=== PATIENT | female | born 1950 | race Caucasian/White ===

== ENCOUNTER 2016-09-12 13:44 | Inpatient (IN) ==
[2016-09-12 13:54] VITALS: BMI 43.6
[2016-09-12 14:23] LABS: ABG PH 7.428 (7.35-7.45)
[2016-09-12 14:24] LABS: ABG PCO2 50.3 mmHg (35-45)
[2016-09-12 14:25] LABS: ABG BASE EXCESS 9 (-2.0-2.0); ABG HCO3 33.3 (22.0-26.0); ABG TCO2 35 (22.0-28.0)
[2016-09-12 15:03] LABS: BASOPHILS % (AUTO) 0.4 % (0.0-3.0); EOSINOPHILS # (AUTO) 0.3 K/ul (0.0-0.7); EOSINOPHILS % (AUTO) 2.2 % (0.0-7.0); HEMATOCRIT 35.2 % (37.0-47.0); HEMOGLOBIN 10.3 g/dl (12.0-16.0); IMMATURE GRANULOCYTE % (AUTO) 0.4 % (0.0-5.0); LYMPHOCYTES # (AUTO) 1.4 K/uL (0.60-3.4); LYMPHOCYTES % (AUTO) 12.2 (10.0-50.0); MEAN CORPUSCULAR HEMOGLOBIN 23.4 pg (27.0-31.0); MEAN CORPUSCULAR HGB CONC 29.3 (31.8-35.4); MONOCYTES # (AUTO) 0.7 K/uL (0.4-2.0); NEUTROPHILS # (AUTO) 8.9 K/ul (2.0-6.9); NEUTROPHILS % (AUTO) 78.8; PLATELET COUNT 456 10^3/uL (140-440); WHITE BLOOD COUNT 11.24 K/ul (4.6-10.2)
[2016-09-12 15:28] LABS: ALBUMIN 3.3 g/dL (3.4-5.0); ALBUMIN/GLOBULIN RATIO 0.85; ANION GAP 14.3; BILIRUBIN,TOTAL 0.46 mg/dL (0.00-1.20); BUN/CREATININE RATIO 11.25; CALCIUM 9.7 mg/dL (8.2-10.2); CREATININE 0.8 mg/dL (0.60-1.30); POTASSIUM 3.3 mmol/L (3.5-5.10); TOTAL PROTEIN 7.2 g/dL (5.8-8.1); TROPONIN I 0.015 ng/ml (0.0000-0.4000)
[2016-09-12] MEDS ORDERED: SOLU-MEDROL 125 MG IVP STA (15:29)
[2016-09-12] MEDS ORDERED: DUONEB NEB STA (15:30)
--- NOTE | 2016-09-12 15:34 | ED.PDOC ---
General ED Provider: Dr. BOLIVAR FAIRCHILD Chief Complaint: Shortness of Air Stated Complaint: SHORTNESS OF BREATH Time Seen by Physician: 14:00 Mode of Arrival: Ambulance Information Source: Patient Exam Limitations: No limitations Primary [facility] and Triage Documentation Reviewed and Agree: Yes Respiratory Complaint Exam - Shortness of Air Complaint/Exam Symptoms Are: Resolved Timing: Intermittent Initial Severity: Moderate Current Severity: None Alleviating: Reports: Spontaneous resolution Associated Signs and Symptoms: Reports: Cough Related History: Reports: Similar episode History of Healthcare-Acquired Pneumonia: No Pulmonary Embolism Risk Factors: Reports: None Cardiac Risk Factors: Reports: None Pseudomonas Risk Factors: Reports: None Tuberculosis Risk Factors: Reports: None Home Oxygen Use: No Recent Stress Test: No Recent Echo/LV Function: No Respiratory Distress: None Stridor Present: No Tracheal Deviation: No Subcutaneous Emphysema: No Accessory Muscle Use: No Retractions: Not Present Diminished Breath Sounds: No Prolonged Expiratory Phase: No Unable to Speak Full Sentences: No Fatigue: No Leg Swelling: No Román's Sign Present: No Grunting Respirations: No Kussmaul Respirations: No Differential Diagnoses: Pneumonia, Bronchitis Review of Systems - Review Of Systems Constitutional: Reports: Malaise, Weakness Eyes: Reports: No symptoms Ears, Nose, Mouth, Throat: Reports: No symptoms Respiratory: Reports: Cough, Short of air Cardiac: Reports: No symptoms GI: Reports: No symptoms : Reports: No symptoms Musculoskeletal: Reports: No symptoms Skin: Reports: No symptoms Neurological: Reports: No symptoms Endocrine: Reports: No symptoms Hematologic/Lymphatic: Reports: No symptoms All Other Systems: Reviewed and Negative Past Medical History - Past Medical History Previously Healthy: Yes Endocrine: Reports: None Cardiovascular: Reports: None Respiratory: Reports: COPD Hematological: Reports: None Gastrointestinal: Reports: None Genitourinary: Reports: None Neuro/Psych: Reports: None Musculoskeletal: Reports: None Cancer: Reports: None Last Menstrual Period: n/a - Surgical History General Surgical History: Reports: None - Family History Family History: Reports: None - Social History Smoking Status: Former smoker Hx Substance Use: No Physical Exam - Physical Exam Appearance: Well-appearing, No pain distress, Well-nourished Eyes: SVETA, EOMI, Conjunctiva clear ENT: Ears normal, Nose normal, Oropharynx normal Respiratory: Airway patent, Breath sounds clear, Breath sounds equal, Respirations nonlabored Cardiovascular: RRR, Pulses normal, No rub, No murmur GI/: Soft, Nontender, No masses, Bowel sounds normal, No Organomegaly Musculoskeletal: Normal strength, ROM intact, No edema, No calf tenderness Skin: Warm, Dry, Normal color Neurological: Sensation intact, Motor intact, Reflexes intact, Cranial nerves intact, Alert, Oriented Psychiatric: Affect appropriate, Mood appropriate Critical Care Note - Critical Care Note Total Time (mins): 0 Course - Course Hematology/Chemistry: 09/12/16 14:47 09/12/16 14:47 Orders, Labs, Meds: Lab Review 09/12/16 09/12/16 14:05 14:47 WBC 11.24 H RBC 4.40 Hgb 10.3 L Hct 35.2 L MCV 80.0 L MCH 23.4 L MCHC 29.3 L RDW Coeff of Sia 15.0 H Plt Count 456 H Immature Gran % (Auto) 0.4 Neut % (Auto) 78.8 Lymph % (Auto) 12.2 Bonner % (Auto) 6.0 Eos % (Auto) 2.2 Baso % (Auto) 0.4 Immature Gran # (Auto) 0.1 Neut # 8.9 H Lymph # 1.4 Bonner # 0.7 Eos # 0.3 Baso # 0.0 D-Dimer (Manual) 1224.28 Puncture Site Lr O2 Saturation 86.0 L ABG pH 7.428 ABG pCO2 50.3 H ABG pO2 52.0 L* ABG HCO3 33.3 H ABG Total CO2 35 H ABG Base Excess 9 H Lion Test + O2 Delivery Device Nc Oxygen Liter Flow 3.00 FiO2 % 32.0 Sodium 143 Potassium 3.3 L Chloride 100 Carbon Dioxide 32 H Anion Gap 14.3 BUN 9 Creatinine 0.80 Estimated GFR (MDRD) 72.00 BUN/Creatinine Ratio 11.25 Glucose 92 Lactic Acid 12.2 Calcium 9.7 Total Bilirubin 0.46 AST 25 ALT 27 Alkaline Phosphatase 80 Total Creatine Kinase 94 Troponin I 0.0150 Total Protein 7.2 Albumin 3.3 L Globulin 3.9 Albumin/Globulin Ratio 0.85 Procalcitonin < 0.05 Orders Category Date Time Status ADMIT PATIENT INPATIENT .TO [facility] (MONITORED BED) ADMISSION 09/12/16 15: 23 Active ABG DRAW REQUEST Stat CARDIO 09/12/16 14:05 Completed EKG-(ED ONLY) Stat CARDIO 09/12/16 14:06 Completed EKG-(IP & OP ONLY) DAILY CARDIO 09/13/16 06:00 Ordered EKG-(IP & OP ONLY) DAILY CARDIO 09/14/16 06:00 Ordered EKG-(IP & OP ONLY) DAILY CARDIO 09/15/16 06:00 Ordered NEBULIZER TREATMENT Routine CARDIO 09/12/16 15:30 Active NEBULIZER TREATMENT Stat CARDIO 09/12/16 15:30 Completed OXYGEN Routine CARDIO 09/12/16 15:27 Active ACTIVITY .Complete BR CARE 09/12/16 15:23 Active TELEMETRY MONITORING TELE CARE 09/12/16 15:27 Active VITAL SIGNS Q8HR CARE 09/12/16 15:23 Active REGULAR DIET DIETARY 09/12/16 Dinner Ordered ABG Stat LAB 09/12/16 14:05 Completed BLOOD CULTURE Stat LAB 09/12/16 14:47 Received CBC W/ AUTO DIFF DAILY@0600 LAB 09/13/16 06:00 Ordered CBC W/ AUTO DIFF DAILY@0600 LAB 09/14/16 06:00 Ordered CBC W/ AUTO DIFF DAILY@0600 LAB 09/15/16 06:00 Ordered CBC W/ AUTO DIFF DAILY@0600 LAB 09/16/16 06:00 Ordered CBC W/ AUTO DIFF DAILY@0600 LAB 09/17/16 06:00 Ordered CBC W/ AUTO DIFF DAILY@0600 LAB 09/18/16 06:00 Ordered CBC W/ AUTO DIFF DAILY@0600 LAB 09/19/16 06:00 Ordered CBC W/ AUTO DIFF DAILY@0600 LAB 09/20/16 06:00 Ordered CBC W/ AUTO DIFF DAILY@0600 LAB 09/21/16 06:00 Ordered CBC W/ AUTO DIFF DAILY@0600 LAB 09/22/16 06:00 Ordered CBC W/ AUTO DIFF DAILY@0600 LAB 09/23/16 06:00 Ordered CBC W/ AUTO DIFF DAILY@0600 LAB 09/24/16 06:00 Ordered CBC W/ AUTO DIFF DAILY@0600 LAB 09/25/16 06:00 Ordered CBC W/ AUTO DIFF DAILY@0600 LAB 09/26/16 06:00 Ordered CBC W/ AUTO DIFF DAILY@0600 LAB 09/27/16 06:00 Ordered CBC W/ AUTO DIFF DAILY@0600 LAB 09/28/16 06:00 Ordered CBC W/ AUTO DIFF DAILY@0600 LAB 09/29/16 06:00 Ordered CBC W/ AUTO DIFF DAILY@0600 LAB 09/30/16 06:00 Ordered CBC W/ AUTO DIFF DAILY@0600 LAB 10/01/16 06:00 Ordered CBC W/ AUTO DIFF DAILY@0600 LAB 10/02/16 06:00 Ordered CBC W/ AUTO DIFF Stat LAB 09/12/16 14:47 Completed COMPREHENSIVE METABOLIC PANEL DAILY@0600 LAB 09/13/16 06:00 Ordered COMPREHENSIVE METABOLIC PANEL DAILY@0600 LAB 09/14/16 06:00 Ordered COMPREHENSIVE METABOLIC PANEL DAILY@0600 LAB 09/15/16 06:00 Ordered COMPREHENSIVE METABOLIC PANEL DAILY@0600 LAB 09/16/16 06:00 Ordered COMPREHENSIVE METABOLIC PANEL DAILY@0600 LAB 09/17/16 06:00 Ordered COMPREHENSIVE METABOLIC PANEL DAILY@0600 LAB 09/18/16 06:00 Ordered COMPREHENSIVE METABOLIC PANEL DAILY@0600 LAB 09/19/16 06:00 Ordered COMPREHENSIVE METABOLIC PANEL DAILY@0600 LAB 09/20/16 06:00 Ordered COMPREHENSIVE METABOLIC PANEL DAILY@0600 LAB 09/21/16 06:00 Ordered COMPREHENSIVE METABOLIC PANEL DAILY@0600 LAB 09/22/16 06:00 Ordered COMPREHENSIVE METABOLIC PANEL DAILY@0600 LAB 09/23/16 06:00 Ordered COMPREHENSIVE METABOLIC PANEL DAILY@0600 LAB 09/24/16 06:00 Ordered COMPREHENSIVE METABOLIC PANEL DAILY@0600 LAB 09/25/16 06:00 Ordered COMPREHENSIVE METABOLIC PANEL DAILY@0600 LAB 09/26/16 06:00 Ordered COMPREHENSIVE METABOLIC PANEL DAILY@0600 LAB 09/27/16 06:00 Ordered COMPREHENSIVE METABOLIC PANEL DAILY@0600 LAB 09/28/16 06:00 Ordered COMPREHENSIVE METABOLIC PANEL DAILY@0600 LAB 09/29/16 06:00 Ordered COMPREHENSIVE METABOLIC PANEL DAILY@0600 LAB 09/30/16 06:00 Ordered COMPREHENSIVE METABOLIC PANEL DAILY@0600 LAB 10/01/16 06:00 Ordered COMPREHENSIVE METABOLIC PANEL DAILY@0600 LAB 10/02/16 06:00 Ordered COMPREHENSIVE METABOLIC PANEL Stat LAB 09/12/16 14:47 Completed CREATINE KINASE Q8H LAB 09/12/16 21:30 Ordered CREATINE KINASE Q8H LAB 09/13/16 05:30 Ordered CREATINE KINASE Stat LAB 09/12/16 14:47 Completed D-DIMER Stat LAB 09/12/16 14:47 Completed LACTIC ACID Stat LAB 09/12/16 14:47 Completed PROCALCITONIN Stat LAB 09/12/16 14:47 Completed TROPONIN I Q8H LAB 09/12/16 21:30 Ordered TROPONIN I Q8H LAB 09/13/16 05:30 Ordered TROPONIN I Stat LAB 09/12/16 14:47 Completed Aspirin [Aspirin Chewable] MEDS 09/13/16 08:00 Active 81 mg PO DAILYWM Ceftriaxone Sodium [Rocephin] 1 gm MEDS 09/12/16 15:30 Active 0.9 % Sodium Chloride [Sodium Chloride] 50 ml IV DAILY Ipratropium/Albuterol Neb [Duoneb] MEDS 09/12/16 15:30 Discontinued 1 vial NEB ONCE STA Ipratropium/Albuterol Neb [Duoneb] MEDS 09/12/16 18:00 Active 1 vial NEB RTQ6H Methylprednisolone Sod Succ/Pf [Solu-Medrol 125 mg] MEDS 09/12/16 15:29 Discontinued 125 mg IVP ONCE STA Methylprednisolone Sod Succ/Pf [Solu-Medrol 40 mg] MEDS 09/12/16 21:00 Active 40 mg IVP Q12HR Potassium Chloride [Micro-K Cap] MEDS 09/12/16 21:00 Active 10 meq PO BID Sodium Chloride 0.9% [Sodium Chloride] 1,000 ml MEDS 09/12/16 15:30 Active IV 75 mls/hr CHEST, 2 VIEWS PA & LAT Stat RADS 09/12/16 14:05 Completed Medications Generic Name Dose Route Start Last Admin Trade Name Freq PRN Reason Stop Dose Admin Albuterol/Ipratropium 1 vial 09/12/16 18:00 Duoneb NEB RTQ6H BECKY Aspirin 81 mg 09/13/16 08:00 Aspirin Chewable PO DAILYWM BECKY Sodium Chloride 1,000 mls @ 75 mls/hr 09/12/16 15:30 Sodium Chloride IV .[id number] BECKY Ceftriaxone Sodium 1 gm/ 50 mls @ 75 mls/hr 09/12/16 15:30 Sodium Chloride IV DAILY BECKY Methylprednisolone Sodium Succinate 40 mg 09/12/16 21:00 Solu-Medrol 40 Mg IVP Q12HR BECKY Potassium Chloride 10 meq 09/12/16 21:00 Micro-K Cap PO BID BECKY Torsemide 20 mg 09/12/16 17:00 Demadex PO BIDAC BECKY Discontinued Medications Generic Name Dose Route Start Last Admin Trade Name Veronica PRN Reason Stop Dose Admin Albuterol/Ipratropium 1 vial 09/12/16 15:30 09/12/16 15:44 Duoneb NEB 09/12/16 15:31 1 vial ONCE STA Administration Methylprednisolone Sodium Succinate 125 mg 09/12/16 15:29 09/12/16 16:08 Solu-Medrol 125 Mg IVP 09/12/16 15:30 125 mg ONCE STA Administration Vital Signs: Temp Pulse Resp BP Pulse Ox 09/12/16 13:46 102 F H 113 H 24 147/75 H 90 L Departure - Departure Time of Disposition: 17:24 Disposition: ADMITTED INPATIENT Discharge Problem: COPD exacerbation Condition: Good Pt referred to PMD for follow-up: No Allergies/Adverse Reactions: Allergies Penicillins Adverse Reaction (Verified 09/12/16 13:57) Home Medications: Ambulatory Orders Albuterol Sulfate [Proair Hfa] 2 puff IH BID 09/12/16 Aspirin 81 mg PO DAILY 09/12/16 Budesonide/Formoterol Fumarate [Symbicort 160-4.5 Mcg Inhaler] 2 puff IH BID Potassium Chloride [Micro-K Cap] 10 meq PO BID 09/12/16 Tiotropium [place] [Spiriva] 1 cap IH DAILY 09/12/16 Torsemide [Demadex] 20 mg PO BID 09/12/16 Disposition Discussed With: Patient
--- NOTE | 2016-09-12 15:56 | DI ---
EXAM: Chest two views CLINICAL INDICATION: Shortness of breath. COMPARISON: None available. FINDINGS: PA and lateral views of the thorax are provided. The pulmonary parenchyma is clear and there is no pleural abnormality. The cardiomediastinal silhou ette and visualized bony structures are unremarkable. IMPRESSION: Negative chest x-ray.
--- NOTE | 2016-09-12 16:54 | US ---
EXAM: Bilateral lower extremity venous Doppler sonogram. CLINICAL INDICATION: Chronic bilateral lower extremity pain, tenderness and swelling. Rule out DV T. FINDINGS: There is normal compression, spontaneous color Doppler flow and augmentation demonstrated between th e region of the bilateral trifurcations through to the bilateral common femoral veins. IMPRESSION: No bilateral lower extremity DVT.
--- NOTE | 2016-09-12 17:21 | CT ---
EXAM: CTA of the chest. History: Elevated D-dimer, chest pain. Comparison: Chest radiograph 09/12/2016 Technique: Multiplanar CT images through the thorax were obtained following administration of IV co ntrast. MIP images and 3-D reconstructions were also acquired. Findings: Heart is borderline enlarged. No pericardial effusion. Great vessels are unremarkable. The pulmonary arteries are not well opacified with contrast material. No large central pulmonary e mbolism is identified. No pathologically enlarged axillary lymph nodes. Small scattered mediastinal lymph nodes. No hilar adenopathy. Emphysema. No pneumothorax. Scattered areas of subsegmental atelectasis. No pleural fluid. No dens bri consolidated pneumonia. Peripheral reticular opacities. No suspicious lung masses or lung nodul es. Interlobular septal thickening. Subtle bilateral ground-glass changes. Within the visualized upper abdomen, no acute findings. No acute osseous abnormalities. Impression: 1. The pulmonary arteries are not well opacified but no large central pulmonary embolism is identif ied. 2. Interlobular septal thickening with bilateral ground-glass changes could be due to edema or nons pecific interstitial pneumonitis. 3. Scattered areas of subsegmental atelectasis. 4. Mild emphysema
[2016-09-12] MEDS ORDERED: ROCEPHIN ONE (17:26)
[2016-09-12] MEDS: ROCEPHIN 1 GM in SODIUM CHLORIDE 50 ML IV SCH (17:33)
[2016-09-12] MEDS: DUONEB NEB SCH ×2 (17:55→22:52)
[2016-09-12] MEDS: SODIUM CHLORIDE 1,000 ML IV SCH (19:16)
[2016-09-12] MEDS: DEMADEX PO SCH (19:43)
[2016-09-12] MEDS: MICRO-K CAP PO SCH (20:03)
[2016-09-12] MEDS: SOLU-MEDROL 40 MG IVP SCH (20:03)
[2016-09-12] MEDS ORDERED: TORSEMIDE 20 MG PO SCH (21:00)
[2016-09-12 21:53] LABS: CREATINE KINASE 81 U/L
[2016-09-13] MEDS ORDERED: DUONEB NEB PRN (01:37)
[2016-09-13] MEDS ORDERED: SOLU-MEDROL 40 MG IVP STA (02:04)
[2016-09-13 02:23] LABS: ABG PH 7.349 (7.35-7.45)
[2016-09-13 02:24] LABS: ABG BASE EXCESS 7 (-2.0-2.0); ABG HCO3 32.3 (22.0-26.0); ABG PCO2 58.7 mmHg (35-45)
[2016-09-13 02:25] LABS: ABG TCO2 34 (22.0-28.0)
[2016-09-13 03:54] LABS: ABG BASE EXCESS 9 (-2.0-2.0); ABG HCO3 33 (22.0-26.0); ABG PCO2 46.6 mmHg (35-45); ABG PH 7.458 (7.35-7.45); ABG TCO2 34 (22.0-28.0)
[2016-09-13 05:19] LABS: BASOPHILS % (AUTO) 0.3 % (0.0-3.0); HEMATOCRIT 35.4 % (37.0-47.0); HEMOGLOBIN 10.4 g/dl (12.0-16.0); IMMATURE GRANULOCYTE % (AUTO) 0.4 % (0.0-5.0); LYMPHOCYTES # (AUTO) 0.7 K/uL (0.60-3.4); LYMPHOCYTES % (AUTO) 6.4 (10.0-50.0); MEAN CORPUSCULAR HEMOGLOBIN 23.1 pg (27.0-31.0); MEAN CORPUSCULAR HGB CONC 29.4 (31.8-35.4); MEAN CORPUSCULAR VOLUME 78.7 fl (81.0-99.0); MONOCYTES # (AUTO) 0.1 K/uL (0.4-2.0); MONOCYTES % (AUTO) 0.6 (0-10); NEUTROPHILS # (AUTO) 10.3 K/ul (2.0-6.9); NEUTROPHILS % (AUTO) 92.3; PLATELET COUNT 459 10^3/uL (140-440); WHITE BLOOD COUNT 11.14 K/ul (4.6-10.2)
[2016-09-13] MEDS: DUONEB NEB SCH ×4 (05:19→23:29)
[2016-09-13 05:38] LABS: ALBUMIN 3.2 g/dL (3.4-5.0); ALBUMIN/GLOBULIN RATIO 0.78; ANION GAP 11.7; BILIRUBIN,TOTAL 0.29 mg/dL (0.00-1.20); BUN/CREATININE RATIO 15.47; CALCIUM 9.2 mg/dL (8.2-10.2); CREATININE 0.84 mg/dL (0.60-1.30); POTASSIUM 3.7 mmol/L (3.5-5.10); TOTAL PROTEIN 7.3 g/dL (5.8-8.1)
[2016-09-13 05:46] LABS: TROPONIN I 0.01 ng/ml (0.0000-0.4000)
[2016-09-13] MEDS: DEMADEX PO SCH ×2 (06:10→16:27)
[2016-09-13] MEDS: ASPIRIN CHEWABLE PO SCH (08:12)
[2016-09-13] MEDS: ROCEPHIN 1 GM in SODIUM CHLORIDE 50 ML IV SCH (08:12)
[2016-09-13] MEDS: MICRO-K CAP PO SCH ×2 (08:12→20:20)
[2016-09-13] MEDS: SODIUM CHLORIDE 1,000 ML IV SCH (08:13)
[2016-09-13] MEDS: SOLU-MEDROL 40 MG IVP SCH ×2 (08:51→20:19)
[2016-09-13] MEDS ORDERED: K-DUR PO STA (14:39)
[2016-09-13] MEDS ORDERED: LASIX IVP STA (14:40)
[2016-09-14 04:58] LABS: BASOPHILS % (AUTO) 0.2 % (0.0-3.0); HEMATOCRIT 36.7 % (37.0-47.0); HEMOGLOBIN 10.7 g/dl (12.0-16.0); IMMATURE GRANULOCYTE % (AUTO) 1.9 % (0.0-5.0); LYMPHOCYTES # (AUTO) 1.3 K/uL (0.60-3.4); LYMPHOCYTES % (AUTO) 4.8 (10.0-50.0); MEAN CORPUSCULAR HEMOGLOBIN 23.1 pg (27.0-31.0); MEAN CORPUSCULAR HGB CONC 29.2 (31.8-35.4); MEAN CORPUSCULAR VOLUME 79.3 fl (81.0-99.0); MONOCYTES # (AUTO) 0.6 K/uL (0.4-2.0); MONOCYTES % (AUTO) 2.3 (0-10); NEUTROPHILS # (AUTO) 23.5 K/ul (2.0-6.9); NEUTROPHILS % (AUTO) 90.8; PLATELET COUNT 547 10^3/uL (140-440); RED BLOOD COUNT 4.63 10^6/ul (4.20-5.40); WHITE BLOOD COUNT 25.89 K/ul (4.6-10.2)
[2016-09-14 05:23] LABS: ALBUMIN 3.3 g/dL (3.4-5.0); ALBUMIN/GLOBULIN RATIO 0.83; ANION GAP 14.3; BILIRUBIN,TOTAL 0.24 mg/dL (0.00-1.20); BUN/CREATININE RATIO 25.26; CALCIUM 9.2 mg/dL (8.2-10.2); CREATININE 0.95 mg/dL (0.60-1.30); POTASSIUM 4.3 mmol/L (3.5-5.10); TOTAL PROTEIN 7.3 g/dL (5.8-8.1)
[2016-09-14 05:23] LABS: ABG PH 7.374 (7.35-7.45)
[2016-09-14 05:29] LABS: ABG BASE EXCESS 13 (-2.0-2.0); ABG HCO3 37.8 (22.0-26.0); ABG PCO2 64.8 mmHg (35-45); ABG TCO2 40 (22.0-28.0)
[2016-09-14] MEDS: DEMADEX PO SCH ×2 (05:38→17:15)
[2016-09-14] MEDS: DUONEB NEB SCH ×4 (05:42→23:11)
[2016-09-14] MEDS: SODIUM CHLORIDE 1,000 ML IV SCH ×2 (05:43→09:55)
[2016-09-14] MEDS ORDERED: SODIUM CHLORIDE 1,000 ML IV SCH (07:33)
[2016-09-14] MEDS: SODIUM CHLORIDE 500 ML IV SCH ×2 (07:52→07:54)
[2016-09-14] MEDS: MICRO-K CAP PO SCH ×2 (08:53→20:15)
[2016-09-14] MEDS: ROCEPHIN 1 GM in SODIUM CHLORIDE 50 ML IV SCH (08:53)
[2016-09-14] MEDS: ASPIRIN CHEWABLE PO SCH (08:53)
[2016-09-14] MEDS: SOLU-MEDROL 40 MG IVP SCH ×2 (09:27→20:16)
[2016-09-15 05:01] LABS: BASOPHILS % (AUTO) 0.2 % (0.0-3.0); HEMATOCRIT 36.6 % (37.0-47.0); HEMOGLOBIN 10.9 g/dl (12.0-16.0); IMMATURE GRANULOCYTE % (AUTO) 2.5 % (0.0-5.0); LYMPHOCYTES # (AUTO) 1.5 K/uL (0.60-3.4); LYMPHOCYTES % (AUTO) 7.3 (10.0-50.0); MEAN CORPUSCULAR HEMOGLOBIN 23.3 pg (27.0-31.0); MEAN CORPUSCULAR HGB CONC 29.8 (31.8-35.4); MEAN CORPUSCULAR VOLUME 78.2 fl (81.0-99.0); MONOCYTES # (AUTO) 0.4 K/uL (0.4-2.0); MONOCYTES % (AUTO) 1.7 (0-10); NEUTROPHILS # (AUTO) 18.2 K/ul (2.0-6.9); NEUTROPHILS % (AUTO) 88.3; PLATELET COUNT 565 10^3/uL (140-440); RED BLOOD COUNT 4.68 10^6/ul (4.20-5.40); WHITE BLOOD COUNT 20.58 K/ul (4.6-10.2)
[2016-09-15 05:03] LABS: ABG BASE EXCESS 14 (-2.0-2.0); ABG HCO3 38.5 (22.0-26.0); ABG PCO2 57.6 mmHg (35-45); ABG PH 7.433 (7.35-7.45); ABG TCO2 40 (22.0-28.0)
[2016-09-15 05:19] LABS: ALBUMIN 3.5 g/dL (3.4-5.0); ALBUMIN/GLOBULIN RATIO 0.9; ANION GAP 15.9; BILIRUBIN,TOTAL 0.26 mg/dL (0.00-1.20); BUN/CREATININE RATIO 36.36; CALCIUM 9.4 mg/dL (8.2-10.2); CREATININE 0.88 mg/dL (0.60-1.30); POTASSIUM 3.9 mmol/L (3.5-5.10); TOTAL PROTEIN 7.4 g/dL (5.8-8.1)
[2016-09-15] MEDS: DEMADEX PO SCH ×2 (05:30→16:03)
[2016-09-15] MEDS: DUONEB NEB SCH ×4 (05:39→23:12)
[2016-09-15] MEDS: ASPIRIN CHEWABLE PO SCH (07:31)
[2016-09-15] MEDS: ROCEPHIN 1 GM in SODIUM CHLORIDE 50 ML IV SCH (08:20)
[2016-09-15] MEDS: MICRO-K CAP PO SCH ×2 (08:20→20:07)
[2016-09-15] MEDS: SOLU-MEDROL 40 MG IVP SCH ×2 (08:47→20:25)
[2016-09-15] MEDS: CELEXA PO SCH (08:47)
[2016-09-15] MEDS: LOVENOX SUBCUT SCH (09:23)
[2016-09-15] MEDS: SODIUM CHLORIDE 1,000 ML IV SCH ×2 (13:00→13:01)
[2016-09-15] MEDS ORDERED: SODIUM CHLORIDE 1,000 ML IV ONE (13:01)
--- NOTE | 2016-09-15 13:22 | PN ---
DATE OF SERVICE: 09/13/16 SUBJECTIVE: The patient was admitted with the COPD exacerbation and bronchitis. Over the night the respiratory has to call me, Mr. Aguilera as patient was sleepy, no lethargic. ABG's were done pCO2 was 58. The patient was started on the BIPAP by morning her pCO2 46. Right now the patient is awake and alert having her breakfast. She says that it does happen whenever she goes to the hospital and never has to be intubated. She sees the technical spec Dr. [place]. Shortness of breath is some better but still having some cough. She is sad being by herself here in [place] where she has no one. REVIEW OF SYSTEMS: CONSTITUTIONAL: No fever, no chills. HEENT: Normal. ENDOCRINE: No weight gain, no weight loss. CVS: No angina symptoms. No CHF symptoms. No palpitations. No atypical chest pain for CAD. No shortness of breath. No PND, no orthopnea. RESPIRATORY: No cough, no hemoptysis. GI: No nausea, no vomiting. No abdominal pain. : No hematuria. No polyuria. MUSCULOSKELETAL:. No joint swelling. PSYCHIATRIC: Not anxious. No depression. No suicidal thoughts. No homicidal thoughts. SKIN: Intact. No rash. PHYSICAL EXAMINATION: V/S: Blood pressure 111/76, respiratory rate 20, heart rate 94, temperature 97.4 and saturation 90% on BIPAP on 2 liters. HEENT: Normocephalic, atraumatic. Mucosa dry. Pallor positive. No icterus. NECK: Supple. No JVD, no carotid bruit. No lymphadenopathy. LUNGS: Basilar crackles and decreased entry. No rales or rhonchi. HEART: S1, S2 normal. No S3. No murmur, gallop or regurgitation. ABDOMEN: Soft, nontender. Bowel sounds active. No rigidity. No rebound or guarding. No CVA tenderness. EXTREMITIES: No clubbing, cyanosis. 1+ edema. MUSCULOSKELETAL: No joint swelling. NEUROLOGIC: Awake, alert, oriented times three. No focal deficit. LYMPHATIC: No lymph nodes palpable. SKIN: Intact. Dry. LABS: WBC 11.14, hgb 10.4, hct 35.4, plt count 459, sodium 142, potassium 3.7, chloride 103, bibcarb 31, BUN 13, creatinine 0.84. ASSESSMENT: 1. COPD EXACERBATION SECONDARY TO BRONCHITIS 2. RESPIRATORY FAILURE, ACUTE ON CHRONIC 3. ANEMIA, RULE OUT GI BLEED 4. HYPERTENSION 5. DYSLIPIDEMIA 6. DEPENDENT EDEMA 7. OSTEOARTHRITIS 8. RHEUMATOID ARTHRITIS PLAN: 1. Continue the Rocephin 2. DUO NEBS Q 6 hours 3. Solu-Medrol 40mg Q 8 hours 4. IV fluids at 30ml per hour 5. Daily I&O's 6. Will follow the patient in daily rounds. TIME SPENT: More than 30 minutes DONNA
--- NOTE | 2016-09-15 13:32 | PN ---
DATE OF SERVICE: 09/14/16 SUBJECTIVE: The patient was admitted with the COPD exacerbation and hypoxemia. The patient is desaturating during the nighttime and getting the CO2 Narcosis and BIPAP is helping her a lot. She is more awake and alert. REVIEW OF SYSTEMS: CONSTITUTIONAL: No fever, no chills. HEENT: Normal. ENDOCRINE: No weight gain, no weight loss. CVS: No angina symptoms. No CHF symptoms. No palpitations. No atypical chest pain for CAD. No shortness of breath. No PND, no orthopnea. RESPIRATORY: Some coughing, no hemoptysis. GI: No nausea, no vomiting. No abdominal pain. : No hematuria. No polyuria. MUSCULOSKELETAL:. No joint swelling. Minimal ambulatory with secondary to the shortness of breath. PSYCHIATRIC: Not anxious. No depression. No suicidal thoughts. No homicidal thoughts. SKIN: Intact. No rash. PHYSICAL EXAMINATION: V/S: blood pressure 131/73, respiratory rate 24, heart rate 105, temperature 98. HEENT: Normocephalic, atraumatic. Mucosa dry. Pallor positive. No icterus. NECK: Supple. No JVD, no carotid bruit. No lymphadenopathy. LUNGS: Decreased and basilar crackles. No rales or rhonchi. HEART: S1, S2 normal. No S3. No murmur, gallop or regurgitation. ABDOMEN: Soft, nontender. Bowel sounds active. No rigidity. No rebound or guarding. No CVA tenderness. EXTREMITIES: No clubbing, cyanosis or pedal edema. MUSCULOSKELETAL: No joint swelling. NEUROLOGIC: Awake, alert, oriented times three. No focal deficit. LYMPHATIC: No lymph nodes palpable. SKIN: Intact. LABS: WBC 25.89, hg b10.7, hct 36.7, lipid is 547, sodium 145, potassium 4.3, chloride 101, bibcarb 34, BUN 24, creatinine 0.95. ASSESSMENT: 1. COPD exacerbation secondary to the bronchitis and pneumonitis 2. Respiratory failure 3. Anemia, rule out GI bleed 4. Hypertension 5. Dyslipidemia 6. Obesity 7. Dependant edema 8. Coronary artery disease PLAN: 1. Continue the Rocephin 1 gram daily 2. Solu-Medrol 40mg Q 8 hours 3. Daily I&O's 4. Out of bed to chair activity as tolerated 5. Lovenox for the DVT prophylaxis Will follow the patient in daily rounds. TIME SPENT: More than 30 minutes MTDD
--- NOTE | 2016-09-15 13:33 | HP ---
DATE OF SERVICE: 09/12/16 CHIEF COMPLAINT: Shortness of breath. HISTORY OF PRESENT ILLNESS: This is a 66-year-old female with COPD, dependent on oxygen, moved recently from [place], [place] to settle down and establish care at the [facility]. She was seen by Radha Ceja at [facility]. The patient was hypoxic with saturation of 75 to 80%. EMT was called and transferred the patient to the emergency room. Vitals in the emergency room showed saturation 90% on 3L, temperature 102. ABGs were done. Dr. Ascencio saw the patient ABG showed pH of 7.428, pc02 28, p02 52. D. dimer was elevated 1224. At that time, Venous Doppler was done which was negative. CT chest with contrast was done which was negative for pneumonia but did show some pneumonitis. At that time, the patient is admitted to the hospital for COPD exacerbation with acute on chronic respiratory failure, COPD exacerbation, pneumonitis and hypoxemia. REVIEW OF SYSTEMS: CONSTITUTIONAL: Weakness, tiredness. No fever, no chills. HEENT: Normal. ENDOCRINE: No weight gain; no weight loss. CVS: No chest pain. No PND, no orthopnea. No shortness of breath. No PND, no orthopnea. RESPIRATORY: Cough and congestion. No hemoptysis. GI: No nausea, no vomiting. No abdominal pain. No melena. : No hematuria. No polyuria. MUSCULOSKELETAL: No joint swelling. PSYCHIATRIC: The patient has been sad moving from a different place to here. Not anxious. No depression. No suicidal thoughts. No homicidal thoughts. SKIN: Intact, no open lesions. PAST MEDICAL HISTORY: 1. COPD on oxygen 2. Hypertension 3. Dyslipidemia 4. Rheumatoid arthritis 5. Osteoarthritis 6. Coronary artery disease - she sees a financial center manager in [place], does not specific what type of heart problem it is. PAST SURGICAL HISTORY: None PERSONAL HISTORY: Does not smoke or drink. Single. Lives by herself. The son is there and helps her sometime but not all the time. FAMILY HISTORY: Significant for rheumatic fever and diabetes. MEDICATIONS: (HOME) 1. Potassium 2. ProAir 3. Symbicort 4. Demodex 5. Spiriva 6. Aspirin ALLERGIES: PENICILLIN PHYSICAL EXAMINATION: V/S: BP 136/86, respiratory rate 20, heart rate 102, temperature 97.3 now. Saturation 91% on 3L HEENT: Atraumatic, normocephalic. No scleral icterus. Pallor positive. Mucosa dry. NECK: Supple. No JVD, no bruit. No lymphadenopathy. No thyromegaly. HEART: S1, S2 normal. No murmur. No cyanosis or clubbing. No ascites. LUNGS: Decreased with basilar crackles. No rales or rhonchi. ABDOMEN: Soft, nontender. Bowel sounds are active. No CVA tenderness. No rigidity or guarding. EXTREMITIES: No cyanosis, clubbing. 1+ edema in both lower extremities. MUSCULOSKELETAL: Normal joints, no swelling. NEUROLOGIC: The patient is awake, alert, oriented times three. SKIN: Intact; no open lesions. LYMPHATIC: No lymph nodes palpable. LABS: White count 11.24, hemoglobin 10.3, hematocrit 35.2, platelet count 456. D. dimer 1224. ABG showed pH 7.428, pc02 50.3, p02 52.0. Sodium 143, potassium 4.3, chloride 100, bicarb 32, BUN 9, creatinine 0.80. First set of cardiac enzymes are negative. Procalcitonin is negative. ASSESSMENT: 1. COPD EXACERBATION SECONDARY TO BRONCHITIS 2. RESPIRATORY FAILURE, ACUTE ON CHRONIC 3. ANEMIA, RULE OUT GI BLEED 4. HYPERTENSION 5. DYSLIPIDEMIA 6. DEPENDENT EDEMA 7. OSTEOARTHRITIS 8. RHEUMATOID ARTHRITIS PLAN: 1. Admit the patient to the regular floor. 2. CBC/CMP today and daily. 3. Cardiac enzymes and troponin. 4. Rocephin 1 gm daily. 5. Solu-Medrol 40 mg q.12hr. 6. Duonebs. 7. IV fluids at 30 mL/hr. 8. Daily I & O's. 9. Will follow the patient in daily rounds. TIME SPENT: More than 70 minutes today. DONNA
--- NOTE | 2016-09-15 14:27 | PN ---
DATE OF SERVICE: 09/15/16 SUBJECTIVE: The patient is laying in the bed and not in any distress. The patient expressed that she is sad and has been crying and wants to talk to mental health with the nurses but no suicidal thoughts or ideation. The patient's latest information that the patient can not go back home where she was partially living. The place that she can not return to there was some problem with the place so she needs to be place somewhere now. REVIEW OF SYSTEMS: CONSTITUTIONAL: No fever, no chills. HEENT: Normal. ENDOCRINE: No weight gain, no weight loss. CVS: No angina symptoms. No CHF symptoms. No palpitations. No atypical chest pain for CAD. Shortness of breath with minimal exertion. No PND, no orthopnea. RESPIRATORY: No cough, no hemoptysis. GI: No nausea, no vomiting. No abdominal pain. : No hematuria. No polyuria. MUSCULOSKELETAL:. No joint swelling. PSYCHIATRIC: Tearful. Not anxious. No depression. No suicidal thoughts. No homicidal thoughts. SKIN: Intact. No rash. PHYSICAL EXAMINATION: V/S: Blood pressure 117/75, respiratory rate 19, heart rate 93, temperature 98.2 and saturation 91 on 3 liters. HEENT: Normocephalic, atraumatic. Mucosa dry. NECK: Supple. No JVD, no carotid bruit. No lymphadenopathy. LUNGS: Bilateral entry is decreased and clear to auscultation. No rales or rhonchi. HEART: S1, S2 normal. No S3. No murmur, gallop or regurgitation. ABDOMEN: Soft, nontender. Bowel sounds active. No rigidity. No rebound or guarding. No CVA tenderness. EXTREMITIES: No clubbing, cyanosis. 1+ edema. MUSCULOSKELETAL: No joint swelling. NEUROLOGIC: Awake, alert, oriented times three. No focal deficit. LYMPHATIC: No lymph nodes palpable. SKIN: Intact. LABS: WBC 20.58, hgb 10.9, hct 36.6, plt count 565, sodium 144, potassium 3.9, chloride 98, bicarb 34, BUN 32, creatine 0.88. Glucose 133 ASSESSMENT: 1. COPD exacerbation secondary to the pneumonitis 2. Respiratory failure, chronic 3. Hypertension 4. Anemia, rule out GI bleed 5. Dyslipidemia 6. Dependent edema 7. Depression PLAN: 1. Return the patient on Celexa 20mg 2. Anemia Profile 3. Stool for Occult blood 4. CT of abdomen and pelvis 5. Lovenox for the DVT prophylaxis 6. Daily I&O's Will follow the patient in daily rounds. TIME SPENT: More than 30 minutes MTDD
[2016-09-16 04:46] LABS: BASOPHILS % (AUTO) 0.2 % (0.0-3.0); HEMATOCRIT 37.9 % (37.0-47.0); HEMOGLOBIN 11.2 g/dl (12.0-16.0); IMMATURE GRANULOCYTE % (AUTO) 1.3 % (0.0-5.0); LYMPHOCYTES # (AUTO) 1.5 K/uL (0.60-3.4); LYMPHOCYTES % (AUTO) 8.3 (10.0-50.0); MEAN CORPUSCULAR HEMOGLOBIN 23.1 pg (27.0-31.0); MEAN CORPUSCULAR HGB CONC 29.6 (31.8-35.4); MEAN CORPUSCULAR VOLUME 78.3 fl (81.0-99.0); MONOCYTES # (AUTO) 0.4 K/uL (0.4-2.0); MONOCYTES % (AUTO) 2.3 (0-10); NEUTROPHILS # (AUTO) 15.4 K/ul (2.0-6.9); NEUTROPHILS % (AUTO) 87.9; PLATELET COUNT 573 10^3/uL (140-440); RED BLOOD COUNT 4.84 10^6/ul (4.20-5.40); WHITE BLOOD COUNT 17.53 K/ul (4.6-10.2)
[2016-09-16] MEDS: DUONEB NEB SCH ×4 (05:09→23:14)
[2016-09-16 05:10] LABS: ALBUMIN 3.5 g/dL (3.4-5.0); ALBUMIN/GLOBULIN RATIO 0.95; ANION GAP 16.1; BILIRUBIN,TOTAL 0.29 mg/dL (0.00-1.20); BUN/CREATININE RATIO 38.37; CALCIUM 9.7 mg/dL (8.2-10.2); CREATININE 0.86 mg/dL (0.60-1.30); POTASSIUM 4.1 mmol/L (3.5-5.10); TOTAL PROTEIN 7.2 g/dL (5.8-8.1)
[2016-09-16 05:13] LABS: ABG PH 7.377 (7.35-7.45)
[2016-09-16 05:14] LABS: ABG BASE EXCESS 13 (-2.0-2.0); ABG HCO3 38.4 (22.0-26.0); ABG PCO2 65.4 mmHg (35-45); ABG TCO2 40 (22.0-28.0)
[2016-09-16] MEDS: DEMADEX PO SCH ×2 (05:41→17:07)
[2016-09-16] MEDS: ROCEPHIN 1 GM in SODIUM CHLORIDE 50 ML IV SCH (08:43)
[2016-09-16] MEDS: CELEXA PO SCH (08:44)
[2016-09-16] MEDS: ASPIRIN CHEWABLE PO SCH (08:44)
[2016-09-16] MEDS: MICRO-K CAP PO SCH ×2 (08:45→20:12)
[2016-09-16] MEDS: LOVENOX SUBCUT SCH (08:45)
[2016-09-16] MEDS: SOLU-MEDROL 40 MG IVP SCH ×2 (08:46→20:24)
--- NOTE | 2016-09-16 12:47 | PCM.PROG ---
Attending Provider: ATTENDING PROVIDER: Dr. SANCHO EUCEDA-[facility] DATE OF SERVICE: 09/16/16 SUBJECTIVE: This 66 year old WHITE/ F was hospitalized 09/12/16. The patient is admitted with COPD exacerbation, bronchitis, hypoxemic, and respiratory failure. The patient is getting better now. The patient gets short of breath with minimal exertion. She has no place to go so the patient is being evaluated for intermediate placement which she is willing to go. REVIEW OF SYSTEMS: CONSTITUTIONAL: No fever, no chills. ENDOCRINE: No weight loss or weight gain. HEENT: No sinus drainage, no sore throat. CVS: No angina symptoms. No CHF symptoms. No palpitations. No atypical chest pain for CAD. Shortness of breath on minimal exertion. No PND, no orthopnea. RESPIRATORY: No cough, no hemoptysis. GI: No melena. No abdominal pain. No nausea, no vomiting. : No hematuria. No polyuria. SKIN: No rash. No wounds. MUSCULOSKELETAL: No pain. MEMS PROCESS ENGINEER: No blackout, no dizziness. No headache. No double vision. PSYCHIATRIC: Not anxious; no depression. No suicidal thoughts. No homicidal thoughts. PHYSICAL EXAMINATION: GENERAL: Heavyset lady sitting in bed in no distress on 3L nasal cannula, satting 91 to 92%. VITAL SIGNS: Temperature 97.5 F, Pulse 94, Respiratory Rate 20, BP 132/76, Pulse Ox 93% HEENT: Normocephalic, atraumatic. Mucosa is dry, pallor positive. NECK: No JVP, no carotid bruit. No lymphadenopathy. CARDIAC: S1, S2, no S3. No murmur, gallop or regurgitation. LUNGS: Decreased breath sounds with basilar crackles. ABDOMEN: Soft, non-tender. Bowel sounds active. No rigidity, guarding or CVA tenderness. EXTREMITIES: 1+ edema. No clubbing, no cyanosis. NEUROLOGIC: Awake, alert and oriented x3. LYMPHATIC: No palpable lymph nodes SKIN: Not dry. Intact. MUSCULOSKELETAL: No joint swelling. LAB REVIEW: 09/16/16 04:30 09/16/16 04:30 09/16/16 05:00: Puncture Site Rrad, O2 Saturation 93.0 L, ABG pH 7.377, ABG pCO2 65.4 H, ABG pO2 73.0 L, ABG HCO3 38.4 H, ABG Total CO2 40 H, ABG Base Excess 13 H, Lion Test +, O2 Delivery Device Bnc, Oxygen Liter Flow 3.00, FiO2 % 32.0 09/16/16 04:30: WBC 17.53 H, RBC 4.84, Hgb 11.2 L, Hct 37.9, MCV 78.3 L, MCH 23.1 L, MCHC 29.6 L, RDW Coeff of Sia 15.2 H, Plt Count 573 H, Immature Gran % ( Auto) 1.3, Neut % (Auto) 87.9, Lymph % (Auto) 8.3 L, Kimball % (Auto) 2.3, Eos % ( Auto) 0.0, Baso % (Auto) 0.2, Immature Gran # (Auto) 0.2, Neut # 15.4 H, Lymph # 1.5, Kimball # 0.4, Eos # 0.0, Baso # 0.0, Sodium 144, Potassium 4.1, Chloride 98 , Carbon Dioxide 34 H, Anion Gap 16.1, BUN 33 H, Creatinine 0.86, Estimated GFR (MDRD) 66.00, BUN/Creatinine Ratio 38.37, Glucose 133 H, Calcium 9.7, Total Bilirubin 0.29, AST 16, ALT 26, Alkaline Phosphatase 73, Total Protein 7.2, Albumin 3.5, Globulin 3.7, Albumin/Globulin Ratio 0.95 ASSESSMENT: 1. COPD exacerbation secondary to bronchitis. 2. Hypoxic respiratory failure, chronic. 3. c02 narcosis, better. 4. Hypertension. 5. Dyslipidemia. 6. Depression. 7. CAD. 8. Dependent edema. PLAN: 1. Evaluate the patient for NH placement. 2. Activity as tolerated. 3. Lovenox for DVT prophylaxis which the patient is on. OF NOTE: CPAP trial failed. Overnight pulse oximetry on 3L cannula 09/15 through 09/16, needs BIPAP. With the use of BIPAP the patient's saturations were improved and c02 levels did not go up (she was not lethargic). The patient is willing to use it. Plan and coordination of the patient's care discussed in the presence of Traffic Control Supervisor and nurse. CONDITION: Stable SCRIBED BY: LALITA HOLLEY, Bleach Packer scribed while in presence of service performed by [facility] on 09/16/16 ([id number])
[2016-09-16] MEDS ORDERED: SODIUM CHLORIDE 1,000 ML IV ONE (21:21)
[2016-09-16] MEDS: SODIUM CHLORIDE 1,000 ML IV SCH (21:21)
[2016-09-17 04:33] LABS: BASOPHILS % (AUTO) 0.1 % (0.0-3.0); HEMATOCRIT 39.2 % (37.0-47.0); HEMOGLOBIN 11.6 g/dl (12.0-16.0); IMMATURE GRANULOCYTE % (AUTO) 1.3 % (0.0-5.0); LYMPHOCYTES # (AUTO) 1.6 K/uL (0.60-3.4); LYMPHOCYTES % (AUTO) 10.8 (10.0-50.0); MEAN CORPUSCULAR HEMOGLOBIN 23.1 pg (27.0-31.0); MEAN CORPUSCULAR HGB CONC 29.6 (31.8-35.4); MEAN CORPUSCULAR VOLUME 78.1 fl (81.0-99.0); MONOCYTES # (AUTO) 0.4 K/uL (0.4-2.0); MONOCYTES % (AUTO) 2.7 (0-10); NEUTROPHILS # (AUTO) 12.8 K/ul (2.0-6.9); NEUTROPHILS % (AUTO) 85.1; PLATELET COUNT 527 10^3/uL (140-440); RED BLOOD COUNT 5.02 10^6/ul (4.20-5.40); WHITE BLOOD COUNT 15.05 K/ul (4.6-10.2)
[2016-09-17 04:55] LABS: ALBUMIN 3.4 g/dL (3.4-5.0); ALBUMIN/GLOBULIN RATIO 0.92; ANION GAP 13.5; BILIRUBIN,TOTAL 0.28 mg/dL (0.00-1.20); BUN/CREATININE RATIO 37.07; CALCIUM 9.7 mg/dL (8.2-10.2); CREATININE 0.89 mg/dL (0.60-1.30); POTASSIUM 4.5 mmol/L (3.5-5.10); TOTAL PROTEIN 7.1 g/dL (5.8-8.1)
[2016-09-17] MEDS: DUONEB NEB SCH ×2 (05:04→11:01)
[2016-09-17] MEDS: DEMADEX PO SCH (05:40)
[2016-09-17] MEDS: LOVENOX SUBCUT SCH (08:36)
[2016-09-17] MEDS: ROCEPHIN 1 GM in SODIUM CHLORIDE 50 ML IV SCH (08:36)
[2016-09-17] MEDS: CELEXA PO SCH (08:37)
[2016-09-17] MEDS: ASPIRIN CHEWABLE PO SCH (08:37)
[2016-09-17] MEDS: MICRO-K CAP PO SCH (08:37)
[2016-09-17] MEDS: SOLU-MEDROL 40 MG IVP SCH (08:39)
--- NOTE | 2016-09-17 13:46 | DS ---
DATE OF SERVICE: 09/17/16 FINAL DIAGNOSIS: 1. COPD exacerbation secondary to the acute bronchitis and pneumonitis per CAT scan 2. Respiratory failure, acute on chronic 3. CO2 retention 4. Hypertension 5. Anemia 6. Dyslipidemia 7. Dependant edema 8. Depression DISCHARGE INSTRUCTIONS: Discharge the patient to the correction([facility]). CBC and CMP within one week. Please use the BI-PAP when the patient is sleeping or at night. Follow up in the correction round by me within one week. MEDICATIONS AT DISCHARGE: ProAir two puffs twice a day PRN Aspirin 81mg PO daily Symbicort two puff twice a day Potassium 10meq PO twice a day Spiriva one capsule daily Demadex 20mg PO twice a day NEW PRESCRIPTIONS: Keflex 500mg twice a day for 7 days Prednisone 10mg twice a day for 7 days DUO NEBS twice a day DIET INSTRUCTIONS: Cardiac and healthy ACTIVITY: As much as tolerated. Can participate in the correction activities. SMOKING: Former Smoker DISEASE SPECIFIC EDUCATION: Pneumonia Hypoxemia Respiratory failure been discussed with the patient and verbalized understanding Need for the pneumonia vaccination been discussed. HOSPITAL COURSE: DutchessAna Paula romo who is a 66 year old female who recently moved to the area from the [facility]. The patient came and see Radha Barboza in the [facility]. When Radha was seeing the patient her saturation was 80% on the 2 liters and some shortness of breath. At that time the patient was sent to the emergency room for the evaluation. Dr. Ascencio saw the patient. ABG showed the pH 7.428, pCO2 50.3, pO2 52. CT of the chest with contrast was done secondary to the elevated D-dimer which was negative for the clot but showed the pneumonitis process. At that time the patient was admitted to the hospital and started on the Rocephin, DUONEB Q 8 hours, Solu-Medrol 40mg Q 12 hours. By next day the patient got distressed and the patient was more lethargic. Pulmonary food safety technician, Willy did the ABG's which showed the pH 7.349, pCO2 58 and at the time they put the Bi-Pap on her. The patient was more awake and alert. Every since that the patient was started on the Bi-pap on the night time so that she was more awake alert during the day time. The patient desaturates even with the three liters of oxygen; to 88 to 90. The patient was automatically qualified for the oxygen and bi-pap was helping the patient which was helping to keep the patient more awake secondary to the CO2 Narcosis. The patient's Bi-pap machine was ordered. Meanwhile the patient did not have any place to go so the patient is going to be transferred to the [facility]. TIME SPENT: More than 55 minutes. DONNA
[2016-09-17 14:43] VITALS: BP 135/79; TEMP 97.1
== END 2016-09-17 15:13 | disposition home or self-care (01) | DRG 190 ==
LOC: ED 13:44 → MEDSURG B 15:34
PROVIDERS: ADMIT Emergency Medicine; ATTEND Emergency Medicine
DX: J44.0 Chronic obstructive pulmonary disease with (acute) lower respiratory infection (principal); J18.9 Pneumonia, unspecified organism; J96.20 Acute and chronic respiratory failure, unspecified whether with hypoxia or hypercapnia; E87.2 Acidosis; J20.9 Acute bronchitis, unspecified; J44.1 Chronic obstructive pulmonary disease with (acute) exacerbation; R60.0 Localized edema; R79.1 Abnormal coagulation profile; I10 Essential (primary) hypertension; D64.9 Anemia, unspecified; E78.5 Hyperlipidemia, unspecified; F32.9 Major depressive disorder, single episode, unspecified; M19.90 Unspecified osteoarthritis, unspecified site; M06.9 Rheumatoid arthritis, unspecified; E66.9 Obesity, unspecified; I25.10 Atherosclerotic heart disease of native coronary artery without angina pectoris; Z79.899 Other long term (current) drug therapy
CPT/HCPCS: 36415; 80053; 82550; 82803; 83605; 84145; 84484; 85025; 85379; 87040; 93005; 93010; 94640; 94660; 96365; 96375; 99284

== ENCOUNTER 2017-05-07 05:41 | Outpatient (CLI) | END 2017-05-07 05:42 | disposition short-term general hospital (02) | LOC: AMBL 05:41 | PROVIDERS: ATTEND Internal Medicine Geriatric Medicine | DX: R06.02 Shortness of breath (principal); Z99.81 Dependence on supplemental oxygen ==

== ENCOUNTER 2017-06-05 11:48 | Inpatient (IN) | payer OTHER ==
[2017-06-05] MEDS ORDERED: SOLU-MEDROL 125 MG IVP STA (12:09)
[2017-06-05] MEDS ORDERED: DUONEB NEB STA (12:09)
--- NOTE | 2017-06-05 16:12 | US ---
EXAM: Bilateral lower extremity venous Doppler History: Bilateral lower extremity pain. Technique: Multiple sonographic images through the bilateral lower extremities were obtained. Color duplex Doppler was used to interrogate vascular flow. Findings: The bilateral common femoral, greater saphenous, profunda, superficial femoral, popliteal, peroneal, posterior tibial and anterior tibial veins demonstrate spontaneous flow with normal compre ssion and normal augmentation. Impression: No sonographic evidence for deep venous thrombosis.
--- NOTE | 2017-06-05 16:55 | ED.PDOC ---
General ED Provider: Dr. BOLIVAR FAIRCHILD Chief Complaint: Shortness of Air Stated Complaint: shortness of breath Time Seen by Physician: 12:00 Mode of Arrival: Stretcher Information Source: Patient, Usp, EMT Exam Limitations: No limitations [facility] Nursing and Triage Documentation Reviewed and Agree: Yes Reviewed sepsis parameters & appropriate labs ordered?: Yes (shortness of breath ) System Inflammatory Response Syndrome: Not Applicable Sepsis Protocol: For patient's 13 years and over: Temp is 96.8 and below OR 101 and greater Pulse >90 BPM Resp >20/minute Acutely Altered Mental Status Are patient's symptoms suggestive of a new infection, such as: -Pneumonia -Skin, Soft Tissue -Endocarditis -UTI -Bone, Joint Infection -Implantable Device -Acute Abdominal Infection -Wound Infection -Meningitis -Blood Stream Catheter Infection -Unknown System Inflammatory Response Syndrome: Not Applicable Respiratory Complaint Exam - Respiratory Complaint/Exam Onset/Duration: today Symptoms Are: Still present Timing: Constant Initial Severity: Severe Current Severity: Severe Location: Chest Character: Reports: Non-productive cough Aggravating: Reports: Weather, Deep breaths, Recumbent position Alleviating: Reports: None Associated Signs and Symptoms: Reports: Nasal congestion. Denies: Rapid breathing, Dyspnea, Fever, Chills, Chest pain, Pleuritic chest pain, Wheezing, Hemoptysis, Dizziness, Calf pain, Calf swelling, Edema, URI, Hoarseness, Sinus discomfort, Vomiting, Sore throat, Weight loss, Decreased oral intake, Increased thirst, Increased appetite, Increased urination Related History: Reports: Similar episode History of Healthcare-Acquired Pneumonia: No Related Surgical History: Reports: None Pulmonary Embolism Risk Factors: None Cardiac Risk Factors: Reports: None Pseudomonas Risk Factors: Reports: Chronic Lung Disease Tuberculosis Risk Factors: Reports: None Status Asthmaticus Risk Factors: Reports: None Home Oxygen Use: Yes Recent Stress Test: No Recent Echo/LV Function: No Current Antibiotic Use: No Current Asthma Medication Use: No Respiratory Distress: None Inadequate Respiratory Effort: No Dysphagia Present: No Stridor Present: No JVD Present: No Accessory Muscle Use: No Retractions: Not Present Differential Diagnoses: Pneumonia, Pulmonary Embolism, Bronchitis Non-Traumatic Chest Pain Syncope: EKG Performed Review of Systems - Review Of Systems Constitutional: Reports: Malaise Eyes: Reports: No symptoms Ears, Nose, Mouth, Throat: Reports: No symptoms Respiratory: Reports: Cough, Short of air, Wheezing Cardiac: Reports: No symptoms GI: Reports: No symptoms : Reports: No symptoms Musculoskeletal: Reports: No symptoms Skin: Reports: No symptoms Neurological: Reports: No symptoms Endocrine: Reports: No symptoms Hematologic/Lymphatic: Reports: No symptoms All Other Systems: Reviewed and Negative Past Medical History - Past Medical History Previously Healthy: Yes Endocrine: Reports: None Cardiovascular: Reports: None Respiratory: Reports: COPD Hematological: Reports: None Gastrointestinal: Reports: None Genitourinary: Reports: None Neuro/Psych: Reports: None Musculoskeletal: Reports: None Cancer: Reports: None Last Menstrual Period: menopause - Surgical History General Surgical History: Reports: None - Family History Family History: Reports: None - Social History Smoking Status: Former smoker Hx Substance Use: No Alcohol Screening: None Physical Exam - Physical Exam Appearance: Ill-appearing Ill-appearing: Mild Pain Distress: Mild Eyes: SVETA, EOMI, Conjunctiva clear ENT: Ears normal, Nose normal, Oropharynx normal Respiratory: Rhonchi, Wheezes Cardiovascular: RRR, Pulses normal, No rub, No murmur GI/: Soft, Nontender, No masses, Bowel sounds normal, No Organomegaly Musculoskeletal: Normal strength, ROM intact, No edema, No calf tenderness Skin: Warm, Dry, Normal color Neurological: Sensation intact, Motor intact, Reflexes intact, Cranial nerves intact, Alert, Oriented Psychiatric: Affect appropriate, Mood appropriate Interpretation - Radiology Interpretation Radiology Results: Negative (dvt) Physician Notification - Case Discussed Physician Notified: PMD Time of Notification: 17:25 (WILL SEE PT IN ED ) Critical Care Note - Critical Care Note Total Time (mins): 0 Course - Course Hematology/Chemistry: 06/10/17 13:55 06/10/17 13:55 Orders, Labs, Meds: Lab Review 06/05/17 06/05/17 06/05/17 12:00 12:35 12:35 WBC 12.22 H RBC 4.75 Hgb 11.6 L Hct 40.1 MCV 84.4 MCH 24.4 L MCHC 28.9 L RDW Coeff of Sia 18.7 H Plt Count 324 Immature Gran % (Auto) 0.4 Neut % (Auto) 79.8 Lymph % (Auto) 10.9 Lumpkin % (Auto) 7.3 Eos % (Auto) 1.4 Baso % (Auto) 0.2 Immature Gran # (Auto) 0.1 Neut # (Auto) 9.8 H Lymph # (Auto) 1.3 Lumpkin # (Auto) 0.9 Eos # (Auto) 0.2 Baso # (Auto) 0.0 D-Dimer (Manual) Puncture Site Rr O2 Saturation 75.0 L ABG pH 7.529 H* ABG pCO2 56.0 H ABG pO2 37.0 L* ABG HCO3 46.7 H ABG Total CO2 48 H ABG Base Excess 24 H Lion Test + O2 Delivery Device Nc Oxygen Liter Flow 3.00 FiO2 % Sodium 144 Potassium 3.7 Chloride 94 L Carbon Dioxide 42 H* Anion Gap 11.7 BUN 9 Creatinine 0.63 Estimated GFR (MDRD) 95.00 BUN/Creatinine Ratio 14.28 Glucose 90 Calcium 9.8 Total Bilirubin 0.8 AST 20 ALT 19 Alkaline Phosphatase 77 Total Creatine Kinase 81 Troponin I 0.0160 Total Protein 6.7 Albumin 3.2 L Globulin 3.5 Albumin/Globulin Ratio 0.91 Procalcitonin Influ A Molecular Assay Influ B Molecular Assay 06/05/17 06/05/17 06/05/17 12:35 12:35 12:55 WBC RBC Hgb Hct MCV MCH MCHC RDW Coeff of Sia Plt Count Immature Gran % (Auto) Neut % (Auto) Lymph % (Auto) [place]kin % (Auto) Eos % (Auto) Baso % (Auto) Immature Gran # (Auto) Neut # (Auto) Lymph # (Auto) [place]kin # (Auto) Eos # (Auto) Baso # (Auto) D-Dimer (Manual) 1014.19 Puncture Site O2 Saturation ABG pH ABG pCO2 ABG pO2 ABG HCO3 ABG Total CO2 ABG Base Excess Lion Test O2 Delivery Device Oxygen Liter Flow FiO2 % Sodium Potassium Chloride Carbon Dioxide Anion Gap BUN Creatinine Estimated GFR (MDRD) BUN/Creatinine Ratio Glucose Calcium Total Bilirubin AST ALT Alkaline Phosphatase Total Creatine Kinase Troponin I Total Protein Albumin Globulin Albumin/Globulin Ratio Procalcitonin 0.08 Influ A Molecular Assay Negative by naat Influ B Molecular Assay Negative by naat 06/05/17 06/05/17 13:50 14:37 WBC RBC Hgb Hct MCV MCH MCHC RDW Coeff of Sia Plt Count Immature Gran % (Auto) Neut % (Auto) Lymph % (Auto) [place]kin % (Auto) Eos % (Auto) Baso % (Auto) Immature Gran # (Auto) Neut # (Auto) Lymph # (Auto) [place]kin # (Auto) Eos # (Auto) Baso # (Auto) D-Dimer (Manual) Puncture Site R rad L brach O2 Saturation 83.0 L 95.0 ABG pH 7.480 H 7.49 H ABG pCO2 60.3 H 57.0 H ABG pO2 46.0 L* 72.0 L ABG HCO3 44.9 H 43 H ABG Total CO2 47 H 45 H ABG Base Excess 21 H 20 H Lion Test + + O2 Delivery Device Bipap bipap Oxygen Liter Flow FiO2 % 32.0 40.0 Sodium Potassium Chloride Carbon Dioxide Anion Gap BUN Creatinine Estimated GFR (MDRD) BUN/Creatinine Ratio Glucose Calcium Total Bilirubin AST ALT Alkaline Phosphatase Total Creatine Kinase Troponin I Total Protein Albumin Globulin Albumin/Globulin Ratio Procalcitonin Influ A Molecular Assay Influ B Molecular Assay Orders Category Date Time Status ADMIT PATIENT INPATIENT .TO SCU (MONITORED BED) ADMISSION 06/05/17 17:37 Active ABG DRAW REQUEST DAILY@0600 CARDIO 06/06/17 06:00 Completed ABG DRAW REQUEST DAILY@0600 CARDIO 06/07/17 06:00 Completed ABG DRAW REQUEST DAILY@0600 CARDIO 06/08/17 06:00 Completed ABG DRAW REQUEST Routine CARDIO 06/05/17 14:00 Completed ABG DRAW REQUEST Stat CARDIO 06/05/17 12:08 Completed ABG DRAW REQUEST Stat CARDIO 06/05/17 15:30 Completed BIPAP Routine CARDIO 06/05/17 12:42 Completed EKG-(ED ONLY) Stat CARDIO 06/05/17 12:07 Completed NEBULIZER TREATMENT Routine CARDIO 06/05/17 17:33 Completed NEBULIZER TREATMENT Stat CARDIO 06/05/17 12:09 Completed NPO REMINDER: IMAGING ONCE CARE 06/05/17 14:00 Completed TELEMETRY MONITORING TELE CARE 06/05/17 17:38 Completed ABG DAILY@0600 LAB 06/06/17 05:00 Completed ABG DAILY@0600 LAB 06/07/17 05:00 Completed ABG DAILY@0600 LAB 06/08/17 04:00 Completed ABG DAILY@0600 LAB 06/09/17 03:30 Completed ABG Stat LAB 06/05/17 12:00 Completed ARTERIAL BLOOD GAS [ABG] Stat LAB 06/05/17 13:50 Completed ARTERIAL BLOOD GAS [ABG] Stat LAB 06/05/17 14:37 Completed B-TYPE NATRIURETIC PEPTIDE Stat LAB 06/05/17 17:50 Completed BLOOD CULTURE (ED ONLY) Stat LAB 06/05/17 12:35 Completed CBC W/ AUTO DIFF Stat LAB 06/05/17 12:35 Completed COMPREHENSIVE METABOLIC PANEL Stat LAB 06/05/17 12:35 Completed CREATINE KINASE Stat LAB 06/05/17 12:35 Completed D-DIMER Stat LAB 06/05/17 12:35 Completed FLU A/B MOLECULAR Stat LAB 06/05/17 12:55 Completed PROCALCITONIN Stat LAB 06/05/17 12:35 Completed TROPONIN I Stat LAB 06/05/17 12:35 Completed Alprazolam [Xanax] MEDS 06/05/17 21:00 Discontinued 0.5 mg PO TID Aspirin [Aspirin Chewable] MEDS 06/06/17 09:00 Discontinued 81 mg PO DAILYWM Budesonide/Formoterol Fumarate [Symbicort 160-4.5 Mcg MEDS 06/05/17 21:00 Discontinued Inhaler] 2 puff IH BID Ceftriaxone Sodium [Rocephin] 1 gm MEDS 06/05/17 17:38 Discontinued 0.9 % Sodium Chloride [Sodium Chloride] 50 ml IV ONCE Citalopram Hydrobromide [Celexa] MEDS 06/06/17 09:00 Discontinued 10 mg PO DAILY Furosemide [Lasix] MEDS 06/05/17 17:38 Discontinued 40 mg IVP ONCE STA Ipratropium/Albuterol Neb [Duoneb] MEDS 06/05/17 12:09 Discontinued 1 vial NEB ONCE STA Ipratropium/Albuterol Neb [Duoneb] MEDS 06/05/17 18:00 Discontinued 1 vial NEB RTQ6H Methylprednisolone Sod Succ/Pf [Solu-Medrol 125 mg] MEDS 06/05/17 12:09 Discontinued 125 mg IVP ONCE STA Methylprednisolone Sod Succ/Pf [Solu-Medrol 40 mg] MEDS 06/05/17 21:00 Discontinued 125 mg IVP Q8HR Nystatin [Nystop Powder] MEDS 06/05/17 21:00 Discontinued 1 applic TP BID Potassium Chloride [Micro-K Cap] MEDS 06/05/17 21:00 Discontinued 10 meq PO BID Sodium Chloride 0.9% [Sodium Chloride] 1,000 ml MEDS 06/05/17 17:32 Discontinued IV 40 mls/hr Torsemide [Demadex] MEDS 06/05/17 21:00 Discontinued [address] CHEST PE PROTOCOL Stat RADS 06/05/17 13:59 Completed U/S VENOUS SCAN KEEGAN LEGS Stat RADS 06/05/17 14:40 Completed Medications Discontinued Medications Generic Name Dose Route Start Last Admin Trade Name Freq PRN Reason Stop Dose Admin Acetaminophen 650 mg 06/06/17 08:36 Tylenol PO Q4HR PRN MILD PAIN Albuterol Sulfate 2 puff 06/06/17 09:00 06/12/17 09:56 Proair Hfa IH 2 puff BID BECKY Administration Albuterol/Ipratropium 1 vial 06/05/17 12:09 06/05/17 12:21 Duoneb NEB 06/05/17 12:10 1 vial ONCE STA Administration Albuterol/Ipratropium 1 vial 06/05/17 18:00 06/12/17 11:15 Duoneb NEB Not Given RTQ6H BECKY Alprazolam 0.5 mg 06/05/17 21:00 06/12/17 10:01 Xanax PO 0.5 mg TID BECKY Administration Aspirin 81 mg 06/06/17 09:00 06/12/17 09:56 Aspirin Chewable PO 81 mg DAILYWM BECKY Administration Azithromycin 500 mg 06/08/17 09:00 06/09/17 09:50 Zithromax PO 06/09/17 09:59 500 mg DAILY BECKY Administration Bisacodyl 10 mg 06/06/17 04:06 Dulcolax RC DAILY PRN Constipation Budesonide/Formoterol Fumarate 2 puff 06/05/17 21:00 06/12/17 09:56 Symbicort 160-4.5 Mcg Inhaler IH 2 puff BID BECKY Administration Citalopram Hydrobromide 10 mg 06/06/17 09:00 06/12/17 09:57 Celexa PO 10 mg DAILY BECKY Administration Enoxaparin Sodium 40 mg 06/07/17 09:00 06/12/17 10:01 Lovenox SUBCUT 40 mg DAILY BECKY Administration Furosemide 40 mg 06/05/17 17:38 06/05/17 18:19 Lasix IVP 06/05/17 17:39 40 mg ONCE STA Administration Sodium Chloride 1,000 mls @ 40 mls/hr 06/05/17 17:32 06/06/17 04:43 Sodium Chloride IV 06/06/17 18:31 40 mls/hr .Q25H STA Administration Ceftriaxone Sodium 1 gm/ 50 mls @ 75 mls/hr 06/05/17 17:38 06/06/17 04:37 Sodium Chloride IV 06/05/17 18:17 Not Given ONCE STA Sodium Chloride 1,000 mls @ 40 mls/hr 06/06/17 11:00 06/11/17 13:26 Sodium Chloride IV 40 mls/hr .Q25H BECKY Administration Azithromycin 500 mg/ Sodium 250 mls @ 125 mls/hr 06/07/17 15:00 06/07/17 16: 53 Chloride IV 125 mls/hr DAILY BECKY Administration Aztreonam 1 gm/ Sodium 50 mls @ 75 mls/hr 06/07/17 15:00 06/10/17 14:34 Chloride IV 75 mls/hr Q8HR BECKY Administration Ceftriaxone Sodium 1 gm/ 50 mls @ 75 mls/hr 06/08/17 09:00 06/12/17 09:56 Sodium Chloride IV 75 mls/hr DAILY BECKY Administration Magnesium Hydroxide 30 ml 06/06/17 04:06 Milk Of Magnesia PO DAILY PRN Heartburn Methylprednisolone 4 mg 06/12/17 06:30 06/12/17 06:05 Medrol Dosepak PO 06/17/17 09:29 8 mg 1300 BECKY Administration Taper Methylprednisolone Sodium Succinate 125 mg 06/05/17 12:09 06/05/17 12:59 Solu-Medrol 125 Mg IVP 06/05/17 12:10 125 mg ONCE STA Administration Methylprednisolone Sodium Succinate 125 mg 06/05/17 21:00 06/06/17 04:42 Solu-Medrol 40 Mg IVP 125 mg Q8HR BECKY Administration Methylprednisolone Sodium Succinate 125 mg 06/06/17 13:00 06/12/17 06:05 Solu-Medrol 125 Mg IVP 125 mg Q8HR BECKY Administration Non-Formulary Medication 20 mg 06/05/17 21:00 06/06/17 04:04 Torsemide [Demadex] PO Not Given BID BECKY Nystatin 1 applic 06/05/17 21:00 06/12/17 09:57 Nystop Powder TP 1 applic BID BECKY Administration Ondansetron HCl 4 mg 06/06/17 04:08 Zofran Tab PO Q6HR PRN Nausea / Vomiting Potassium Chloride 10 meq 06/05/17 21:00 06/06/17 11:08 Micro-K Cap PO 10 meq BID BECKY Administration Potassium Chloride 10 meq 06/06/17 17:30 06/12/17 09:56 Micro-K Cap PO 10 meq BIDWM BECKY Administration Torsemide 20 mg 06/06/17 09:00 06/12/17 09:57 Demadex PO 20 mg BID BECKY Administration Vital Signs: Temp Pulse Resp BP Pulse Ox 06/05/17 14:24 91 L 06/05/17 13:09 90 L 06/05/17 11:56 98.7 F 119 H 24 113/71 83 L Departure - Departure Time of Disposition: 17:25 Disposition: ADMITTED INPATIENT Discharge Problem: Shortness of breath Condition: Good Pt referred to PMD for follow-up: Yes IPMP verified?: No Allergies/Adverse Reactions: Allergies Penicillins Adverse Reaction (Verified 06/05/17 12:04) Home Medications: Ambulatory Orders Albuterol Sulfate [Proair Hfa] 2 puff IH RTQ6H PRN 09/12/16 Aspirin 81 mg PO DAILY 09/12/16 Budesonide/Formoterol Fumarate [Symbicort 160-4.5 Mcg Inhaler] 2 puff IH BID Potassium Chloride [Micro-K Cap] 10 meq PO DAILY 09/12/16 Torsemide [Demadex] 20 mg PO DAILY 09/12/16 Ipratropium/Albuterol Neb [Duoneb] 1 vial NEB TID #1 vial.neb 09/17/16 Acetaminophen [Acetaminophen ER] 650 mg PO Q4HR PRN 06/05/17 Alprazolam [Xanax] 0.5 mg PO TID 06/05/17 Bisacodyl 10 mg RC DAILY PRN 06/05/17 Citalopram Hydrobromide [Celexa] 10 mg PO DAILY 06/05/17 Magnesium Hydroxide [Milk of Magnesia] 30 ml PO DAILY PRN 06/05/17 Nystatin [Nystop Powder] 1 applic TP BID 06/05/17 Ondansetron HCl [Zofran Tab] 4 mg PO Q6HR PRN 06/05/17 Cephalexin [Keflex] 500 mg PO Q12HR 5 Days #10 capsule 06/12/17 Hydrocodone/Acetaminophen [Hydrocodon-Acetaminophen 5-325] 1 each PO BID PRN Prednisone 10 mg PO BIDWM 5 Days #10 tablet 06/12/17 Umeclidinium Jasper [Incruse Ellipta] 62.5 mcg IH DAILY #1 blst.w.dev 06/12/17 Disposition Discussed With: Patient
--- NOTE | 2017-06-05 17:13 | CT ---
EXAM: CT angiogram of the chest with contrast HISTORY: Poor arterial blood gas TECHNIQUE: Imaging of the chest was performed following the intravenous administration of contrast. 3 mm thin axial images and coronal and sagittal reconstructions and rotated 3-D reconstructions were provided for interpretation. Comparison 09/12/2016 CT angiogram of the chest. FINDINGS: No definite filling defects are identified within the branches of the pulmonary arteries. The central pulmonary arteries are normal. The heart is normal size. No mediastinal abnormalities are seen. There is mild probable atelectasis seen in the lung bases. There is no consolidation. Em physematous changes are seen within the lungs. No lytic or blastic lesions are seen within the osseou s structures. IMPRESSION: There is no acute pulmonary embolism. Pulmonary emphysema.
[2017-06-05] MEDS ORDERED: SODIUM CHLORIDE 1,000 ML IV STA (17:32)
[2017-06-05] MEDS ORDERED: ROCEPHIN 1 GM in SODIUM CHLORIDE 50 ML IV STA (17:38)
[2017-06-05] MEDS ORDERED: LASIX IVP STA (17:38)
[2017-06-05] MEDS: DUONEB NEB SCH (19:50)
[2017-06-05] MEDS ORDERED: TORSEMIDE 20 MG PO SCH (21:00)
[2017-06-06] MEDS: DUONEB NEB SCH ×5 (00:45→23:32)
[2017-06-06 03:02] VITALS: BMI 44.9
[2017-06-06] MEDS: MICRO-K CAP PO SCH ×3 (04:03→18:19)
[2017-06-06] MEDS: NYSTOP POWDER TP SCH ×3 (04:03→20:20)
[2017-06-06] MEDS: SYMBICORT 160-4.5 MCG INHALER IH SCH ×3 (04:04→20:20)
[2017-06-06] MEDS: XANAX PO SCH ×4 (04:04→20:20)
[2017-06-06] MEDS ORDERED: ACETAMINOPHEN 650 MG PO PRN (04:05)
[2017-06-06] MEDS ORDERED: DULCOLAX RC PRN (04:06)
[2017-06-06] MEDS ORDERED: MILK OF MAGNESIA PO PRN (04:06)
[2017-06-06] MEDS ORDERED: ZOFRAN TAB PO PRN (04:08)
[2017-06-06] MEDS ORDERED: ROCEPHIN ONE (04:28)
[2017-06-06] MEDS ORDERED: SOLU-MEDROL 125 MG ONE (04:28)
[2017-06-06] MEDS: SOLU-MEDROL 40 MG IVP SCH ×2 (04:42)
[2017-06-06] MEDS ORDERED: TYLENOL PO PRN (08:36)
[2017-06-06] MEDS: ASPIRIN CHEWABLE PO SCH (11:05)
[2017-06-06] MEDS: CELEXA PO SCH (11:06)
[2017-06-06] MEDS: DEMADEX PO SCH ×2 (11:07→20:21)
[2017-06-06] MEDS: PROAIR HFA IH SCH ×2 (11:10→20:19)
[2017-06-06] MEDS: SOLU-MEDROL 125 MG IVP SCH ×2 (15:39→20:20)
[2017-06-07] MEDS: SOLU-MEDROL 125 MG IVP SCH ×3 (04:05→21:19)
[2017-06-07] MEDS: DUONEB NEB SCH ×4 (05:15→23:50)
[2017-06-07] MEDS: ASPIRIN CHEWABLE PO SCH (08:14)
[2017-06-07] MEDS: SODIUM CHLORIDE 1,000 ML IV SCH (08:14)
[2017-06-07] MEDS: CELEXA PO SCH (08:15)
[2017-06-07] MEDS: MICRO-K CAP PO SCH ×2 (08:15→16:50)
[2017-06-07] MEDS: DEMADEX PO SCH ×2 (08:16→21:45)
[2017-06-07] MEDS: LOVENOX SUBCUT SCH (08:16)
[2017-06-07] MEDS: PROAIR HFA IH SCH ×2 (08:19→21:44)
[2017-06-07] MEDS: SYMBICORT 160-4.5 MCG INHALER IH SCH ×2 (08:19→21:44)
[2017-06-07] MEDS: NYSTOP POWDER TP SCH ×2 (08:24→21:45)
[2017-06-07] MEDS: XANAX PO SCH ×3 (08:26→21:44)
[2017-06-07] MEDS ORDERED: ZITHROMAX 500 MG in SODIUM CHLORIDE 250 ML IV SCH (15:00)
[2017-06-07] MEDS ORDERED: AZACTAM ONE ×2 (15:55→21:40)
[2017-06-07] MEDS: AZACTAM 1 GM in SODIUM CHLORIDE 50 ML IV SCH ×2 (16:08→21:45)
[2017-06-08] MEDS ORDERED: AZACTAM ONE (03:36)
[2017-06-08] MEDS: AZACTAM 1 GM in SODIUM CHLORIDE 50 ML IV SCH ×3 (04:08→22:13)
[2017-06-08] MEDS: SOLU-MEDROL 125 MG IVP SCH ×3 (04:49→22:35)
[2017-06-08] MEDS: DUONEB NEB SCH ×4 (05:22→23:02)
[2017-06-08] MEDS: ASPIRIN CHEWABLE PO SCH (07:59)
[2017-06-08] MEDS: DEMADEX PO SCH ×2 (08:03→22:14)
[2017-06-08] MEDS: CELEXA PO SCH (08:04)
[2017-06-08] MEDS: MICRO-K CAP PO SCH ×2 (08:05→22:26)
[2017-06-08] MEDS: LOVENOX SUBCUT SCH (08:05)
[2017-06-08] MEDS: XANAX PO SCH ×3 (08:05→22:14)
[2017-06-08] MEDS: NYSTOP POWDER TP SCH ×2 (08:18→22:13)
[2017-06-08] MEDS: ZITHROMAX PO SCH (11:15)
[2017-06-08] MEDS: PROAIR HFA IH SCH ×2 (11:16→22:13)
[2017-06-08] MEDS: SYMBICORT 160-4.5 MCG INHALER IH SCH ×2 (11:16→22:13)
[2017-06-08] MEDS: ROCEPHIN 1 GM in SODIUM CHLORIDE 50 ML IV SCH (11:17)
[2017-06-08] MEDS: SODIUM CHLORIDE 1,000 ML IV SCH (17:18)
[2017-06-09] MEDS: DUONEB NEB SCH ×4 (04:27→23:08)
[2017-06-09] MEDS: SOLU-MEDROL 125 MG IVP SCH ×3 (05:41→21:07)
[2017-06-09] MEDS: AZACTAM 1 GM in SODIUM CHLORIDE 50 ML IV SCH ×3 (06:28→21:05)
--- NOTE | 2017-06-09 08:19 | PN ---
DATE OF SERVICE: 06/07/17 SUBJECTIVE: The patient is off of the BIPAP. The most latest ABG showed the pH 7.89, pO2 68.2, pO2 70% nasal cannula on 3 liters. REVIEW OF SYSTEMS: CONSTITUTIONAL: No fever, no chills. HEENT: Normal. ENDOCRINE: No weight gain, no weight loss. CVS: No angina symptoms. No CHF symptoms. No palpitations. No atypical chest pain for CAD. Shortness of breath. No PND, no orthopnea. RESPIRATORY: Cough and congestion, not able to bring any phlegm, no hemoptysis. GI: No nausea, no vomiting. No abdominal pain. : No hematuria. No polyuria. MUSCULOSKELETAL: No joint swelling. Lower back pain. PSYCHIATRIC: Not anxious. No depression. No suicidal thoughts. No homicidal thoughts. SKIN: Intact. No rash. PHYSICAL EXAMINATION: GENERAL: Sick looking lady laying in a bed. V/S: Blood pressure 132/76, respiratory rate 19, heart rate 86, temperature 98.6 , saturation 98 on BIPAP. HEENT: Normocephalic, atraumatic. Mucosa dry. Pallor positive. No icterus. NECK: Supple. No JVD, no carotid bruit. No lymphadenopathy LUNGS:Defused expiratory wheezing. No rales or rhonchi. HEART: S1, S2 normal. No S3. No murmur, gallop or regurgitation. ABDOMEN: Soft, nontender. Bowel sounds active. No rigidity. No rebound or guarding. No CVA tenderness. EXTREMITIES: 1+ edema. No clubbing or cyanosis MUSCULOSKELETAL: No joint swelling. NEUROLOGIC: Awake, alert, oriented times three. No focal deficit. LYMPHATIC: No lymph nodes palpable. SKIN: Intact. LABS: Sodium 145, potassium 3.6, chloride 38, BUN 98, bicarb 37, BUN 26, creatinine 0.82. WBC 22.13, hgb 12.4, hct 41.2, plt count 438. ASSESSMENT: 1. Hypoxemic respiratory failure 2. COPD exacerbation secondary to the bronchitis 3. Co2 narcosis 4. Depression 5. Anxiety PLAN: 1. Will start the patient on the Azactam and Azithromycin 2. Continue the DUO NEBS 3. Solu-Medrol 125 Q 8 hours 4. Daily I&O's 5. Keep the legs elevated TIME SPENT: More than 35 minutes MTDD
--- NOTE | 2017-06-09 08:29 | PN ---
DATE OF SERVICE: 06/06/17 SUBJECTIVE: The patient is on the BIPAP still short of breath. No cough and congestion, not able to get any phlegm. REVIEW OF SYSTEMS: CONSTITUTIONAL: No fever, no chills. HEENT: Normal. ENDOCRINE: No weight gain, no weight loss. CVS: No angina symptoms. No CHF symptoms. No palpitations. No atypical chest pain for CAD. Shortness of breath on minimal movements. No PND, no orthopnea. RESPIRATORY: No cough, no hemoptysis. GI: No nausea, no vomiting. No abdominal pain. : No hematuria. No polyuria. MUSCULOSKELETAL: No joint swelling. PSYCHIATRIC: Not anxious. No depression. No suicidal thoughts. No homicidal thoughts. SKIN: Intact. No rash. PHYSICAL EXAMINATION: GENERAL: Sick looking lady laying in the bed. V/S: Blood pressure 178/74, respiratory rate 18, heart rate 80, temperature 98.0 , saturation 96% on the BIPAP 40%. HEENT: Normocephalic, atraumatic. Mucosa dry. Pallor positive. No icterus. NECK: Supple. No JVD, no carotid bruit. No lymphadenopathy. LUNGS: Decreased and expiratory wheezing all over. Clear to auscultation. No rales or rhonchi. HEART: S1, S2 normal. No S3. No murmur, gallop or regurgitation. ABDOMEN: Soft, nontender. Bowel sounds active. No rigidity. No rebound or guarding. No CVA tenderness. EXTREMITIES: 1+ edema. No clubbing or cyanosis MUSCULOSKELETAL: No joint swelling. NEUROLOGIC: Awake, alert, oriented times three. No focal deficit. LYMPHATIC: No lymph nodes palpable. SKIN: Intact. Dry LABS: Sodium 144, potassium 3.7, chloride 94, bicarb 42, BUN 9, creatinine 0.63, WBC 12.12, hgb 11.6, hct 40.1, plt count 324. ASSESSMENT: 1. Hypoxemic respiratory failure 2. COPD exacerbation secondary to the bronchitis 3. Depression 4. Osteoarthritis 5. DJD spine PLAN: 1. Continue the Rocephin 2. IV fluids 3. Solu-Medrol 4. Lovenox for the DVT Prophylaxis 5. Daily I&O's TIME SPENT: More than 35 minutes MTDD
--- NOTE | 2017-06-09 09:00 | HP ---
DATE OF SERVICE: 06/05/17 CHIEF COMPLAINT: Shortness of breath HISTORY OF PRESENT ILLNESS: This is a 66 year old female oxygen dependent, COPD and CO2 retainer who resides at the long term. The patient was sent from the long term as the patient was having the cough, congestion, shortness of breath and not by herself and lethargic. She was sent to the emergency room and was seen by Dr. Ascencio in the emergency room. Initial ABG was pH 7.529, pCo2 56, pO2 37. The patient was lethargic. The patient was started on the BIPAP, pO2 went up to 46 then to 72. Meanwhile WBC was 12,000 with left shift. D-Dimer was elevated 10.14 , BUN normal, Carbon Dioxide was 42. First set of cardiac enzymes are negative. CT chest with PE protocol was negative for PE. At that time the patient was admitted to the hospital with acute hypoxemic respiratory failure with the hypercapnia secondary to the COPD exacerbation and bronchitis. REVIEW OF SYSTEMS: CONSTITUTIONAL: No fever, no chills. Weakness and tiredness. HEENT: Normal. ENDOCRINE: No weight gain; no weight loss. CVS: No chest pain. No PND, no orthopnea. Shortness of breath. No PND, no orthopnea. RESPIRATORY: Cough, Congestion. No hemoptysis. GI: No nausea, no vomiting. No abdominal pain. No melena. : No hematuria. No polyuria. MUSCULOSKELETAL: No joint swelling. PSYCHIATRIC: Not anxious. No depression. No suicidal thoughts. No homicidal thoughts. SKIN: Intact, no open lesions. PAST MEDICAL HISTORY: COPD Oxygen dependant Orthopnea Osteoarthritis Rheumatoid arthritis Anxiety disorder Chronic constipation Depression PAST SURGICAL HISTORY: Oral surgery PERSONAL HISTORY: The patient used to smoke but quit for almost 1-2 years. Resides at the long term. Partial dependant upon the ADL's. Family history is not significant, has high blood pressure and diabetes and rheumatoid arthritis. MEDICATIONS: Potassium Proair Symbicort Demadex DUO NEBS Aspirin Zofran Nystatin Xanax Milk of magnesia Bisacodyl Tylenol Celexa ALLERGIES: Penicillin PHYSICAL EXAMINATION: V/S: Blood pressure 113/71, respiratory rate 24, heart rate 119, temperature 98.1 and saturation 83 on 3 liters and patient will be put on BIPAP now. HEENT: Atraumatic, normocephalic. No scleral icterus. NECK: Supple. No JVD, no bruit. No lymphadenopathy. No thyromegaly. HEART: S1, S2 normal. Sinus tachy. No murmur. No cyanosis or clubbing. No ascites. LUNGS: Decreased and expiratory wheezing defused. Clear to auscultation. No rales or rhonchi. ABDOMEN: Soft, nontender. Bowel sounds are active. No CVA tenderness. No rigidity or guarding. EXTREMITIES: No pedal edema. No cyanosis or clubbing MUSCULOSKELETAL: Normal joints, no swelling. NEUROLOGIC: The patient is awake and alert and oriented. SKIN: Intact; no open lesions. LYMPHATIC: No lymph nodes palpable. LABS: WBC 12.22, hgb 11.6, hct 40.1, plt count 324, D-dimer 1014, ABG pH 7.529, pCO2 56, pO2 37. Sodium 144, potassium 3.7, chloride 94, bicarb 42, BUN 9 and creatinine 0.63. ASSESSMENT: 1. Acute hypoxemic respiratory failure 2. COPD exacerbation secondary to bronchitis 3. CO2 Narcosis that gave patient Lethargy 4. Hypertension 5. Obesity 6. GERD 7. Osteoarthritis 8. DJD spine 9. Depression PLAN: 1. Admit the patient to SCU 2. CBC and CMP today and daily 3. Cardiac and enzymes and Troponin 4. Continue the BIPAP 5. Continue the ABG's 6. Xanax 7. Lovenox for the DVT prophylaxis 8. Solu-Medrol 9. Advised the ER physician to start the antibiotic Rocephin but the patient is allergic so he didn't start the medication yet. 10.Continue IV fluids TIME SPENT: CRITICAL CARE TIME MORE THAN 65 minutes MTDD
[2017-06-09] MEDS: ROCEPHIN 1 GM in SODIUM CHLORIDE 50 ML IV SCH (09:49)
[2017-06-09] MEDS: CELEXA PO SCH (09:50)
[2017-06-09] MEDS: MICRO-K CAP PO SCH ×2 (09:50→18:50)
[2017-06-09] MEDS: PROAIR HFA IH SCH ×2 (09:50→21:05)
[2017-06-09] MEDS: DEMADEX PO SCH ×2 (09:50→21:05)
[2017-06-09] MEDS: XANAX PO SCH ×3 (09:50→21:05)
[2017-06-09] MEDS: ZITHROMAX PO SCH (09:50)
[2017-06-09] MEDS: ASPIRIN CHEWABLE PO SCH (09:51)
[2017-06-09] MEDS: LOVENOX SUBCUT SCH (09:51)
[2017-06-09] MEDS: SYMBICORT 160-4.5 MCG INHALER IH SCH ×2 (10:01→21:05)
[2017-06-09] MEDS: NYSTOP POWDER TP SCH ×2 (10:01→21:05)
[2017-06-09] MEDS: SODIUM CHLORIDE 1,000 ML IV SCH ×2 (22:07→22:08)
[2017-06-10] MEDS: DUONEB NEB SCH ×4 (04:22→23:05)
[2017-06-10] MEDS: SOLU-MEDROL 125 MG IVP SCH ×3 (05:50→20:50)
[2017-06-10] MEDS: AZACTAM 1 GM in SODIUM CHLORIDE 50 ML IV SCH ×2 (05:52→14:34)
[2017-06-10] MEDS: NYSTOP POWDER TP SCH ×2 (09:06→20:34)
[2017-06-10] MEDS: SYMBICORT 160-4.5 MCG INHALER IH SCH ×2 (09:06→20:35)
[2017-06-10] MEDS: LOVENOX SUBCUT SCH (09:06)
[2017-06-10] MEDS: ROCEPHIN 1 GM in SODIUM CHLORIDE 50 ML IV SCH (09:06)
[2017-06-10] MEDS: DEMADEX PO SCH ×2 (09:06→20:34)
[2017-06-10] MEDS: PROAIR HFA IH SCH ×2 (09:06→20:35)
[2017-06-10] MEDS: CELEXA PO SCH (09:07)
[2017-06-10] MEDS: XANAX PO SCH ×3 (09:07→20:34)
[2017-06-10] MEDS: MICRO-K CAP PO SCH ×2 (09:07→17:19)
[2017-06-10] MEDS: ASPIRIN CHEWABLE PO SCH (09:07)
--- NOTE | 2017-06-10 11:12 | PN ---
DATE OF SERVICE: 06/08/17 SUBJECTIVE: The patient was admitted with the severe hypoxemic respiratory failure. The patient been on the BIPAP. Feeing better but still cough, congestion and short of breath. ABG on the today morning are pH 7.37, pCO2 66, pO2 53 on 2 liters nasal canula. REVIEW OF SYSTEMS: CONSTITUTIONAL: No fever, no chills. HEENT: Normal. ENDOCRINE: No weight gain, no weight loss. CVS: No angina symptoms. No CHF symptoms. No palpitations. No atypical chest pain for CAD. No shortness of breath. No PND, no orthopnea. RESPIRATORY: Cough, no hemoptysis. GI: No nausea, no vomiting. No abdominal pain. : No hematuria. No polyuria. MUSCULOSKELETAL: No joint swelling. PSYCHIATRIC: Not anxious. No depression. No suicidal thoughts. No homicidal thoughts. SKIN: Intact. No rash. PHYSICAL EXAMINATION: V/S: Blood pressure 124/56, respiratory rate 20, heart rate 89, temperature 97.9 and saturation 96 on 3 liters. HEENT: Normocephalic, atraumatic. Mucosa dry. NECK: Supple. No JVD, no carotid bruit. No lymphadenopathy. LUNGS: Decreased and defused bilateral wheezing. No rales or rhonchi. HEART: S1, S2 normal. No S3. No murmur, gallop or regurgitation. ABDOMEN: Soft, nontender. Bowel sounds active. No rigidity. No rebound or guarding. No CVA tenderness. EXTREMITIES:1+ edema. No clubbing or cyanosis MUSCULOSKELETAL: No joint swelling. NEUROLOGIC: Awake, alert, oriented times three. No focal deficit. LYMPHATIC: No lymph nodes palpable. SKIN: Intact. Dry LABS: WBC 26.70, hgb 11.4, hct 39.1, plt count 281, sodium 142, potassium 3.9, chloride 100, bicarb 34, BUN 29, creatinine 0.77 and glucose 139. ASSESSMENT: 1. Acute hypoxemic respiratory failure 2. Persistent hypoxemia with ABG's 3. Elevated CO2 4. Hypercapnia 5. Leg edema 6. Rheumatoid arthritis PLAN: 1. Continue the Rocephin, Solu-Medrol 2. Use BIPAP at night in case needed 3. DUO NEBS 4. Lovenox for the DVT prophylaxis 5. Azactam and Azithromycin TIME SPENT: More than 35 minutes MTDD
--- NOTE | 2017-06-10 14:07 | DI ---
EXAM: Two-view chest. HISTORY: Shortness of breath COMPARISON: 09/12/1969 FINDINGS: PA and lateral views of the chest. LUNGS: The lungs are hyperexpanded. There is no lobar consolidation or effusion. The pulmonary inte rstitium is normal. There are no suspicious nodules. MEDIASTINUM: The heart size and pulmonary vasculature are within normal limits. The aorta is tortu ous and calcified. OSSEOUS STRUCTURES: The osseous structures show mild degenerative changes consistent with age. The so ft tissues are unremarkable. IMPRESSION: 1. No acute pulmonary disease. 2. Hyperexpansion of the chest consistent with chronic obstructive pulmonary disease.
[2017-06-10] MEDS: SODIUM CHLORIDE 1,000 ML IV SCH (15:32)
[2017-06-11] MEDS: DUONEB NEB SCH ×4 (05:37→22:32)
[2017-06-11] MEDS: SOLU-MEDROL 125 MG IVP SCH ×3 (05:42→20:23)
[2017-06-11] MEDS: NYSTOP POWDER TP SCH ×2 (08:59→20:24)
[2017-06-11] MEDS: ROCEPHIN 1 GM in SODIUM CHLORIDE 50 ML IV SCH (08:59)
[2017-06-11] MEDS: PROAIR HFA IH SCH ×2 (08:59→20:23)
[2017-06-11] MEDS: SYMBICORT 160-4.5 MCG INHALER IH SCH ×2 (08:59→20:24)
[2017-06-11] MEDS: LOVENOX SUBCUT SCH (09:00)
[2017-06-11] MEDS: DEMADEX PO SCH ×2 (09:00→20:23)
[2017-06-11] MEDS: CELEXA PO SCH (09:00)
[2017-06-11] MEDS: ASPIRIN CHEWABLE PO SCH (09:00)
[2017-06-11] MEDS: MICRO-K CAP PO SCH ×2 (09:00→17:26)
[2017-06-11] MEDS: XANAX PO SCH ×3 (09:17→20:22)
[2017-06-11] MEDS: SODIUM CHLORIDE 1,000 ML IV SCH (13:26)
[2017-06-12] MEDS: DUONEB NEB SCH ×2 (04:38→11:15)
[2017-06-12] MEDS: SOLU-MEDROL 125 MG IVP SCH (06:05)
[2017-06-12] MEDS ORDERED: MEDROL DOSEPAK PO SCH (06:30)
[2017-06-12 09:27] VITALS: BP 129/77; TEMP 97.9
[2017-06-12] MEDS: PROAIR HFA IH SCH (09:56)
[2017-06-12] MEDS: SYMBICORT 160-4.5 MCG INHALER IH SCH (09:56)
[2017-06-12] MEDS: MICRO-K CAP PO SCH (09:56)
[2017-06-12] MEDS: ROCEPHIN 1 GM in SODIUM CHLORIDE 50 ML IV SCH (09:56)
[2017-06-12] MEDS: ASPIRIN CHEWABLE PO SCH (09:56)
[2017-06-12] MEDS: CELEXA PO SCH (09:57)
[2017-06-12] MEDS: DEMADEX PO SCH (09:57)
[2017-06-12] MEDS: NYSTOP POWDER TP SCH (09:57)
[2017-06-12] MEDS: LOVENOX SUBCUT SCH (10:01)
[2017-06-12] MEDS: XANAX PO SCH (10:01)
--- NOTE | 2017-06-26 14:37 | DS ---
DATE OF SERVICE: 06/12/17 FINAL DIAGNOSIS: 1. Hypoxemic respiratory failure 2. COPD exacerbation secondary to the bronchitis 3. COPD oxygen dependant 4. Hyperglycemia most like from the steroids 5. Obesity 6. Dependant leg edema 7. Elevate D-dimer, negative for PE with CT chest 8. Rheumatoid arthritis DISCHARGE INSTRUCTIONS: Discharge the patient home to the half-way. Continue the rest of the home medication. MEDICATIONS AT DISCHARGE: Tylenol Zofran Albuterol Xanax Aspirin Bisacodyl Symbicort Celexa Hydrocodone Prednisone Demadex Potassium NEW PRESCRIPTIONS: Keflex 500mg twice a day Incruse Ellipta one puff daily Prednisone 10mg PO daily DIET INSTRUCTIONS: Cardiac and Healthy diet ACTIVITY: As much as tolerated Can participate in the half-way activities DISEASE SPECIFIC EDUCATION: COPD Needing for the pneumonia vaccination Chronic hypoxemic respiratory failure been discussed Antibiotic and diarrhea been discussed. HOSPITAL COURSE: Ana Paula Byrd was brought to the emergency room from the half-way with change in mental status, cough, congestion and shortness of breath. In the emergency room pH 7.529, pCo2 56, pO2 37. The patient was put on the BIPAP so pO2 went up to 46. The patient's D-Dimer was 1014. CT with PE protocol was done which was negative. At that time the patient was admitted to the hospital and started on the IV antibiotic Rocephin, Solu-Medrol 125mg Q 8 hours, daily I&O's and IV fluids. Gradually and slowly the patient started reacting. Defused wheezing were present which were difficult to response for the steroids and the breathing treatments. Recovery during the stay in the hospital was very slow. Kept doing the ABG's the patient was a CO2 retainer. No infiltrates were seen. Repeat chest x-ray was done and did not have any fever or chills. Leg edema was present. Gradually the patient started feeling better up and about slowly was able to walk inside the room with less short of breath. At that time the patient being discharged back to half-way. She will be followed in the half-way rounds within one week. TIME SPENT: MORE THAN 65 MINUTES MTDD
== END 2017-06-12 15:42 | DRG 189 ==
LOC: ED 11:48 → SCU 17:43
PROVIDERS: ADMIT Emergency Medicine; ATTEND Emergency Medicine
DX: J96.01 Acute respiratory failure with hypoxia (principal); J44.1 Chronic obstructive pulmonary disease with (acute) exacerbation; J44.0 Chronic obstructive pulmonary disease with (acute) lower respiratory infection; J20.9 Acute bronchitis, unspecified; R79.1 Abnormal coagulation profile; R06.02 Shortness of breath; R60.0 Localized edema; R53.83 Other fatigue; E66.9 Obesity, unspecified; F41.8 Other specified anxiety disorders; M06.9 Rheumatoid arthritis, unspecified; Z79.899 Other long term (current) drug therapy; Z99.81 Dependence on supplemental oxygen
CPT/HCPCS: 36415; 80053; 82550; 82803; 83880; 84145; 84484; 85025; 85379; 87040; 87081; 87502; 93005; 93010; 94640; 94660; 96374; 96375; 99284

== ENCOUNTER 2017-07-11 05:54 | Inpatient (IN) | payer OTHER ==
[2017-07-11] MEDS ORDERED: SOLU-MEDROL 125 MG IVP STA (06:13)
[2017-07-11] MEDS ORDERED: XOPENEX 1.25 MG NEB STA (06:13)
--- NOTE | 2017-07-11 06:16 | ED.PDOC ---
General Stated Complaint: Sent from the [place] for the shortness of breath, coughing, congestion. Time Seen by Physician: 06:14 Mode of Arrival: Stretcher Information Source: Patient, [facility], EMT Nursing and Triage Documentation Reviewed and Agree: Yes Reviewed sepsis parameters & appropriate labs ordered?: No <SANCHO EUCEDA - Last Filed: 07/11/17 06:14> System Inflammatory Response Syndrome: Not Applicable System Inflammatory Response Syndrome: Not Applicable <NING SEAY - Last Filed: 07/11/17 09:56> ED Provider: Dr. NING SEAY Chief Complaint: Shortness of Air Primary Care Provider: SANCHO EUCEDA-[facility] Sepsis Protocol: For patient's 13 years and over: Temp is 96.8 and below OR 101 and greater Pulse >90 BPM Resp >20/minute Acutely Altered Mental Status Are patient's symptoms suggestive of a new infection, such as: -Pneumonia -Skin, Soft Tissue -Endocarditis -UTI -Bone, Joint Infection -Implantable Device -Acute Abdominal Infection -Wound Infection -Meningitis -Blood Stream Catheter Infection -Unknown Respiratory Complaint Exam - Shortness of Air Complaint/Exam Symptoms Are: Still present Timing: Constant Initial Severity: Severe Current Severity: Severe Character: Reports: Dyspnea at rest Aggravating: Reports: Allergens Alleviating: Reports: None Associated Signs and Symptoms: Reports: Cough, Wheezing. Denies: Chest pain with cough, Chest pain, Fever, Chills, Diaphoresis, Nasal congestion, Dizziness , Calf pain, Calf swelling, Edema, Rapid breathing, Labored breathing, Decreased intake Related History: Reports: Similar episode History of Healthcare-Acquired Pneumonia: Lives at shelter, Admit w/in last 30 days Pulmonary Embolism Risk Factors: Reports: None Cardiac Risk Factors: Reports: CAD, Hypertension, CHF Pseudomonas Risk Factors: Reports: None Tuberculosis Risk Factors: Reports: None Home Oxygen Use: Yes Recent Stress Test: No Recent Echo/LV Function: No Respiratory Distress: Moderate Stridor Present: No Tracheal Deviation: No Subcutaneous Emphysema: No Accessory Muscle Use: No Retractions: Nasal Flaring, Supraclavicular Diminished Breath Sounds: Yes Prolonged Expiratory Phase: Yes Unable to Speak Full Sentences: Yes Fatigue: No Leg Swelling: No Román's Sign Present: No Grunting Respirations: No Kussmaul Respirations: No Differential Diagnoses: CHF, Pulmonary Edema, COPD Exacerbation, Pneumonia <SERINA EUCEDAAN Last Filed: 07/11/17 06:14> Review of Systems - Review Of Systems Constitutional: Reports: Malaise, Weakness Eyes: Reports: No symptoms Ears, Nose, Mouth, Throat: Reports: No symptoms Respiratory: Reports: Cough, Short of air Cardiac: Reports: No symptoms GI: Reports: No symptoms : Reports: No symptoms Musculoskeletal: Reports: No symptoms Skin: Reports: No symptoms Neurological: Reports: No symptoms Endocrine: Reports: No symptoms Hematologic/Lymphatic: Reports: No symptoms All Other Systems: Reviewed and Negative <SANCHO EUCEDA Filed: 07/11/17 06:14> Past Medical History - Past Medical History Previously Healthy: Yes Endocrine: Reports: None Cardiovascular: Reports: Hypertension, CHF Respiratory: Reports: COPD Hematological: Reports: None Gastrointestinal: Reports: None Genitourinary: Reports: None Neuro/Psych: Reports: Anxiety, Depression Musculoskeletal: Reports: None Cancer: Reports: None Last Menstrual Period: 17 yrs ago - Surgical History General Surgical History: Reports: None - Family History Family History: Reports: None - Social History Smoking Status: Former smoker Hx Substance Use: No Alcohol Screening: None - Immunizations Tetanus Shot up to Date: Yes (2017) <SANCHO EUCEDA Filed: 07/11/17 06:14> Physical Exam - Physical Exam Appearance: Ill-appearing, Obese Ill-appearing: Severe Eyes: SVETA, EOMI, Conjunctiva clear ENT: Ears normal, Nose normal, Oropharynx normal Respiratory: Crackles, Wheezes Cardiovascular: RRR, Pulses normal, No rub, No murmur GI/: Soft, Nontender, No masses, Bowel sounds normal, No Organomegaly Musculoskeletal: Normal strength, ROM intact, No edema, No calf tenderness Skin: Warm, Dry, Normal color Neurological: Sensation intact, Motor intact, Reflexes intact, Cranial nerves intact, Alert, Oriented Psychiatric: Affect appropriate, Mood appropriate <SANCHO EUCEDA Filed: 07/11/17 06:14> Physician Notification - Case Discussed Time of Notification: 07:00 (DR Sanchez.) <SANCHO EUCEDA Filed: 07/11/17 06:14> Critical Care Note - Critical Care Note Total Time (mins): 30 <SANCHO EUCEDA - Last Filed: 07/11/17 06:14> Course - Course Hematology/Chemistry: 07/11/17 06:27 07/11/17 06:27 <NING SEAY - Last Filed: 07/11/17 09:56> - Course Orders, Labs, Meds: Lab Review 07/11/17 07/11/17 07/11/17 06:13 06:27 06:27 WBC 11.72 H RBC 4.58 Hgb 11.3 L Hct 39.5 MCV 86.2 MCH 24.7 L MCHC 28.6 L RDW Coeff of Sia 19.3 H Plt Count 438 Immature Gran % (Auto) 2.2 Neut % (Auto) 72.9 Lymph % (Auto) 14.3 [place] % (Auto) 8.6 Eos % (Auto) 1.7 Baso % (Auto) 0.3 Immature Gran # (Auto) 0.3 Neut # (Auto) 8.5 H Lymph # (Auto) 1.7 [place] # (Auto) 1.0 Eos # (Auto) 0.2 Baso # (Auto) 0.0 D-Dimer (Manual) Puncture Site Lb O2 Saturation 74.0 L ABG pH 7.419 ABG pCO2 65.8 H ABG pO2 40.0 L* ABG HCO3 42.6 H ABG Total CO2 45 H ABG Base Excess 18 H Lion Test + O2 Delivery Device Bnc Oxygen Liter Flow 2.00 FiO2 % 28.0 Sodium 144 Potassium 4.1 Chloride 93 L Carbon Dioxide 43 H* Anion Gap 12.1 BUN 10 Creatinine 0.73 Estimated GFR (MDRD) 80.00 BUN/Creatinine Ratio 13.69 Glucose 127 H Calcium 9.4 Total Bilirubin 0.5 AST 18 ALT 17 Alkaline Phosphatase 83 Total Creatine Kinase 17 Troponin I 0.0260 B-Natriuretic Peptide Total Protein 6.4 Albumin 2.9 L Globulin 3.5 Albumin/Globulin Ratio 0.83 07/11/17 07/11/17 07/11/17 06:27 06:27 07:39 WBC RBC Hgb Hct MCV MCH MCHC RDW Coeff of Sia Plt Count Immature Gran % (Auto) Neut % (Auto) Lymph % (Auto) [place] % (Auto) Eos % (Auto) Baso % (Auto) Immature Gran # (Auto) Neut # (Auto) Lymph # (Auto) [place] # (Auto) Eos # (Auto) Baso # (Auto) D-Dimer (Manual) 1403.71 Puncture Site Lb O2 Saturation 92.0 L ABG pH 7.472 H ABG pCO2 61.2 H ABG pO2 62.0 L ABG HCO3 44.8 H ABG Total CO2 47 H ABG Base Excess 21 H Lion Test O2 Delivery Device Bipap Oxygen Liter Flow FiO2 % 50.0 Sodium Potassium Chloride Carbon Dioxide Anion Gap BUN Creatinine Estimated GFR (MDRD) BUN/Creatinine Ratio Glucose Calcium Total Bilirubin AST ALT Alkaline Phosphatase Total Creatine Kinase Troponin I B-Natriuretic Peptide 191 H Total Protein Albumin Globulin Albumin/Globulin Ratio Orders Category Date Time Status ABG DRAW REQUEST Stat CARDIO 07/11/17 06:13 Completed ABG DRAW REQUEST Stat CARDIO 07/11/17 07:40 Completed EKG-(ED ONLY) Stat CARDIO 07/11/17 06:47 Completed NEBULIZER TREATMENT Stat CARDIO 07/11/17 06:13 Completed NPO REMINDER: IMAGING ONCE CARE 07/11/17 07:29 Completed ED IV/MEDIPORT/POWERPORT .ONCE EMERGENCY 07/11/17 06:13 Active ABG Stat LAB 07/11/17 06:13 Completed ABG Stat LAB 07/11/17 07:39 Completed B-TYPE NATRIURETIC PEPTIDE Stat LAB 07/11/17 06:27 Completed CBC W/ AUTO DIFF Stat LAB 07/11/17 06:27 Completed COMPREHENSIVE METABOLIC PANEL Stat LAB 07/11/17 06:27 Completed CREATINE KINASE Stat LAB 07/11/17 06:27 Completed D-DIMER Stat LAB 07/11/17 06:27 Completed TROPONIN I Stat LAB 07/11/17 06:27 Completed 0.9 % Sodium Chloride [Saline Flush] MEDS 07/11/17 06:13 Active 1 syr IVF PRN PRN Enoxaparin Sodium [Lovenox] MEDS 07/11/17 07:31 Discontinued 100 mg SUBCUT ONCE STA Levalbuterol HCl [Xopenex 1.25 mg] MEDS 07/11/17 06:13 Discontinued 1 vial NEB ONCE STA Methylprednisolone Sod Succ/Pf [Solu-Medrol 125 mg] MEDS 07/11/17 06:13 Discontinued [address] CHEST W/O CONTRAST Stat RADS 07/11/17 06:13 Completed CTA ANGIO CHEST Stat RADS 07/11/17 07:29 Taken Medications Generic Name Dose Route Start Last Admin Trade Name Constantinq PRN Reason Stop Dose Admin Sodium Chloride 1 syr 07/11/17 06:13 07/11/17 07:06 Saline Flush IVF 1 syr PRN PRN Administration To flush IV Discontinued Medications Generic Name Dose Route Start Last Admin Trade Name Fresury PRN Reason Stop Dose Admin Enoxaparin Sodium 100 mg 07/11/17 07:31 07/11/17 08:43 Lovenox SUBCUT 07/11/17 07:32 100 mg ONCE STA Administration Levalbuterol HCl 1 vial 07/11/17 06:13 07/11/17 06:20 Xopenex 1.25 Mg NEB 07/11/17 06:14 1 vial ONCE STA Administration Methylprednisolone Sodium Succinate 125 mg 07/11/17 06:13 07/11/17 07:04 Solu-Medrol 125 Mg IVP 07/11/17 06:14 125 mg ONCE STA Administration Vital Signs: Temp Pulse Resp BP Pulse Ox 07/11/17 07:04 92 L 07/11/17 05:56 97.4 F L 113 H 20 105/80 88 L Departure - Departure Pt referred to PMD for follow-up: Yes IPMP verified?: No Disposition Discussed With: Patient <SANCHO EUCEDA - Last Filed: 07/11/17 06:14> - Departure Time of Disposition: 09:30 Disposition Discussed With: Patient <NING SEAY - Last Filed: 07/11/17 09:56> - Departure Disposition: ADMITTED INPATIENT Discharge Problem: COPD exacerbation, COPD with acute exacerbation, Pneumonia Instructions: COPD (Chronic Obstructive Pulmonary Disease) (ED) Condition: Fair Allergies/Adverse Reactions: Allergies Penicillins Adverse Reaction (Verified 07/11/17 06:10) Home Medications: Ambulatory Orders Albuterol Sulfate [Proair Hfa] 2 puff IH RTQ6H PRN 09/12/16 Aspirin 81 mg PO DAILY 09/12/16 Budesonide/Formoterol Fumarate [Symbicort 160-4.5 Mcg Inhaler] 2 puff IH BID Potassium Chloride [Micro-K Cap] 10 meq PO DAILY 09/12/16 Torsemide [Demadex] 20 mg PO DAILY 09/12/16 Ipratropium/Albuterol Neb [Duoneb] 1 vial NEB TID #1 vial.neb 09/17/16 Acetaminophen [Acetaminophen ER] 650 mg PO Q4HR PRN 06/05/17 Alprazolam [Xanax] 0.5 mg PO TID 06/05/17 Bisacodyl 10 mg RC DAILY PRN 06/05/17 Citalopram Hydrobromide [Celexa] 10 mg PO DAILY 06/05/17 Magnesium Hydroxide [Milk of Magnesia] 30 ml PO DAILY PRN 06/05/17 Ondansetron HCl [Zofran Tab] 4 mg PO Q6HR PRN 06/05/17 Hydrocodone/Acetaminophen [Hydrocodon-Acetaminophen 5-325] 1 each PO BID PRN Umeclidinium Moodus [Incruse Ellipta] 62.5 mcg IH DAILY #1 blst.w.dev 06/12/17 <SANCHO EUCEDA - Last Filed: 07/11/17 06:14> <NING SEAY - Last Filed: 07/11/17 09:56> Additional Information: 0730 hrs. Assumed mgt from DR KIM; Review of lab reveals ELEVATED D-Dimer; Discussed with attending; Agrees CTA chest should be obtained and initiate Lovenox. US not available./Orders initiated. Patient re examined and states has experienced increasing dyspnea for 2 day with lt sided chest tightness. Denies pain. Currently has easier non labored breathing. RT obtaining repeat ABG. (NING SEAY)
[2017-07-11] MEDS ORDERED: LOVENOX SUBCUT STA (07:31)
--- NOTE | 2017-07-11 07:43 | CT ---
EXAM: CT chest without contrast. HISTORY: Shortness of breath. DATE: 07/11/2017. COMPARISON: CT of the chest obtained on 06/05/2017. TECHNIQUE: [address] images of the chest were obtained without contrast. Sagittal and coronal r econstructions were created. RADIATION: kVp: 120. Total DLP = 728.8 mGy-cm. FINDINGS: Moderate emphysematous changes of the lungs are present. Patchy airspace opacities are se en within the periphery of the right upper lobe, right middle lobe, and right lower lobe. Small area s of atelectasis or consolidation are located in the inferior right lower lobe. A small amount of li near atelectasis is located within the periphery of the left lower lobe and in the inferior left uppe r lobe. There is no pneumothorax or pleural effusion. A precarinal lymph node measures 1.5 cm (axia l image #27). Multiple subcentimeter mediastinal lymph nodes are present. The heart size is normal. The thoracic aorta contains a small amount of calcified plaque. The partially imaged upper abdomen is unremarkable. There are moderate degenerative changes of the lower cervical spine. Mild degenerat donna changes of the thoracic spine are present. across its short axis. IMPRESSION:. 1. Scattered air space opacities and possible small consolidations in the right lung could represent a pneumonic process. Clinical correlation is recommended. Some of these lesions are somewhat nodul ar in morphology. A follow-up CT to document resolution is recommended. 2. Moderate emphysematous changes of the lungs. 3. Mediastinal adenopathy. 4. Atherosclerosis.
[2017-07-11] MEDS ORDERED: LEVAQUIN 750 MG in PREMIX 150 ML D5W 1 BAG IV STA (09:18)
--- NOTE | 2017-07-11 09:23 | CT ---
EXAM: CTA chest with contrast. HISTORY: Shortness of breath, elevated D-dimer. DATE: 07/11/2017. COMPARISON: CT of the chest obtained on 07/11/2017. TECHNIQUE: 5 mm and [address] images of the chest were obtained with IV contrast. Sagittal and coronal reconstructions were created. 3-D volume rendering and maximum intensity projections were al so created. RADIATION: kVp: 120. Total DLP = 863.40 mGy-cm. FINDINGS: No main, lobar, or segmental pulmonary artery filling defects are identified. Moderate em physematous changes of the lungs are present. Patchy airspace opacities are seen within the peripher y of the right upper lobe, right middle lobe, and right lower lobe. Small areas of atelectasis or co nsolidation are located in the inferior right lower lobe. A small amount of linear atelectasis is lo cated within the periphery of the left lower lobe and in the inferior left upper lobe. A small amoun t of dependent atelectasis is located within the left upper lobe and bilateral lower lobes. There is no pneumothorax or pleural effusion. A precarinal lymph node measures 1.5 cm (axial image #27). Mul tiple subcentimeter mediastinal lymph nodes are present. The heart size is normal. The thoracic aor ta contains a small amount of calcified plaque. Within the partially imaged left kidney, there is a round hypodense (8 HU) lesion that measures approximately 2.2 cm in diameter. The partially imaged ri ght kidney is lobular in contour. The spleen is borderline enlarged. There are moderate degenerativ e changes of the lower cervical spine. Mild degenerative changes of the thoracic spine are present. across its short axis. IMPRESSION: 1. No main, lobar, or segmental pulmonary emboli. 2. Scattered air space opacities and possible small consolidations in the right lung could represent a pneumonic process. Clinical correlation is recommended. Some of these lesions are somewhat nodul ar in morphology. A follow-up CT to document resolution is recommended. 3. Moderate emphysematous changes of the lungs. 4. Mediastinal adenopathy. 5. Atherosclerosis. 6. Probable left renal cyst.
[2017-07-11] MEDS ORDERED: DUONEB NEB PRN (09:44)
[2017-07-11] MEDS ORDERED: LEVAQUIN 150 ML IV ONE (09:44)
[2017-07-11 11:43] VITALS: BMI 44.7
[2017-07-11] MEDS ORDERED: MILK OF MAGNESIA PO PRN (14:00)
[2017-07-11] MEDS ORDERED: NORCO 5-325 PO PRN (14:00)
[2017-07-11] MEDS ORDERED: ZOFRAN TAB PO PRN (14:00)
[2017-07-11] MEDS ORDERED: VANCOMYCIN 1 GM in SODIUM CHLORIDE 250 ML IV SCH (14:00)
[2017-07-11] MEDS ORDERED: DULCOLAX RC PRN (14:00)
[2017-07-11] MEDS ORDERED: ROCEPHIN ONE (14:12)
[2017-07-11] MEDS: ROCEPHIN 1 GM in SODIUM CHLORIDE 50 ML IV SCH (14:21)
[2017-07-11] MEDS: NYSTOP POWDER TP SCH ×2 (14:22→21:28)
[2017-07-11] MEDS: SOLU-MEDROL 125 MG IVP SCH ×2 (14:22→21:57)
[2017-07-11] MEDS: XANAX PO SCH ×2 (14:29→21:29)
[2017-07-11] MEDS: DUONEB NEB SCH ×2 (18:14→23:12)
[2017-07-11] MEDS ORDERED: DEMADEX ONE (20:43)
[2017-07-11] MEDS ORDERED: TORSEMIDE 20 MG PO SCH (21:00)
[2017-07-11] MEDS: SYMBICORT 160-4.5 MCG INHALER IH SCH (21:28)
[2017-07-11] MEDS: MICRO-K CAP PO SCH (21:29)
[2017-07-11] MEDS: NYSTATIN ORAL SUSP PO SCH (21:29)
[2017-07-12] MEDS: DUONEB NEB SCH ×4 (05:00→23:25)
[2017-07-12] MEDS: NYSTATIN ORAL SUSP PO SCH ×4 (05:51→21:13)
[2017-07-12] MEDS: SOLU-MEDROL 125 MG IVP SCH ×3 (06:00→21:25)
[2017-07-12] MEDS ORDERED: K-DUR PO STA (07:38)
[2017-07-12] MEDS: ROCEPHIN 1 GM in SODIUM CHLORIDE 50 ML IV SCH (08:26)
[2017-07-12] MEDS: MICRO-K CAP PO SCH ×2 (08:26→21:13)
[2017-07-12] MEDS: NYSTOP POWDER TP SCH ×2 (08:27→21:13)
[2017-07-12] MEDS: XANAX PO SCH ×3 (08:27→21:13)
[2017-07-12] MEDS: SYMBICORT 160-4.5 MCG INHALER IH SCH ×2 (08:27→21:13)
[2017-07-12] MEDS: DEMADEX PO SCH ×2 (08:27→21:13)
[2017-07-12] MEDS: NON-FORMULARY MEDICATION (Umeclidinium Bromide [Incruse Ellipta] 62.5 MCG) IH SCH (08:27)
[2017-07-12] MEDS: CELEXA PO SCH (08:27)
[2017-07-12] MEDS: ASPIRIN CHEWABLE PO SCH (08:27)
[2017-07-12] MEDS: VANCOMYCIN 750 MG in SODIUM CHLORIDE 250 ML IV SCH ×2 (09:56→21:13)
[2017-07-13] MEDS: DUONEB NEB SCH ×4 (04:52→20:30)
[2017-07-13] MEDS: NYSTATIN ORAL SUSP PO SCH ×4 (05:41→20:53)
[2017-07-13] MEDS: SOLU-MEDROL 125 MG IVP SCH ×3 (05:44→20:53)
[2017-07-13] MEDS: CELEXA PO SCH (09:00)
[2017-07-13] MEDS: SYMBICORT 160-4.5 MCG INHALER IH SCH ×2 (09:00→20:54)
[2017-07-13] MEDS: ROCEPHIN 1 GM in SODIUM CHLORIDE 50 ML IV SCH (09:00)
[2017-07-13] MEDS: MICRO-K CAP PO SCH ×2 (09:00→20:55)
[2017-07-13] MEDS: XANAX PO SCH ×3 (09:00→20:55)
[2017-07-13] MEDS: ASPIRIN CHEWABLE PO SCH (09:00)
[2017-07-13] MEDS: NON-FORMULARY MEDICATION (Umeclidinium Bromide [Incruse Ellipta] 62.5 MCG) IH SCH (09:00)
[2017-07-13] MEDS: DEMADEX PO SCH ×2 (09:01→20:55)
[2017-07-13] MEDS: NYSTOP POWDER TP SCH ×2 (09:01→20:54)
[2017-07-13] MEDS: VANCOMYCIN 750 MG in SODIUM CHLORIDE 250 ML IV SCH ×2 (10:40→20:57)
[2017-07-14] MEDS: DUONEB NEB SCH ×4 (05:48→20:18)
[2017-07-14] MEDS: NYSTATIN ORAL SUSP PO SCH ×4 (05:51→20:43)
[2017-07-14] MEDS: SOLU-MEDROL 125 MG IVP SCH ×3 (05:51→20:43)
--- NOTE | 2017-07-14 08:44 | HP ---
DATE OF SERVICE: 07/11/17 CHIEF COMPLAINT: Shortness of breath HISTORY OF PRESENT ILLNESS: This is a 66 year old female who [facility] for the shortness of breath and hypoxemia. The patient has a history of COPD oxygen dependant. She has been coughing and congested for 2-3 days, getting yellow/ green phlegm getting the breathing treatments. Today early in the morning the patient was really short of breath, fever and saturation down to the 80% on the 2 liters so the patient was brought to the emergency room and was seen by Dr. Correa. ABG's showed the pH7.419,pCo2 65.8,pO2 40, d-dimer [address] chest with PE protocol, negative for the PE. Some pneumonia seen right lower lobe. At that time the patient was admitted to the hospital with acute hypoxemic respiratory failure with right lower lobe pneumonia. REVIEW OF SYSTEMS: CONSTITUTIONAL: No fever, no chills.Weakness and tiredness. HEENT: Normal. ENDOCRINE: No weight gain; no weight loss. CVS: No chest pain. No PND, no orthopnea. Shortness of breath. No PND, no orthopnea. RESPIRATORY: Cough, Congestion. No hemoptysis. GI: No nausea, no vomiting. No abdominal pain. No melena. : No hematuria. No polyuria. MUSCULOSKELETAL: No joint swelling. PSYCHIATRIC: Not anxious. No depression. No suicidal thoughts. No homicidal thoughts. SKIN: Intact, no open lesions. PAST MEDICAL HISTORY: COPD oxygen dependant Pneumonia Osteoarthritis Rheumatoid arthritis Anxiety disorder Depression Dependant leg edema PAST SURGICAL HISTORY: None PERSONAL HISTORY: The does smoke. No alcohol and no drugs. Partially dependant upon the ADL's. [facility]. Family history is significant for the rheumatic fever and diabetes. MEDICATIONS: Potassium Albuterol Symbicort Demadex DUO NEBS Zofran Xanax Milk of Magnesia Bisacodyl Tylenol Citalopram Hydrocodone Incruse Albuterol ALLERGIES: Penicillin does not know exactly what type of allergy PHYSICAL EXAMINATION: V/S: Blood pressure 105/80, respiratory rate 20, hear rate 113, temperature 97.4 , saturation 88 on 2 liters. GENERAL: Sick looking lady laying in a bed. HEENT: Atraumatic, normocephalic. No scleral icterus. NECK: Supple. No JVD, no bruit. No lymphadenopathy. No thyromegaly. HEART: S1, S2 normal. No murmur. No cyanosis or clubbing. No ascites. LUNGS: Decreased and basilar crackles, defused wheezing. No rales or rhonchi. ABDOMEN: Soft, nontender. Bowel sounds are active. No CVA tenderness. No rigidity or guarding. EXTREMITIES: 1+ edema. No cyanosis or clubbing MUSCULOSKELETAL: Normal joints, no swelling. NEUROLOGIC: The patient is awake and alert. SKIN: Intact; no open lesions. LYMPHATIC: No lymph nodes palpable. LABS: WBC 11.72, hgb 11.3, hct 39.5, plt count 438, D-dimer 1403, ABG pH 7.419, pCo2 65.8, pO2 40, sodium 144, potassium 4.1, chloride 93, bicarb 43, BUN 10, creatinine 0.76, glucose 127. BNP 191. ASSESSMENT: 1. Acute hypoxemic respiratory failure 2. COPD exacerbation secondary to the right lower lobe pneumonia, facility acquired 3. Dependant leg edema 4. Hypertension 5. Dyslipidemia 6. Osteoarthritis 7. Rheumatoid arthritis PLAN: 1. Admit the patient to the regular floor 2. CBC and CMP today and daily 3. Cardiac enzymes and Troponin 4. IV fluids 5. Rocephin 1 gram daily 6. DUO NEBS 7. Vancomycin 8. Solu-Medrol 9. Daily I&O's TIME SPENT: Critical care time because of the Hypoxemic respiratory failure and pneumonia, more than 70 minutes today. MTDD
[2017-07-14] MEDS: ASPIRIN CHEWABLE PO SCH (09:11)
[2017-07-14] MEDS: CELEXA PO SCH (09:12)
--- NOTE | 2017-07-14 09:13 | PN ---
DATE OF SERVICE: 07/12/17 SUBJECTIVE: The patient was admitted with hypoxemic respiratory failure and COPD exacerbation. The patient is using the BIPAP with the ABG's in the morning; pH 7.472,pCo2 came down to 56.4 from 65.8 yesterday. REVIEW OF SYSTEMS: CONSTITUTIONAL: No fever, no chills. HEENT: Normal. ENDOCRINE: No weight gain, no weight loss. CVS: No angina symptoms. No CHF symptoms. No palpitations. No atypical chest pain for CAD. Shortness of breath with minimal exertion. No PND, no orthopnea. RESPIRATORY: Cough and congestion, no hemoptysis. GI: No nausea, no vomiting. No abdominal pain. : No hematuria. No polyuria. MUSCULOSKELETAL: No joint swelling. PSYCHIATRIC: Not anxious. No depression. No suicidal thoughts. No homicidal thoughts. SKIN: Intact. No rash. PHYSICAL EXAMINATION: V/S: Blood pressure 125/79, respiratory rate is 24, heart rate 78, temperature 95.9 with saturation 93% on the BIPAP HEENT: Normocephalic, atraumatic. Mucosa dry. Pallor positive. No icterus. NECK: Supple. No JVD, no carotid bruit. No lymphadenopathy. LUNGS: Decreased and basilar crackles. Mild expiratory wheeze present. Clear to auscultation. No rales or rhonchi. HEART: S1, S2 normal. No S3. No murmur, gallop or regurgitation. ABDOMEN: Soft, nontender. Bowel sounds active. No rigidity. No rebound or guarding. No CVA tenderness. EXTREMITIES: 1+ edema. No clubbing or cyanosis MUSCULOSKELETAL: No joint swelling. NEUROLOGIC: Awake, alert, oriented times three. No focal deficit. LYMPHATIC: No lymph nodes palpable. SKIN: Intact. LABS: WBC 19.07, hgb 11.3, hct 38.4, plt count 499, sodium 144, potassium 3.4, chloride 94, bicarb 37, BUN 19, creatinine 0.88. ASSESSMENT: 1. Acute hypoxemic respiratory failure 2. COPD exacerbation secondary to the bronchitis 3. Leukocytosis from steroids 4. CO2 Narcosis 5. Coronary artery disease 6. Osteoarthritis 7. Rheumatoid arthritis PLAN: 1. Continue the Levofloxacin 1 gram daily 2. Lovenox for the DVT prophylaxis 3. DUO NEBS 4. Vancomycin Q 12 5. Solu-Medrol 125 Q 8 hours 6. Daily I&O's TIME SPENT: More than 35 minutes MTDD
[2017-07-14] MEDS: MICRO-K CAP PO SCH ×2 (09:14→20:43)
[2017-07-14] MEDS: DEMADEX PO SCH ×2 (09:14→20:42)
[2017-07-14] MEDS: NYSTOP POWDER TP SCH ×2 (09:15→20:43)
[2017-07-14] MEDS: ROCEPHIN 1 GM in SODIUM CHLORIDE 50 ML IV SCH (09:16)
[2017-07-14] MEDS: SYMBICORT 160-4.5 MCG INHALER IH SCH ×2 (09:17→20:43)
[2017-07-14] MEDS: NON-FORMULARY MEDICATION (Umeclidinium Bromide [Incruse Ellipta] 62.5 MCG) IH SCH (09:18)
[2017-07-14] MEDS: XANAX PO SCH ×3 (09:18→20:42)
[2017-07-14] MEDS: VANCOMYCIN 750 MG in SODIUM CHLORIDE 250 ML IV SCH ×2 (10:10→20:43)
--- NOTE | 2017-07-14 13:25 | PN ---
DATE OF SERVICE: 07/13/17 SUBJECTIVE: The patient was admitted with the hypoxemic respiratory failure. Slept good, not using the CPAP. REVIEW OF SYSTEMS: CONSTITUTIONAL: No fever, no chills. HEENT: Normal. ENDOCRINE: No weight gain, no weight loss. CVS: No angina symptoms. No CHF symptoms. No palpitations. No atypical chest pain for CAD. Shortness of breath with minimal exertion. No PND, no orthopnea. RESPIRATORY: Cough and congestion, no hemoptysis. GI: No nausea, no vomiting. No abdominal pain. : No hematuria. No polyuria. MUSCULOSKELETAL: No joint swelling. PSYCHIATRIC: Not anxious. No depression. No suicidal thoughts. No homicidal thoughts. SKIN: Intact. No rash. PHYSICAL EXAMINATION: V/S: Blood pressure 109/65, respiratory rate 14, heart rate 94, temperature 97.4 with saturation 89 on 3 liters. HEENT: Normocephalic, atraumatic. Mucosa dry. Pallor positive. No icterus. NECK: Supple. No JVD, no carotid bruit. No lymphadenopathy. LUNGS: Decreased and basilar crackles. Mild expiratory wheezing. Clear to auscultation. No rales or rhonchi. HEART: S1, S2 normal. No S3. No murmur, gallop or regurgitation. ABDOMEN: Soft, nontender. Bowel sounds active. No rigidity. No rebound or guarding. No CVA tenderness. EXTREMITIES: No pedal edema. No clubbing or cyanosis MUSCULOSKELETAL: No joint swelling. NEUROLOGIC: Awake, alert, oriented times three. No focal deficit. LYMPHATIC: No lymph nodes palpable. SKIN: Intact. LABS: Sodium 144, potassium 3.6, chloride 99, bicarb 33, BUN 30, creatine 0.79, WBC 30.95, hgb11.2, hct 37.4, plt count 500 ASSESSMENT: 1. Hypoxemic respiratory failure 2. COPD exacerbation secondary to the bronchitis 3. Co2 Narcosis 4. History of CHF 5. Hypertension 6. Dyslipidemia 7. Rheumatoid arthritis PLAN: 1. Continue the Levaquin 2. Solu-Medrol 3. DUO NEBS 4. Daily I&O's TIME SPENT: More than 35 minutes MTDD
[2017-07-15] MEDS: SOLU-MEDROL 125 MG IVP SCH (04:34)
[2017-07-15] MEDS: DUONEB NEB SCH ×4 (05:10→21:45)
[2017-07-15] MEDS: NYSTATIN ORAL SUSP PO SCH ×4 (05:53→20:37)
[2017-07-15] MEDS: CELEXA PO SCH (09:42)
[2017-07-15] MEDS: ASPIRIN CHEWABLE PO SCH (09:42)
[2017-07-15] MEDS: NYSTOP POWDER TP SCH ×2 (09:42→20:42)
[2017-07-15] MEDS: DEMADEX PO SCH ×2 (09:42→20:38)
[2017-07-15] MEDS: MICRO-K CAP PO SCH ×2 (09:42→20:38)
[2017-07-15] MEDS: SYMBICORT 160-4.5 MCG INHALER IH SCH ×2 (09:46→20:37)
[2017-07-15] MEDS: NON-FORMULARY MEDICATION (Umeclidinium Bromide [Incruse Ellipta] 62.5 MCG) IH SCH (09:46)
[2017-07-15] MEDS: ROCEPHIN 1 GM in SODIUM CHLORIDE 50 ML IV SCH ×2 (09:46→10:39)
[2017-07-15] MEDS ORDERED: MEDROL DOSEPAK PO SCH (10:30)
--- NOTE | 2017-07-15 10:34 | PN ---
DATE OF SERVICE: 07/14/17 SUBJECTIVE: The patient was admitted with COPD exacerbation and hypoxemic respiratory failure. The patient is up in the bed eating the lunch. Still coughing and congestion with some wheezing. REVIEW OF SYSTEMS: CONSTITUTIONAL: No fever, no chills. HEENT: Normal. ENDOCRINE: No weight gain, no weight loss. CVS: No angina symptoms. No CHF symptoms. No palpitations. No atypical chest pain for CAD. No shortness of breath. No PND, no orthopnea. RESPIRATORY: Cough, no hemoptysis. GI: No nausea, no vomiting. No abdominal pain. : No hematuria. No polyuria. MUSCULOSKELETAL: No joint swelling. PSYCHIATRIC: Not anxious. No depression. No suicidal thoughts. No homicidal thoughts. SKIN: Intact. No rash. PHYSICAL EXAMINATION: V/S: Blood pressure 113/65, respiratory rate 20, heart rate 74, temperature 97.7 with saturation 94 on 2 liters. HEENT: Normocephalic, atraumatic. Mucosa dry. Pallor positive. NECK: Supple. No JVD, no carotid bruit. No lymphadenopathy. LUNGS: Decreased and basilar crackles with left sided wheezing. Clear to auscultation. No rales or rhonchi. HEART: S1, S2 normal. No S3. No murmur, gallop or regurgitation. ABDOMEN: Soft, nontender. Bowel sounds active. No rigidity. No rebound or guarding. No CVA tenderness. EXTREMITIES: No pedal edema. No clubbing or cyanosis MUSCULOSKELETAL: No joint swelling. NEUROLOGIC: Awake, alert, oriented times three. No focal deficit. LYMPHATIC: No lymph nodes palpable. SKIN: Intact. LABS: WBC 30.95, hgb 11.2, hct 37.4, plt count 500, sodium 144, potassium 3.6, chloride 99, bicarb 33, BUN 30, creatinine 0.79. ASSESSMENT: 1. Hypoxemic respiratory failure 2. COPD exacerbation secondary secondary to the bronchitis 3. Rheumatoid arthritis 4. CHF, diastolic 5. Dependant leg edema 6. COPD, oxygen dependant PLAN: 1. Continue the Rocephin 2. DUO NEBS 3. Solu-Medrol 125 Q 8 hour 4. Vancomycin Q 12 hour 5. Daily I&O's TIME SPENT: More than 35 minutes MTDD
[2017-07-15] MEDS: VANCOMYCIN 750 MG in SODIUM CHLORIDE 250 ML IV SCH (10:39)
[2017-07-15] MEDS: MEDROL DOSEPAK PO SCH ×4 (11:00→20:37)
[2017-07-15] MEDS: KEFLEX PO SCH ×2 (11:00→20:38)
[2017-07-15] MEDS: XANAX PO SCH ×3 (11:00→20:38)
[2017-07-15] MEDS ORDERED: SOLU-MEDROL 125 MG IVP SCH (13:00)
[2017-07-16] MEDS: DUONEB NEB SCH ×2 (05:00→10:10)
[2017-07-16] MEDS: MEDROL DOSEPAK PO SCH ×2 (05:59→12:27)
[2017-07-16] MEDS: NYSTATIN ORAL SUSP PO SCH ×2 (05:59→11:03)
[2017-07-16] MEDS: ASPIRIN CHEWABLE PO SCH (08:35)
[2017-07-16] MEDS: SYMBICORT 160-4.5 MCG INHALER IH SCH (08:35)
[2017-07-16] MEDS: MICRO-K CAP PO SCH (08:36)
[2017-07-16] MEDS: DEMADEX PO SCH (08:36)
[2017-07-16] MEDS: CELEXA PO SCH (08:36)
[2017-07-16] MEDS: XANAX PO SCH (08:36)
[2017-07-16] MEDS: KEFLEX PO SCH (08:39)
[2017-07-16] MEDS: NON-FORMULARY MEDICATION (Umeclidinium Bromide [Incruse Ellipta] 62.5 MCG) IH SCH (08:39)
[2017-07-16] MEDS: NYSTOP POWDER TP SCH (09:28)
[2017-07-16 10:10] VITALS: BP 98/60; TEMP 97.9
--- NOTE | 2017-09-08 14:31 | PN ---
DATE OF SERVICE: 07/15/17 SUBJECTIVE: 66-year-old female admitted with hypoxemic respiratory failure, cough, congestion, COPD exacerbation now feeling better. She is in sinus rhythm. With minimal exertion the patient is short of breath, using oxygen and is helping. REVIEW OF SYSTEMS: CONSTITUTIONAL: No fever, no chills. HEENT: Normal. ENDOCRINE: No weight gain, no weight loss. CVS: No angina symptoms. No CHF symptoms. No palpitations. No atypical chest pain for CAD. Shortness of breath, better. No PND, no orthopnea. RESPIRATORY: No cough, no hemoptysis. GI: No nausea, no vomiting. No abdominal pain. : No hematuria. No polyuria. MUSCULOSKELETAL: No joint swelling. PSYCHIATRIC: Not anxious. No depression. No suicidal thoughts. No homicidal thoughts. SKIN: Intact. No rash. PHYSICAL EXAMINATION: V/S: BP 93/63, pulse 62, respiratory rate 18, heart rate 76, temperature 97.6, saturation 93 on 3L. HEENT: Normocephalic, atraumatic. Mucosa dry. Pallor positive. No icterus. NECK: Supple. No JVD, no carotid bruit. No lymphadenopathy. LUNGS: Decreased entry with basilar crackles. HEART: S1, S2 normal. No S3. No murmur, gallop or regurgitation. ABDOMEN: Soft, nontender. Bowel sounds active. No rigidity. No rebound or guarding. No CVA tenderness. EXTREMITIES: No cyanosis, clubbing or pedal edema. MUSCULOSKELETAL: No joint swelling. NEUROLOGIC: Awake, alert, oriented times three. No focal deficit. LYMPHATIC: No lymph nodes palpable. SKIN: Intact. LABS: White count 36.21, hemoglobin 12.3, hematocrit 42.1, platelet count 496. Sodium 144, potassium 3.5, chloride 97, bicarb 37, BUN 30, creatinine 0.77, glucose 174. ASSESSMENT: 1. COPD EXACERBATION SECONDARY TO BRONCHITIS 2. PNEUMONIA, RIGHT LUNG 3. EMPHYSEMA 4. HYPOXEMIC RESPIRATORY FAILURE 5. RHEUMATOID ARTHRITIS 6. OBESITY 7. DJD SPINE PLAN: 1. Continue Duonebs 2. Rocephin 3. Vancomycin 4. Steroids 5. IV fluids 6. Daily I & O's TIME SPENT: More than 35 minutes MTDD
--- NOTE | 2017-09-08 14:52 | DS ---
DATE OF SERVICE: 07/16/17 FINAL DIAGNOSIS: 1. HYPOXEMIC RESPIRATORY FAILURE 2. COPD EXACERBATION SECONDARY TO PNEUMONIA, RIGHT LOWER LOBE 3. RHEUMATOID ARTHRITIS 4. CHF, DIASTOLIC 5. DEPENDENT LEG EDEMA 6. COPD, OXYGEN DEPENDENT 7. RHEUMATOID ARTHRITIS 8. ANXIETY 9. LEUKOCYTOSIS FROM STEROIDS DISCHARGE INSTRUCTIONS: [facility]charge back to the [facility]. Followup appointment - Dr. Goss will see on [facility] rounds in 7 to 10 days. MEDICATIONS AT DISCHARGE: Tylenol/Acetaminophen ProAir Aspirin Bisacodyl Symbicort Celexa Hydrocodone Milk of Magnesia NEW PRESCRIPTIONS: Keflex 500 mg b.i.d. for 5 days, next dose due tonight Prednisone 10 mg b.i.d. with meals for 5 days, next dose due at supper DIET INSTRUCTIONS: Cardiac and Healthy ACTIVITY: The patient may participate in the [facility] activities as she tolerates. DISEASE SPECIFIC EDUCATION: COPD, needs pneumonia vaccine, oxygen use discussed, verbalized understanding. HOSPITAL COURSE: This is a 67-year-old female, a [facility] resident [facility] the [facility] as saturations have dropped into the 70s with coughing, congestion and shortness of breath. She was seen in the ER by the ER physician, Dr. Correa. D. dimer was 103. ABG showed pH 7.419, pc02 65.8, p02 40, white count 11,000 with left shift. Sodium 144, potassium 4.1, chloride 93, bicarb 43. At that time , CT of the chest was done which showed possible congestion in the right lung, could represent a pneumonia process, moderate emphysema, mediastinal adenopathy atherosclerosis. At that time, the patient was admitted to the hospital, started on IV Rocephin, Vancomycin, Solu-Medrol, breathing treatments, Duonebs. With the given treatment, gradually the patient started feeling better. Zofran was given. Solu-Medrol 125 mg q.8 then decreased to 80 q.8hr. Continue home medications. BUN and creatinine were stable. White count went up to 37 and 36, 000 most likely from the steroids. Oxygen was getting better. BIPAP was stopped and put on nasal cannula and p02 63 on nasal cannula. As the patient was doing good, slightly ambulatory, she was discharged back to the [facility]. She may participate in physical and occuaptional therapy now. SPECIFIC ORDERS: 1. Oxygen at 3L, continuous 2. Continue Duonebs t.i.d. 3. Vital signs daily for 7 days then weekly 4. Oxygen saturation daily 5. CBC, CMP on Thursday with results to Dr. Goss; obtain further lab orders from Dr. Goss 7. Continue inhalers in addition to Duonebs t.i.d. 8. Albuterol Sulfate (ProAir HFA) two puff q.6hr p.r.n. 9. Symbicort 160-4.5 mcg inhaler two puff IH b.i.d. 10. Increase Ellipta 62.5 mcg IH one puff daily TIME SPENT: MORE THAN 65 MINUTES MTDD
== END 2017-07-16 13:45 | DRG 190 ==
LOC: ED 05:54 → MEDSURG A 10:22
PROVIDERS: ADMIT Emergency Medicine; ATTEND Emergency Medicine
DX: J44.1 Chronic obstructive pulmonary disease with (acute) exacerbation (principal); J18.9 Pneumonia, unspecified organism; J96.91 Respiratory failure, unspecified with hypoxia; I50.30 Unspecified diastolic (congestive) heart failure; R06.02 Shortness of breath; Z87.891 Personal history of nicotine dependence; I10 Essential (primary) hypertension; F41.8 Other specified anxiety disorders; Z99.81 Dependence on supplemental oxygen; M06.9 Rheumatoid arthritis, unspecified; D72.828 Other elevated white blood cell count
CPT/HCPCS: 36415; 80053; 80202; 82550; 82803; 83880; 84484; 85007; 85025; 85379; 85610; 87040; 87081; 93005; 93010; 94640; 94660; 96365; 96372; 96375; 99233; 99239; 99284

== ENCOUNTER 2017-08-28 10:11 | Inpatient (IN) ==
[2017-08-28] MEDS ORDERED: DUONEB NEB STA (10:21)
--- NOTE | 2017-08-28 10:41 | ED.PDOC ---
General ED Provider: Dr. BOLIVAR FAIRCHILD Chief Complaint: Respiratory Complaint Stated Complaint: Pt with history of COPD, A.fib, and CHF is sent by residential staff with c/o shortness of breath for the past 2 days. Pt states that she has had productive cough with greenish phlegm and noticed progressive difficulty breathing. Pt denies headache, acute chest pain, diarrhea, nausea, fever, UTI symptoms or chill. Time Seen by Physician: 10:20 Mode of Arrival: Ambulance Information Source: Patient, [facility] Exam Limitations: No limitations [facility] Nursing and Triage Documentation Reviewed and Agree: Yes Reviewed sepsis parameters & appropriate labs ordered?: Yes System Inflammatory Response Syndrome: Not Applicable Sepsis Protocol: For patient's 13 years and over: Temp is 96.8 and below OR 101 and greater Pulse >90 BPM Resp >20/minute Acutely Altered Mental Status Are patient's symptoms suggestive of a new infection, such as: -Pneumonia -Skin, Soft Tissue -Endocarditis -UTI -Bone, Joint Infection -Implantable Device -Acute Abdominal Infection -Wound Infection -Meningitis -Blood Stream Catheter Infection -Unknown Respiratory Complaint Exam - Shortness of Air Complaint/Exam Onset/Duration: 2 days ago Symptoms Are: Still present Timing: Constant Initial Severity: Moderate Current Severity: Severe Character: Reports: Dyspnea on exertion, Orthopnea Aggravating: Reports: Movement Alleviating: Reports: Bronchodilators, Oxygen, Upright position Associated Signs and Symptoms: Reports: Labored breathing. Denies: Cough, Wheezing, Chest pain with cough, Chest pain, Fever, Chills, Diaphoresis, Nasal congestion, Dizziness, Calf pain, Calf swelling, Edema, Rapid breathing, Decreased intake Related History: Reports: Similar episode (was hospitalized last June ) History of Healthcare-Acquired Pneumonia: Lives at residential Pulmonary Embolism Risk Factors: Reports: Bedrest Pseudomonas Risk Factors: Reports: Chronic Lung Disease Tuberculosis Risk Factors: Reports: Communal living, Chronic Resp. Faliure Home Oxygen Use: Yes Recent Stress Test: No Recent Echo/LV Function: No Respiratory Distress: Moderate Stridor Present: No Tracheal Deviation: No Subcutaneous Emphysema: No Accessory Muscle Use: No Retractions: Not Present Diminished Breath Sounds: No Unable to Speak Full Sentences: No Fatigue: Yes Leg Swelling: No Roámn's Sign Present: No Grunting Respirations: No Kussmaul Respirations: No Differential Diagnoses: CHF, COPD Exacerbation, Pneumonia Quality Indicators for AMI: EKG in 10min. Quality Indicators for Cardiac Chest Pain: EKG in 10min. Quality Indicator For Non-Traumatic Chest Pain/Syncope: EKG Performed Review of Systems - Review Of Systems Constitutional: Reports: No symptoms, Weakness Eyes: Reports: No symptoms Ears, Nose, Mouth, Throat: Reports: No symptoms Respiratory: Reports: Orthopnea, Short of air, Wheezing Cardiac: Reports: No symptoms GI: Reports: No symptoms : Reports: No symptoms Musculoskeletal: Reports: No symptoms Skin: Reports: No symptoms Neurological: Reports: No symptoms Endocrine: Reports: No symptoms Hematologic/Lymphatic: Reports: No symptoms All Other Systems: Reviewed and Negative Past Medical History - Past Medical History Previously Healthy: Yes Endocrine: Reports: None Cardiovascular: Reports: Hypertension, CHF Respiratory: Reports: COPD Hematological: Reports: None Gastrointestinal: Reports: None Genitourinary: Reports: None Neuro/Psych: Reports: Anxiety, Depression Musculoskeletal: Reports: None Cancer: Reports: None - Surgical History General Surgical History: Reports: None - Family History Family History: Reports: None - Social History Smoking Status: Former smoker Hx Substance Use: No Alcohol Screening: None Physical Exam - Physical Exam Appearance: No pain distress Ill-appearing: None Pain Distress: None Eyes: SVETA, EOMI, Conjunctiva clear ENT: Ears normal, Nose normal, Oropharynx normal Respiratory: Airway patent, Breath sounds equal, Respirations nonlabored, Crackles, Wheezes Cardiovascular: Tachycardia GI/: Soft, Nontender, No masses, Bowel sounds normal, No Organomegaly Musculoskeletal: Normal strength, ROM intact, No edema, No calf tenderness Skin: Warm, Dry, Normal color Neurological: Sensation intact, Motor intact, Reflexes intact, Cranial nerves intact, Alert, Oriented Psychiatric: Affect appropriate, Mood appropriate Interpretation - Radiology Interpretation Radiology Interpretation By: Radiologist Radiology Results: Positive (bilateral pneumonia) - Python Engineer Rate: Normal Rhythm: Sinus Ectopy: None - EKG Interpretation Rate: Normal Rhythm: Sinus Ectopy: None [place]: [place] ST Segment: Normal Physician Notification - Case Discussed Physician Notified: pmd Time of Notification: 12:41 Admit To: Inpatient Critical Care Note - Critical Care Note Total Time (mins): 0 Course - Course Hematology/Chemistry: 08/28/17 10:50 08/28/17 10:50 Orders, Labs, Meds: Lab Review 0608/28/17 08/28/17 10:22 10:50 10:50 WBC 13.44 H RBC 4.71 Hgb 12.5 Hct 41.7 MCV 88.5 MCH 26.5 L MCHC 30.0 L RDW Coeff of Sia 17.8 H Plt Count 317 Immature Gran % (Auto) 0.7 Neut % (Auto) 76.8 Lymph % (Auto) 13.1 [place] % (Auto) 7.0 Eos % (Auto) 2.1 Baso % (Auto) 0.3 Immature Gran # (Auto) 0.1 Neut # (Auto) 10.3 H Lymph # (Auto) 1.8 [place] # (Auto) 0.9 Eos # (Auto) 0.3 Baso # (Auto) 0.0 Puncture Site R radial O2 Saturation 72.0 L ABG pH 7.490 H ABG pCO2 55.5 H ABG pO2 36.0 L* ABG HCO3 42.2 H ABG Total CO2 44 H ABG Base Excess 19 H Lion Test + O2 Delivery Device Nc Oxygen Liter Flow 3.00 Sodium 141 Potassium 3.5 Chloride 94 L Carbon Dioxide 38 H Anion Gap 12.5 BUN 11 Creatinine 0.70 Estimated GFR (MDRD) 84.00 BUN/Creatinine Ratio 15.71 Glucose 102 Calcium 9.3 Total Bilirubin 0.5 AST 19 ALT 15 Alkaline Phosphatase 109 Total Creatine Kinase 27 Troponin I < 0.0100 Total Protein 6.7 Albumin 3.6 Globulin 3.1 Albumin/Globulin Ratio 1.16 Procalcitonin 08/28/17 10:50 WBC RBC Hgb Hct MCV MCH MCHC RDW Coeff of Sia Plt Count Immature Gran % (Auto) Neut % (Auto) Lymph % (Auto) [place] % (Auto) Eos % (Auto) Baso % (Auto) Immature Gran # (Auto) Neut # (Auto) Lymph # (Auto) [place] # (Auto) Eos # (Auto) Baso # (Auto) Puncture Site O2 Saturation ABG pH ABG pCO2 ABG pO2 ABG HCO3 ABG Total CO2 ABG Base Excess Ilon Test O2 Delivery Device Oxygen Liter Flow Sodium Potassium Chloride Carbon Dioxide Anion Gap BUN Creatinine Estimated GFR (MDRD) BUN/Creatinine Ratio Glucose Calcium Total Bilirubin AST ALT Alkaline Phosphatase Total Creatine Kinase Troponin I Total Protein Albumin Globulin Albumin/Globulin Ratio Procalcitonin 0.09 Orders Category Date Time Status ADMIT PATIENT INPATIENT .TO [facility] (MONITORED BED) ADMISSION 08/28/17 12: 37 Active EKG-(ED ONLY) Stat CARDIO 08/28/17 10:22 Completed EKG-(IP & OP ONLY) DAILY CARDIO 08/29/17 06:00 Ordered EKG-(IP & OP ONLY) DAILY CARDIO 08/30/17 06:00 Ordered EKG-(IP & OP ONLY) DAILY CARDIO 08/31/17 06:00 Ordered NEBULIZER TREATMENT Stat CARDIO 08/28/17 10:22 Completed ACTIVITY .BR with BRP CARE 08/28/17 12:37 Ordered TELEMETRY MONITORING TELE CARE 08/28/17 12:37 Active VITAL SIGNS Q4HR CARE 08/28/17 12:37 Ordered REGULAR DIET DIETARY 08/28/17 Dinner Ordered ABG Stat LAB 08/28/17 10:22 Completed BLOOD CULTURE Stat LAB 08/28/17 10:50 Received CBC W/ AUTO DIFF DAILY@0600 LAB 08/29/17 06:00 Ordered CBC W/ AUTO DIFF DAILY@0600 LAB 08/30/17 06:00 Ordered CBC W/ AUTO DIFF Stat LAB 08/28/17 10:50 Completed COMPREHENSIVE METABOLIC PANEL DAILY@0600 LAB 08/29/17 06:00 Ordered COMPREHENSIVE METABOLIC PANEL DAILY@0600 LAB 08/30/17 06:00 Ordered COMPREHENSIVE METABOLIC PANEL Stat LAB 08/28/17 10:50 Completed CREATINE KINASE Q8H LAB 08/28/17 18:45 Ordered CREATINE KINASE Q8H LAB 08/29/17 02:45 Ordered CREATINE KINASE Stat LAB 08/28/17 10:50 Completed LACTIC ACID Stat LAB 08/28/17 10:50 Received PROCALCITONIN Stat LAB 08/28/17 10:50 Completed TROPONIN I Q8H LAB 08/28/17 18:45 Ordered TROPONIN I Q8H LAB 08/29/17 02:45 Ordered TROPONIN I Stat LAB 08/28/17 10:50 Completed URINALYSIS C & S IF INDICATED Stat LAB 08/28/17 10:30 Uncollected Acetaminophen [Acetaminophen ER] MEDS 08/28/17 12:34 Ordered 650 mg PO Q4HR PRN Alprazolam [Xanax] MEDS 08/28/17 15:00 Ordered 0.5 mg PO TID Aspirin [Aspirin Chewable] MEDS 08/29/17 09:00 Ordered 81 mg PO DAILY Hydrocodone Bit/Acetaminophen [[place] 5-325] MEDS 08/28/17 12:34 Ordered 1 each PO BID PRN Ipratropium/Albuterol Neb [Duoneb] MEDS 08/28/17 10:21 Discontinued 1 vial NEB ONCE STA Ipratropium/Albuterol Neb [Duoneb] MEDS 08/28/17 15:00 Ordered 1 vial NEB TID Methylprednisolone Sod Succ/Pf [Solu-Medrol 40 mg] MEDS 08/28/17 21:00 Ordered 40 mg IVP Q12HR Piperacillin Sodium/Tazobactam [Zosyn 3.375 gm] 3.375 MEDS 08/28/17 13:00 Ordered gm 0.9 % Sodium Chloride [Sodium Chloride] 50 ml IV Q6HR Sodium Chloride 0.9% [Sodium Chloride] 1,000 ml MEDS 08/28/17 13:00 Ordered IV 75 mls/hr Torsemide [Demadex] MEDS 08/28/17 21:00 Ordered 20 mg PO BID Vancomycin HCl [Vancomycin] 1 gm MEDS 08/28/17 12:39 Ordered 0.9 % Sodium Chloride [Sodium Chloride] [address] CHEST W/O CONTRAST Stat RADS 08/28/17 10:40 Completed Medications Generic Name Dose Route Start Last Admin Trade Name Freq PRN Reason Stop Dose Admin Hydrocodone Bitart/Acetaminophen tab 08/28/17 12:34 [place] 5-325 PO BID PRN Analgesia Albuterol/Ipratropium 1 vial 08/28/17 15:00 Duoneb NEB TID BECKY Alprazolam 0.5 mg 08/28/17 15:00 Xanax PO TID BECKY Aspirin 81 mg 08/29/17 09:00 Aspirin Chewable PO DAILY BECKY Sodium Chloride 1,000 mls @ 75 mls/hr 08/28/17 13:00 Sodium Chloride IV .[id number] BECKY Piperacillin Sod/Tazobactam 50 mls @ 50 mls/hr 08/28/17 13:00 Sod 3.375 gm/ Sodium Chloride IV Q6HR BECKY Methylprednisolone Sodium Succinate 40 mg 08/28/17 21:00 Solu-Medrol 40 Mg IVP Q12HR BECKY Non-Formulary Medication 650 mg 08/28/17 12:34 Acetaminophen [Acetaminophen Er] PO Q4HR PRN Fever >101 Non-Formulary Medication 20 mg 08/28/17 21:00 Torsemide [Demadex] PO BID BECKY Discontinued Medications Generic Name Dose Route Start Last Admin Trade Name Freq PRN Reason Stop Dose Admin Albuterol/Ipratropium 1 vial 08/28/17 10:21 08/28/17 10:40 Duoneb NEB 08/28/17 10:22 1 vial ONCE STA Administration Vital Signs: Temp Pulse Resp BP Pulse Ox 08/28/17 10:19 99.6 F 109 H 22 96/73 73 L Departure - Departure Time of Disposition: 12:41 Disposition: ADMITTED INPATIENT Discharge Problem: COPD exacerbation Pneumonia Qualifiers: Pneumonia type: due to unspecified organism Laterality: unspecified laterality Instructions: Pneumonitis (ED) Condition: Good Pt referred to PMD for follow-up: Yes IPMP verified?: No Additional Instructions: Please call your Family Physician as soon as possible to schedule a follow-up appointment. Allergies/Adverse Reactions: Allergies No Known Allergies Allergy (Unverified 08/28/17 10:32) Home Medications: Ambulatory Orders Albuterol Sulfate [Proair Hfa] 2 puff IH RTQ6H PRN 09/12/16 Aspirin 81 mg PO DAILY 09/12/16 Budesonide/Formoterol Fumarate [Symbicort 160-4.5 Mcg Inhaler] 2 puff IH BID Potassium Chloride [Micro-K Cap] 10 meq PO BID 09/12/16 Torsemide [Demadex] 20 mg PO BID 09/12/16 Ipratropium/Albuterol Neb [Duoneb] 1 vial NEB TID #1 vial.neb 09/17/16 Acetaminophen [Acetaminophen ER] 650 mg PO Q4HR PRN 06/05/17 Alprazolam [Xanax] 0.5 mg PO TID 06/05/17 Bisacodyl 10 mg RC DAILY PRN 06/05/17 Citalopram Hydrobromide [Celexa] 20 mg PO DAILY 06/05/17 Magnesium Hydroxide [Milk of Magnesia] 30 ml PO DAILY PRN 06/05/17 Ondansetron HCl [Zofran Tab] 4 mg PO Q6HR PRN 06/05/17 Hydrocodone/Acetaminophen [Hydrocodon-Acetaminophen 5-325] 1 each PO BID PRN Umeclidinium [place] [Incruse Ellipta] 62.5 mcg IH DAILY #1 blst.w.dev 06/12/17 Ferrous Sulfate 325 mg PO BID 08/28/17 Nystatin [Nystatin Oral Susp] 5 ml PO TID 08/28/17
--- NOTE | 2017-08-28 11:53 | CT ---
EXAM: CT chest without contrast. HISTORY: Chronic obstructive pulmonary disease exacerbation. COMPARISON: 07/11/2017, 09/12/2016. TECHNIQUE: Multiple axial images of the chest were obtained without intravenous contrast. Images we re reformatted in the sagittal and coronal planes. FINDINGS: Multiple mediastinal lymph nodes are present measuring up to 1.3 cm in the pretracheal reg ion on axial image 20 and 1.2 cm in the AP window on axial image 24. The heart size is normal. No p ericardial effusion identified. Moderate to severe emphysematous changes present bilaterally. There is suggestion of ground-glass op acities throughout the left and right upper lobe as. Dependent subsegmental atelectasis seen in the left and right lower lobes. No pleural effusion or pneumothorax identified. Limited images of the upper abdomen demonstrate no acute abnormality. Spleen is enlarged but stable. No acute osseous abnormality detected. IMPRESSION: 1. Bilateral upper lobe ground-glass opacities could represent pneumonia. 2. Moderate to severe emphysema. 3. Stable mediastinal lymphadenopathy.
[2017-08-28] MEDS ORDERED: NORCO 5-325 PO PRN (12:34)
[2017-08-28] MEDS ORDERED: ACETAMINOPHEN 650 MG PO PRN (12:34)
[2017-08-28] MEDS ORDERED: VANCOMYCIN 1 GM in SODIUM CHLORIDE 250 ML IV STA (12:39)
[2017-08-28] MEDS ORDERED: TYLENOL PO PRN (13:04)
[2017-08-28] MEDS: DUONEB NEB SCH ×2 (14:12→19:40)
[2017-08-28 14:29] VITALS: BMI 42.6
[2017-08-28] MEDS: ZOSYN 3.375 GM 3.375 GM in SODIUM CHLORIDE 50 ML IV SCH ×2 (15:37→18:02)
[2017-08-28] MEDS: SODIUM CHLORIDE 1,000 ML IV SCH (15:37)
[2017-08-28] MEDS: XANAX PO SCH ×2 (15:41→21:11)
[2017-08-28] MEDS: DEMADEX PO SCH (18:01)
[2017-08-28] MEDS: SOLU-MEDROL 40 MG IVP SCH (20:59)
[2017-08-28] MEDS ORDERED: TORSEMIDE 20 MG PO SCH (21:00)
[2017-08-29] MEDS: ZOSYN 3.375 GM 3.375 GM in SODIUM CHLORIDE 50 ML IV SCH ×5 (00:22→23:54)
[2017-08-29] MEDS: SODIUM CHLORIDE 1,000 ML IV SCH ×2 (04:59→21:33)
[2017-08-29] MEDS: DUONEB NEB SCH ×3 (05:27→19:42)
[2017-08-29] MEDS: DEMADEX PO SCH ×2 (05:44→19:46)
[2017-08-29] MEDS: XANAX PO SCH ×3 (08:12→20:27)
[2017-08-29] MEDS: ASPIRIN CHEWABLE PO SCH (08:13)
[2017-08-29] MEDS: SOLU-MEDROL 40 MG IVP SCH ×2 (08:13→20:27)
[2017-08-29] MEDS ORDERED: VANCOMYCIN 1 GM in SODIUM CHLORIDE 250 ML IV SCH (12:00)
[2017-08-30] MEDS: DUONEB NEB SCH ×3 (05:10→20:30)
[2017-08-30] MEDS: ZOSYN 3.375 GM 3.375 GM in SODIUM CHLORIDE 50 ML IV SCH ×3 (05:34→17:00)
[2017-08-30] MEDS: DEMADEX PO SCH ×2 (05:34→16:00)
[2017-08-30] MEDS: ASPIRIN CHEWABLE PO SCH (08:33)
[2017-08-30] MEDS: XANAX PO SCH ×3 (08:33→21:53)
[2017-08-30] MEDS: VANCOMYCIN 1 GM in SODIUM CHLORIDE 250 ML IV SCH ×2 (08:34→21:52)
[2017-08-30] MEDS: SOLU-MEDROL 40 MG IVP SCH ×2 (08:34→21:52)
[2017-08-31] MEDS: ZOSYN 3.375 GM 3.375 GM in SODIUM CHLORIDE 50 ML IV SCH ×5 (00:26→23:34)
[2017-08-31] MEDS: SODIUM CHLORIDE 1,000 ML IV SCH ×2 (02:06→08:06)
[2017-08-31] MEDS: DUONEB NEB SCH ×3 (05:23→19:30)
[2017-08-31] MEDS: DEMADEX PO SCH ×2 (05:50→16:43)
[2017-08-31] MEDS: ASPIRIN CHEWABLE PO SCH (07:22)
[2017-08-31] MEDS: VANCOMYCIN 1 GM in SODIUM CHLORIDE 250 ML IV SCH ×2 (08:31→20:13)
[2017-08-31] MEDS: SOLU-MEDROL 40 MG IVP SCH ×2 (08:31→20:15)
[2017-08-31] MEDS: XANAX PO SCH ×3 (08:31→20:13)
[2017-09-01] MEDS: DUONEB NEB SCH ×3 (05:08→20:40)
[2017-09-01] MEDS: ZOSYN 3.375 GM 3.375 GM in SODIUM CHLORIDE 50 ML IV SCH ×3 (05:08→17:06)
[2017-09-01] MEDS: DEMADEX PO SCH ×2 (05:34→16:05)
[2017-09-01] MEDS: XANAX PO SCH ×3 (08:39→20:14)
[2017-09-01] MEDS: SOLU-MEDROL 40 MG IVP SCH ×2 (08:39→20:14)
[2017-09-01] MEDS: ASPIRIN CHEWABLE PO SCH (08:39)
[2017-09-01] MEDS: VANCOMYCIN 1 GM in SODIUM CHLORIDE 250 ML IV SCH ×2 (08:40→20:13)
--- NOTE | 2017-09-01 11:37 | DI ---
EXAM: Two views of the chest. History: Short of breath and cough. Comparison: Chest radiograph 06/10/2017, chest CT 08/28/2017 Findings: Heart is mildly enlarged. No focal consolidation. No appreciable pleural fluid and no pn eumothorax. Emphysema. No acute osseous abnormalities. Impression: 1. Mild cardiomegaly without evidence for pulmonary edema. 2. Emphysema. 3. No focal pneumonia
--- NOTE | 2017-09-01 14:26 | PN ---
DATE OF SERVICE: 08/31/17 SUBJECTIVE: The patient was admitted with bilateral pneumonia, COPD exacerbation and hypoxemic respiratory failure. The patient is feeling some better, some shortness of breath with minimal exertion. Using BIPAP at night time and it is helping but pCO2 is still elevated. pCO2 in the morning today as ABG's was done pH 7.405, pCO2 66, pO2 119. We will talk with the cardiopulmonary to change the BIPAP settings for today. REVIEW OF SYSTEMS: CONSTITUTIONAL: No fever, no chills. HEENT: Normal. ENDOCRINE: No weight gain, no weight loss. CVS: No angina symptoms. No CHF symptoms. No palpitations. No atypical chest pain for CAD. No shortness of breath. No PND, no orthopnea. RESPIRATORY: No cough, no hemoptysis. GI: No nausea, no vomiting. No abdominal pain. : No hematuria. No polyuria. MUSCULOSKELETAL: No joint swelling. PSYCHIATRIC: Not anxious. No depression. No suicidal thoughts. No homicidal thoughts. SKIN: Intact. No rash. PHYSICAL EXAMINATION: V/S: Blood pressure 135/74, respiratory rate 22, heart rate 75, temperature 97.7 with saturation 92 on 5 liters. HEENT: Normocephalic, atraumatic. Mucosa dry. NECK: Supple. No JVD, no carotid bruit. No lymphadenopathy. LUNGS: Decreased and basilar crackles. Clear to auscultation. No rales or rhonchi. HEART: S1, S2 normal. No S3. No murmur, gallop or regurgitation. ABDOMEN: Soft, nontender. Bowel sounds active. No rigidity. No rebound or guarding. No CVA tenderness. EXTREMITIES: No cyanosis, clubbing or pedal edema. MUSCULOSKELETAL: No joint swelling. NEUROLOGIC: Awake, alert, oriented times three. No focal deficit. LYMPHATIC: No lymph nodes palpable. SKIN: Intact. LABS: Sodium 141, potassium 4.2, chloride 101, bicarb 29, BUN 20, creatinine 0.76, glucose 114, WBC 17.31 and hgb 13.3, hct 44.7 and plt count 323. ASSESSMENT: 1. Hypoxemic respiratory failure 2. COPD exacerbation secondary to bilateral upper lobe pneumonia 3. Facility acquired pneumonia 4. Rheumatoid arthritis 5. Osteoarthritis 6. DJD spine 7. Depression PLAN: 1. Will take to the Cardiopulmonary for change in the BIPAP settings 2. Continue the Antibiotics 3. Continue DUO NEBS 4. Solu-Medrol 5. Zosyn 6. Vancomycin 7. Daily I&O's TIME SPENT: More than 35 minutes MTDD
--- NOTE | 2017-09-01 15:44 | PN ---
DATE OF SERVICE: 09/01/17 SUBJECTIVE: Still coughing and congestion but feeling a lot better. With the use BIPAP pCo2 is getting better and pO2 is getting better. Today morning ABG's showed the pH 7.416,pCo2 58.6, pO2 52. REVIEW OF SYSTEMS: CONSTITUTIONAL: No fever, no chills. HEENT: Normal. ENDOCRINE: No weight gain, no weight loss. CVS: No angina symptoms. No CHF symptoms. No palpitations. No atypical chest pain for CAD. No shortness of breath. No PND, no orthopnea. RESPIRATORY: Cough and congestion, no hemoptysis. GI: No nausea, no vomiting. No abdominal pain. : No hematuria. No polyuria. MUSCULOSKELETAL: No joint swelling. PSYCHIATRIC: Not anxious. No depression. No suicidal thoughts. No homicidal thoughts. SKIN: Intact. No rash. PHYSICAL EXAMINATION: V/S: Blood pressure 122/74, respiratory rate 16, heart rate 79, temperature 97.6 with saturation is 98 on 5 liters. HEENT: Normocephalic, atraumatic. Mucosa dry. NECK: Supple. No JVD, no carotid bruit. No lymphadenopathy. LUNGS: Decreased and basilar crackles. Clear to auscultation. No rales or rhonchi. HEART: S1, S2 normal. No S3. No murmur, gallop or regurgitation. ABDOMEN: Soft, nontender. Bowel sounds active. No rigidity. No rebound or guarding. No CVA tenderness. EXTREMITIES: No cyanosis, clubbing or pedal edema. MUSCULOSKELETAL: No joint swelling. NEUROLOGIC: Awake, alert, oriented times three. No focal deficit. LYMPHATIC: No lymph nodes palpable. SKIN: Intact. LABS: Sodium 141, potassium 4.2, chloride 101, bicarb 29, BUN 20, creatinine 0.76, glucose 144, WBC 17.31, hgb 13.3 and hct 44.7 and plt count 323 ASSESSMENT: 1. Facility acquired pneumonia 2. Bibasilar pneumonia 3. Acute on chronic heart failure 4. Hypercapnic respiratory failure 5. Rheumatoid arthritis PLAN: 1. Will get chest x-ray today 2. Continue DUO NEBS 3. Solu-Medrol 4. Zofran 5. Vancomycin 6. Daily I&O's TIME SPENT: More than 35 minutes MTDD
[2017-09-01] MEDS: NYSTOP POWDER TP SCH (21:55)
[2017-09-02] MEDS: ZOSYN 3.375 GM 3.375 GM in SODIUM CHLORIDE 50 ML IV SCH ×5 (00:26→23:57)
[2017-09-02] MEDS: SODIUM CHLORIDE 1,000 ML IV SCH ×2 (02:19→08:28)
[2017-09-02] MEDS: DUONEB NEB SCH ×3 (04:45→20:10)
[2017-09-02] MEDS: DEMADEX PO SCH ×2 (05:39→17:08)
[2017-09-02] MEDS: ASPIRIN CHEWABLE PO SCH (08:25)
[2017-09-02] MEDS: XANAX PO SCH ×3 (08:25→20:55)
[2017-09-02] MEDS: NYSTOP POWDER TP SCH ×3 (08:27→21:04)
[2017-09-02] MEDS: SOLU-MEDROL 40 MG IVP SCH ×2 (08:28→22:00)
--- NOTE | 2017-09-02 09:14 | HP ---
DATE OF SERVICE: 08/28/17 CHIEF COMPLAINT: Hypoxemic respiratory failure, COPD exacerbation and pneumonia. HISTORY OF PRESENT ILLNESS: This is a 67 year old female, group home resident, been coughing and congestion with shortness of breath. She is being treated with steroids and breathing treatment at the group home but gradually she has been getting worse and today morning the saturation was 84. After a breathing treatment it went up to 90 and again dropped to 86 with 2 liters nasal cannula. At that time the patient is sent to the emergency room for the evaluation and seen by Dr. Ascencio in the emergency room. ABG's showed the pH 7.490, pCo2 55.5, pO2 36. CT chest showed the bilateral upper lobe pneumonia. At that time the patient being admitted to the hospital for the IV antibiotics, breathing treatments for hypoxemic respiratory failure. REVIEW OF SYSTEMS: CONSTITUTIONAL: No fever, no chills. Weakness and tiredness. HEENT: Normal. ENDOCRINE: No weight gain; no weight loss. CVS: No chest pain. No PND, no orthopnea. Shortness of breath. No PND, no orthopnea. RESPIRATORY: Cough, Congestion. No hemoptysis. GI: No nausea, no vomiting. No abdominal pain. No melena. : No hematuria. No polyuria. MUSCULOSKELETAL: No joint swelling. PSYCHIATRIC: Not anxious. No depression. No suicidal thoughts. No homicidal thoughts. SKIN: Intact, no open lesions. PAST MEDICAL HISTORY: COPD Hypertension Orthopnea Rheumatoid arthritis Anxiety disorder Anemia Depression PAST SURGICAL HISTORY: None PERSONAL HISTORY: The patient used to smoke, no alcohol and no drugs. FAMILY HISTORY: Rheumatic fever MEDICATIONS: Potassium ProAir Symbicort Torsemide DUO NEBS Zofran Xanax Milk of magnesia Bisacodyl Celexa Hydrocodone Incruse Ferrous Sulfate ALLERGIES: No known medication PHYSICAL EXAMINATION: V/S: Blood pressure 96/73, respiratory rate 22, heart rate 109, temperature 99.6 , saturation 73% HEENT: Atraumatic, normocephalic. No scleral icterus. Pallor positive. Mucosa dry. NECK: Supple. No JVD, no bruit. No lymphadenopathy. No thyromegaly. HEART: S1, S2 normal. No murmur. No cyanosis or clubbing. No ascites. LUNGS: Clear to auscultation. No rales or rhonchi. ABDOMEN: Soft, nontender. Bowel sounds are active. No CVA tenderness. No rigidity or guarding. EXTREMITIES: No pedal edema. No cyanosis or clubbing MUSCULOSKELETAL: Normal joints, no swelling. NEUROLOGIC: The patient is SKIN: Intact; no open lesions. LYMPHATIC: No lymph nodes palpable. ASSESSMENT: 1. Hypoxemic respiratory failure 2. Bilateral upper lobe pneumonia, facility acquired pneumonia 3. History of Rheumatoid arthritis 4. Osteoarthritis 5. DJD spine 6. Recurrent pneumonia PLAN: 1. Admit the patient to the regular floor 2. CBC and CMP today and daily 3. Cardiac enzymes and Troponin 4. Solu-Medrol 40mg Q 12 hour 5. Put patient on BIPAP 6. Repeat ABG's in one hour 7. Zosyn 8. Vancomycin 9. Torsemide 10. IV fluids at 40ml per hour TIME SPENT: MORE THAN 70 minutes MTDD
--- NOTE | 2017-09-02 09:36 | PN ---
DATE OF SERVICE: 08/29/17 SUBJECTIVE: Coughing and congestion is slightly better. Repeat ABG's were done yesterday after the BIPAP and today morning. The pH 7.47, pCO2 56.3, pO2 125. Breathing better but still coughing and congestion. REVIEW OF SYSTEMS: CONSTITUTIONAL: No fever, no chills. HEENT: Normal. ENDOCRINE: No weight gain, no weight loss. CVS: No angina symptoms. No CHF symptoms. No palpitations. No atypical chest pain for CAD. No shortness of breath. No PND, no orthopnea. RESPIRATORY: No cough, no hemoptysis. GI: No nausea, no vomiting. No abdominal pain. : No hematuria. No polyuria. MUSCULOSKELETAL: No joint swelling. PSYCHIATRIC: Not anxious. No depression. No suicidal thoughts. No homicidal thoughts. SKIN: Intact. No rash. PHYSICAL EXAMINATION: V/S: Blood pressure 115/70, respiratory rate 16, heart rate 93, temperature 98.3 and saturation 94% on 5 liters. HEENT: Normocephalic, atraumatic. Mucosa dry. Pallor positive. No icterus. NECK: Supple. No JVD, no carotid bruit. No lymphadenopathy. LUNGS: Decreased and basilar crackles. Expiratory wheezing. Clear to auscultation. No rales or rhonchi. HEART: S1, S2 normal. No S3. No murmur, gallop or regurgitation. ABDOMEN: Soft, nontender. Bowel sounds active. No rigidity. No rebound or guarding. No CVA tenderness. EXTREMITIES: No cyanosis, clubbing. 1+ edema. MUSCULOSKELETAL: No joint swelling. NEUROLOGIC: Awake, alert, oriented times three. No focal deficit. LYMPHATIC: No lymph nodes palpable. SKIN: Intact. LABS: Sodium 142, potassium 4.0, chloride 95, bicarb 30, BUN 11, creatinine 0.77, glucose 141, WBC 15.08, hgb 12.3, hct 41.6, plt count 304. ASSESSMENT: 1. Acute hypoxemic respiratory failure secondary to the bilateral upper lobe pneumonia 2. Facility acquired pneumonia 3. CO2 retention 4. COPD oxygen dependant 5. Rheumatoid arthritis 6. Back pain 7. Depression PLAN: 1. Continue Zosyn 2. Vancomycin 3. DUO NEBS 4. Solu-Medrol 5. Daily I&O's TIME SPENT: More than 35 minutes MTDD
[2017-09-02] MEDS: VANCOMYCIN 1 GM in SODIUM CHLORIDE 250 ML IV SCH ×2 (09:37→20:55)
--- NOTE | 2017-09-02 09:44 | PN ---
DATE OF SERVICE: 08/30/17 SUBJECTIVE: Coughing and congestion is slightly improved. Shortness of breath with minimal exertion. ABG's done today morning showed the pH 7.431, pCO2 58.2, pO2 62 on BIPAP. She is using the BIPAP at night time which is helping the patient. REVIEW OF SYSTEMS: CONSTITUTIONAL: No fever, no chills. HEENT: Normal. ENDOCRINE: No weight gain, no weight loss. CVS: No angina symptoms. No CHF symptoms. No palpitations. No atypical chest pain for CAD. No shortness of breath. No PND, no orthopnea. RESPIRATORY: No cough, no hemoptysis. GI: No nausea, no vomiting. No abdominal pain. : No hematuria. No polyuria. MUSCULOSKELETAL: No joint swelling. PSYCHIATRIC: Not anxious. No depression. No suicidal thoughts. No homicidal thoughts. SKIN: Intact. No rash. PHYSICAL EXAMINATION: V/S: Blood pressure 113/70, respiratory rate 20, heart rate 76, temperature 97.7 with saturation 90% around 6 liters. HEENT: Normocephalic, atraumatic. Mucosa dry. Pallor positive. No icterus. NECK: Supple. No JVD, no carotid bruit. No lymphadenopathy. LUNGS: Decreased and basilar crackles. Mild wheezing on the right side more than the left side. Clear to auscultation. No rales or rhonchi. HEART: S1, S2 normal. No S3. No murmur, gallop or regurgitation. ABDOMEN: Soft, nontender. Bowel sounds active. No rigidity. No rebound or guarding. No CVA tenderness. EXTREMITIES: No cyanosis, clubbing or pedal edema. MUSCULOSKELETAL: No joint swelling. NEUROLOGIC: Awake, alert, oriented times three. No focal deficit. LYMPHATIC: No lymph nodes palpable. SKIN: Intact. LABS: Sodium 141, potassium 4.2, chloride 101, bicarb 29, BUN 20, creatinine 0.76, glucose 144, WBC 17.31, hgb 13.3, hct 44.7, plt count 323. ASSESSMENT: 1. Health facility acquired pneumonia 2. Hypoxemic respiratory failure 3. Rheumatoid arthritis 4. Depression PLAN: 1. Continue Zosyn 2. Vancomycin 3. DUO NEBS 4. Solu-Medrol 5. Daily I&O's TIME SPENT: More than 35 minutes MTDD
[2017-09-03] MEDS: DUONEB NEB SCH (05:27)
[2017-09-03] MEDS: DEMADEX PO SCH (06:16)
[2017-09-03] MEDS: ZOSYN 3.375 GM 3.375 GM in SODIUM CHLORIDE 50 ML IV SCH (06:20)
[2017-09-03] MEDS ORDERED: MICRO-K CAP PO SCH (09:00)
[2017-09-03] MEDS: XANAX PO SCH (09:24)
[2017-09-03] MEDS: ASPIRIN CHEWABLE PO SCH (09:24)
[2017-09-03] MEDS: VANCOMYCIN 1 GM in SODIUM CHLORIDE 250 ML IV SCH (09:24)
[2017-09-03] MEDS: SOLU-MEDROL 40 MG IVP SCH (09:24)
[2017-09-03 09:47] VITALS: BP 97/53; TEMP 98
[2017-09-04] MEDS ORDERED: K-DUR PO SCH (08:00)
--- NOTE | 2017-09-04 08:59 | PN ---
DATE OF SERVICE: 09/02/17 SUBJECTIVE: The patient was admitted with the hypoxemic respiratory failure and hypercapnia. The patient is using the BIPAP. With the use of BIPAP pCO2 is around 66 and 58. Still some shortness of breath with minimal exertion. Repeat chest x-ray yesterday showed emphysema, mild cardiomegaly without evidence of pulmonary edema. REVIEW OF SYSTEMS: CONSTITUTIONAL: No fever, no chills. HEENT: Normal. ENDOCRINE: No weight gain, no weight loss. CVS: No angina symptoms. No CHF symptoms. No palpitations. No atypical chest pain for CAD. No shortness of breath. No PND, no orthopnea. RESPIRATORY: No cough, no hemoptysis. GI: No nausea, no vomiting. No abdominal pain. : No hematuria. No polyuria. MUSCULOSKELETAL: No joint swelling. PSYCHIATRIC: Not anxious. No depression. No suicidal thoughts. No homicidal thoughts. SKIN: Intact. No rash. PHYSICAL EXAMINATION: V/S: Blood pressure 123/81, respiratory rate 15, heart rate 72, temperature 97.6 with saturation 91% with 3.5 liters. HEENT: Normocephalic, atraumatic. Mucosa dry. Pallor positive. No icterus. NECK: Supple. No JVD, no carotid bruit. No lymphadenopathy. LUNGS: Bilateral entry is decreased and basilar crackles. Clear to auscultation. No rales or rhonchi. HEART: S1, S2 normal. No S3. No murmur, gallop or regurgitation. ABDOMEN: Soft, nontender. Bowel sounds active. No rigidity. No rebound or guarding. No CVA tenderness. EXTREMITIES: No cyanosis, clubbing or pedal edema. MUSCULOSKELETAL: No joint swelling. NEUROLOGIC: Awake, alert, oriented times three. No focal deficit. LYMPHATIC: No lymph nodes palpable. SKIN: Intact. LABS: WBC 15.40, hgb 13.1, hct 42.8, plt count 402, sodium 143, potassium 3.4, chloride 98, bicarb 33, BUN 19, creatinine 0.78 and glucose 112. ASSESSMENT: 1. Hypoxemic respiratory failure. 2. Hypercapnia 3. COPD exacerbation secondary to the bilateral upper pneumonia 4. Facility acquired pneumonia 5. Rheumatoid arthritis PLAN: 1. Continue the Vancomycin 2. Continue the Zosyn 3. DUO NEBS 4. Steroids 5. Stop the BIPAP tonight so that we can assess the patient how she is doing over night when she goes back to [facility]. TIME SPENT: More than 35 minutes DONNA
--- NOTE | 2017-09-04 11:11 | DS ---
DATE OF SERVICE: 09/03/17 FINAL DIAGNOSIS: 1. COPD exacerbation secondary to the bilateral upper lobe pneumonia, health care facility acquired 2. Hypoxemic respiratory failure 3. Hypercapnia 4. COPD oxygen dependant 5. Rheumatoid arthritis 6. Depression 7. Osteoarthritis 8. DJD spine 9. Dependant leg edema 10.Cardiomegaly. DISCHARGE INSTRUCTIONS: Discharge the patient back to the [facility]. Continue the breathing treatments. Will followup in the [facility] rounds within one week. Continue the rest of the home medications. MEDICATIONS AT DISCHARGE: Tylenol Zofran PRN Albuterol Xanax Aspirin Bisacodyl Symbicort Celexa Ferrous sulfate Hydrocodone Demodex PRN NEW PRESCRIPTIONS: Prednisone 10mg twice a day for 5 more days Omnicef 300mg twice a day for 5 days DIET INSTRUCTIONS: Cardiac and healthy diet ACTIVITY: As much as tolerated DISEASE SPECIFIC EDUCATION: COPD Needing pneumonia vaccination Antibiotic use and diarrhea been discussed. HOSPITAL COURSE: Ana Paula Byrd 67 year old female who has a history of COPD oxygen dependent been coughing and congestion with shortness of breath. Started treating at the [facility]. The patient's condition was gradually getting worse so was sent to the emergency room. In the emergency room her ABG' s showed hypoxemic respiratory failure with pH 7.490, pCO2 55.5, pO2 36. CT of the chest done in the emergency room which showed bilateral upper lobe ground glass opacities and pneumonia. At that time the patient she was admitted to the hospital with bibasilar upper lobe pneumonia, Zosyn and Vancomycin. Steroids DUONEBS was started. Lovenox for the DVT prophylaxis with the given treatment gradually and slowly the patient was recuperating. pCO2 went up to 69.7 and 66. The patient was using BIPAP at night time. Repeat chest x-ray was getting better. Meanwhile the cough, congestion, shortness of breath is improved. Leg edema is improved. We did trial without the patient having the BIPAP at night time which showed the pH 7.402, pCo2 55.8 and pO2 65 on 3 liters nasal cannula. The patient will be sent on the three liters now. Continue the steroids and Omnicef. Gradual exercise and can participate in the [facility] activities. TIME SPENT: MORE THAN 65 MINUTES MTDD
== END 2017-09-03 12:41 | DRG 190 ==
LOC: ED 10:11 → MEDSURG B 12:41
PROVIDERS: ADMIT Emergency Medicine; ATTEND Emergency Medicine
DX: J44.1 Chronic obstructive pulmonary disease with (acute) exacerbation (principal); J18.9 Pneumonia, unspecified organism; J96.01 Acute respiratory failure with hypoxia; I48.91 Unspecified atrial fibrillation; I50.9 Heart failure, unspecified; R06.00 Dyspnea, unspecified; R06.01 Orthopnea; I10 Essential (primary) hypertension; F41.8 Other specified anxiety disorders; Z87.891 Personal history of nicotine dependence; R00.0 Tachycardia, unspecified; Z99.81 Dependence on supplemental oxygen; Y95 Nosocomial condition; R06.89 Other abnormalities of breathing; M06.9 Rheumatoid arthritis, unspecified; F32.9 Major depressive disorder, single episode, unspecified; M19.90 Unspecified osteoarthritis, unspecified site; M47.9 Spondylosis, unspecified; R60.9 Edema, unspecified; I51.7 Cardiomegaly
CPT/HCPCS: 36415; 80053; 80202; 81001; 82550; 82803; 83605; 84145; 84484; 85025; 87040; 87070; 87086; 93005; 93010; 94640; 94660; 96365; 99284

== ENCOUNTER 2017-09-07 15:36 | Outpatient (CLI) | END 2017-09-07 15:37 | disposition home or self-care (01) | LOC: CAR 15:36 | PROVIDERS: ATTEND Emergency Medicine | DX: G47.30 Sleep apnea, unspecified (principal); R40.0 Somnolence; R06.83 Snoring | CPT/HCPCS: 95810 ==

== ENCOUNTER 2017-09-16 15:55 | Outpatient (CLI) | END 2017-09-16 15:56 | disposition home or self-care (01) | LOC: CAR 15:55 | PROVIDERS: ATTEND Psychiatry & Neurology Sleep Medicine | DX: G47.33 Obstructive sleep apnea (adult) (pediatric) (principal) | CPT/HCPCS: 95811 ==

== ENCOUNTER 2017-10-06 17:49 | Inpatient (IN) ==
[2017-10-06] MEDS ORDERED: SODIUM CHLORIDE 1,000 ML IV STA ×2 (17:51→19:26)
[2017-10-06] MEDS ORDERED: VANCOMYCIN 1 GM in SODIUM CHLORIDE 250 ML IV STA (17:53)
[2017-10-06] MEDS ORDERED: SOLU-MEDROL 125 MG IVP STA (17:54)
[2017-10-06] MEDS ORDERED: ZOSYN 4.5 GM 4.5 GM in SODIUM CHLORIDE 50 ML IV STA (17:54)
[2017-10-06] MEDS ORDERED: TYLENOL PO PRN (17:55)
--- NOTE | 2017-10-06 18:01 | ED.PDOC ---
General ED Provider: Dr. NING SEAY Chief Complaint: Fever Stated Complaint: Severe SOB. Has experieced fever and chills today. Respiratory difficulty. Brought in by EMS from [place] after facility reported she had Decrease LOC and SOB. UPON arrival here patient awake and talkative. Dyspneic Time Seen by Physician: 17:49 Mode of Arrival: Ambulance Information Source: [facility], EMT Exam Limitations: Clinical condition Primary Care Provider: SANCHO MOTT Referred to ED by: PCP Nursing and Triage Documentation Reviewed and Agree: Yes Does patient meet sepsis criteria?: Yes If yes, has appropriate treatment been initiated?: Yes System Inflammatory Response Syndrome: Temp 101F or Greater, Pulse >90 BPM, Resp >20/Minute Sepsis Protocol: For patient's 13 years and over: Temp is 96.8 and below OR 101 and greater Pulse >90 BPM Resp >20/minute Acutely Altered Mental Status Are patient's symptoms suggestive of a new infection, such as: -Pneumonia -Skin, Soft Tissue -Endocarditis -UTI -Bone, Joint Infection -Implantable Device -Acute Abdominal Infection -Wound Infection -Meningitis -Blood Stream Catheter Infection -Unknown Respiratory Complaint Exam - Shortness of Air Complaint/Exam Symptoms Are: Still present Timing: Constant Initial Severity: Severe Current Severity: Severe Character: Reports: Dyspnea at rest Aggravating: Reports: Deep breaths, Recumbent position, Weather Alleviating: Reports: Bronchodilators, Oxygen Associated Signs and Symptoms: Reports: Cough, Wheezing, Fever, Chills, Diaphoresis, Rapid breathing, Labored breathing Related History: Reports: Similar episode History of Healthcare-Acquired Pneumonia: Lives at [facility] Pulmonary Embolism Risk Factors: Reports: Bedrest Pseudomonas Risk Factors: Reports: None Home Oxygen Use: Yes Respiratory Distress: Severe Stridor Present: No Tracheal Deviation: No Subcutaneous Emphysema: No Accessory Muscle Use: Yes Diminished Breath Sounds: Yes Unable to Speak Full Sentences: Yes Fatigue: Yes Leg Swelling: No Román's Sign Present: No Grunting Respirations: No Kussmaul Respirations: No Differential Diagnoses: CHF, COPD Exacerbation, Pneumonia, Pulmonary Embolism, Bronchospasm Review of Systems - Review Of Systems Constitutional: Reports: Chills, Diaphoresis, Fever, Weakness, Sweats Eyes: Reports: No symptoms Ears, Nose, Mouth, Throat: Reports: No symptoms Respiratory: Reports: Cough, Orthopnea, Short of air, Wheezing Cardiac: Reports: Palpitations GI: Reports: No symptoms : Reports: No symptoms Musculoskeletal: Reports: No symptoms Skin: Reports: No symptoms Neurological: Reports: Anxiety Endocrine: Reports: No symptoms Hematologic/Lymphatic: Reports: No symptoms All Other Systems: Reviewed and Negative Past Medical History - Past Medical History Previously Healthy: Yes Endocrine: Reports: None Cardiovascular: Reports: Hypertension, CHF Respiratory: Reports: COPD Hematological: Reports: None Gastrointestinal: Reports: None Genitourinary: Reports: None Neuro/Psych: Reports: Anxiety, Depression Musculoskeletal: Reports: None Cancer: Reports: None Last Menstrual Period: menopause - Surgical History General Surgical History: Reports: None - Family History Family History: Reports: None - Social History Smoking Status: Former smoker Hx Substance Use: No Alcohol Screening: None Physical Exam - Physical Exam Appearance: Ill-appearing, Obese Ill-appearing: Severe Pain Distress: Moderate Eyes: SVETA, EOMI, Conjunctiva clear ENT: Ears normal, Nose normal, Oropharynx normal Neck: Supple Respiratory: Airway patent, Breath sounds clear, Breath sounds diminished, Respirations nonlabored, Wheezes Cardiovascular: RRR, Pulses normal, No rub, No murmur GI/: Soft Musculoskeletal: Normal strength, ROM intact, No edema, No calf tenderness Skin: Warm, Dry, Normal color Neurological: Sensation intact, Motor intact, Reflexes intact, Cranial nerves intact, Alert, Oriented Interpretation - Radiology Interpretation Radiology Interpretation By: Radiologist Radiology Results: No acute changes Physician Notification - Case Discussed Physician Notified: Dr Goss Time of Notification: 17:45 (Reviewed patient/admit) Critical Care Note - Critical Care Note Total Time (mins): 60 Course - Course Hematology/Chemistry: 10/06/17 18:18 10/06/17 18:18 Orders, Labs, Meds: Lab Review 10/06/17 10/06/17 10/06/17 17:50 18:07 18:18 WBC 21.11 H RBC 5.34 Hgb 14.4 Hct 47.4 H MCV 88.8 MCH 27.0 MCHC 30.4 L RDW Coeff of Sia 17.1 H Plt Count 317 Immature Gran % (Auto) 0.5 Neut % (Auto) 91.5 Lymph % (Auto) 5.0 L [place] % (Auto) 2.4 Eos % (Auto) 0.4 Baso % (Auto) 0.2 Immature Gran # (Auto) 0.1 Neut # (Auto) 19.3 H Lymph # (Auto) 1.1 [place] # (Auto) 0.5 Eos # (Auto) 0.1 Baso # (Auto) 0.0 ESR 2 D-Dimer (Manual) Puncture Site Lrad O2 Saturation 89.0 L ABG pH 7.439 ABG pCO2 56.2 H ABG pO2 57.0 L* ABG HCO3 38.1 H ABG Total CO2 40 H ABG Base Excess 14 H Lion Test + O2 Delivery Device Vmx Oxygen Liter Flow 14.00 FiO2 % 55.0 Sodium Potassium Chloride Carbon Dioxide Anion Gap BUN Creatinine Estimated GFR (MDRD) BUN/Creatinine Ratio Glucose Lactic Acid Calcium Total Bilirubin AST ALT Alkaline Phosphatase Total Creatine Kinase Troponin I B-Natriuretic Peptide Total Protein Albumin Globulin Albumin/Globulin Ratio Procalcitonin Urine Color Urine Clarity Urine pH Ur Specific [place] Urine Protein Urine Glucose (UA) Urine Ketones Urine Blood Urine Nitrite Urine Bilirubin Urine Urobilinogen Ur Leukocyte Esterase Urine Microscopic RBC Urine Microscopic WBC Ur Squamous Epith Cells Urine Bacteria Urine Opiates Screen Ur Oxycodone Screen Urine Methadone Screen Ur Propoxyphene Screen Ur Barbiturates Screen U Tricyclic Antidepress Ur Phencyclidine Scrn Ur Amphetamine Screen U Methamphetamines Scrn U Benzodiazepines Scrn Urine Cocaine Screen U Cannabinoids Screen Influ A Molecular Assay Negative by naat Influ B Molecular Assay Negative by naat 10/06/17 10/06/17 10/06/17 18:18 18:18 18:18 WBC RBC Hgb Hct MCV MCH MCHC RDW Coeff of Sia Plt Count Immature Gran % (Auto) Neut % (Auto) Lymph % (Auto) [place] % (Auto) Eos % (Auto) Baso % (Auto) Immature Gran # (Auto) Neut # (Auto) Lymph # (Auto) [place] # (Auto) Eos # (Auto) Baso # (Auto) ESR D-Dimer (Manual) 1259.09 Puncture Site O2 Saturation ABG pH ABG pCO2 ABG pO2 ABG HCO3 ABG Total CO2 ABG Base Excess Lion Test O2 Delivery Device Oxygen Liter Flow FiO2 % Sodium 137 Potassium 3.9 Chloride 92 L Carbon Dioxide 36 H Anion Gap 12.9 BUN 12 Creatinine 0.80 Estimated GFR (MDRD) 72.00 BUN/Creatinine Ratio 15.00 Glucose 103 Lactic Acid Calcium 9.4 Total Bilirubin 1.2 AST 22 ALT 19 Alkaline Phosphatase 110 Total Creatine Kinase 42 Troponin I 0.0160 B-Natriuretic Peptide 76 Total Protein 6.9 Albumin 3.3 L Globulin 3.6 Albumin/Globulin Ratio 0.92 Procalcitonin Urine Color Urine Clarity Urine pH Ur Specific [place] Urine Protein Urine Glucose (UA) Urine Ketones Urine Blood Urine Nitrite Urine Bilirubin Urine Urobilinogen Ur Leukocyte Esterase Urine Microscopic RBC Urine Microscopic WBC Ur Squamous Epith Cells Urine Bacteria Urine Opiates Screen Ur Oxycodone Screen Urine Methadone Screen Ur Propoxyphene Screen Ur Barbiturates Screen U Tricyclic Antidepress Ur Phencyclidine Scrn Ur Amphetamine Screen U Methamphetamines Scrn U Benzodiazepines Scrn Urine Cocaine Screen U Cannabinoids Screen Influ A Molecular Assay Influ B Molecular Assay 10/06/17 10/06/17 10/06/17 18:18 18:18 18:32 WBC RBC Hgb Hct MCV MCH MCHC RDW Coeff of Sia Plt Count Immature Gran % (Auto) Neut % (Auto) Lymph % (Auto) [place] % (Auto) Eos % (Auto) Baso % (Auto) Immature Gran # (Auto) Neut # (Auto) Lymph # (Auto) [place] # (Auto) Eos # (Auto) Baso # (Auto) ESR D-Dimer (Manual) Puncture Site O2 Saturation ABG pH ABG pCO2 ABG pO2 ABG HCO3 ABG Total CO2 ABG Base Excess Lion Test O2 Delivery Device Oxygen Liter Flow FiO2 % Sodium Potassium Chloride Carbon Dioxide Anion Gap BUN Creatinine Estimated GFR (MDRD) BUN/Creatinine Ratio Glucose Lactic Acid 15.4 Calcium Total Bilirubin AST ALT Alkaline Phosphatase Total Creatine Kinase Troponin I B-Natriuretic Peptide Total Protein Albumin Globulin Albumin/Globulin Ratio Procalcitonin 0.52 Urine Color Urine Clarity Urine pH Ur Specific [place] Urine Protein Urine Glucose (UA) Urine Ketones Urine Blood Urine Nitrite Urine Bilirubin Urine Urobilinogen Ur Leukocyte Esterase Urine Microscopic RBC Urine Microscopic WBC Ur Squamous Epith Cells Urine Bacteria Urine Opiates Screen Positive Ur Oxycodone Screen Negative Urine Methadone Screen Negative Ur Propoxyphene Screen Negative Ur Barbiturates Screen Negative U Tricyclic Antidepress Negative Ur Phencyclidine Scrn Negative Ur Amphetamine Screen Negative U Methamphetamines Scrn Negative U Benzodiazepines Scrn Positive Urine Cocaine Screen Negative U Cannabinoids Screen Negative Influ A Molecular Assay Influ B Molecular Assay 10/06/17 18:32 WBC RBC Hgb Hct MCV MCH MCHC RDW Coeff of Sia Plt Count Immature Gran % (Auto) Neut % (Auto) Lymph % (Auto) [place] % (Auto) Eos % (Auto) Baso % (Auto) Immature Gran # (Auto) Neut # (Auto) Lymph # (Auto) [place] # (Auto) Eos # (Auto) Baso # (Auto) ESR D-Dimer (Manual) Puncture Site O2 Saturation ABG pH ABG pCO2 ABG pO2 ABG HCO3 ABG Total CO2 ABG Base Excess Lion Test O2 Delivery Device Oxygen Liter Flow FiO2 % Sodium Potassium Chloride Carbon Dioxide Anion Gap BUN Creatinine Estimated GFR (MDRD) BUN/Creatinine Ratio Glucose Lactic Acid Calcium Total Bilirubin AST ALT Alkaline Phosphatase Total Creatine Kinase Troponin I B-Natriuretic Peptide Total Protein Albumin Globulin Albumin/Globulin Ratio Procalcitonin Urine Color Yellow Urine Clarity Clear Urine pH 7.0 Ur Specific [place] 1.015 Urine Protein 2+ Urine Glucose (UA) Negative Urine Ketones Negative Urine Blood 3+ Urine Nitrite Negative Urine Bilirubin Negative Urine Urobilinogen 0.2 Ur Leukocyte Esterase 2+ Urine Microscopic RBC 5-10 Urine Microscopic WBC 5-10 Ur Squamous Epith Cells 5-10 Urine Bacteria 2+ Urine Opiates Screen Ur Oxycodone Screen Urine Methadone Screen Ur Propoxyphene Screen Ur Barbiturates Screen U Tricyclic Antidepress Ur Phencyclidine Scrn Ur Amphetamine Screen U Methamphetamines Scrn U Benzodiazepines Scrn Urine Cocaine Screen U Cannabinoids Screen Influ A Molecular Assay Influ B Molecular Assay Orders Category Date Time Status ABG DRAW REQUEST DAILY@0600 CARDIO 10/07/17 06:00 Ordered ABG DRAW REQUEST DAILY@0600 CARDIO 10/08/17 06:00 Ordered ABG DRAW REQUEST DAILY@0600 CARDIO 10/09/17 06:00 Ordered ABG DRAW REQUEST DAILY@0600 CARDIO 10/10/17 06:00 Ordered ABG DRAW REQUEST Stat CARDIO 10/06/17 17:52 Completed BIPAP Routine CARDIO 10/06/17 18:41 Active EKG-(ED ONLY) Stat CARDIO 10/06/17 17:50 Completed ED APPLY O2 .ONCE EMERGENCY 18 19:26 Ordered ED MANAGER BUDGET APPLIED .ONCE EMERGENCY 18 19:26 Ordered ED VITAL SIGNS Q1HR EMERGENCY 10/06/17 19:26 Ordered IV [ED IV/MEDIPORT/POWERPORT] .ONCE EMERGENCY 18 17:50 Active ABG DAILY@0600 LAB 10/07/17 06:00 Ordered ABG DAILY@0600 LAB 10/08/17 06:00 Ordered ABG DAILY@0600 LAB 10/09/17 06:00 Ordered ABG DAILY@0600 LAB 10/10/17 06:00 Ordered ABG Stat LAB 10/06/17 17:50 Completed BLOOD CULTURE (ED ONLY) Stat LAB 10/06/17 18:18 Received BNP [B-TYPE NATRIURETIC PEPTIDE] Stat LAB 10/06/17 18:18 Completed CBC W/ AUTO DIFF Stat LAB 10/06/17 18:18 Completed CMP [COMPREHENSIVE METABOLIC PANEL] Stat LAB 10/06/17 18:18 Completed CPK [CREATINE KINASE] Stat LAB 10/06/17 18:18 Completed D-DIMER Stat LAB 10/06/17 18:18 Completed ESR Stat LAB 10/06/17 18:18 Completed FLU A & B MOLECULAR [FLU A/B MOLECULAR] Stat LAB 10/06/17 18:07 Completed LACTIC ACID Stat LAB 10/06/17 18:18 Completed PARTIAL THROMBOPLASTIN TIME Stat LAB 10/06/17 19:26 Ordered PROCALCITONIN Stat LAB 10/06/17 18:18 Completed PT WITH INR Stat LAB 10/06/17 19:26 Ordered TROPONIN I Stat LAB 10/06/17 18:18 Completed UA [URINALYSIS C & S IF INDICATED] Stat LAB 10/06/17 18:32 Completed URINE CULTURE Stat LAB 10/06/17 18:32 Received URINE DRUG SCREEN (RAPID FOR ED) [DRUG SCREEN, URINE, LAB 10/06/17 18:32 Completed RAPID] Stat VANCOMYCIN,TROUGH DAILY@0600 LAB 10/07/17 06:00 Ordered VANCOMYCIN,TROUGH DAILY@0600 LAB 10/08/17 06:00 Ordered 0.9 % Sodium Chloride [Saline Flush] MEDS 10/06/17 17:51 Ordered 1 syr IVF PRN PRN Acetaminophen [Tylenol] MEDS 10/06/17 17:55 Ordered 650 mg PO Q4H PRN Cefepime HCl [Maxipime] 2 gm MEDS 10/06/17 19:21 Active 0.9 % Sodium Chloride [Sodium Chloride] 100 ml IV ONCE Enoxaparin Sodium [Lovenox] MEDS 10/06/17 19:25 Stat 100 mg SUBCUT ONCE STA Methylprednisolone Sod Succ/Pf [Solu-Medrol 125 mg] MEDS 10/06/17 17:54 Discontinued 125 mg IVP ONCE STA Methylprednisolone Sod Succ/Pf [Solu-Medrol 125 mg] MEDS 10/07/17 05:00 Ordered 125 mg IVP Q8HR SODIUM CHLORIDE 0.9% @ 100 MLS/HR(1,000ml) MEDS 10/06/17 19:26 Ordered Sodium Chloride 0.9% [Sodium Chloride] 1,000 ml IV 100 mls/hr Sodium Chloride 0.9% [Sodium Chloride] 1,000 ml MEDS 10/06/17 17:51 Active IV BOLUS Vancomycin HCl [Vancomycin] 1 gm MEDS 10/06/17 17:53 Discontinued 0.9 % Sodium Chloride [Sodium Chloride] 250 ml IV ONCE CHEST, 1V AP ONLY Stat RADS 10/06/17 17:50 Completed Medications Generic Name Dose Route Start Last Admin Trade Name Freq PRN Reason Stop Dose Admin Acetaminophen 650 mg 10/06/17 17:55 10/06/17 18:25 Tylenol PO 650 mg Q4H PRN Administration Fever >101 Sodium Chloride 1,000 mls @ 500 mls/hr 10/06/17 17:51 10/06/17 18:13 Sodium Chloride IV 10/06/17 19:50 500 mls/hr BOLUS STA Administration Cefepime HCl 2 gm/ Sodium 100 mls @ 100 mls/hr 10/06/17 19:21 Chloride IV 10/06/17 20:20 ONCE STA Sodium Chloride 1,000 mls @ 100 mls/hr 10/06/17 19:26 Sodium Chloride IV 10/07/17 05:25 .Q10H STA Methylprednisolone Sodium Succinate 125 mg 10/07/17 05:00 Solu-Medrol 125 Mg IVP Q8HR BECKY Sodium Chloride 1 syr 10/06/17 17:51 10/06/17 18:12 Saline Flush IVF 1 syr PRN PRN Administration To flush IV Discontinued Medications Generic Name Dose Route Start Last Admin Trade Name Freq PRN Reason Stop Dose Admin Enoxaparin Sodium 100 mg 10/06/17 19:25 10/06/17 19:30 Lovenox SUBCUT 10/06/17 19:26 100 mg ONCE STA Administration Vancomycin HCl 1 gm/ Sodium 250 mls @ 250 mls/hr 10/06/17 17:53 10/06/17 18: 44 Chloride IV 10/06/17 18:52 250 mls/hr ONCE STA Administration Methylprednisolone Sodium Succinate 125 mg 10/06/17 17:54 10/06/17 18:19 Solu-Medrol 125 Mg IVP 10/06/17 17:55 125 mg ONCE STA Administration Vital Signs: Temp Pulse Resp BP Pulse Ox 10/06/17 19:28 128 H 22 118/70 89 L 10/06/17 19:08 102.5 F H 128 H 113/68 10/06/17 18:47 136 H 113/63 92 L 10/06/17 18:43 95 10/06/17 18:22 141 H 110/82 92 L 10/06/17 17:49 102.5 F H 144 H 26 H 152/103 H 94 L Departure - Departure Time of Disposition: 19:30 Disposition: ADMITTED INPATIENT Discharge Problem: Sepsis, Respiratory failure with hypercapnia, UTI (urinary tract infection), COPD exacerbation Condition: Serious Pt referred to PMD for follow-up: Yes IPMP verified?: No Allergies/Adverse Reactions: Allergies Penicillins Adverse Reaction (Verified 10/06/17 18:05) Home Medications: Ambulatory Orders Albuterol Sulfate [Proair Hfa] 2 puff IH RTQ6H PRN 09/12/16 Aspirin 81 mg PO DAILY 09/12/16 Budesonide/Formoterol Fumarate [Symbicort 160-4.5 Mcg Inhaler] 2 puff IH BID Potassium Chloride [Micro-K Cap] 10 meq PO BID 09/12/16 Torsemide [Demadex] 20 mg PO BID 09/12/16 Ipratropium/Albuterol Neb [Duoneb] 1 vial NEB TID #1 vial.neb 09/17/16 Acetaminophen [Acetaminophen ER] 650 mg PO Q4HR PRN 06/05/17 Alprazolam [Xanax] 0.5 mg PO TID 06/05/17 Bisacodyl 10 mg RC DAILY PRN 06/05/17 Citalopram Hydrobromide [Celexa] 20 mg PO DAILY 06/05/17 Magnesium Hydroxide [Milk of Magnesia] 30 ml PO DAILY PRN 06/05/17 Ondansetron HCl [Zofran Tab] 4 mg PO Q6HR PRN 06/05/17 Hydrocodone/Acetaminophen [Hydrocodon-Acetaminophen 5-325] 1 each PO BID Umeclidinium Freedom [Incruse Ellipta] 62.5 mcg IH DAILY #1 blst.w.dev 06/12/17 Ferrous Sulfate 325 mg PO BID 08/28/17 Nystatin [Nystatin Oral Susp] 5 ml PO TID 08/28/17 Hydrocodone Bit/Acetaminophen [[place] 5-325] 1 tab PO Q24H PRN 10/06/17 Disposition Discussed With: Patient (Dr Goss)
--- NOTE | 2017-10-06 18:18 | DI ---
EXAMINATION: AP portable chest radiograph. HISTORY: Shortness of breath FINDINGS: The lungs remain clear since 09/01/2017. The aorta is atherosclerotic. The heart size i s prominent. The bones are intact. No pneumothorax or pleural effusions are detected. IMPRESSION: No acute cardiopulmonary disease. Prominent heart size and ASCVD.
[2017-10-06] MEDS ORDERED: MAXIPIME 2 GM in SODIUM CHLORIDE 100 ML IV STA (19:21)
[2017-10-06] MEDS ORDERED: LOVENOX SUBCUT STA (19:25)
[2017-10-06] MEDS ORDERED: MAXIPIME ONE (19:59)
[2017-10-06 21:12] VITALS: BMI 43.4
[2017-10-06] MEDS ORDERED: MAXIPIME IV ONE (21:45)
[2017-10-06] MEDS ORDERED: ZOFRAN TAB PO PRN (23:09)
[2017-10-06] MEDS ORDERED: PROAIR HFA IH PRN (23:09)
[2017-10-06] MEDS ORDERED: MILK OF MAGNESIA PO PRN (23:09)
[2017-10-06] MEDS ORDERED: NORCO 5-325 PO PRN (23:09)
[2017-10-06] MEDS ORDERED: DULCOLAX RC PRN (23:09)
[2017-10-07] MEDS: SOLU-MEDROL 125 MG IVP SCH ×3 (04:16→21:07)
[2017-10-07] MEDS: SODIUM CHLORIDE 1,000 ML IV SCH (04:17)
[2017-10-07] MEDS ORDERED: LOVENOX SUBCUT STA (08:32)
[2017-10-07] MEDS ORDERED: MAXIPIME 2 GM in SODIUM CHLORIDE 100 ML IV STA (08:36)
[2017-10-07] MEDS: SYMBICORT 160-4.5 MCG INHALER IH SCH ×2 (08:36→20:38)
[2017-10-07] MEDS: FERROUS SULFATE PO SCH ×2 (08:37→20:38)
[2017-10-07] MEDS: DEMADEX PO SCH ×2 (08:37→16:58)
[2017-10-07] MEDS: MICRO-K CAP PO SCH ×2 (08:37→20:38)
[2017-10-07] MEDS: XANAX PO SCH ×3 (08:37→20:38)
[2017-10-07] MEDS: ASPIRIN CHEWABLE PO SCH (08:37)
[2017-10-07] MEDS: CELEXA PO SCH (08:37)
[2017-10-07] MEDS: NORCO 5-325 PO SCH ×2 (08:38→20:38)
[2017-10-07] MEDS ORDERED: TORSEMIDE 20 MG PO SCH (09:00)
[2017-10-07] MEDS ORDERED: NON-FORMULARY MEDICATION (Ferrous Sulfate [Ferrous Sulfate] 325 MG) PO SCH (09:00)
--- NOTE | 2017-10-07 10:03 | NM ---
EXAM: Ventilation perfusion lung scan HISTORY: Severe dyspnea. COMPARISON: None of this type. Chest x-ray 10/06/2017. PROCEDURE: Ventilation: The patient was allowed to inhale from a reservoir of 32.4 mCi of 99 technetium DTPA ae rosol. Subsequently anterior, posterior, lateral and anterior and posterior oblique images were obta ined. Perfusion: The patient was injected with 5.4 mCi of 99 technetium MAA intravenously after which ante rior, posterior, lateral and anterior and posterior oblique images were obtained. FINDINGS: The ventilation images demonstrate significant accumulation of aerosol in the central bronc hial airways with patchy limited distribution of activity into the lungs particularly on the left. T he left lung is also displaced/compressed by the patient's enlarged heart. The perfusion images demo nstrate a much more uniform distribution of activity with no segmental or subsegmental mismatched def ects suggestive of pulmonary embolus. IMPRESSION: 1. Low probability of pulmonary embolus.. 2. Significant underlying lung disease as demonstrated on the ventilation portion of the examination.
[2017-10-07] MEDS: DUONEB NEB SCH ×3 (11:14→22:40)
--- NOTE | 2017-10-07 15:08 | RS.OTINEVL ---
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 I have tried to do that." - Level of function Prior to this admission, the patient could do the following:: Partially Dependent Ambulation Abilities prior to this admission: Pt would walk behind her WC with a GEOPHYSICS SCIENTIST with her at [facility]. Independent with self feeding. Pt makes bracelets with beads at the snf. Current Level of Function: Partially Dependent (Pt gets SOA with activity.) Current Equipment Used at Home: oxygen , w/c Interventions - Objective Patient Orientation: Person, Place, Time, Situation Current Interventions: IV's, Oxygen, Telemetry, [place] Catheter Observation: Pt is wearing a mask for oxygen at 55% on 14 Liters. Pt gets SOA with standing activity. Interventions - Strength Right Upper Extremity Strength: Mild Weakness Left Upper Extremity Strength: Mild Weakness - Sensation Right Upper Extremity Sensation: Intact/Normal Left Upper Extremity Sensation: Intact/Normal Balance - Sitting Balance Static Sitting Balance: Fair Dynamic Sitting Balance: Fair - Standing Balance Static Standing Balance: Fair Dynamic Standing Balance: Fair - Comments Balance Assessment Comments: fair ADL Skills - Self Feeding Self Feeding: Independent - Grooming Grooming: Min Assist - Bathing Bathing UE: Min Assist Bathing LE: Max Assist - Dressing Dressing UE: Min Assist Dressing LE: Min Assist - Toilet Management Toileting Management: CGA Functional Mobility - Bed Mobility Rolling R/L: Independent Scooting: Independent Supine to Sit: CGA Sit to Supine: CGA - Transfers Sit to Stand: CGA Stand to Sit: CGA Stand Pivot Transfers: CGA - Ambulation Weight Bearing Status: FWB Assistive Device Used: Rolling Walker Assistance needed with Ambulation: Min Assist - Safety Awareness Safety Awareness: Fair ALLEGRA INDEX SCORE: . Additional Treatment Performed - Time with patient Length of Evaluation: 20 Total treatment time: 32 Activities Patient Interests:: Watching Television, Visiting/Socializing, Crafts Patient Education Patient Education: Education of diagnosis, Home Exercise Program, Education of Plan of Care Teaching Recipient: Patient Teaching Methods: Discussion Assessment Problem List:: Decreased level of function, Requires training/education, Weakness Rehab Potential: Good Further Therapy Indicated?: Yes Evaluation Complexity: HISTORY: Medium, EXAM OF BODY SYSTEMS: Medium, CLINICAL DECISION MAKING: Medium Short Term Goals - Goals GOAL 1: To increase dyn. std. balance to Fair- Goal to be met by: 10/13/17 GOAL 2: To increase BUE strength to 4/5. Goal to be met by: 10/13/17 GOAL 3: To increase activity tolerance to 10 minutes. Goal to be met by: 10/13/17 Type Rolling Machine Operator Goals GOAL 1: To increase dyn. std. balance to F+/G-. Goal to be met by: 10/16/17 GOAL 2: To increase BUE strength to 4+/5. Goal to be met by: 10/16/17 GOAL 3: To increase activity tolerance to 15 minutes. Goal to be met by: 10/16/17 Plan Plan of Care: Therapeutic EX, Neuromuscular Re-Educ, Therapeutic Activity, Self- Care/Home Management Frequency of Treatment: 1-2 X day, as tolerated Duration of Treatment: 1 Week Anticipated Discharge Dest[facility] Treatment Diagnosis (ICD 10 Codes): M62.81 Muscle weakness Has the Physician been added for Co-signature?: Yes
--- NOTE | 2017-10-07 15:20 | RS.PTINEVL ---
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 - Level of function Prior to this admission, the patient could do the following:: Partially Dependent Ambulation Abilities prior to this admission: pt states she walked at the [facility] pushing w/c with assist. Current Level of Function: Partially Dependent Current Equipment Used at Home: oxygen , w/c Interventions - Objective Patient Orientation: Person, Place, Time, Situation Current Interventions: IV's, Oxygen (14 liters 55%ventimask), Telemetry, Copeland Catheter Observation: pt with pitting edema BLE Range of Motion - ROM Right Upper Extremity AROM: WFL's Left Upper Extremity AROM: WFL's Right Lower Extremity AROM: WFL's Left Lower Extremity AROM: WFL's Muscle Strength - Muscle Strength Right Upper Extremity Strength: Mild Weakness (grossly 4-/5) Left Upper Extremity Strength: Mild Weakness (grossly 4-/5) Right Lower Extremity Strength: Mild Weakness (hip flex 4-/5, knee flex/ext 4/5 , ankle Df/PF 4/5) Left Lower Extremity Strength: Mild Weakness (hip flex 4-/5, knee flex/ext 4/5, ankle Df/PF 4/5) Sensation - Sensation Right Upper Extremity Sensation: Intact/Normal Left Upper Extremity Sensation: Intact/Normal Right Lower Extremity Sensation: Intact/Normal Left Lower Extremity Sensation: Intact/Normal Palpation Palpation Findings: None/Normal Balance - Sitting Balance and Reactions Static Sitting Balance: Good Dynamic Sitting Balance: Fair Sitting Equilibrium Reactions: Delayed Left, Delayed Right Sitting Protective Reactions: Delayed Left, Delayed Right - Standing Balance and Reactions Static Standing Balance: Poor Dynamic Standing Balance: Poor Standing Equilibrium Reactions: Delayed Left, Delayed Right Standing Protective Reactions: Delayed Left, Delayed Right Functional Mobility - Transfers Sit to Stand: CGA Stand to Sit: CGA - Safety Awareness Safety Awareness: Fair ALLEGRA INDEX SCORE: n/a Ambulation - Ambulation Assistive Device Used: Gait belt Orthotic/Prosthetic Device: No Distance: 2-3 steps Assistance needed with Ambulation: CGA Gait Deviations: Wide Based gait, Short stride Ambulation Comments: pt amb 2-3 steps to chair with TREE TRIMMER HELPER for CGA, pt unable to tolerate increased distance due to SOA and ventimask Factors Affecting Ambulation: Decreased Balance, Breathing/O2 Saturation, Weakness, Decreased Safety, Limited Endurance Treatment time - Time with patient Length of Evaluation: 32 Total treatment time: 32 Patient Education - Education Patient Education: Activity Modification, Education of Plan of Care Teaching Recipient: Patient Teaching Methods: Discussion (discussion with patient regarding POC and pt is motivated to participate with PT) Assessment - Assessment Problem List:: Decreased level of function, Requires training/education, Decreased safety/Risk of falls, Weakness, Pain limits previous level of function Rehab Potential: Good Further Therapy Indicated?: Yes Candidate for Swing Bed for Therapy Services?: pt is not a candidate for swing bed for therapy due to plans to return to LTC Evaluation Complexity: HISTORY: Medium (sepsis, resp failure, COPD, CHF, ), EXAM OF BODY SYSTEMS: Medium (SOA, balance, transfers, gait, strength), CLINICAL PRESENTATION: Medium (evolving), CLINICAL DECISION MAKING: Medium Short Term Goals GOAL #1: pt demonstrate rolling and scooting up in bed independently Goal to be met by: 10/10/17 GOAL #2: Transfer sup to/from sit CGA, sit to/from stand CGA to SBA Goal to be met by: 10/10/17 GOAL #3: pt stand pivot to chair with CGA Goal to be met by: 10/10/17 GOAL #4: pt amb with rwx 40ft with CGA to min x 1 with O2. Goal to be met by: 10/10/17 [facility] Goals GOAL #1: pt transfer sup to/from sit to/from stand SBA Goal to be met by: 10/13/17 GOAL #2: pt amb 60ft with rwx with O2 with CGA Goal to be met by: 10/13/17 GOAL #3: pt with improved strength BLE 4 to 4+/5 Goal to be met by: 10/13/17 Plan Plan of Care: Therapeutic EX, Therapeutic Activity Other:: gait training Frequency of Treatment: 1-2 X day, as tolerated Duration of Treatment: 6 days Anticipated Discharge Destination: [facility] Treatment Diagnosis (ICD 10 Codes): R26.2 difficulty walking. R 26.81 balance impaired. M62.81 general weakness Has the Physician been added for Co-signature?: Yes
[2017-10-07] MEDS: MAXIPIME 2 GM in SODIUM CHLORIDE 100 ML IV SCH (20:37)
[2017-10-08] MEDS: DUONEB NEB SCH ×4 (04:43→23:10)
[2017-10-08] MEDS: SOLU-MEDROL 125 MG IVP SCH ×3 (05:55→20:38)
[2017-10-08] MEDS: DEMADEX PO SCH ×2 (05:55→18:14)
[2017-10-08] MEDS: ASPIRIN CHEWABLE PO SCH (09:25)
[2017-10-08] MEDS: MICRO-K CAP PO SCH ×2 (09:25→20:38)
[2017-10-08] MEDS: SYMBICORT 160-4.5 MCG INHALER IH SCH ×2 (09:25→20:37)
[2017-10-08] MEDS: MAXIPIME 2 GM in SODIUM CHLORIDE 100 ML IV SCH (09:25)
[2017-10-08] MEDS: NORCO 5-325 PO SCH ×2 (09:26→20:38)
[2017-10-08] MEDS: CELEXA PO SCH (09:26)
[2017-10-08] MEDS: XANAX PO SCH ×3 (09:26→20:38)
[2017-10-08] MEDS: FERROUS SULFATE PO SCH ×2 (09:26→20:38)
--- NOTE | 2017-10-08 09:49 | HP ---
DATE OF SERVICE: 10/06/17 CHIEF COMPLAINT: Shortness of breath, change in mental status and fever. HISTORY OF PRESENT ILLNESS: This is a 67 year old female with COPD oxygen dependent has been having fever as high as 102 by the time the ambulance came and brought the patient, the patient was blueish color. The patient was put on the oxygen and brought to the emergency room and seen by Dr. Correa. WBC was 21,000. The patient was put on the Venturi mask, oxygen came up from the 66 on the nasal cannula to 88 on the Venturi mask. Temperature was 102.5, blood pressure 152/103, ABG done which showed the pH 7.439, pCo2 56.2 and pO2 57. Chest x-ray was negative for the pneumonia. The patient was wheezing and WBC was 21,000. Urine was positive for the leukocyte esterase and negative for nitrates. At that time the patient admitted to the hospital for the acute hypoxemic respiratory failure, sepsis, urinary tract infection and rheumatoid arthritis for IV antibiotics, breathing treatments and steroids. REVIEW OF SYSTEMS: CONSTITUTIONAL: Fever, Chills. Weakness and tiredness. HEENT: Normal. ENDOCRINE: No weight gain; no weight loss. CVS: No chest pain. No PND, no orthopnea. No shortness of breath. No PND, no orthopnea. RESPIRATORY: Cough, Congestion. No hemoptysis. GI: No nausea, no vomiting. No abdominal pain. No melena. : No hematuria. No polyuria. Burning and frequency of urination. MUSCULOSKELETAL: No joint swelling. PSYCHIATRIC: Not anxious. No depression. No suicidal thoughts. No homicidal thoughts. SKIN: Intact, no open lesions. PAST MEDICAL HISTORY/PAST SURGICAL HISTORY: COPD oxygen dependent Rheumatoid arthritis Anxiety Osteoarthritis DJD spine PERSONAL HISTORY: The patient does smoke, no alcohol and drugs. Lives at [facility]. FAMILY HISTORY: Rheumatid fever MEDICATIONS: Potassium Albuterol Symbicort Demadex Aspirin DUO NEB Zofran Xanax Milk of Magnesia Bisacodyl Tylenol Celexa Hydrocodone Incruse Nystatin Ferrous Sulfate Reardan ALLERGIES: Penicillin PHYSICAL EXAMINATION: V/S: Blood pressure 152/103, respiratory rate 26, heart rate 144, temperature 102.5, saturation 94 on Venturi mask. GENERAL: Sick looking lady laying in the bed, wheezing expiratory and shivering with the shakes. HEENT: Atraumatic, normocephalic. No scleral icterus. Pallor positive. Mucosa dry NECK: Supple. No JVD, no bruit. No lymphadenopathy. No thyromegaly. HEART: S1, S2 normal. Sinus tachycardia. No murmur. No cyanosis or clubbing. No ascites. LUNGS: Clear to auscultation. No rales or rhonchi. ABDOMEN: Soft, nontender. Bowel sounds are active. No CVA tenderness. No rigidity or guarding. EXTREMITIES: No pedal edema. No cyanosis or clubbing MUSCULOSKELETAL: Normal joints, no swelling. NEUROLOGIC: The patient is awake and alert. SKIN: Intact; no open lesions. LYMPHATIC: No lymph nodes palpable. LABS: WBC 21.11, hgb 14.4, hct 47.4, plt count 317, ABG pH 7.439, pCO2 56.2, pO2 57, Sodium 137, potassium 3.9, chloride 92, bicarb 36, BUN 2, creatinine 0.80 and glucose 103. Urine positive for the nitrates. Serology negative. Influenza Negative. ASSESSMENT: 1. Hypoxemic respiratory failure 2. Sepsis from urinary tract infection 3. Rheumatoid arthritis 4. Hypertension 5. Dyslipidemia PLAN: 1. Admit patient to the regular 2. CBC and CMP today and daily 3. Cardiac enzymes and Troponin 4. IV fluids 5. BIPAP 6. Continue to monitor with ABG 7. Cefepime 8. Vancomycin 9. DUO NEBS 10.Solu-Medrol 11.Daily I&Os 12.His D. dimer is high, will treat patient for the PE with Lovenox 100mg SUBCUT twice a day TIME SPENT: MORE THAN 75 minutes critical care time. DONNA
--- NOTE | 2017-10-08 10:22 | PN ---
DATE OF SERVICE: 10/07/17 SUBJECTIVE: The patient was admitted with hypoxemic respiratory failure, urinary tract infection. Fever subsided, last fever was yesterday at 9:00 101.5 and after that no fever and chills. Breathing better now. REVIEW OF SYSTEMS: CONSTITUTIONAL: No fever, no chills. HEENT: Normal. ENDOCRINE: No weight gain, no weight loss. CVS: No angina symptoms. No CHF symptoms. No palpitations. No atypical chest pain for CAD. Shortness of breath. No PND, no orthopnea. RESPIRATORY: Still coughing, no hemoptysis. GI: No nausea, no vomiting. No abdominal pain. : No hematuria. No polyuria. MUSCULOSKELETAL: No joint swelling. PSYCHIATRIC: Not anxious. No depression. No suicidal thoughts. No homicidal thoughts. SKIN: Intact. No rash. PHYSICAL EXAMINATION: V/S: Blood pressure 86/52, respiratory rate 24, heart rate 95, temperature 98.0 with saturation 98%. GENERAL: Cachetic lady laying in the bed. HEENT: Normocephalic, atraumatic. Mucosa dry. Pallor positive. NECK: Supple. No JVD, no carotid bruit. No lymphadenopathy. LUNGS: Decreased and basilar crackles. Expiratory wheeze present. No rales or rhonchi. HEART: S1, S2 normal. No S3. No murmur, gallop or regurgitation. ABDOMEN: Soft, nontender. Bowel sounds active. No rigidity. No rebound or guarding. No CVA tenderness. EXTREMITIES: No cyanosis, clubbing or pedal edema. MUSCULOSKELETAL: No joint swelling. NEUROLOGIC: Awake, alert. No focal deficit. LYMPHATIC: No lymph nodes palpable. SKIN: Intact. LABS: WBC 38.70, hgb 13.8, hct 44.9, plt count 353, sodium 136, potassium 3.9, chloride 94, Bicarb 33, BUN 20, creatinine 0.86 and glucose 190. ASSESSMENT: 1. Hypoxemic respiratory failure 2. Urinary tract infection 3. Urosepsis 4. Rheumatoid arthritis 5. Osteoarthritis 6. DJD of the spine 7. Hypertension. PLAN: 1. Continue Cefepime 2 grams twice a day 2. Lovenox 3. DUO NEBS 4. IV FLUIDS TIME SPENT: More than 35 minutes MTDD
--- NOTE | 2017-10-08 11:03 | CT ---
EXAM: CT of the abdomen pelvis without contrast History: Elevated white blood cell count. Comparison: Chest CT 07/11/2017, chest CT 08/28/2017 Technique: Multiplanar CT images through the abdomen pelvis were obtained without the administration of IV contrast Findings: Bronchial wall thickening seen within the lower lungs. Subsegmental atelectasis also seen within the lower lungs. No acute osseous abnormalities. Grade 1 anterolisthesis of L4 on L5. Gallbladder is contracted. No discrete gallstones identified by CT. No focal liver or splenic lesio ns. The liver and spleen are mildly enlarged. Atherosclerotic vascular calcifications. No peripanc reatic inflammation. Adrenal glands are unremarkable. No renal stones and no hydronephrosis. Right renal cortical scarring. The appendix is not dilated or inflamed. No dilated loops of bowel. Scat tered colonic stool. Copeland catheter within the decompressed bladder. Adnexal structures are not wel l evaluated without contrast administration. There is stranding seen adjacent to the bladder. Trace pelvic fluid. No free air. Focal area of subcutaneous edema involving the left lower anterior abdo mikey wall. Impression: 1. Copeland catheter within the decompressed bladder. There is inflammation adjacent to the bladder wa ll suggesting cystitis. Correlate with urinalysis. 2. Mild hepatosplenomegaly. 3. Trace nonspecific fluid in the pelvis. 4. Right renal cortical scarring. 5. Focal area of subcutaneous edema involving the left lower anterior abdominal wall. Correlate for cellulitis or trauma. 6. Bronchial wall thickening within the lower lungs and subsegmental atelectasis also seen within th e lower lungs.
[2017-10-08] MEDS: LOVENOX SUBCUT SCH (11:30)
[2017-10-08] MEDS: INVANZ 1 GM in SODIUM CHLORIDE 50 ML IV SCH (11:30)
[2017-10-08] MEDS: SODIUM CHLORIDE 1,000 ML IV SCH (12:40)
[2017-10-08] MEDS: NYSTATIN CREAM TP SCH ×2 (14:48→20:38)
[2017-10-09] MEDS: DUONEB NEB SCH ×4 (05:13→23:20)
[2017-10-09] MEDS: SOLU-MEDROL 125 MG IVP SCH ×3 (05:37→21:13)
[2017-10-09] MEDS: DEMADEX PO SCH ×2 (05:37→17:09)
[2017-10-09] MEDS: CELEXA PO SCH (09:29)
[2017-10-09] MEDS: NORCO 5-325 PO SCH ×2 (09:29→20:46)
[2017-10-09] MEDS: ASPIRIN CHEWABLE PO SCH (09:29)
[2017-10-09] MEDS: MICRO-K CAP PO SCH ×2 (09:29→20:46)
[2017-10-09] MEDS: INVANZ 1 GM in SODIUM CHLORIDE 50 ML IV SCH (09:29)
[2017-10-09] MEDS: SYMBICORT 160-4.5 MCG INHALER IH SCH ×2 (09:29→20:49)
[2017-10-09] MEDS: XANAX PO SCH ×3 (09:29→20:46)
[2017-10-09] MEDS: FERROUS SULFATE PO SCH ×2 (09:30→20:46)
[2017-10-09] MEDS: NYSTATIN CREAM TP SCH ×3 (09:31→20:45)
[2017-10-09] MEDS: LOVENOX SUBCUT SCH (09:35)
--- NOTE | 2017-10-09 10:06 | PN ---
DATE OF SERVICE: 10/08/17 SUBJECTIVE: 67-year-old female admitted with hypoxemic respiratory failure and urosepsis getting IV Primaxin, breathing treatments and steroids. The patient is breathing somewhat better, still coughing with congestion. No fever, no chills. Blood did grow gram negative rods. REVIEW OF SYSTEMS: CONSTITUTIONAL: No fever, no chills. HEENT: Normal. ENDOCRINE: No weight gain, no weight loss. CVS: No angina symptoms. No CHF symptoms. No palpitations. No atypical chest pain for CAD. No shortness of breath. No PND, no orthopnea. RESPIRATORY: No cough, no hemoptysis. GI: No nausea, no vomiting. No abdominal pain. : No hematuria. No polyuria. MUSCULOSKELETAL: No joint swelling. PSYCHIATRIC: Not anxious. No depression. No suicidal thoughts. No homicidal thoughts. SKIN: Intact. No rash. PHYSICAL EXAMINATION: V/S: BP 107/63, respiratory rate 20, heart rate 93, temperature 98.2, saturation 98% on 3L. HEENT: Normocephalic, atraumatic. Mucosa dry. Pallor positive. No icterus. NECK: Supple. No JVD, no carotid bruit. No lymphadenopathy. LUNGS: Decreased with basilar crackles. HEART: S1, S2 normal. No S3. No murmur, gallop or regurgitation. ABDOMEN: Soft, nontender. No suprapubic tenderness. Bowel sounds active. No rigidity. No rebound or guarding. No CVA tenderness. EXTREMITIES: 1+ edema is present. No cyanosis or clubbing. MUSCULOSKELETAL: No joint swelling. NEUROLOGIC: Awake, alert. Oriented times three. No focal deficit. LYMPHATIC: No lymph nodes palpable. SKIN: Intact and dry. LABS: White count 36.19, hemoglobin 13.2, hematocrit 43.4, platelet count 345. Sodium 141, potassium 3.8, chloride 98, bicarb 33, BUN 33, creatinine 0.84, glucose 149. ASSESSMENT: 1. UROSEPSIS 2. URINARY TRACT INFECTION 3. ALCOHOLISM 4. E. COLI, ESBL 5. LEUKOCYTOSIS 6. COPD EXACERBATION SECONDARY TO BRONCHITIS 7. UTI 8. HISTORY OF RHEUMATOID ARTHRITIS 9. DIASTOLIC HEART FAILURE 10. DEPRESSION/ANXIETY 11. OSTEOARTHRITIS 12. DJD SPINE PLAN: 1. Change antibiotics to Ertapenem. 2. Stop Cefepime. 3. Continue Duonebs, Lovenox. 4. Change Solu-Medrol to 80 mg q.8hr. 5. Daily I & O's. TIME SPENT: More than 35 minutes MTDD
[2017-10-09] MEDS: SODIUM CHLORIDE 1,000 ML IV SCH (11:02)
[2017-10-10] MEDS: DUONEB NEB SCH ×4 (04:55→23:15)
[2017-10-10] MEDS: SODIUM CHLORIDE 1,000 ML IV SCH ×2 (04:58→08:36)
[2017-10-10] MEDS: SOLU-MEDROL 125 MG IVP SCH ×3 (04:58→21:23)
[2017-10-10] MEDS: DEMADEX PO SCH ×2 (05:31→16:51)
[2017-10-10] MEDS: INVANZ 1 GM in SODIUM CHLORIDE 50 ML IV SCH (08:30)
[2017-10-10] MEDS: SYMBICORT 160-4.5 MCG INHALER IH SCH ×2 (08:30→21:23)
[2017-10-10] MEDS: NORCO 5-325 PO SCH ×2 (08:31→21:24)
[2017-10-10] MEDS: XANAX PO SCH ×3 (08:31→21:25)
[2017-10-10] MEDS: ASPIRIN CHEWABLE PO SCH (08:31)
[2017-10-10] MEDS: FERROUS SULFATE PO SCH ×2 (08:31→21:24)
[2017-10-10] MEDS: MICRO-K CAP PO SCH ×2 (08:31→21:24)
[2017-10-10] MEDS: CELEXA PO SCH (08:31)
[2017-10-10] MEDS: NYSTATIN CREAM TP SCH ×3 (08:32→21:23)
[2017-10-10] MEDS: LOVENOX SUBCUT SCH (08:33)
[2017-10-11] MEDS: DUONEB NEB SCH ×4 (05:20→23:20)
[2017-10-11] MEDS: SOLU-MEDROL 125 MG IVP SCH ×3 (05:28→20:46)
[2017-10-11] MEDS: DEMADEX PO SCH ×2 (05:34→16:22)
[2017-10-11] MEDS: SODIUM CHLORIDE 1,000 ML IV SCH (05:50)
[2017-10-11] MEDS: MICRO-K CAP PO SCH ×2 (08:38→20:05)
[2017-10-11] MEDS: SYMBICORT 160-4.5 MCG INHALER IH SCH ×2 (08:38→20:04)
[2017-10-11] MEDS: INVANZ 1 GM in SODIUM CHLORIDE 50 ML IV SCH (08:38)
[2017-10-11] MEDS: FERROUS SULFATE PO SCH ×2 (08:38→20:05)
[2017-10-11] MEDS: NYSTATIN CREAM TP SCH ×3 (08:39→20:05)
[2017-10-11] MEDS: ASPIRIN CHEWABLE PO SCH (08:39)
[2017-10-11] MEDS: XANAX PO SCH ×3 (08:39→20:05)
[2017-10-11] MEDS: NORCO 5-325 PO SCH ×2 (08:39→20:06)
[2017-10-11] MEDS: LOVENOX SUBCUT SCH (08:39)
[2017-10-11] MEDS: CELEXA PO SCH (08:39)
[2017-10-12] MEDS: SODIUM CHLORIDE 1,000 ML IV SCH (02:59)
[2017-10-12] MEDS: DUONEB NEB SCH ×4 (05:05→23:10)
[2017-10-12] MEDS: SOLU-MEDROL 125 MG IVP SCH ×3 (06:00→21:15)
[2017-10-12] MEDS: DEMADEX PO SCH ×2 (06:00→17:36)
[2017-10-12] MEDS: LOVENOX SUBCUT SCH (08:41)
[2017-10-12] MEDS: CELEXA PO SCH (08:41)
[2017-10-12] MEDS: INVANZ 1 GM in SODIUM CHLORIDE 50 ML IV SCH (08:41)
[2017-10-12] MEDS: SYMBICORT 160-4.5 MCG INHALER IH SCH ×2 (08:41→21:16)
[2017-10-12] MEDS: FERROUS SULFATE PO SCH ×2 (08:41→21:16)
[2017-10-12] MEDS: ASPIRIN CHEWABLE PO SCH (08:42)
[2017-10-12] MEDS: XANAX PO SCH ×3 (08:42→21:16)
[2017-10-12] MEDS: NORCO 5-325 PO SCH ×2 (08:42→21:16)
[2017-10-12] MEDS: MICRO-K CAP PO SCH ×2 (08:42→21:15)
[2017-10-12] MEDS: NYSTATIN CREAM TP SCH ×3 (09:00→21:14)
[2017-10-13] MEDS: SODIUM CHLORIDE 1,000 ML IV SCH ×3 (02:32→16:29)
[2017-10-13] MEDS: DUONEB NEB SCH ×2 (05:13→11:23)
[2017-10-13] MEDS: SOLU-MEDROL 125 MG IVP SCH ×2 (05:30→13:23)
[2017-10-13] MEDS: DEMADEX PO SCH (05:35)
[2017-10-13] MEDS: ASPIRIN CHEWABLE PO SCH (09:00)
[2017-10-13] MEDS: NYSTATIN CREAM TP SCH ×2 (09:00→15:23)
[2017-10-13] MEDS: SYMBICORT 160-4.5 MCG INHALER IH SCH (09:00)
[2017-10-13] MEDS: NORCO 5-325 PO SCH (09:01)
[2017-10-13] MEDS: MICRO-K CAP PO SCH (09:01)
[2017-10-13] MEDS: XANAX PO SCH ×2 (09:01→15:52)
[2017-10-13] MEDS: FERROUS SULFATE PO SCH (09:01)
[2017-10-13] MEDS: CELEXA PO SCH (09:01)
[2017-10-13] MEDS: INVANZ 1 GM in SODIUM CHLORIDE 50 ML IV SCH (09:01)
[2017-10-13] MEDS: LOVENOX SUBCUT SCH (09:02)
--- NOTE | 2017-10-13 10:25 | ECHO2D ---
Date of Exam: 10/13/17 Ordering Physician: DR. SANCHO EUCEDA Room #: SCU 2 Reason for Echo: FEVER, BACTEREMIA, RESPIRATORY FAILURE M-Mode Normal Adult Results LV Dimensions Normal Adult Results AoV Opening excursions >1.6 >1.6 LVEDD-base- 3.5-5.8 4.2 Ao root dimensions 2.0-3.7 3.7 LVESD-base- 3.1-4.6 L. Atrium dimensions 1.9-3.8 4.3 Post. Wall thickness 0.8-1.1 1.2 IV septum (thickness) 0.7-1.2 1.4 Post. Wall excursion 0.72-1.3 NORMAL Septal motion NORMAL Systolic motion R. Ventricular cavity 1.5-2.0 NORMAL LVEF 60% 60% Paradoxical septal wall motion NORMAL 2-D : ENLARGED LEFT ATRIAL CAVITY--NORMAL VALVES--CALCIFIC MITRAL VALVE ANNULUS- -NORMAL LEFT VENTRICULAR CONTRACTILITY--NO EFFUSION, NO THROMBUS M-MODE: MV: CALCIFIC MITRAL VALVE ANNULUS AV: NORMAL TV: NORMAL PV: CHAMBER SIZE: ENLARGED LEFT ATRIAL CAVITY WALL MOTION: NORMAL PERICARDIUM: NORMAL INTERPRETATION: 1. LEFT VENTRICULAR HYPERTROPHY WITH ENLARGED LEFT ATRIAL CAVITY 2. NORMAL LEFT VENTRICULAR CONTRACTILITY 3. CALCIFIC MITRAL VALVE ANNULUS 4. NORMAL LEFT VENTRICLE SIZE MTDD
--- NOTE | 2017-10-13 10:25 | PN ---
DATE OF SERVICE: 10/11/17 SUBJECTIVE: The patient was admitted with urosepsis and bacteremia, no more fever. White count is getting better. Status post respiratory failure. Breathing is better. REVIEW OF SYSTEMS: CONSTITUTIONAL: No fever, no chills. HEENT: Normal. ENDOCRINE: No weight gain, no weight loss. CVS: No angina symptoms. No CHF symptoms. No palpitations. No atypical chest pain for CAD. No shortness of breath. No PND, no orthopnea. RESPIRATORY: No cough, no hemoptysis. GI: No nausea, no vomiting. No abdominal pain. : No hematuria. No polyuria. MUSCULOSKELETAL: No joint swelling. PSYCHIATRIC: Not anxious. No depression. No suicidal thoughts. No homicidal thoughts. SKIN: Intact. No rash. PHYSICAL EXAMINATION: V/S: Blood pressure 142/80, respiratory rate 20, heart rate 77, temperature 97.8 with saturation 94 on 3 liters. HEENT: Normocephalic, atraumatic. Mucosa dry. Pallor positive. NECK: Supple. No JVD, no carotid bruit. No lymphadenopathy. LUNGS: Decreased and basilar crackles. Clear to auscultation. No rales or rhonchi. HEART: S1, S2 normal. No S3. No murmur, gallop or regurgitation. ABDOMEN: Soft, nontender. Bowel sounds active. No rigidity. No rebound or guarding. No CVA tenderness. EXTREMITIES: No cyanosis, clubbing or pedal edema. MUSCULOSKELETAL: No joint swelling. NEUROLOGIC: Awake, alert. No focal deficit. LYMPHATIC: No lymph nodes palpable. SKIN: Intact. LABS: WBC 16.53, hgb 14.3, hct 48.0, plt count 314, sodium 144, potassium 4.0, chloride 95, bicarb 24, BUN 31, creatinine 0.82, glucose 144 ASSESSMENT: 1. Status post acute hypoxemic respiratory failure 2. COPD exacerbation secondary to the urosepsis 3. Bacteremia 4. Rheumatoid arthritis 5. Osteoarthritis 6. COPD PLAN: 1. Continue the Invanz 2. IV Fluids 3. Lovenox for the DVT prophylaxis 4. Daily I&O's TIME SPENT: More than 35 minutes MTDD
--- NOTE | 2017-10-13 10:39 | PN ---
DATE OF SERVICE: 10/10/17 SUBJECTIVE: The patient was admitted with urosepsis and bacteremia, e-coli and ESBL positive. WBC is getting better [place] [address] to [id number] today. No fever and breathing is better. REVIEW OF SYSTEMS: CONSTITUTIONAL: No fever, no chills. HEENT: Normal. ENDOCRINE: No weight gain, no weight loss. CVS: No angina symptoms. No CHF symptoms. No palpitations. No atypical chest pain for CAD. No shortness of breath. No PND, no orthopnea. RESPIRATORY: Cough, no hemoptysis. GI: No nausea, no vomiting. No abdominal pain. : No hematuria. No polyuria. MUSCULOSKELETAL: No joint swelling. PSYCHIATRIC: Not anxious. No depression. No suicidal thoughts. No homicidal thoughts. SKIN: Intact. No rash. PHYSICAL EXAMINATION: V/S: Blood pressure 146/96, respiratory rate 20, heart rate 83, temperature 97.7 and saturation 95 on 3 liters. HEENT: Normocephalic, atraumatic. Mucosa dry. Pallor positive. NECK: Supple. No JVD, no carotid bruit. No lymphadenopathy. LUNGS: Decreased and basilar crackles. Clear to auscultation. No rales or rhonchi. HEART: S1, S2 normal. No S3. No murmur, gallop or regurgitation. ABDOMEN: Soft, nontender. Bowel sounds active. No rigidity. No rebound or guarding. No CVA tenderness. EXTREMITIES: No cyanosis, clubbing. 1+ edema. Right hand is swollen because of bursted IV site. No tenderness at this time. MUSCULOSKELETAL: No joint swelling. NEUROLOGIC: Awake, alert. No focal deficit. LYMPHATIC: No lymph nodes palpable. SKIN: Intact. LABS: WBC 18.38, hgb 13.1, hct 43.4, plt count 302, sodium 143, potassium 3.7, chloride 97, bicarb 35, BUN 30, creatinine 0.78 and glucose 157 ASSESSMENT: 1. Bacteremia 2. Urosepsis organism e-coli ESBL positive 3. Status post hypoxemic respiratory failure 4. COPD oxygen dependant 5. Rheumatoid arthritis 6. Osteoarthritis PLAN: 1. Continue the Invanz 2. Lovenox 3. DUO NEBS 4. Daily I&O's TIME SPENT: More than 35 minutes MTDD
--- NOTE | 2017-10-13 10:47 | PN ---
DATE OF SERVICE: 10/09/17 SUBJECTIVE: The patient WBC is getting better [id number]. REVIEW OF SYSTEMS: CONSTITUTIONAL: No fever, no chills. HEENT: Normal. ENDOCRINE: No weight gain, no weight loss. CVS: No angina symptoms. No CHF symptoms. No palpitations. No atypical chest pain for CAD. No shortness of breath. No PND, no orthopnea. RESPIRATORY: Cough and congestion, no hemoptysis. GI: No nausea, no vomiting. No abdominal pain. : No hematuria. No polyuria. MUSCULOSKELETAL: No joint swelling. PSYCHIATRIC: Not anxious. No depression. No suicidal thoughts. No homicidal thoughts. SKIN: Intact. No rash. PHYSICAL EXAMINATION: V/S: Blood pressure 142/89, respiratory rate 22, heart rate 86, temperature 97.5 with saturation is 96 on 3 liters. HEENT: Normocephalic, atraumatic. Mucosa dry. Pallor positive. No icterus. NECK: Supple. No JVD, no carotid bruit. No lymphadenopathy. LUNGS: Decreased and basilar crackles. Clear to auscultation. No rales or rhonchi. HEART: S1, S2 normal. No S3. No murmur, gallop or regurgitation. ABDOMEN: Soft, nontender. Bowel sounds active. No rigidity. No rebound or guarding. No CVA tenderness. EXTREMITIES: No cyanosis, clubbing or pedal edema. MUSCULOSKELETAL: No joint swelling. NEUROLOGIC: Awake, alert. No focal deficit. LYMPHATIC: No lymph nodes palpable. SKIN: Intact. LABS: WBC 25.57, hgb 12.6, hct 41.6, plt count 316, sodium 143, potassium 3.6, chloride 100, bicarb 34, BUN 36, creatinine 0.80 and glucose 153. ASSESSMENT: 1. Urosepsis organism e-coli ESBL positive 2. Bacteremia from UTI and e-coli 3. COPD exacerbation secondary to bronchitis 4. Hypoxemic respiratory failure 5. Rheumatoid arthritis 6. Diastolic heart failure PLAN: 1. Continue the Invanz 2. IV fluids 3. Solu-Medrol 80mg Q 8 hour 4. Daily I&O's TIME SPENT: More than 35 minutes MTDD
[2017-10-13 15:10] VITALS: BP 140/72; TEMP 97.6
--- NOTE | 2017-10-13 21:06 | PCM.HOSP ---
- Subsequent Care [id number] Minutes per Day (74790): 10/12 [id number] 35 Minutes per Day (70780): 10/07. 7/19. 7/20. 7/. / - Hospital Discharge [id number] More than 30 Minutes (80146): 10/13 - Critical Care [id number] Each Additional 30 Minutes (13305): 10/06
--- NOTE | 2017-10-14 08:46 | RS.OTQKDC ---
OT Discharge Date of Discharge: 10/13/17 Reason for Discharge: Pt was improved and went to [facility] for rehabilitation.
--- NOTE | 2017-10-14 14:26 | DS ---
DATE OF SERVICE: 10/13/17 FINAL DIAGNOSIS: 1. ACUTE HYPOXEMIC RESPIRATORY FAILURE 2. UROSEPSIS/BACTEREMIA/E. COLI/ESBL POSITIVE 3. RHEUMATOID ARTHRITIS 4. COPD, OXYGEN DEPENDENT 5. DJD SPINE 6. DEPENDENT LEG EDEMA 7. DEPRESSION 8. ANXIETY DISCHARGE INSTRUCTIONS: 1. Discharge the patient back to longterm. 2. Followup appointment with Dr. Goss in 5 to [address] patient on contact precautions for ESBL in the urine. 4. Continue oxygen at 3L. 5. BIPAP at nighttime. 6. CBC, CMP within one week. 7. Dr. Boss consultation as outpatient. MEDICATIONS AT DISCHARGE: Tylenol p.r.n. Zofran p.r.n. Albuterol inhaler Xanax Aspirin Bisacodyl Symbicort Celexa Ferrous Sulfate [place] Hydrocodone Milk of Magnesia Potassium Demodex p.r.n. NEW PRESCRIPTIONS: Ertapenem 1 gm IM daily for 7 days, next dose due tomorrow morning Prednisone 10 mg b.i.d. for 5 days, give with food, next dose at supper tonight Duonebs q.i.d. Nystatin cream t.i.d. to redness/irritation under breasts, abdominal folds and groin area DIET INSTRUCTIONS: Cardiac and Healthy ACTIVITY: As tolerated; may participate in the longterm activity. DISEASE SPECIFIC EDUCATION: Urinary tract infection, ESBL positive and contact isolation have been discussed. Antibiotic use and diarrhea have been discussed. HOSPITAL COURSE: This is a 67-year-old female with COPD, oxygen dependent, has been lethargic plus feeling feverish. When the ambulance arrived, the patient was bluish in color, oxygen saturation was 88. She was brought to the emergency room and was put on Venturi mask. ABGs were done which showed pH 7.439, pc02 56.2, p02 57. D. dimer was 1259. We were not able to get 18 gauge IV line so CT scan with PE protocol was not done. Started on Lovenox 100 mg daily. White count 21,000. Once the patient was put on Venturi mask, oxygen came from 57 to 72 then BIPAP was started. Chemistry showed BUN and creatinine normal. Urine was positive for leukocyte esterase and negative for nitrites. Toxicology screen positive for benzo and opiates. Serology negative. The patient has a fever of 102.5 started on antibiotics, breathing treatment and steroids. Solu-Medrol 185 q.8hr was given. Initially Cefepime and Vancomycin was started then also given a dose of Zosyn in the emergency room. ESBL positive, UTI came so Cefepime and Vancomycin stopped and the patient was started on Ertapenem. Blood cultures also were positive for E. coli and ESBL positive. Ertapenem continued. Meanwhile breathing has been improved. Cough and congestion has been improved. We did obtain echocardiogram to rule out any vegetation which was negative. As the patient was afebrile, repeat blood cultures and UA was obtained. They were read today which were negative for any infection. Blood cultures done showed negative after one day. As the patient had been doing good, she was sent back to longterm on BIPAP at nighttime and pulmonology consultation as outpatient. TIME SPENT: MORE THAN 65 MINUTES MTDD
== END 2017-10-13 16:30 | disposition other institution (70) | DRG 864 ==
LOC: ED 17:49 → SCU 19:26
PROVIDERS: ADMIT Emergency Medicine; ATTEND Emergency Medicine
DX: R50.9 Fever, unspecified (principal); J96.01 Acute respiratory failure with hypoxia; A41.51 Sepsis due to Escherichia coli [E. coli]; R78.81 Bacteremia; N39.0 Urinary tract infection, site not specified; R53.1 Weakness; R00.0 Tachycardia, unspecified; R41.82 Altered mental status, unspecified; J44.9 Chronic obstructive pulmonary disease, unspecified; M06.9 Rheumatoid arthritis, unspecified; M47.9 Spondylosis, unspecified; F41.8 Other specified anxiety disorders; R60.0 Localized edema; Z99.81 Dependence on supplemental oxygen
CPT/HCPCS: 36415; 80053; 80202; 80306; 81001; 82550; 82803; 83605; 83880; 84145; 84484; 85007; 85025; 85379; 85610; 85651; 85730; 87040; 87070; 87081; 87086; 87186; 87502; 93005; 93010; 94640; 94660; 96361; 96365; 96375; 97802; 99285

== ENCOUNTER 2018-09-10 14:08 | Outpatient (CLI) ==
[2018-09-10 14:28] VITALS: BMI 45.8
== END 2018-09-10 14:14 | disposition critical access hospital (66) ==
LOC: AMBL 14:08
PROVIDERS: ATTEND Family Medicine
DX: R06.03 Acute respiratory distress (principal); R23.0 Cyanosis; R53.1 Weakness; R09.89 Other specified symptoms and signs involving the circulatory and respiratory systems; R00.0 Tachycardia, unspecified

== ENCOUNTER 2018-09-10 14:19 | Observation (INO) | payer OTHER ==
[2018-09-10 14:28] VITALS: BMI 45.8
[2018-09-10] MEDS ORDERED: DUONEB NEB STA (14:35)
[2018-09-10] MEDS ORDERED: SOLU-MEDROL 40 MG IVP STA (14:35)
[2018-09-10] MEDS ORDERED: SODIUM CHLORIDE 500 ML IV STA (14:36)
--- NOTE | 2018-09-10 15:21 | CT ---
Examination: Chest CT without contrast Clinical history: Chronic obstructive pulmonary disease. Shortness of breath. Detailed thin slice noncontrast imaging extends from the neck base through the hemidiaphragms. Subgl ottic trachea is of adequate caliber. No thyroid lobe enlargement. There are a few small the aortic and superior mediastinal nodes. The larger node is noted in the distal pretracheal region measuring up to 1.8 cm. Another node anterior to the proximal left mainstem bronchus measures 1.8 cm as well. Ascending and descending thoracic aortic caliber is satisfactory. Central pulmonary artery is ecta tic. Left ventricle is mildly enlarged. There is no pericardial or pleural effusion. The spleen ap pears prominent in caliber though it is incompletely visualized. No visible pancreatic mass. No adr enal mass. Lung parenchymal window setting review shows some splaying of the pulmonary vessels consistent with h yperinflation. Minimal subsegmental atelectasis is noted the left lingula. A small 5 mm nodule is n oted at the pleural parenchymal junction of the right lower lobe, medially. Impression: 1. Obstructive/restrictive pulmonary disease with no pneumonia. 2. Few mediastinal nodes as described. 3. Ectatic main pulmonary artery compatible with a degree of pulmonary arterial hypertension. 4. Mild cardiomegaly. 5. Interval development of a small nodule in the medial right lower lobe since prior August [address] It measures 5 mm and is smoothly marginated.
[2018-09-10] MEDS ORDERED: ZOFRAN TAB PO PRN (16:49)
[2018-09-10] MEDS ORDERED: NORCO 5-325 PO PRN (16:49)
--- NOTE | 2018-09-10 19:46 | PCM ---
- Chief Complaint Chief Complaint: COPD exacerbation. - History of Present Illness History of Present Illness: 68 yo WF patient of Dr. tilley, resident of [facility] 2 year duration presented to the ER at [facility] 09/10/18 for worsening SOA. History of COPD. She normally takes nebulized duoneb TID (am, 2pm and bedtime). She is on home O2 all the time. She has been coughing about the same, not worsening per her report. She feels more SOA, she is making more phlegm. No fever. She notes that this has worsened over 3-4 days. She has been using meds as rx, staying in room in cooler area. She has been doing rehab. She was here at [facility] 1 year ago for pneumonia. No pneumonia at this time. She has no pain to report. She has been eating/drinking without concern. No changes in weight that she can report. She has had normal uout, normal stooling. No rash. She has chronic back pain, unchanged. We reviewed CT chest together today in room 103: CT chest obstructive/restrictive pulmonary disease with no pneumonia. Few mediastinal nodes as described, ectactic main pulmonary artery compatible with adegree of pulmonary arterial HTN, mild cardiomegaly, inerval development of small nodule in medial right lower lobe since 08/2017 CT. 5mm smoothly marginated. I would recommend f/u CT in 6-12 months. Labs reviewed with ehr today. WBC 12.37, hgb 15.5, hct 49.3, plt 357. ABG 7.340, Pc02 64.7, po2 54, hc03 34.9, co2 37, lactate 1.37, procalc <0.05. Sodium 142, K+ 4.02, co2 38.4, bun 19.8, 0.97, glucose 121.0, calcium 9.05. Troponin negative. ABG independent report: Primary respiratory acidosis acute with secondary metabolic alkalosis. Overall she seems to be stable for the night. No accessory muscle usage. Case personally d/w Dr. Ascencio. Sats drop with minimal exertion. Nail beds dusky and pt. reports she has been painting and that is why they are blue. Has IV in left antecubital with clean site with NS infusing at 75ml/hr. In no acute distress but is short of breath at rest with slightly labored resp. Glitter on toes, glitter right ear. She has sore along gluteal region. Per nursing she has c/o increased SOA, cough up green phlegm more today. Needing room markedly cooler to breath. Sats 70's-80s. Was given duoneb at [place]. She has incruse listed, unsure why she is getting both. I have held her incruse while here. She thinks she is retaining fluid. No e/o for this on CT. No peripheral edema noted, no facial edema noted. Mildly elevated BP at 149/98, afebrile. Former smoker, chronic O2. 08/06/[address] Tilley she weighed 236. REviewed his last note from [place]. In WC doing well. inhaler c/o insurance did not want to pay. Cataract surgery planned. 08/24/18 chart note patient returned to [facility] from [place]. - Review of Systems Constitutional: weakness, fatigue, loss of appetite. No: fever, chills, sweats Eyes: No: blurred vision, double-vision, discharge, itching, pain, redness, photophobia, other Ears: No: pain, bleeding, drainage, ringing, hearing loss, other Nose: No: bleeding, congestion, discharge, other Throat: No: pain, swelling, voice change, other Mouth: No: bleeding, pain, swelling, other Respiratory: cough, shortness of air, wheeze, pain with breathing Cardiovascular: orthopnea. No: chest pain, left arm pain, diaphoresis, PND, edema, palpitations, syncope, other Gastrointestinal: nausea. No: abdominal pain, other, vomiting, diarrhea, melena , hematemesis, hematochezia, dysphagia, constipation Genitourinary: No: dysuria, hematuria, frequency, incontinence, flank pain, vaginal discharge, abnormal bleeding, pelvic pain, other Neurological: No: headache, other, dizziness, seizure, numbness, weakness, speech difficulty, problems with walking, tremor, fainting Musculoskeletal: No: pain, swelling in joints, other Skin: No: rash, pruritus, lacerations, wounds, bruising, other Immunology: No: hives, itching, frequent infections, difficulty healing, other Hematology: No: easy bruising, easy bleeding, swollen glands, other Endocrine: No: weight changes, cold intolerance, heat intolerance, excessive thirst, excessive hunger, polyuria, other Psychiatric: No: depression, anxiety, sleeplessness, hopelessness, suicidal, hallucinations, other Habits: No: tobacco use, substance use, alcohol use, other - Past Medical History Past Medical History: COPD, oxygen dependent, obeisty BMI 45.8, lung nodule, HTN , chronic back pain, [place] resident. Rheumatoid arthritis, anxiety, osteoarthritis , DJD spine. - Past Surgical History Past Surgical History: No surgeries. She has planned cataract surgery 09/20/18. - Allergies Allergies/Adverse Reactions: Allergies Allergy/AdvReac Type Severity Reaction Status Date / Time Penicillins AdvReac Verified 10/06/17 18:05 - Medications Medications: Medications Generic Name Dose Route Start Last Admin Trade Name Freq PRN Reason Stop Dose Admin Hydrocodone Bitart/Acetaminophen 1 tab 09/10/18 16:49 Talcott 5-325 PO Q24H PRN Analgesia Hydrocodone Bitart/Acetaminophen 1 tab 09/10/18 21:00 [place]cott 5-325 PO BID BECKY Albuterol/Ipratropium 1 vial 09/10/18 18:00 Duoneb NEB RTQ6H BECKY Alprazolam 0.5 mg 09/10/18 21:00 Xanax PO TID BECKY Aspirin 81 mg 09/11/18 08:00 Aspirin Chewable PO DAILYWM BECKY Citalopram Hydrobromide 20 mg 09/11/18 09:00 Celexa PO DAILY BECKY Ferrous Sulfate 324 mg 09/10/18 17:00 Ferrous Sulfate PO BIDAC BECKY Sodium Chloride 1,000 mls @ 75 mls/hr 09/10/18 17:00 Sodium Chloride IV .[id number] [facility] Methylprednisolone Sodium Succinate 40 mg 09/10/18 21:00 Solu-Medrol 40 Mg IVP Q12HR [facility] Non-Formulary Medication 62.5 mcg 09/11/18 09:00 Umeclidinium [place] [Incruse Ellipta] IH DAILY BECKY Potassium Chloride 10 meq 09/10/18 17:30 Micro-K Cap PO BIDWM BECKY Torsemide 20 mg 09/10/18 21:00 Demadex PO BID BECKY - Family History Past Family History: Mother/father . 2 chidlren adopted. She has 2 children that live nearby. 1 brother lives in [place]. Sister [place]. Medical problems included son:DM. Little sister has disability of mental handicap secondary to rheumatic fever as youth. Grandparents . Denied breast cancer, colon cancer, ovarian cancer. Father DM, insulin dependent. HTn/ hyperlipidemia. - Social History Past Social History: . No tobacco. No drugs, no ETOH. [place] resident. she is . - Body Composition Height: 5 ft 1 in Weight: 242 lb 8.136 oz Body Mass Index (BMI): 45.8 - Physical Examination HEENT: Vital Signs Temp Pulse Resp BP Pulse Ox 09/10/18 18:24 97.9 F 100 H 22 86 L 09/10/18 18:00 22 09/10/18 14:23 99.4 F 106 H 28 H 149/98 H 90 L Constitutional: Appearance- Mild to moderate respiratory distress, Pursed lip breathing Orientation- Oriented x 3, alert Gait-Sitting on bed spread legged entire time. Nano nurse present during skin exam. Build and Nutrition-[ morbidly obese BMI 45.8] General- Patient is pleasant and cooperative with the interview and exam. Integumentary: General- rashes inferior breast, skin breakdown, buttock ulcer surrounding gluteal cleft, silver scale. Palpation- Remainder of skin with Normal skin moisture/turgor. Skin is warm to touch, appropriate. Capillary refill is normal bilateral Upper and lower extremity. Head/Neck: Head- normocephalic and atraumatic. Neck- without visible/palpable lumps or pulsations. Palpation- No bony tenderness about head/neck along frontal, occipital, temporal, parietal, mastoid, jawline, zygoma, orbit or any other location. NO temporal artery tenderness. No TMJ tenderness. Neck Supple. Thyroid-No thyromegaly, no nodules Eye: Bilaterally PERRLA, EOMI. No discharge. Upper and lower eyelids are normal. Sclera/conjunctiva normal without discharge. Cornea is normal and clear. Lens is normal. Eyeball appears normal. No ciliary flushing, no conjunctival injection. ENMT: Pinna- normal without tenderness or erythema. External auditory canal Left- normal without erythema or discharge, no excessive cerumen. External auditory canal Right-normal without erythema or discharge, no excessive cerumen. Glitter within the ear TM left- Ramirez/pearly, normal light reflex and anatomy with scarring TM Right- Ramirez/pearly, normal light reflex and anatomy scarring Hearing Assessment-normal to conversational speech. Nose and sinus- No sinus tenderness along frontal/maxillary region. External appearance normal and midline. Nares- bilateral quiet airflow, no discharge. Nasal mucosa- No bleeding noted and no ulcerations observed. [place], moist. Turbinates boggy. Lips- normal color, moist without cracks/lesions Oral Cavity/Palate- hard/soft palate intact without lesions, oral mucosa pink and moist. Tongue normal midline. Oropharynx- mild pharyngeal erythema, post nasal drainage. Uvula midline. No exudate. Salivary glands- Non tender to palpation CHEST/LUNG: Inspection- symmetric chest wall no pectus deformity. Increased effort, mild distress, pursed lip breathing SOA at rest. Palpation- nontender sternum, ribline. No abnormal pulsations. Auscultation- Breath sounds diminished, coarse, scattered rhonchi and wheezes throughout.all lung [place]. tracheal sounds, bronchial sounds overlying sternum, Bronchovessicular sounds between scapulae posteriorly, vessicular breath sounds heard throughout periphery. Lungs are clear today. Adventitious sounds- wheezes, rales, and rhonchi. CARDIOVASCULAR: Carotid artery- normal, no bruits or abnormal pulsations. Jugular vein- no pulsations. Palpation/Percussion- Normal PMI, no palpable thrill Auscultation- Regular rate and rhythm. No murmur noted in sitting, supine positions. Extremities- no edema, nor increased warmth. ABDOMEN: Inspection- normal and no visible pulsations. Normal contour. Auscultation- Bowel sounds normal, no abdominal bruits. Palpation/Percussion- soft, non-tender, no rebound tenderness, no rigidity (guarding), no jar tenderness, no masses. Liver-no hepatomegaly, Spleen no splenomegaly, Hernias - none. Rectal not examined. Peripheral Vascular: Upper extremity Left- Normal temperature with pink nailbeds and no ulcerations. Upper extremity Right- Normal temperature with pink nailbeds and no ulcerations. Lower extremity- Normal temperature with pink nailbeds and no ulcerations. DP pulses 2+ bilaterally. Pedal hair intact. Normal capillary refill. Edema- No edema. nails are hypertrophic. Musculoskeletal: Generalized-No generalized swelling or edema of extremities, no digital clubbing or cyanosis, neurovascularly intact all four extremities. Upper extremity- Symmetrical posture. No visible deformity. Normal sensation along medial and lateral upper extremity proximally and distally. NO tenderness overlying shoulder, lateral/medial epicondyle. [employer] 5/5 and strength 5/5 bilateral UE. Elbow palpated, no tenderness overlying olecranon. Normal supination, pronation to active/passive ROM and to resisted rotation. Bicep insertion/tricep insertion appear normal without obvious pathology. Rotator cuff evaluated and intact. Normal wrist ROM bilaterally. Normal hand movement, intrinsic muscles of hands normal. No tenderness to palpation of hands/wrists/ elbows. Lower extremity- Hip: Not tender to palpation, no pain, no swelling, edema or erythema of surrounding tissue, normal strength and tone. Normal appearing hip ROM bilaterally without pain. Knee: Knee ROM normal. No tenderness overlying trochanters, no tenderness about patella, quad tendon, patellar tendon. No tenderness at tibial tuberosity. Spine/Ribs- No deformities, masses or tenderness, no known fractures, normal strength, Normal ROM. Normal stability No tenderness along C/T/L spine. Normal appearing ROM about spine. Neurological: General- Moves all 4 extremities symmetrically. Symmetrical face and body posture. Cranial nerves- individually evaluated II-XII and intact. PERRLA, Normal EOMI, visual/special senses appear intact, Face is symmetrical and normal sensation/movement, normal tongue, normal strength/posture of neck musculature. Reflexes- intact with DTR 2+ patellar, Achilles, bicep, brachial, tricep. Ankle clonus normal with 2 beats. Strength- 5/5 bilateral UE and LE. Soft touch- intact bilateral UE and LE. Temperature sensation- intact bilateral UE and LE. Neuropsych: Oriented- Person, place, time. (AAOx3), Mood/affect- normal and congruent. Able to articulate well. Speech-Normal speech, normal rate, normal tone, normal use of language, volume and coherence. Thought content- normal with ability to perform basic computations and apply abstract thought/reason. Associations- intact, no SI/HI, no hallucinations, delusions, obsessions. Judgment/insight- Appropriate. Memory-Recall intact, remote and recent memory intact. Knowledge- Age appropriate fund of knowledge, concentration and attention span normal. Lymphatic: Head/Neck- normal size and non tender to palpation. Axillary- normal size and non tender to palpation. Femoral and Inguinal- normal size and non tender to palpation. External Genitalia: Rash beneath bilateral breasts (Nano present in room throughout skin exam). Stage 2 breakdown with overlying scale. Bilateral breasts inferiorly with mild skin breakdown. - Lab/Tests/Diagnostic Imaging Lab/Tests/Diagnostic Imaging: Laboratory Last Values WBC 12.37 K/ul (4.6-10.2) H 09/10/18 14:50 RBC 5.10 10^6/ul (4.20-5.40) 09/10/18 14:50 Hgb 15.5 g/dl (12.0-16.0) 09/10/18 14:50 Hct 49.3 % (37.0-47.0) H 09/10/18 14:50 MCV 96.7 fl (81.0-99.0) 09/10/18 14:50 MCH 30.4 pg (27.0-31.0) 09/10/18 14:50 MCHC 31.4 (31.8-35.4) L 09/10/18 14:50 RDW Coeff of Sia 14.7 % (11.6-14.8) 09/10/18 14:50 Plt Count 357 10^3/uL (140-440) 09/10/18 14:50 Immature Gran % (Auto) 0.6 % (0.0-5.0) 09/10/18 14:50 Neut % (Auto) 75.9 09/10/18 14:50 Lymph % (Auto) 15.9 (10.0-50.0) 09/10/18 14:50 [place] % (Auto) 4.0 (0-10) 09/10/18 14:50 Eos % (Auto) 3.1 % (0.0-7.0) 09/10/18 14:50 Baso % (Auto) 0.5 % (0.0-3.0) 09/10/18 14:50 Immature Gran # (Auto) 0.1 (0.0-1.0) 09/10/18 14:50 Neut # (Auto) 9.4 K/ul (2.0-6.9) H 09/10/18 14:50 Lymph # (Auto) 2.0 K/uL (0.60-3.4) 09/10/18 14:50 [place] # (Auto) 0.5 K/uL (0.4-2.0) 09/10/18 14:50 Eos # (Auto) 0.4 K/ul (0.0-0.7) 09/10/18 14:50 Baso # (Auto) 0.1 K/uL (0-0.2) 09/10/18 14:50 Puncture Site Rrad 09/10/18 14:35 O2 Saturation 84.0 % (95-100) L 09/10/18 14:35 ABG pH 7.340 (7.35-7.45) L 09/10/18 14:35 ABG pCO2 64.7 mmHg (35-45) H 09/10/18 14:35 ABG pO2 54.0 mmHg (85-100) L* 09/10/18 14:35 ABG HCO3 34.9 (22.0-26.0) H 09/10/18 14:35 ABG Total CO2 37 (22.0-28.0) H 09/10/18 14:35 ABG Base Excess 9 (-2.0-2.0) H 09/10/18 14:35 Lion Test + 09/10/18 14:35 O2 Delivery Device Nc 09/10/18 14:35 Oxygen Liter Flow 3.00 09/10/18 14:35 Sodium 142.1 mmol/L (134.5-145) 09/10/18 14:50 Potassium 4.02 mmol/L (3.5-5.1) 09/10/18 14:50 Chloride 95.6 mmol/L (98-107) L 09/10/18 14:50 Carbon Dioxide 38.4 mmol/L (22-30.0) H 09/10/18 14:50 Anion Gap 12.12 09/10/18 14:50 BUN 19.8 mg/dL (7-17) H 09/10/18 14:50 Creatinine 0.97 mg/dL (0.60-1.30) 09/10/18 14:50 Estimated GFR (MDRD) 57.00 mL/min 09/10/18 14:50 BUN/Creatinine Ratio 20.41 09/10/18 14:50 Glucose 121.8 mg/dL (74-106) H 09/10/18 14:50 Lactic Acid 1.37 mmol/L (0.7-2.1) 09/10/18 14:50 Calcium 9.05 mg/dL (8.4-10.2) 09/10/18 14:50 Total Bilirubin 0.48 mg/dL (0.2-1.3) 09/10/18 14:50 AST 29.2 U/L (14-36) 09/10/18 14:50 ALT 26.1 U/L (0-35) 09/10/18 14:50 Alkaline Phosphatase 86.2 U/L (53-141) 09/10/18 14:50 Total Creatine Kinase 65.3 U/L (30-135) 09/10/18 14:50 Troponin I < 0.012 ng/ml (0.0000-0.120) 09/10/18 14:50 Total Protein 7.19 g/dL (6.3-8.2) 09/10/18 14:50 Albumin 4.14 g/dL (3.5-5.0) 09/10/18 14:50 Globulin 3.05 09/10/18 14:50 Albumin/Globulin Ratio 1.35 09/10/18 14:50 Procalcitonin < 0.05 ng/mL (0.09) 09/10/18 14:50 CT Chest: Obstructive/restrictive pulmonary disease with no pneumonia. Few mediastinal nodes. ectatic main pulmonary artery compatible with pulm artery HTN Mild cardiomegaly interval development of small nodule in medial right lower lobe since prior august [address] 5mm smooth and marginated. - Assessment (1) COPD exacerbation Status: Acute Code(s): J44.1 - CHRONIC OBSTRUCTIVE PULMONARY DISEASE W (ACUTE ) EXACERBATION SNOMED Code(s): 241255897, 897033776 (2) Lung nodule Status: Acute Code(s): R91.1 - SOLITARY PULMONARY NODULE SNOMED Code(s): 868061071 (3) Hypercapnic respiratory failure Status: Acute Code(s): J96.92 - RESPIRATORY FAILURE, UNSPECIFIED WITH HYPERCAPNIA SNOMED Code(s): 396010114 (4) SIRS (systemic inflammatory response syndrome) Status: Acute Code(s): R65.10 - SIRS OF NON-INFECTIOUS ORIGIN W/O ACUTE ORGAN DYSFUNCTION SNOMED Code(s): 916428963 (5) Essential (primary) hypertension Status: Acute Code(s): I10 - ESSENTIAL (PRIMARY) HYPERTENSION SNOMED Code(s) : 96497464 (6) Dyslipidemia Status: Acute Code(s): E78.4 - OTHER HYPERLIPIDEMIA * DO NOT USE * SNOMED Code(s): 797713653 - Plan Plan: Respiratory failure with hypercapnia (Acute)/Hypercapnic respiratory failure ( Acute)/COPD Exacerbation/SIRS: Suspect acute bronchitis with possibility of COPD exacerbation by history and exam. She has Met SIRS criteria. We reviewed smoking history. She noted she was a non smoker. We reviewed GOLD criteria. Gold defines exacerbation of COPD as acute event leading to worsening of respiratory symptoms with 3 cardinal features: increased cough freq/severity, sputum production volume/quality, worsened Dyspnea. Risk factors for exacerbations include advancing age, duration of COPD, history of abx use, prev hospitalization within past 12 months, mucus production, comorbidities to include heart disease, CHF, DM, and exposures. Respiratory infections are the most likely trigger in up to 70% of cases to include viral processes such as Rhino (warmer months), cooper, adeno, parainfluenza (cooler months), allergic process, viral/bacterial pneumonia. Studies have shown benefit to bronchodilators (grade 1B) and show reduced time to resolution of cough. Anticholinergic agents are often used in combination as studies show enhanced bronchodilation beyond that seen by either agent alone. Systemic glucocorticoids have been shown to have beneficial effect. Recommendations include dosing steroid equivalent to prednisone 40 mg daily x 5 days. I will stop solumedrol and change to prednisone in am. Inhaled GC are of minimal benefit in acute exacerbation, but should not be stopped. We discussed that studies suggest use of abx is controversial. Common abx include doxycycline, FQ , 3rd gen Cephalosporin with or without macrolide. Discussed pros and cons of steroid use both injectable and oral forms. Yearly spirometry encouraged. Would like spirometry in 1-2 months if not done within past 12 months. - Admit OBs - Vitals per shift - I+O per shif - doxycycline 100 PO BID x 5 days #10 - Duoneb QID - Albuterol Q 4 hours prn - Solumedrol d/c - Prednisone daily 40mg x 5 days to start 09/11/18. - ABG reviewed, no further benefit - O2 titrate 92-98%. - Blood culture pending - NS 75/hour Leukocytosis: Re-evaluate with CBC in am tomorrow -CBC in am. Lung nodule (Acute): New onset nodule, repeat CT chest w/ contrast in 6 months. Essential HTN:Suspect essential HTN. Good BP control is encouraged with Goal BP based on JNC 8 guidelines: For the general population <60 yr old goal BP <140/ 90 and for those >60 150/90. For patients of all ages with Diabetes, CKD, Known CAD the goal is <140/90. At goal. Monitor cholesterol regularly as outpatient. Hyperlipidemia: Chronic, monitor outpatient. BMI 45: Discussed the federal guidelines suggest a healthy goal BMI of 18.5- 24.9 for people 18-65 and 23-30 for people age 65 and older. Overweight is considered BMI 25-30, Obesity 30-40 and Morbid obesity is defined as >100 lb overweight or BMI >40. With a BMI above goal, it is recommended to utilize a diet/exercise program to get back into the appropriate range. Consider referral to title attorney. For BMI >40 consider referral to bariatrics. If not already monitoring intake. I would recommend at least to keep a food diary. Document everything that is consumed into a food diary. Studies have shown that patients can lose up to 2x the weight by keeping track of foods. Offered handout on weight loss techniques. Apps that may be of benefit include [employer], Lose it. Regular exercise encouraged. Start with walking 5-10 minutes at a pace that is difficult to carry a conversation. If chest pain/SOA stop and f/u in office. Diet: Regular DVT Prophy: Lovenox 40 subcut. Code status: Full Code Disposition: Early COPD exacerbation admitted to observational status. She does not appear to be too far into an exacerbation. She has met 2/3 cardinal features. Leukocytosis and SIRS, will use doxy. Encouraged take with full 8 oz water. Will use this bid x 5 days. Stopped solumedrol, add prednisone in am x 5 days. I have simplified her tx options as I suspect she may return to [place] tomorrow or monday 09/11-09/12. Reviewed last [place] note. >70 minutes spent on admission for this patient today.
[2018-09-10] MEDS ORDERED: TORSEMIDE 20 MG PO SCH (21:00)
[2018-09-10] MEDS ORDERED: DUONEB NEB SCH (21:00)
[2018-09-10] MEDS ORDERED: SOLU-MEDROL 40 MG IVP SCH (21:00)
[2018-09-10] MEDS ORDERED: NON-FORMULARY MEDICATION (Ferrous Sulfate [Ferrous Sulfate] 325 MG) PO SCH (21:00)
[2018-09-10] MEDS: DOXYCYCLINE HYCLATE PO SCH (21:09)
[2018-09-10] MEDS: NORCO 5-325 PO SCH (21:10)
[2018-09-10] MEDS: XANAX PO SCH (21:10)
[2018-09-10] MEDS: DEMADEX PO SCH (21:10)
[2018-09-10] MEDS: MICRO-K CAP PO SCH (21:22)
[2018-09-10] MEDS: SODIUM CHLORIDE 1,000 ML IV SCH (21:22)
[2018-09-10] MEDS: FERROUS SULFATE PO SCH (21:22)
[2018-09-10] MEDS ORDERED: LOVENOX SUBCUT SCH (21:30)
[2018-09-10] MEDS: DUONEB NEB SCH ×2 (21:35→23:40)
[2018-09-11] MEDS: DUONEB NEB SCH ×4 (04:33→23:07)
[2018-09-11] MEDS: FERROUS SULFATE PO SCH ×2 (05:51→16:40)
[2018-09-11] MEDS: DOXYCYCLINE HYCLATE PO SCH ×2 (08:21→20:48)
[2018-09-11] MEDS: PREDNISONE PO SCH (08:21)
[2018-09-11] MEDS: DEMADEX PO SCH ×2 (08:21→20:50)
[2018-09-11] MEDS: NORCO 5-325 PO SCH ×2 (08:21→20:49)
[2018-09-11] MEDS: ASPIRIN CHEWABLE PO SCH (08:21)
[2018-09-11] MEDS: XANAX PO SCH ×3 (08:21→20:50)
[2018-09-11] MEDS: MICRO-K CAP PO SCH ×2 (08:22→16:40)
[2018-09-11] MEDS: NYSTOP POWDER TP SCH ×2 (08:27→20:48)
[2018-09-11] MEDS: CALMOSEPTINE OINTMENT TP SCH ×2 (08:28→20:48)
[2018-09-11] MEDS ORDERED: NON-FORMULARY MEDICATION (Umeclidinium Bromide [Incruse Ellipta] 62.5 MCG) IH SCH (09:00)
[2018-09-11] MEDS ORDERED: CELEXA PO SCH (09:00)
[2018-09-11] MEDS: SODIUM CHLORIDE 1,000 ML IV SCH (10:42)
[2018-09-11] MEDS ORDERED: ALBUTEROL 0.083% NEB NEB PRN (10:45)
--- NOTE | 2018-09-11 10:48 | PCM.PROG ---
Subjective: 68 yo WF HD 2 COPD exacerbation. Labs show WBC up to 14.57 suspected demargination, neutrophils have increased from 9.4 to 13.4. Hgb 15.5 and stable , plt 367 and stable. Chem panel unremarkable. Sodium 142.9, K+ 4.47, cl 99.8, bun 20.2, cr 0.83, glucose 138.1. Troponin negative x 3, CK negative x 3. Albumin 4.09 an dstable. She has normal ast 32.8, alt 27.9. No new imaging, no new micro (Blood cultures pending). She remains afebrile, O2 saturation 87-99. Goal for O2 is 92-98%. Telemetry reviewed and showed SR w/ BBB. Agree w/ assessments from nursing. Talked with overnight nurses. RR stable, she has some PND/orthopnea. Skin under breasts powdered and layer of cloth to allow skin to stop sticking. She also has this in groin and under abdomen. Buttock lesion less crusted and appears to be improving. Nurse debora present for evaluation. Obs assesments reviewed. She is supposed to be on CPAP but did not bring from [facility]. will get this. She had good uout. 0.9ml/kg/hour output over last 8 hours. Accuchecks 138/136/112/122. I will stop the iron BID at d/c and change to QOD. I will stop Duoneb at d/c and continue LAMA incruse, +LABA/GC symbicort with PRN albuterol. Observational notes showed hypoxia, which appears chronic. Chronic hypercapneic failure. Plan d/c tomorrow. REVIEW OF SYMPTOMS: (Positives bolded) General: weight loss, fever, chills, night sweats, fatigue, appetite loss HEENT: +GLASSES blurry vision, eye pain, eye discharge, dry eyes, decreased vision, sore throat tinnitus, bloody nose, hearin gloss, sinus pain/pressure, ear pain/pressure. Respiratory: shortness of breath, cough, hemoptysis, wheezing, pleurisy, Cardiovascular: chest pain, PND, palpitation, edema, orthopnea, syncope, swelling of extremities Gastro: Nausea, vomiting, diarrhea, hematemesis, abdominal pain, constipation Genito: hematuria, dysuria, glycosuria, hesitancy, frequency, incontinence [place]ckelo: Arthralgia, myalgia, muscle weakness, joint swelling, NSAID use Skin: rash, pruritis, sores, nail changes, skin thickening, change in wart/mole , itching, Neuro: Migraine, numbness, ataxia, tremor, vertigo, weakness, memory loss, Irritability, dizziness Endocrine: excessive thirst, polyuria, cold intolerance, heat intolerance, goiter Psychiatric: depression, anxiety, anti-depressants, alcohol abuse, drug abuse, insomnia, change in sleep pattern and mood changes Objective: Vital Signs - 24 hr 09/10/18 09/10/18 09/10/18 14:23 18:00 18:24 Temperature 99.4 F 97.9 F Pulse Rate 106 H 100 H Respiratory 28 H 22 22 Rate Blood Pressure 149/98 H O2 Sat by Pulse 90 L 86 L Oximetry 09/10/18 09/11/18 09/11/18 21:52 02:00 04:59 Temperature 97.8 F 97.9 F 97.1 F L Pulse Rate 106 H 96 H 92 H Respiratory 18 20 18 Rate Blood Pressure 133/99 H 96/58 L 113/63 O2 Sat by Pulse 92 L 92 L 99 Oximetry 09/11/18 09/11/18 08:00 10:00 Temperature 97.8 F Pulse Rate 93 H Respiratory 20 18 Rate Blood Pressure 129/71 O2 Sat by Pulse 87 L Oximetry Constitutional: Appearance- Mild to moderate respiratory distress, Pursed lip breathing Orientation- Oriented x 3, alert Gait-Sitting on bed spread legged entire time. Nano nurse present during skin exam. Build and Nutrition-[ morbidly obese BMI 45.8] General- Patient is pleasant and cooperative with the interview and exam. Integumentary: General- rashes inferior breast, skRash beneath bilateral breasts (Debora present in room throughout skin exam). Improving Stage 2 breakdown with overlying scale. Bilateral breasts inferiorly with mild skin breakdown. Improving Eye: Glasses in place ENMT: Oral Cavity/Palate- hard/soft palate intact without lesions, oral mucosa pink and moist. Tongue normal midline. Oropharynx- mild pharyngeal erythema, post nasal drainage. Uvula midline. No exudate. Salivary glands- Non tender to palpation CHEST/LUNG: Inspection- symmetric chest wall no pectus deformity. Increased effort, mild distress, pursed lip breathing SOA at rest. Palpation- nontender sternum, ribline. No abnormal pulsations. Auscultation- Breath sounds diminished, coarse, scattered rhonchi and wheezes throughout.all lung [place]. tracheal sounds, bronchial sounds overlying sternum, Bronchovessicular sounds between scapulae posteriorly, vessicular breath sounds heard throughout periphery. Lungs are clear today. Adventitious sounds- wheezes, rales, and rhonchi. CARDIOVASCULAR: Carotid artery- normal, no bruits or abnormal pulsations. Jugular vein- no pulsations. Palpation/Percussion- Normal PMI, no palpable thrill Auscultation- Regular rate and rhythm. No murmur noted in sitting, supine positions. Extremities- no edema, nor increased warmth. ABDOMEN: Inspection- normal and no visible pulsations. Normal contour. Auscultation- Bowel sounds normal, no abdominal bruits. Palpation/Percussion- soft, non-tender, no rebound tenderness, no rigidity (guarding), no jar tenderness, no masses. Liver-no hepatomegaly, Spleen no splenomegaly, Hernias - none. Rectal not examined. Peripheral Vascular: Lower extremity- Normal temperature with pink nailbeds and no ulcerations. DP pulses 2+ bilaterally. Edema- No edema. nails are hypertrophic. Musculoskeletal: Generalized-No generalized swelling or edema of extremities, no cyanosis, neurovascularly intact all four extremities. Weak core musculature. Neuropsych: Oriented- Person, place, time. (AAOx3), Mood/affect- normal and congruent. Able to articulate well. Speech-Normal speech, normal rate, normal tone, normal use of language, volume and coherence. Thought content- normal with ability to perform basic computations and apply abstract thought/reason. Associations- intact, no SI/HI, no hallucinations, delusions, obsessions. Judgment/insight- Appropriate. Memory-Recall intact, remote and recent memory intact. Knowledge- Age appropriate fund of knowledge, concentration and attention span normal. Lymphatic: Head/Neck- normal size and non tender to palpation. Laboratory Last Values WBC 14.57 K/ul (4.6-10.2) H 09/11/18 06:43 RBC 5.17 10^6/ul (4.20-5.40) 09/11/18 06:43 Hgb 15.5 g/dl (12.0-16.0) 09/11/18 06:43 Hct 50.5 % (37.0-47.0) H 09/11/18 06:43 MCV 97.7 fl (81.0-99.0) 09/11/18 06:43 MCH 30.0 pg (27.0-31.0) 09/11/18 06:43 MCHC 30.7 (31.8-35.4) L 09/11/18 06:43 RDW Coeff of Sia 14.7 % (11.6-14.8) 09/11/18 06:43 Plt Count 367 10^3/uL (140-440) 09/11/18 06:43 Immature Gran % (Auto) 1.6 % (0.0-5.0) 09/11/18 06:43 Neut % (Auto) 92.1 09/11/18 06:43 Lymph % (Auto) 4.5 (10.0-50.0) L 09/11/18 06:43 Bradley % (Auto) 1.4 (0-10) 09/11/18 06:43 Eos % (Auto) 0.1 % (0.0-7.0) 09/11/18 06:43 Baso % (Auto) 0.3 % (0.0-3.0) 09/11/18 06:43 Immature Gran # (Auto) 0.2 (0.0-1.0) 09/11/18 06:43 Neut # (Auto) 13.4 K/ul (2.0-6.9) H 09/11/18 06:43 Lymph # (Auto) 0.7 K/uL (0.60-3.4) 09/11/18 06:43 Bradley # (Auto) 0.2 K/uL (0.4-2.0) L 09/11/18 06:43 Eos # (Auto) 0.0 K/ul (0.0-0.7) 09/11/18 06:43 Baso # (Auto) 0.0 K/uL (0-0.2) 09/11/18 06:43 Puncture Site Rrad 09/10/18 14:35 O2 Saturation 84.0 % (95-100) L 09/10/18 14:35 ABG pH 7.340 (7.35-7.45) L 09/10/18 14:35 ABG pCO2 64.7 mmHg (35-45) H 09/10/18 14:35 ABG pO2 54.0 mmHg (85-100) L* 09/10/18 14:35 ABG HCO3 34.9 (22.0-26.0) H 09/10/18 14:35 ABG Total CO2 37 (22.0-28.0) H 09/10/18 14:35 ABG Base Excess 9 (-2.0-2.0) H 09/10/18 14:35 Lion Test + 09/10/18 14:35 O2 Delivery Device Nc 09/10/18 14:35 Oxygen Liter Flow 3.00 09/10/18 14:35 Sodium 142.9 mmol/L (134.5-145) 09/11/18 06:43 Potassium 4.47 mmol/L (3.5-5.1) 09/11/18 06:43 Chloride 99.8 mmol/L (98-107) 09/11/18 06:43 Carbon Dioxide 34.0 mmol/L (22-30.0) H 09/11/18 06:43 Anion Gap 13.57 09/11/18 06:43 BUN 20.2 mg/dL (7-17) H 09/11/18 06:43 Creatinine 0.83 mg/dL (0.60-1.30) 09/11/18 06:43 Estimated GFR (MDRD) 69.00 mL/min 09/11/18 06:43 BUN/Creatinine Ratio 24.33 09/11/18 06:43 Glucose 138.1 mg/dL (74-106) H 09/11/18 06:43 Lactic Acid 1.37 mmol/L (0.7-2.1) 09/10/18 14:50 Calcium 8.92 mg/dL (8.4-10.2) 09/11/18 06:43 Total Bilirubin 0.50 mg/dL (0.2-1.3) 09/11/18 06:43 AST 32.8 U/L (14-36) 09/11/18 06:43 ALT 27.9 U/L (0-35) 09/11/18 06:43 Alkaline Phosphatase 85.6 U/L (53-141) 09/11/18 06:43 Total Creatine Kinase 40.3 U/L (30-135) 09/11/18 06:43 Troponin I < 0.012 ng/ml (0.0000-0.120) 09/11/18 06:43 Total Protein 7.18 g/dL (6.3-8.2) 09/11/18 06:43 Albumin 4.09 g/dL (3.5-5.0) 09/11/18 06:43 Globulin 3.09 09/11/18 06:43 Albumin/Globulin Ratio 1.32 09/11/18 06:43 Procalcitonin < 0.05 ng/mL (0.09) 09/10/18 14:50 Urine Color Yellow (YELLOW) 09/11/18 01:40 Urine Clarity Clear (CLEAR) 09/11/18 01:40 Urine pH 6.5 (5-9) 09/11/18 01:40 Ur Specific [place] 1.010 (1.005-1.030) 09/11/18 01:40 Urine Protein Negative (NEGATIVE) 09/11/18 01:40 Urine Glucose (UA) Negative (NEGATIVE) 09/11/18 01:40 Urine Ketones Negative (NEGATIVE) 09/11/18 01:40 Urine Blood Negative (NEGATIVE) 09/11/18 01:40 Urine Nitrite Negative (NEGATIVE) 09/11/18 01:40 Urine Bilirubin Negative (NEGATIVE) 09/11/18 01:40 Urine Urobilinogen 0.2 (0.2) 09/11/18 01:40 Ur Leukocyte Esterase Trace (NEGATIVE) 09/11/18 01:40 Urine Microscopic RBC 0-2 (0-2) 09/11/18 01:40 Urine Microscopic WBC 2-5 (0-2) 09/11/18 01:40 Ur Squamous Epith Cells 2-5 (0-5) 09/11/18 01:40 Ur Transition Epith Cell 0-2 (NOT PRESENT) 09/11/18 01:40 Urine Bacteria Trace (NOT PRESENT) 09/11/18 01:40 Hyaline Casts 2-5 (NOT PRESENT) 09/11/18 01:40 (1) COPD exacerbation Status: Acute Code(s): J44.1 - CHRONIC OBSTRUCTIVE PULMONARY DISEASE W (ACUTE ) EXACERBATION SNOMED Code(s): 088739898 (2) Lung nodule Status: Acute Code(s): R91.1 - SOLITARY PULMONARY NODULE SNOMED Code(s): 194595880 (3) Hypercapnic respiratory failure Status: Acute Code(s): J96.92 - RESPIRATORY FAILURE, UNSPECIFIED WITH HYPERCAPNIA SNOMED Code(s): 249420448 (4) SIRS (systemic inflammatory response syndrome) Status: Acute Code(s): R65.10 - SIRS OF NON-INFECTIOUS ORIGIN W/O ACUTE ORGAN DYSFUNCTION SNOMED Code(s): 050132750 (5) Essential (primary) hypertension Status: Acute Code(s): I10 - ESSENTIAL (PRIMARY) HYPERTENSION SNOMED Code(s) : 56403071 (6) Dyslipidemia Status: Acute Code(s): E78.4 - OTHER HYPERLIPIDEMIA * DO NOT USE * SNOMED Code(s): 066634408 Plan: Respiratory failure with hypercapnia (Acute)/Hypercapnic respiratory failure ( Acute)/COPD Exacerbation/SIRS: Stable/improved. Using meds, held incruse in hospital. Will stop the Duoneb at d/c. She needs to use CPAP at night. She noted understanding. Doxy Day 04/27. Prednisone 40mg daily. We will continue this and likely d/c back to [facility] tomorrow. Reviewed meds with her. Discussed overnight care with her. Spent 35 minutes today talking with her about overnight notes, labs, reviewing meds. - Continue Admit OBs - Vitals per shift - I+O per shif - doxycycline 100 PO BID x 5 days #10 Day 2 - Duoneb QID - Albuterol Q 4 hours prn - Prednisone daily 40mg x 5 days - ABG reviewed at admit, no further benefit to more ABG - O2 titrate 92-98%. - Blood culture pending - NS 75/hour to continue Leukocytosis: Re-evaluate with CBC. Suspect demargination -CBC in am. Lung nodule (Acute): New onset nodule, repeat CT chest w/ contrast in 6 months. Essential HTN: Chronic/stable process. F/U as outpatient. Goal <140/90 Hyperlipidemia: Chronic, monitor outpatient. BMI 45: Again reviewed federal guidelines suggest a healthy goal BMI of 18.5- 24.9 for people 18-65 and 23-30 for people age 65 and older. Overweight is considered BMI 25-30, Obesity 30-40 and Morbid obesity is defined as >100 lb overweight or BMI >40. With a BMI above goal, it is recommended to utilize a diet/exercise program to get back into the appropriate range. Consider referral to pot fluxer. For BMI >40 consider referral to bariatrics. If not already monitoring intake. I would recommend at least to keep a food diary. Document everything that is consumed into a food diary. Studies have shown that patients can lose up to 2x the weight by keeping track of foods. Offered handout on weight loss techniques. Apps that may be of benefit include Certify, Lose it. Regular exercise encouraged. Start with walking 5-10 minutes at a pace that is difficult to carry a conversation. If chest pain/SOA stop and f/u in office. Diet: Regular DVT Prophy: Lovenox 40 subcut. Code status: Full Code Disposition: Early COPD exacerbation admitted to observational status. She is stable/improved and would benefit from 1 more day of observation before return to [facility]. 35 minutes today spent with her. Reviewed labs, imaging, ABG, Tele, overnight assessments, discussed need to get back on the CPAP. She has rash that is improving. I believe she will be able to return to [facility] 09/12/18. She still has 2/3 cardinal features of COPD exacerbation, Leukocytosis and SIRS, will finish 5 days of doxy. Encouraged take with full 8 oz water. Will use this bid x 5 days. Stopped solumedrol, continue prednisone in am x 5 days after d/c. I have simplified her tx options as I suspect she may return to [place] tomorrow 09/12. Prepare for d/c in am.
[2018-09-11] MEDS: SYMBICORT 160-4.5 MCG INHALER IH SCH ×2 (12:21→20:47)
[2018-09-11] MEDS ORDERED: LOVENOX SUBCUT SCH (21:00)
[2018-09-12] MEDS: FERROUS SULFATE PO SCH (05:33)
[2018-09-12] MEDS: DUONEB NEB SCH (05:50)
[2018-09-12] MEDS ORDERED: MICRO-K CAP PO SCH (08:00)
--- NOTE | 2018-09-12 08:52 | PCM.DC ---
Final Diagnosis: (1) COPD exacerbation Status: Acute Code(s): J44.1 - CHRONIC OBSTRUCTIVE PULMONARY DISEASE W (ACUTE ) EXACERBATION SNOMED Code(s): 103956461, 031620924 (2) Lung nodule Status: Acute Code(s): R91.1 - SOLITARY PULMONARY NODULE SNOMED Code(s): 994390249 (3) Hypercapnic respiratory failure Status: Acute Code(s): J96.92 - RESPIRATORY FAILURE, UNSPECIFIED WITH HYPERCAPNIA SNOMED Code(s): 829227101 (4) SIRS (systemic inflammatory response syndrome) Status: Acute Code(s): R65.10 - SIRS OF NON-INFECTIOUS ORIGIN W/O ACUTE ORGAN DYSFUNCTION SNOMED Code(s): 552054779 (5) Essential (primary) hypertension Status: Acute Code(s): I10 - ESSENTIAL (PRIMARY) HYPERTENSION SNOMED Code(s) : 69361241 (6) Dyslipidemia Status: Acute Code(s): E78.4 - OTHER HYPERLIPIDEMIA * DO NOT USE * SNOMED Code(s): 581792545 (7) BMI 45.0-49.9, adult Status: Acute Code(s): Z68.42 - BODY MASS INDEX (BMI) 45.0-49.9, ADULT SNOMED Code(s): 388553266, 726735690 (8) Rash Status: Acute Code(s): R21 - RASH AND OTHER NONSPECIFIC SKIN ERUPTION SNOMED Code(s): 984546155 (9) Ulcer of sacral region, stage 1 Status: Acute Code(s): L98.429 - NON-PRESSURE CHRONIC ULCER OF BACK WITH UNSPECIFIED SEVERITY SNOMED Code(s): 86245708, 546654515 Reason for Hospitalization: [place] resident, COPD exacerbation, SIRS criteria. Prognosis at Discharge: Stable to Improved, prognosis is questionable. New onset lung nodule will require further workup through PCP Dr. Olson. Condition at Discharge: Stable to improved. Medications at Discharge: Ambulatory Orders Medication Instructions Recorded Albuterol Sulfate [Proair Hfa] 2 puff IH RTQ6H PRN 09/12/16 Aspirin 81 mg PO DAILY 09/12/16 Potassium Chloride [Micro-K Cap] 10 meq PO BID 09/12/16 Torsemide [Demadex] 20 mg PO BID 09/12/16 Acetaminophen [Acetaminophen ER] 650 mg PO Q4HR PRN 06/05/17 Alprazolam [Xanax] 0.5 mg PO TID 06/05/17 Bisacodyl 10 mg RC DAILY PRN 06/05/17 Citalopram Hydrobromide [Celexa] 20 mg PO DAILY 06/05/17 Magnesium Hydroxide [Milk of 30 ml PO DAILY PRN 06/05/17 Magnesia] Ondansetron HCl [Zofran Tab] 4 mg PO Q6HR PRN 06/05/17 Umeclidinium [place] [Incruse 62.5 mcg IH DAILY #1 blst.w.dev 06/12/17 Ellipta] Budesonide/Formoterol Fumarate 2 puff IH BID 09/10/18 [Symbicort 160-4.5 Mcg Inhaler] Albuterol Sulfate 0.083% Neb 1 vial NEB Q4H PRN 30 Days #100 09/12/18 [Albuterol 0.083% Neb] vial.neb Doxycycline Hyclate 100 mg PO Q12HR 3 Days #7 capsule 09/12/18 Ferrous Sulfate 325 mg PO DIRECTED 30 Days #15 09/12/18 tablet Menthol/Zinc Oxide [Calmoseptine 1 applic TP BID oint 09/12/18 Ointment] Nystatin [Nystop Powder] 1 applic TP BID 10 Days #1 btl 09/12/18 Prednisone 40 mg PO DAILYWM 5 Days #10 tablet 09/12/18 Lab/Diagnostics: Laboratory Last Values WBC 15.97 K/ul (4.6-10.2) H 09/12/18 05:15 RBC 4.97 10^6/ul (4.20-5.40) 09/12/18 05:15 Hgb 14.6 g/dl (12.0-16.0) 09/12/18 05:15 Hct 48.9 % (37.0-47.0) H 09/12/18 05:15 MCV 98.4 fl (81.0-99.0) 09/12/18 05:15 MCH 29.4 pg (27.0-31.0) 09/12/18 05:15 MCHC 29.9 (31.8-35.4) L 09/12/18 05:15 RDW Coeff of Sia 14.9 % (11.6-14.8) H 09/12/18 05:15 Plt Count 302 10^3/uL (140-440) 09/12/18 05:15 Immature Gran % (Auto) 0.8 % (0.0-5.0) 09/12/18 05:15 Neut % (Auto) 83.2 09/12/18 05:15 Lymph % (Auto) 10.9 (10.0-50.0) 09/12/18 05:15 Tama % (Auto) 4.6 (0-10) 09/12/18 05:15 Eos % (Auto) 0.2 % (0.0-7.0) 09/12/18 05:15 Baso % (Auto) 0.3 % (0.0-3.0) 09/12/18 05:15 Immature Gran # (Auto) 0.1 (0.0-1.0) 09/12/18 05:15 Neut # (Auto) 13.3 K/ul (2.0-6.9) H 09/12/18 05:15 Lymph # (Auto) 1.7 K/uL (0.60-3.4) 09/12/18 05:15 Tama # (Auto) 0.7 K/uL (0.4-2.0) 09/12/18 05:15 Eos # (Auto) 0.0 K/ul (0.0-0.7) 09/12/18 05:15 Baso # (Auto) 0.1 K/uL (0-0.2) 09/12/18 05:15 Puncture Site Rrad 09/10/18 14:35 O2 Saturation 84.0 % (95-100) L 09/10/18 14:35 ABG pH 7.340 (7.35-7.45) L 09/10/18 14:35 ABG pCO2 64.7 mmHg (35-45) H 09/10/18 14:35 ABG pO2 54.0 mmHg (85-100) L* 09/10/18 14:35 ABG HCO3 34.9 (22.0-26.0) H 09/10/18 14:35 ABG Total CO2 37 (22.0-28.0) H 09/10/18 14:35 ABG Base Excess 9 (-2.0-2.0) H 09/10/18 14:35 Lion Test + 09/10/18 14:35 O2 Delivery Device Nc 09/10/18 14:35 Oxygen Liter Flow 3.00 09/10/18 14:35 Sodium 143.5 mmol/L (134.5-145) 09/12/18 05:15 Potassium 4.27 mmol/L (3.5-5.1) 09/12/18 05:15 Chloride 97.8 mmol/L (98-107) L 09/12/18 05:15 Carbon Dioxide 39.0 mmol/L (22-30.0) H 09/12/18 05:15 Anion Gap 10.97 09/12/18 05:15 BUN 27.3 mg/dL (7-17) H 09/12/18 05:15 Creatinine 0.86 mg/dL (0.60-1.30) 09/12/18 05:15 Estimated GFR (MDRD) 66.00 mL/min 09/12/18 05:15 BUN/Creatinine Ratio 31.74 09/12/18 05:15 Glucose 81.1 mg/dL (74-106) D 09/12/18 05:15 Lactic Acid 1.37 mmol/L (0.7-2.1) 09/10/18 14:50 Calcium 9.06 mg/dL (8.4-10.2) 09/12/18 05:15 Total Bilirubin 0.46 mg/dL (0.2-1.3) 09/12/18 05:15 AST 32.7 U/L (14-36) 09/12/18 05:15 ALT 22.7 U/L (0-35) 09/12/18 05:15 Alkaline Phosphatase 68.4 U/L (53-141) 09/12/18 05:15 Total Creatine Kinase 40.3 U/L (30-135) 09/11/18 06:43 Troponin I < 0.012 ng/ml (0.0000-0.120) 09/11/18 06:43 Total Protein 6.59 g/dL (6.3-8.2) 09/12/18 05:15 Albumin 3.96 g/dL (3.5-5.0) 09/12/18 05:15 Globulin 2.63 09/12/18 05:15 Albumin/Globulin Ratio 1.50 09/12/18 05:15 Procalcitonin < 0.05 ng/mL (0.09) 09/10/18 14:50 Urine Color Yellow (YELLOW) 09/11/18 01:40 Urine Clarity Clear (CLEAR) 09/11/18 01:40 Urine pH 6.5 (5-9) 09/11/18 01:40 Ur Specific [place] 1.010 (1.005-1.030) 09/11/18 01:40 Urine Protein Negative (NEGATIVE) 09/11/18 01:40 Urine Glucose (UA) Negative (NEGATIVE) 09/11/18 01:40 Urine Ketones Negative (NEGATIVE) 09/11/18 01:40 Urine Blood Negative (NEGATIVE) 09/11/18 01:40 Urine Nitrite Negative (NEGATIVE) 09/11/18 01:40 Urine Bilirubin Negative (NEGATIVE) 09/11/18 01:40 Urine Urobilinogen 0.2 (0.2) 09/11/18 01:40 Ur Leukocyte Esterase Trace (NEGATIVE) 09/11/18 01:40 Urine Microscopic RBC 0-2 (0-2) 09/11/18 01:40 Urine Microscopic WBC 2-5 (0-2) 09/11/18 01:40 Ur Squamous Epith Cells 2-5 (0-5) 09/11/18 01:40 Ur Transition Epith Cell 0-2 (NOT PRESENT) 09/11/18 01:40 Urine Bacteria Trace (NOT PRESENT) 09/11/18 01:40 Hyaline Casts 2-5 (NOT PRESENT) 09/11/18 01:40 WBC Trends 09/10/18 09/11/18 09/12/18 Range/Units 14:50 06:43 05:15 WBC 12.37 H 14.57 H 15.97 H (4.6-10.2) K/ul BUN/CR Trends 09/10/18 09/11/18 09/12/18 Range/Units 14:50 06:43 05:15 BUN 19.8 H 20.2 H 27.3 H (7-17) mg/dL Creatinine 0.97 0.83 0.86 (0.60-1.30) mg/dL CT Chest: Obstructive/restrictive pulmonary disease with no pneumonia. Few mediastinal nodes. ectatic main pulmonary artery compatible with pulm artery HTN Mild cardiomegaly interval development of small nodule in medial right lower lobe since prior august [address] 5mm smooth and marginated. Education Provided to Patient and Family: 1. COPD/medications 2. Pulmonary nodule 3. Weight loss 4. Tobacco avoidance 5. Pulmonary rehab/specialist f/u. Follow-ups: 1. Return to [facility] 2. F/U in [address] Olson 3. Keep next appt with petroleum supply specialist Disposition: TSF OTHER Hospital Course: 68 yo WF patient of Dr. olson, resident of [facility] 2 year duration presented to the ER at [facility] 09/10/18 for worsening SOA. History of COPD. She normally takes nebulized duoneb TID (am, 2pm and bedtime) but is also on incruse. Discussed if on incruse, you do not need duoneb too. She is already on symbicort taking 2 puffs BID, which gave LABA and GC and the incruse gives LAMA. Daliresp may be of benefit but duoneb causes polypharmacy with duplicated Muscarinc agent. She is on home O2 all the time. She has been coughing about the same, to mildly worse, more SOA, she is making more phlegm. No fever. She noted that this had worsened over 3-4 days prior to admit. She had been using meds as rx, staying in room in cooler area. She has been doing pulm rehab at [facility]. She was here at [facility] 1 year ago for pneumonia. No pneumonia evident on CT chest from ER. She reported no pain, no change to PO intake, no changes in weight that she can report. She has had normal uout, normal stooling. No rash. She has chronic back pain, unchanged. We reviewed CT chest together in room 103: CT chest obstructive/restrictive pulmonary disease with no pneumonia. Few mediastinal nodes as described, ectactic main pulmonary artery compatible with adegree of pulmonary arterial HTN, mild cardiomegaly, inerval development of small nodule in medial right lower lobe since 08/2017 CT. 5mm smoothly marginated. I recommended f/u CT in 6-12 months and to discuss further with her petroleum supply specialist. Labs showed WBC 12.37, hgb 15.5, hct 49.3, plt 357. ABG 7.340, Pc02 64.7, po2 54, hc03 34.9, co2 37, lactate 1.37, procalc <0.05. Sodium 142, K+ 4.02, co2 38.4, bun 19.8, 0.97, glucose 121.0, calcium 9.05. Troponin negative. ABG independent report: Primary respiratory acidosis acute with secondary metabolic alkalosis. She had no accessory muscle usage, pursed lip breathing. Chrnoic CO2 retainer, saturations high 80's most of the time and the sats drop with minimal exertion. Nail beds dusky and pt. reported. Was short of breath at rest, could not lay flat (CHRONICALLY) with slightly labored resp. While in hospital I held the incruse, used the duonebs QID and albuterol Q4PRN. She was given doxy 100 BID throughout the stay and I added prednisone 40mg daily. All home meds were continued, lovenox was used for DVT prophy. Nursing notes reviewed from observation status. Temp was 97.1-99.4 throughout her stay, RR 28 in Er but 18-24 on floor. Tele SR w/ BBB throughout stay. HR 100-106 on and then 91-96 on 09/11 with 77-90 today. O2 saturation 77885 throughout stay on 3L. She had 8 voids throughout stay, 3 BM. Accucheck: 143/138/136/112/122/ 67 corrected. She did not have hypoglycemic symtoms this am. Blood cultures were negative. On HD 3 09/12/18 she felt back to baseline state. We discussed her lung nodule, reviewed her COPD meds and her chronic medical problems. She does not need Iron sulfate 2x daily. I have changed this to QOD. Her hgb is fine, mcv is fine, RDW is mildly elevated. I will allow PCP to adjust if needed but concern for iron overload. I have adjusted her COPD meds as well. As noted, no need for KENNETH and LAMA. I will continue incruse/symbicort/ albuterol PRN. Consider talking with pulm specialist about Daliresp. Her health has been maximized with hospitalization and she will be discharged to [facility] today. She has no other issues to report at present. Her skin under breasts has improved with nystatin. Her lesion about the sacrum has improved with padding, rolling and calmoseptine. Skin care encouraged, weight loss encouraged. Routine f/u with PCP encouraged. Day of D/C exam: Vital Signs - 24 hr 09/11/18 09/11/18 09/11/18 10:00 14:00 18:00 Temperature 97.8 F 97.9 F 97.5 F L Pulse Rate 93 H 99 H 96 H Respiratory 18 18 18 Rate Blood Pressure 129/71 126/68 114/72 O2 Sat by Pulse 87 L 89 L 90 L Oximetry 09/11/18 09/12/18 09/12/18 21:37 01:43 04:58 Temperature 97.9 F 97.9 F 98.0 F Pulse Rate 91 H 90 77 Respiratory 22 20 24 Rate Blood Pressure 126/75 132/77 120/79 O2 Sat by Pulse 91 L 91 L 92 L Oximetry Constitutional: Appearance- Mild to moderate respiratory distress, Pursed lip breathing Orientation- Oriented x 3, alert Gait-Sitting on bed spread legged entire time. Nano nurse present during skin exam. Build and Nutrition-[ morbidly obese BMI 45.8] General- Patient is pleasant and cooperative with the interview and exam. Integumentary: General- rashes inferior breast, skin breakdown, buttock ulcer surrounding gluteal cleft, silver scale. Improving Eye: Glasses in place ENMT: Hearing Assessment-normal to conversational speech. Nose and sinus- No sinus tenderness along frontal/maxillary region. External appearance normal and midline. Nares- bilateral quiet airflow, no discharge. Nasal mucosa- No bleeding noted and no ulcerations observed. [place], moist. Turbinates boggy. Lips- normal color, moist without cracks/lesions Oral Cavity/Palate- hard/soft palate intact without lesions, oral mucosa pink and moist. Tongue normal midline. Oropharynx- mild pharyngeal erythema, post nasal drainage. Uvula midline. No exudate. Salivary glands- Non tender to palpation CHEST/LUNG: Inspection- symmetric chest wall no pectus deformity. Increased effort, mild distress, pursed lip breathing SOA at rest. Palpation- nontender sternum, ribline. No abnormal pulsations. Auscultation- Breath sounds diminished, coarse, scattered rhonchi and wheezes throughout.all lung [place]. tracheal sounds, bronchial sounds overlying sternum, Bronchovessicular sounds between scapulae posteriorly, vessicular breath sounds heard throughout periphery. Lungs are clear today. Adventitious sounds- wheezes, rales, and rhonchi. CARDIOVASCULAR: Carotid artery- normal, no bruits or abnormal pulsations. Jugular vein- no pulsations. Palpation/Percussion- Normal PMI, no palpable thrill Auscultation- Regular rate and rhythm. No murmur noted in sitting, supine positions. Extremities- no edema, nor increased warmth. ABDOMEN: Inspection- normal and no visible pulsations. Normal contour. Auscultation- Bowel sounds normal, no abdominal bruits. Palpation/Percussion- soft, non-tender, no rebound tenderness, no rigidity (guarding), no jar tenderness, no masses. Liver-no hepatomegaly, Spleen no splenomegaly, Hernias - none. Rectal not examined. Peripheral Vascular: Lower extremity- Normal temperature with pink nailbeds and no ulcerations. DP pulses 2+ bilaterally. Edema- No edema. nails are hypertrophic. Musculoskeletal: Generalized-No generalized swelling or edema of extremities, no cyanosis, neurovascularly intact all four extremities. Weak core musculature. Neurological: General- Moves all 4 extremities symmetrically. Symmetrical face and body posture. Cranial nerves- individually evaluated II-XII and intact. PERRLA, Normal EOMI, visual/special senses appear intact, Face is symmetrical and normal sensation/movement, normal tongue, normal strength/posture of neck musculature. Neuropsych: Oriented- Person, place, time. (AAOx3), Mood/affect- normal and congruent. Able to articulate well. Speech-Normal speech, normal rate, normal tone, normal use of language, volume and coherence. Thought content- normal with ability to perform basic computations and apply abstract thought/reason. Associations- intact, no SI/HI, no hallucinations, delusions, obsessions. Judgment/insight- Appropriate. Memory-Recall intact, remote and recent memory intact. Knowledge- Age appropriate fund of knowledge, concentration and attention span normal. Lymphatic: Head/Neck- normal size and non tender to palpation. External Genitalia: Rash beneath bilateral breasts (Debora present in room throughout skin exam). Improving Stage 2 breakdown with overlying scale. Bilateral breasts inferiorly with mild skin breakdown. Improving Plan: 1. Doxycycline 1 dose tonight then twice daily x 3 days to complete course. 2. I have stopped duonebs, I will send albuterol. No need for ipratropium and umeclidium. Polypharmacy without added benefit. 3. I have added albuterol q4 hours (can use inhaler or neb) 4. Needs to use CPAP at night 5. Continue follow-up with petroleum supply specialist. 6. Continue pulmonary rehab. 7. Repeat CT chest in 6 months to further evaluate lung nodule. Follow up with specialist to evaluate lung nodule. 8. Weight loss encouraged. 9. Discharge back to [facility] today. 10. Activity ad te 11. Diet: ADA 1800kcal recommended 12. Skin care to region under breast, under abdomen fold and sacrum d/w patient. Spent >30 minutes on discharge today.
[2018-09-12] MEDS: ASPIRIN CHEWABLE PO SCH (08:54)
[2018-09-12] MEDS: DOXYCYCLINE HYCLATE PO SCH (08:54)
[2018-09-12] MEDS: CALMOSEPTINE OINTMENT TP SCH (08:55)
[2018-09-12] MEDS: PREDNISONE PO SCH (08:55)
[2018-09-12] MEDS: NYSTOP POWDER TP SCH (08:56)
[2018-09-12] MEDS ORDERED: NORCO 5-325 PO SCH (09:00)
[2018-09-12] MEDS ORDERED: SYMBICORT 160-4.5 MCG INHALER IH SCH (09:00)
[2018-09-12] MEDS ORDERED: XANAX PO SCH (09:00)
[2018-09-12] MEDS ORDERED: CELEXA PO SCH (09:00)
[2018-09-12] MEDS ORDERED: DEMADEX PO SCH (09:00)
[2018-09-12 10:15] VITALS: BP 122/74; TEMP 97.9
== END 2018-09-12 11:15 | disposition short-term general hospital (02) ==
LOC: ED 14:19 → MEDSURG A 17:24
PROVIDERS: ADMIT Family Medicine; ATTEND Family Medicine
DX: R91.1 Solitary pulmonary nodule (principal); J96.92 Respiratory failure, unspecified with hypercapnia; R65.10 Systemic inflammatory response syndrome (SIRS) of non-infectious origin without acute organ dysfunction; Z68.42 Body mass index [BMI] 45.0-49.9, adult; L98.429 Non-pressure chronic ulcer of back with unspecified severity; I10 Essential (primary) hypertension; E78.5 Hyperlipidemia, unspecified; R21 Rash and other nonspecific skin eruption
CPT/HCPCS: 36415; 80053; 81001; 82550; 82803; 82962; 83605; 84145; 84484; 85025; 87040; 93005; 93010; 94640; 96361; 96374; 99285

== ENCOUNTER 2018-11-16 13:04 | Outpatient (POV) | payer OTHER | END 2018-11-16 17:00 | LOC: OUTPT 13:04 | PROVIDERS: ATTEND Otolaryngology | DX: H91.90 Unspecified hearing loss, unspecified ear (principal) ==

== ENCOUNTER 2018-11-24 11:48 | Outpatient (CLI) | payer OTHER ==
[2018-11-24 17:33] VITALS: BMI 44.9
== END 2018-11-24 11:54 | disposition critical access hospital (66) ==
LOC: AMBL 11:48
PROVIDERS: ATTEND Internal Medicine
DX: R06.02 Shortness of breath (principal); R53.1 Weakness; J44.9 Chronic obstructive pulmonary disease, unspecified; I50.9 Heart failure, unspecified

== ENCOUNTER 2018-11-24 12:05 | Inpatient (IN) ==
[2018-11-24] MEDS ORDERED: DUONEB NEB STA (12:36)
--- NOTE | 2018-11-24 13:15 | DI ---
EXAM: Single view of the chest. History: Cough. Comparison: Chest radiograph 10/06/2017, chest CT 09/10/2018 Findings: Heart is borderline enlarged. There is early interstitial edema. No focal consolidation. No appreciable pleural fluid and no pneumothorax. No acute osseous abnormalities. Impression: Borderline cardiomegaly with early interstitial edema.
--- NOTE | 2018-11-24 15:43 | CT ---
EXAM: CTA of the chest. History: Short of breath Comparison: Chest radiograph 11/24/2018, chest CT 09/10/2018 Technique: Multiplanar CT images through the thorax were obtained following administration of IV con trast. MIP images and 3-D reconstructions were also acquired. Findings: Heart is mildly enlarged. Great vessels are unremarkable. No axillary lymphadenopathy. A few borderline enlarged 1 cm mediastinal lymph nodes, similar to the prior study. No pulmonary art erial filling defects. There is interlobular septal thickening. Scattered areas of subsegmental ate lectasis. No pneumothorax. No pleural fluid. No suspicious lung masses or lung nodules. Within th e visualized upper abdomen, no acute findings. Possible fatty liver. No acute osseous abnormalities . Degenerative changes seen within the lower cervical spine. Impression: 1. No pulmonary embolism and no evidence for pneumonia. 2. Mild cardiomegaly with early interstitial edema. 3. No change in the mildly enlarged nonspecific mediastinal lymph nodes which could be reactive. 4. Probable fatty liver
[2018-11-24] MEDS ORDERED: ACETAMINOPHEN 650 MG PO PRN (16:07)
[2018-11-24] MEDS ORDERED: NON-FORMULARY MEDICATION (Ferrous Sulfate [Ferrous Sulfate] 325 MG) PO SCH (16:15)
--- NOTE | 2018-11-24 16:15 | ED.PDOC ---
General ED Provider: Dr. BOLIVAR FAIRCHILD Chief Complaint: Shortness of Air Stated Complaint: short of air Time Seen by Physician: 12:12 Mode of Arrival: Stretcher Information Source: Patient Exam Limitations: No limitations Primary [facility] Nursing and Triage Documentation Reviewed and Agree: Yes Does patient meet sepsis criteria?: No System Inflammatory Response Syndrome: Not Applicable Sepsis Protocol: For patient's 13 years and over: Temp is 96.8 and below OR 101 and greater Pulse >90 BPM Resp >20/minute Acutely Altered Mental Status Are patient's symptoms suggestive of a new infection, such as: -Pneumonia -Skin, Soft Tissue -Endocarditis -UTI -Bone, Joint Infection -Implantable Device -Acute Abdominal Infection -Wound Infection -Meningitis -Blood Stream Catheter Infection -Unknown Respiratory Complaint Exam - Shortness of Air Complaint/Exam Symptoms Are: Resolved Timing: Intermittent Initial Severity: Mild Current Severity: Mild Character: Reports: Dyspnea at rest, Dyspnea on exertion, Orthopnea Aggravating: Reports: None Alleviating: Reports: Spontaneous resolution Associated Signs and Symptoms: Reports: Cough, Wheezing, Nasal congestion. Denies: Chest pain with cough, Chest pain, Fever, Chills, Diaphoresis, Dizziness , Calf pain, Calf swelling, Edema, Rapid breathing, Labored breathing, Decreased intake Related History: Reports: Similar episode (copd) History of Healthcare-Acquired Pneumonia: Lives at half-way (assited living) Pulmonary Embolism Risk Factors: Reports: Bedrest Cardiac Risk Factors: Reports: Hypertension Pseudomonas Risk Factors: Reports: Chronic Lung Disease, Chronic steriod use Tuberculosis Risk Factors: Reports: Corticosteriod use (inhaler ) Home Oxygen Use: Yes (2l) Recent Stress Test: No Recent Echo/LV Function: No Respiratory Distress: None Stridor Present: No Tracheal Deviation: No Subcutaneous Emphysema: No Accessory Muscle Use: No Retractions: Not Present Diminished Breath Sounds: Yes Prolonged Expiratory Phase: No Unable to Speak Full Sentences: No Fatigue: No Leg Swelling: No Román's Sign Present: No Grunting Respirations: No Kussmaul Respirations: No Differential Diagnoses: CHF, Pulmonary Edema, COPD Exacerbation, Pneumonia, Pulmonary Embolism, Bronchitis Quality Indicators for AMI: EKG in 10min. Quality Indicators for Cardiac Chest Pain: EKG in 10min. Quality Indicator For Non-Traumatic Chest Pain/Syncope: EKG Performed Review of Systems - Review Of Systems Constitutional: Reports: Loss of appetite Eyes: Reports: No symptoms Ears, Nose, Mouth, Throat: Reports: No symptoms Respiratory: Reports: Cough, Short of air, Wheezing Cardiac: Reports: No symptoms GI: Reports: No symptoms : Reports: No symptoms Musculoskeletal: Reports: No symptoms Skin: Reports: No symptoms Neurological: Reports: No symptoms Endocrine: Reports: No symptoms Hematologic/Lymphatic: Reports: No symptoms All Other Systems: Reviewed and Negative Past Medical History - Past Medical History Previously Healthy: Yes Endocrine: Reports: None Cardiovascular: Reports: Hypertension, CHF Respiratory: Reports: COPD Hematological: Reports: None Gastrointestinal: Reports: None Genitourinary: Reports: None Neuro/Psych: Reports: Anxiety, Depression Musculoskeletal: Reports: None Cancer: Reports: None Last Menstrual Period: unknown - Surgical History General Surgical History: Reports: None - Family History Family History: Reports: None - Social History Smoking Status: Former smoker Hx Substance Use: No Alcohol Screening: None Physical Exam - Physical Exam Appearance: Ill-appearing Ill-appearing: Mild Pain Distress: Mild Eyes: SVETA, EOMI, Conjunctiva clear ENT: Ears normal, Nose normal, Oropharynx normal Respiratory: Breath sounds diminished Cardiovascular: RRR, Pulses normal, No rub, No murmur GI/: Soft, Nontender, No masses, Bowel sounds normal, No Organomegaly Musculoskeletal: Normal strength, ROM intact, No edema, No calf tenderness Skin: Warm, Dry, Normal color Neurological: Sensation intact, Motor intact, Reflexes intact, Cranial nerves intact, Alert, Oriented Psychiatric: Affect appropriate, Mood appropriate Interpretation - Radiology Interpretation Radiology Interpretation By: Radiologist Radiology Results: No acute changes (negative p.e.) Re-Evaluation - Re-Evaluation Time of Re-Evaluation: 13:00 Status: Improved Vital Signs Stable: Yes Pain Level: 0 Appearance: NAD Lungs: Clear Skin: Warm and Dry Neuro: Alert and Oriented X3 CV: RRR - Re-Evaluation Time of Re-Evaluation: 16:15 Status: Improved Vital Signs Stable: Yes Pain Level: 0 Appearance: NAD Skin: Warm and Dry Neuro: Alert and Oriented X3 CV: RRR Physician Notification - Case Discussed Physician Notified: pmd Time of Notification: 16:16 (observation) Admit/Transition Orders Entered by ED Provider: Yes Admit To: Observation Critical Care Note - Critical Care Note Total Time (mins): 0 Course - Course Hematology/Chemistry: 11/24/18 12:50 11/24/18 12:50 Orders, Labs, Meds: Lab Review 11/24/18 11/24/18 11/24/18 12:50 12:50 12:50 WBC 10.30 H RBC 5.09 Hgb 15.0 Hct 48.6 H MCV 95.5 MCH 29.5 MCHC 30.9 L RDW Coeff of Sia 14.2 Plt Count 325 Immature Gran % (Auto) 0.3 Neut % (Auto) 77.3 Lymph % (Auto) 13.7 [place] % (Auto) 5.4 Eos % (Auto) 2.9 Baso % (Auto) 0.4 Immature Gran # (Auto) 0.0 Neut # (Auto) 8.0 H Lymph # (Auto) 1.4 [place] # (Auto) 0.6 Eos # (Auto) 0.3 Baso # (Auto) 0.0 PT 10.9 INR 1.12 APTT 30.8 D-Dimer (Manual) Puncture Site O2 Saturation ABG pH ABG pCO2 ABG pO2 ABG HCO3 ABG Total CO2 ABG Base Excess Lion Test O2 Delivery Device Oxygen Liter Flow Sodium 140.3 Potassium 4.08 Chloride 96.0 L Carbon Dioxide 38.5 H Anion Gap 9.88 BUN 18.0 H Creatinine 0.82 Estimated GFR (MDRD) 70.00 BUN/Creatinine Ratio 21.95 Glucose 90.4 Lactic Acid Calcium 9.27 Total Bilirubin 0.56 AST 34.2 ALT 27.2 Alkaline Phosphatase 89.2 Total Creatine Kinase 60.5 Troponin I < 0.012 NT-Pro-B Natriuret Pep 1100.000 H Total Protein 7.14 Albumin 4.13 Globulin 3.01 Albumin/Globulin Ratio 1.37 Procalcitonin 11/24/18 11/24/18 11/24/18 12:50 12:50 12:50 WBC RBC Hgb Hct MCV MCH MCHC RDW Coeff of Sia Plt Count Immature Gran % (Auto) Neut % (Auto) Lymph % (Auto) [place] % (Auto) Eos % (Auto) Baso % (Auto) Immature Gran # (Auto) Neut # (Auto) Lymph # (Auto) [place] # (Auto) Eos # (Auto) Baso # (Auto) PT INR APTT D-Dimer (Manual) 733.72 Puncture Site O2 Saturation ABG pH ABG pCO2 ABG pO2 ABG HCO3 ABG Total CO2 ABG Base Excess Lion Test O2 Delivery Device Oxygen Liter Flow Sodium Potassium Chloride Carbon Dioxide Anion Gap BUN Creatinine Estimated GFR (MDRD) BUN/Creatinine Ratio Glucose Lactic Acid 0.97 Calcium Total Bilirubin AST ALT Alkaline Phosphatase Total Creatine Kinase Troponin I NT-Pro-B Natriuret Pep Total Protein Albumin Globulin Albumin/Globulin Ratio Procalcitonin < 0.05 11/24/18 12:55 WBC RBC Hgb Hct MCV MCH MCHC RDW Coeff of Sia Plt Count Immature Gran % (Auto) Neut % (Auto) Lymph % (Auto) [place] % (Auto) Eos % (Auto) Baso % (Auto) Immature Gran # (Auto) Neut # (Auto) Lymph # (Auto) [place] # (Auto) Eos # (Auto) Baso # (Auto) PT INR APTT D-Dimer (Manual) Puncture Site R rad O2 Saturation 84.0 L ABG pH 7.420 ABG pCO2 49.9 H ABG pO2 49.0 L* ABG HCO3 32.4 H ABG Total CO2 34 H ABG Base Excess 8 H Lion Test + O2 Delivery Device Nc Oxygen Liter Flow 3.00 Sodium Potassium Chloride Carbon Dioxide Anion Gap BUN Creatinine Estimated GFR (MDRD) BUN/Creatinine Ratio Glucose Lactic Acid Calcium Total Bilirubin AST ALT Alkaline Phosphatase Total Creatine Kinase Troponin I NT-Pro-B Natriuret Pep Total Protein Albumin Globulin Albumin/Globulin Ratio Procalcitonin Orders Category Date Time Status ABG DRAW REQUEST Stat CARDIO 11/24/18 12:36 Completed ABG DRAW REQUEST Stat CARDIO 11/25/18 07:00 Ordered EKG-(ED ONLY) Stat CARDIO 11/24/18 12:35 Completed EKG-(IP & OP ONLY) DAILY CARDIO 11/25/18 06:00 Ordered EKG-(IP & OP ONLY) DAILY CARDIO 11/26/18 06:00 Ordered EKG-(IP & OP ONLY) DAILY CARDIO 11/27/18 06:00 Ordered NEBULIZER TREATMENT Stat CARDIO 11/24/18 12:36 Completed NEBULIZER TREATMENT Stat CARDIO 11/24/18 16:08 Ordered OXYGEN Routine CARDIO 11/24/18 16:09 Ordered ACTIVITY .Complete BR CARE 11/24/18 16:09 Active INTAKE & OUTPUT Q8HR CARE 11/24/18 16:09 Active NPO REMINDER: IMAGING ONCE CARE 11/24/18 14:49 Active Neuro Check [NEUROLOGICAL CHECKS] Q4HR CARE 11/24/18 16:11 Active VITAL SIGNS Q4HR CARE 11/24/18 16:09 Active REGULAR DIET DIETARY 11/24/18 Dinner Ordered ABG Stat LAB 11/24/18 12:55 Completed ABG Stat LAB 11/24/18 16:12 Ordered BLOOD CULTURE (ED ONLY) Stat LAB 11/24/18 12:50 Received CBC W/ AUTO DIFF DAILY@0600 LAB 11/25/18 06:00 Ordered CBC W/ AUTO DIFF DAILY@0600 LAB 11/26/18 06:00 Ordered CBC W/ AUTO DIFF Stat LAB 11/24/18 12:50 Completed COMPREHENSIVE METABOLIC PANEL DAILY@0600 LAB 11/25/18 06:00 Ordered COMPREHENSIVE METABOLIC PANEL DAILY@0600 LAB 11/26/18 06:00 Ordered COMPREHENSIVE METABOLIC PANEL Stat LAB 11/24/18 12:50 Completed CREATINE KINASE Stat LAB 11/24/18 12:50 Completed D-DIMER Stat LAB 11/24/18 12:50 Completed LACTIC ACID Stat LAB 11/24/18 12:50 Completed NT-PROBNP Stat LAB 11/24/18 12:50 Completed PARTIAL THROMBOPLASTIN TIME Stat LAB 11/24/18 12:50 Completed PROCALCITONIN Stat LAB 11/24/18 12:50 Completed PT WITH INR Stat LAB 11/24/18 12:50 Completed SPUTUM CULTURE Stat LAB 11/24/18 16:06 Uncollected TROPONIN I Stat LAB 11/24/18 12:50 Completed Acetaminophen [Acetaminophen ER] MEDS 11/24/18 16:07 Ordered 650 mg PO Q4HR PRN Alprazolam [Xanax] MEDS 11/24/18 21:00 Ordered 0.5 mg PO TID Aspirin [Aspirin Chewable] MEDS 11/25/18 09:00 Ordered 81 mg PO DAILY Ceftriaxone 1 gm Vial [Rocephin 1 gm Vial] 1 gm MEDS 11/25/18 09:00 Ordered 0.9 % Sodium Chloride [Sodium Chloride] 50 ml IV DAILY Citalopram Hydrobromide [Celexa] MEDS 11/25/18 09:00 Ordered 20 mg PO DAILY Ferrous Sulfate [Ferrous Sulfate] MEDS 11/24/18 16:15 Ordered 325 mg PO DIRECTED Hydrocodone Bit/Acetaminophen [[place] 5-325] MEDS 11/24/18 21:00 Ordered DOSE tab PO BID Ipratropium/Albuterol Neb [Duoneb] MEDS 11/24/18 12:36 Discontinued 1 vial NEB ONCE STA Ipratropium/Albuterol Neb [Duoneb] MEDS 11/24/18 18:00 Ordered 1 vial NEB RTQ6H Methylprednisolone Sod Succ/Pf [Solu-Medrol 40 mg] MEDS 11/24/18 16:30 Ordered 40 mg IVP Q12HR Mometasone Furoate [Elocon] MEDS 11/24/18 16:15 Ordered 15 gm TP DIRECTED Nystatin [Nystop Powder] MEDS 11/24/18 21:00 Ordered 1 applic TP BID Potassium Chloride [Micro-K Cap] MEDS 11/24/18 21:00 Ordered 10 meq PO BID Sodium Chloride 0.9% [Sodium Chloride] 1,000 ml MEDS 11/24/18 16:30 Ordered IV 75 mls/hr Torsemide [Demadex] MEDS 11/24/18 21:00 Ordered 20 mg PO BID CHEST, 1V AP ONLY Stat RADS 11/24/18 12:35 Completed CHEST, 2 VIEWS PA & LAT Stat RADS 11/25/18 07:[address] CHEST PE PROTOCOL Stat RADS 11/24/18 14:48 Completed Medications Generic Name Dose Route Start Last Admin Trade Name Freq PRN Reason Stop Dose Admin Hydrocodone Bitart/Acetaminophen tab 11/24/18 21:00 [place] 5-325 PO BID BECKY Albuterol/Ipratropium 1 vial 11/24/18 18:00 Duoneb NEB RTQ6H BECKY Alprazolam 0.5 mg 11/24/18 21:00 Xanax PO TID BECKY Aspirin 81 mg 11/25/18 09:00 Aspirin Chewable PO DAILY BECKY Citalopram Hydrobromide 20 mg 11/25/18 09:00 Celexa PO DAILY EBCKY Ceftriaxone Sodium 1 gm/ 50 mls @ 75 mls/hr 11/25/18 09:00 Sodium Chloride IV 11/28/18 08:59 DAILY BECKY Sodium Chloride 1,000 mls @ 75 mls/hr 11/24/18 16:30 Sodium Chloride IV .[id number] BECKY Methylprednisolone Sodium Succinate 40 mg 11/24/18 16:30 Solu-Medrol 40 Mg IVP Q12HR BECKY Non-Formulary Medication 325 mg 11/24/18 16:15 Ferrous Sulfate [Ferrous Sulfate] PO DIRECTED [facility] Non-Formulary Medication 15 gm 11/24/18 16:15 Mometasone Furoate [Elocon] TP DIRECTED [facility] Non-Formulary Medication 650 mg 11/24/18 16:07 Acetaminophen [Acetaminophen Er] PO Q4HR PRN Fever >101 Non-Formulary Medication 20 mg 11/24/18 21:00 Torsemide [Demadex] PO BID BECKY Nystatin 1 applic 11/24/18 21:00 Nystop Powder TP BID [facility] Potassium Chloride 10 meq 11/24/18 21:00 Micro-K Cap PO BID [facility] Discontinued Medications Generic Name Dose Route Start Last Admin Trade Name Freq PRN Reason Stop Dose Admin Albuterol/Ipratropium 1 vial 11/24/18 12:36 11/24/18 12:45 Duoneb NEB 11/24/18 12:37 1 vial ONCE STA Administration Vital Signs: Temp Pulse Resp BP Pulse Ox 11/24/18 12:06 99.1 F 99 H 22 113/66 86 L Departure - Departure Time of Disposition: 16:15 Disposition: PLACED OBSERVATION Discharge Problem: COPD exacerbation Condition: Good Pt referred to PMD for follow-up: Yes IPMP verified?: No Allergies/Adverse Reactions: Allergies Penicillins Adverse Reaction (Verified 11/24/18 12:09) Home Medications: Ambulatory Orders Aspirin 81 mg PO DAILY 09/12/16 Potassium Chloride [Micro-K Cap] 10 meq PO BID 09/12/16 Torsemide [Demadex] 20 mg PO BID 09/12/16 Acetaminophen [Acetaminophen ER] 650 mg PO Q4HR PRN 06/05/17 Alprazolam [Xanax] 0.5 mg PO TID 06/05/17 Bisacodyl 10 mg RC DAILY PRN 06/05/17 Citalopram Hydrobromide [Celexa] 20 mg PO DAILY 06/05/17 Magnesium Hydroxide [Milk of Magnesia] 30 ml PO DAILY PRN 06/05/17 Ondansetron HCl [Zofran Tab] 4 mg PO Q6HR PRN 06/05/17 Umeclidinium [place] [Incruse Ellipta] 62.5 mcg IH DAILY #1 blst.w.dev 06/12/17 Ferrous Sulfate 325 mg PO DIRECTED 30 Days #15 tablet 09/12/18 Albuterol Sulfate [Ventolin Hfa] 18 gm IH DIRECTED PRN 09/24/18 Mometasone Furoate [Elocon] 15 gm TP DIRECTED 11/16/18 Budesonide/Formoterol Fumarate [Symbicort 160-4.5 Mcg Inhaler] 2 puff IH BID 07/09 Ipratropium/Albuterol Neb [Duoneb] 1 vial NEB QID 11/24/18 Nystatin [Nystop Powder] 1 applic TP BID 11/24/18 Disposition Discussed With: Patient
[2018-11-24] MEDS ORDERED: TYLENOL PO PRN (16:47)
[2018-11-24] MEDS: DUONEB NEB SCH ×2 (17:00→23:15)
[2018-11-24] MEDS: SODIUM CHLORIDE 1,000 ML IV SCH (17:12)
[2018-11-24] MEDS: SOLU-MEDROL 40 MG IVP SCH ×2 (17:16→20:38)
[2018-11-24] MEDS: MICRO-K CAP PO SCH (17:17)
[2018-11-24] MEDS: ROCEPHIN 1 GM/50 ML D5W 1 GM in PREMIX 50 ML D5W 1 BAG IV SCH (17:17)
[2018-11-24 17:33] VITALS: BMI 44.9
[2018-11-24] MEDS ORDERED: LASIX IVP STA (17:47)
[2018-11-24] MEDS ORDERED: ZOFRAN TAB PO PRN (17:51)
[2018-11-24] MEDS ORDERED: DULCOLAX RC PRN (17:51)
[2018-11-24] MEDS ORDERED: MILK OF MAGNESIA PO PRN (17:51)
[2018-11-24] MEDS: NORCO 5-325 PO SCH (20:38)
[2018-11-24] MEDS: DEMADEX PO SCH (20:38)
[2018-11-24] MEDS: SYMBICORT 160-4.5 MCG INHALER IH SCH (20:38)
[2018-11-24] MEDS: XANAX PO SCH (20:38)
[2018-11-24] MEDS: NYSTOP POWDER TP SCH (20:39)
[2018-11-24] MEDS ORDERED: DUONEB NEB SCH (21:00)
[2018-11-24] MEDS ORDERED: TORSEMIDE 20 MG PO SCH (21:00)
[2018-11-24] MEDS ORDERED: ELOCON TP SCH (23:00)
[2018-11-25] MEDS: DUONEB NEB SCH ×4 (05:25→22:37)
[2018-11-25] MEDS: FERROUS SULFATE PO SCH (05:48)
[2018-11-25] MEDS: NYSTOP POWDER TP SCH ×2 (08:15→21:07)
[2018-11-25] MEDS: SYMBICORT 160-4.5 MCG INHALER IH SCH ×2 (08:15→21:07)
[2018-11-25] MEDS: ASPIRIN CHEWABLE PO SCH (08:18)
[2018-11-25] MEDS: NORCO 5-325 PO SCH ×2 (08:18→21:07)
[2018-11-25] MEDS: SOLU-MEDROL 40 MG IVP SCH ×2 (08:18→21:07)
[2018-11-25] MEDS: MICRO-K CAP PO SCH ×2 (08:19→16:30)
[2018-11-25] MEDS: DEMADEX PO SCH ×2 (08:19→21:07)
[2018-11-25] MEDS: XANAX PO SCH ×3 (08:19→21:07)
[2018-11-25] MEDS: ROCEPHIN 1 GM/50 ML D5W 1 GM in PREMIX 50 ML D5W 1 BAG IV SCH (08:20)
[2018-11-25] MEDS: SODIUM CHLORIDE 1,000 ML IV SCH ×2 (08:21→22:46)
[2018-11-25] MEDS: NON-FORMULARY MEDICATION (Umeclidinium Bromide [Incruse Ellipta] 62.5 MCG) IH SCH (08:22)
[2018-11-25] MEDS: ELOCON TP SCH ×2 (08:54→21:12)
[2018-11-25] MEDS ORDERED: ROCEPHIN 1 GM VIAL 1 GM in SODIUM CHLORIDE 50 ML IV SCH (09:00)
[2018-11-25] MEDS ORDERED: ELOCON TP SCH (09:00)
[2018-11-25] MEDS ORDERED: CELEXA PO SCH (09:00)
--- NOTE | 2018-11-25 10:01 | DI ---
EXAM: Chest two views HISTORY: Chronic obstructive pulmonary disease COMPARISON: Radiograph and CT from 11/24/2018 TECHNIQUE: Two views of the chest were performed FINDINGS: Similar pulmonary interstitial edema with patchy bibasilar opacities. No pneumothorax or p leural effusion. Stable cardiomediastinal silhouette. There are no acute abnormalities of the bones. IMPRESSION: Similar pulmonary residual edema.
--- NOTE | 2018-11-25 11:27 | RS.OTINEVL ---
Subjective - Patient information Date of Evaluation: 11/25/18 Diagnosis: COPD PRECAUTIONS: O2 stats levels are low. Usual Living Arrangement: [facility] Comments: Pt living at [facility] and participates in [employer] regularly. Pt is SOA with activity. Medical History: COPD, CHF, Other Medical History Comments:: Asthma, Edema, Cardiac disorders, anxiety, depression , orthopnea, resp. dis., Subjective Information/ Patient Comments:: "I live at [facility]." "I get to play [employer] 3 X a week." - Level of function Prior to this admission, the patient could do the following:: Partially Dependent Ambulation Abilities prior to this admission: Pt was CGA for transfer from Bed to and patient requires CGA for toilet transfers. Pt's O2 levels drop to 59 while on BSC. Pt has to have SUP for bathing. Current Level of Function: Partially Dependent Current Equipment Used at Home: wheelchair to due to oxygen level, cpap Pain Assessment - Pain Pain Score: 0 Interventions - Objective Patient Orientation: Person, Place, Situation Current Interventions: IV's, Oxygen, Telemetry Observation: Pt is SOA and her O2 stats are dropping down to 59 while on BSC. Interventions - ROM Right Upper Extremity AROM: WFL's Left Upper Extremity AROM: WFL's - Strength Right Upper Extremity Strength: Mild Weakness Left Upper Extremity Strength: Mild Weakness - Sensation Right Upper Extremity Sensation: Intact/Normal Left Upper Extremity Sensation: Intact/Normal Balance - Sitting Balance Static Sitting Balance: Fair Dynamic Sitting Balance: Fair - Standing Balance Static Standing Balance: Fair Dynamic Standing Balance: Fair ADL Skills - Self Feeding Self Feeding: Independent - Grooming Grooming: CGA - Bathing Bathing UE: CGA Bathing LE: CGA - Toilet Management Toileting Management: CGA Functional Mobility - Bed Mobility Rolling R/L: CGA Scooting: CGA Supine to Sit: CGA Sit to Supine: CGA Comments:: Pt has the head of the bed elevated to help with bed mobility. - Transfers Sit to Stand: CGA Stand to Sit: CGA Stand Pivot Transfers: CGA - Ambulation Weight Bearing Status: FWB Assistive Device Used: Rolling Walker Assistance needed with Ambulation: Not Tested - Safety Awareness Safety Awareness: Fair ALLEGRA INDEX SCORE: . Additional Treatment Performed - Time with patient Length of Evaluation: 21 Total treatment time: 21 Short Term Goals - Goals GOAL 1: To increase dyn. std. balance to Fair- Goal to be met by: 10/13/17 Progress towards goal: Progressing GOAL 2: To increase BUE strength to 4/5. Goal to be met by: 10/13/17 Progress towards goal: Progressing GOAL 3: To increase activity tolerance to 10 minutes. Goal to be met by: 10/13/17 Progress towards goal: Progressing Scientific Editor Goals GOAL 1: To increase dyn. std. balance to F+/G-. Goal to be met by: 10/16/17 Progress towards goal: Progressing GOAL 2: To increase BUE strength to 4+/5. Goal to be met by: 10/16/17 Progress towards goal: Progressing GOAL 3: To increase activity tolerance to 15 minutes. Goal to be met by: 10/16/17 Progress towards goal: Progressing Plan Treatment Diagnosis (ICD 10 Codes): Z74.1 Need for assistance with personal care. Has the Physician been added for Co-signature?: Yes
[2018-11-26] MEDS: DUONEB NEB SCH ×4 (04:35→22:45)
[2018-11-26] MEDS: MICRO-K CAP PO SCH ×2 (09:12→17:28)
[2018-11-26] MEDS: SYMBICORT 160-4.5 MCG INHALER IH SCH ×2 (09:12→20:30)
[2018-11-26] MEDS: DEMADEX PO SCH ×2 (09:12→20:31)
[2018-11-26] MEDS: SOLU-MEDROL 40 MG IVP SCH ×2 (09:12→20:31)
[2018-11-26] MEDS: ROCEPHIN 1 GM/50 ML D5W 1 GM in PREMIX 50 ML D5W 1 BAG IV SCH (09:12)
[2018-11-26] MEDS: ASPIRIN CHEWABLE PO SCH (09:12)
[2018-11-26] MEDS: NORCO 5-325 PO SCH ×2 (09:12→20:31)
[2018-11-26] MEDS: NYSTOP POWDER TP SCH ×2 (09:13→20:31)
[2018-11-26] MEDS: ELOCON TP SCH ×2 (09:13→20:30)
[2018-11-26] MEDS: XANAX PO SCH ×3 (09:13→20:31)
[2018-11-26] MEDS: NON-FORMULARY MEDICATION (Umeclidinium Bromide [Incruse Ellipta] 62.5 MCG) IH SCH (09:14)
--- NOTE | 2018-11-26 14:28 | HP ---
DATE OF SERVICE: 11/25/18 CHIEF COMPLAINT: Hypoxia per halfway nursing staff with an 02 sat in the upper 70s, low 80s. HISTORY OF PRESENT ILLNESS: The patient is a pleasant 68-year-old patient who is a patient of Dr. Tilley who is a resident of [facility] for the past few years. She was transferred from [facility] to the Emergency Department after several calls from the nursing staff yesterday with concerns for low oxygen saturation. After several checks on the patient and several 02 saturation checks, her 02 saturation remained in the 70s and 80s. We did ask them to send her to the hospital to be evaluated. She denied any increase in shortness of breath from her normal state at that time. She thought she had been coughing about the same and she thought her breathing was about the same as usual. However when she did arrive to the Emergency Department she did report shortness of breath and she also reported an increase in dyspnea at rest as well as dyspnea on exertion and some orthopnea as well. She also had complained of some cough, wheezing and nasal congestion as well. Ms. Byrd does have a history of COPD. She is 02 dependent. She also wears a CPAP. She has chronic respiratory failure. She was given Solu-Medrol as well as Ceftriaxone while in the Emergency Department. She was placed in observation and admitted for COPD exacerbation to Dr. Tilley. PAST MEDICAL HISTORY: COPD, oxygen dependent Obesity with BMI 45.8 Lung nodule Hypertension Chronic back pain [facility] resident Rheumatoid arthritis Anxiety Osteoarthritis Degenerative joint disease of the spine PAST SURGICAL HISTORY: No known surgeries. FAMILY HISTORY: Mother and father are . She has two children that live nearby. One brother lives in [place], sister in [place]. Family History: Include a son with diabetes mellitus, little sister had disability ,mental handicap secondary to rheumatoid fever as youth. Grandparents are . Father diabetes mellitus, insulin dependent, hypertension and hyperlipidemia. SOCIAL HISTORY: Currently no tobacco use, prior tobacco use. Denies any illicit drugs. No alcohol use. She is currently a halfway resident. She is . MEDICATIONS: (CURRENT HOME) Potassium chloride 10 mEq twice a day Demodex 10 mg - she does take 20 mg twice a day Aspirin 81 mg daily Zofran 4 mg every 6 hours as needed Xanax 0.5 mg tablet three times a day Milk of Magnesia 30 mL cup daily as needed Bisacodyl 10 mg supplement rectal daily as needed Acetaminophen 650 mg tablet every four hours as needed Celexa 20 mg tablet Incruse Ellipta 62.5 mcg blister inhalation daily Hydrocodone/Acetaminophen 5/325 mg tablet twice a day Ferrous Sulfate 325 mg tablet as directed Ventolin HFA inhalation as directed Elocon 15 gm tube applied twice a day as needed Duonebs one vial four times a day as needed Nystop powder one application twice a day Symbicort inhaler one puff inhalation two puffs twice a day ALLERGIES: PENICILLIN REVIEW OF SYSTEMS: CONSTITUTIONAL: No reports of fever, chills, nightsweats or weight changes. HEENT: No reports of headache. She did complain of some nasal congestion on arrival to the emergency department. No reports of sore throat. CARDIOVASCULAR: Denied any complaints of chest pain or irregular rhythm. Denies peripheral edema. She did complain of some orthopnea on arrival. RESPIRATORY: Complain of shortness of breath, cough and congestion. Does have history of significant COPD, respiratory failure, chronic hypoxia. GASTROINTESTINAL: No reports of abdominal pain, nausea, vomiting. Denies constipation or blood in stool. No changes in stool consistency. . GENITOURINARY: No reports of any dysuria, hematuria, nocturia or urinary incontinence. MUSCULOSKELETAL: She typically uses a wheelchair to get around in the halfway No reports of any joint redness or swelling. NEUROLOGIC: No reports of dizziness, any fatigue or neurological deficits. ENDOCRINE: No reports of any diabetes mellitus or thyroid disease. INTEGUMENT: No reports of any rashes, lesions or skin changes. PSYCHIATRIC: No complaints of anxiety, depression or mood changes. PHYSICAL EXAMINATION: GENERAL: She is alert and oriented. She is well-nourished. She is currently in no acute distress. VITAL SIGNS: On admission, temperature 99.1, pulse rate 99, blood pressure 113/ 66, respiratory rate 22, 02 sat 86%. This is not recorded on any nasal cannula 02. Height 5'1, weight 242 lbs. HEENT: Head normocephalic, atraumatic. Pupils equal/reactive to light. Conjunctivae clear. NECK: Supple. No lymphadenopathy or thyromegaly. No carotid bruits. CARDIOVASCULAR: S1, S2 regular rate and rhythm. LUNGS: Diminished bilaterally. [address] No acute distress. ABDOMEN: Soft. Bowel sounds are positive. No tenderness or rigidity. NEUROLOGIC: Cranial nerves 2-12 grossly intact without any overt neurological deficit. SKIN: Warm and dry. No overt rashes, lesions or wounds. LABS AND DIAGNOSTIC TESTING HAVE BEEN REVIEWED. White count is slightly elevated on admission at 10.30, hemoglobin 15, hematocrit 48.6, platelet count 325. Sodium 140.3, BUN 18, creatinine 0.82, NT- Pro-BNP on admission of 1100. Urinalysis was negative. ABGs on admission 02 saturation 84%. PH 7.4, p02 49, HC03 32.4, base excess 8. ASSESSMENT: 1. ACUTE ON CHRONIC RESPIRATORY FAILURE WITH HYPOXIA AND HYPERCAPNIA. 2. EXACERBATION OF COPD. 3. HISTORY OF CONGESTIVE HEART FAILURE AND ELEVATED NT PRO BNP ON ADMISSION OF 1100. 4. HISTORY OF LUNG NODULE. 5. CHRONIC BACK PAIN AND DECREASED MOBILITY. 6. HISTORY OF CATARACTS. 7. HISTORY OF PREVIOUS TOBACCO USE. PLAN: 1. Follow the sputum, blood, urine cultures. 2. Continue to monitor labs. 3. Currently the patient is on IV Medrol as well as IV fluids. and Ceftriaxone. She does feel better at this time. She seems to be responding to therapy. 4. Will continue to follow along with this patient. 5. She also has her CPAP, PT has been ordered as well. Further orders and recommendations per Dr. Tilley. TIME SPENT: GREATER THAN 65 MINUTES MTDD
[2018-11-26] MEDS: SODIUM CHLORIDE 1,000 ML IV SCH (15:59)
[2018-11-26] MEDS: LOVENOX SUBCUT SCH (17:29)
[2018-11-27] MEDS: SODIUM CHLORIDE 1,000 ML IV SCH ×2 (04:24→22:51)
[2018-11-27] MEDS: DUONEB NEB SCH ×4 (04:34→22:25)
[2018-11-27] MEDS: FERROUS SULFATE PO SCH (05:38)
[2018-11-27] MEDS: SYMBICORT 160-4.5 MCG INHALER IH SCH ×2 (08:23→20:39)
[2018-11-27] MEDS: ROCEPHIN 1 GM/50 ML D5W 1 GM in PREMIX 50 ML D5W 1 BAG IV SCH (08:24)
[2018-11-27] MEDS: ELOCON TP SCH ×2 (08:24→20:40)
[2018-11-27] MEDS: NYSTOP POWDER TP SCH ×2 (08:24→20:41)
[2018-11-27] MEDS: MICRO-K CAP PO SCH ×2 (08:25→17:35)
[2018-11-27] MEDS: XANAX PO SCH ×3 (08:25→20:40)
[2018-11-27] MEDS: NORCO 5-325 PO SCH ×2 (08:25→20:40)
[2018-11-27] MEDS: ASPIRIN CHEWABLE PO SCH (08:25)
[2018-11-27] MEDS: DEMADEX PO SCH ×2 (08:25→20:40)
[2018-11-27] MEDS: SOLU-MEDROL 40 MG IVP SCH ×2 (08:26→20:40)
[2018-11-27] MEDS: LOVENOX SUBCUT SCH (08:26)
[2018-11-27] MEDS: NON-FORMULARY MEDICATION (Umeclidinium Bromide [Incruse Ellipta] 62.5 MCG) IH SCH (08:29)
[2018-11-27] MEDS: MAXIPIME 2 GM/50 ML D5W 2 GM/50 ML BAG IV SCH ×2 (13:45→20:39)
[2018-11-28] MEDS: MAXIPIME 2 GM/50 ML D5W 2 GM/50 ML BAG IV SCH ×3 (04:17→20:15)
[2018-11-28] MEDS: DUONEB NEB SCH ×4 (05:01→22:44)
[2018-11-28] MEDS: SODIUM CHLORIDE 1,000 ML IV SCH ×2 (06:03→16:37)
[2018-11-28] MEDS: XANAX PO SCH ×3 (09:04→20:17)
[2018-11-28] MEDS: ASPIRIN CHEWABLE PO SCH (09:04)
[2018-11-28] MEDS: MICRO-K CAP PO SCH ×2 (09:04→16:36)
[2018-11-28] MEDS: SOLU-MEDROL 40 MG IVP SCH ×2 (09:04→20:16)
[2018-11-28] MEDS: DEMADEX PO SCH ×2 (09:04→20:17)
[2018-11-28] MEDS: NORCO 5-325 PO SCH ×2 (09:04→20:17)
[2018-11-28] MEDS: NYSTOP POWDER TP SCH ×2 (09:05→20:17)
[2018-11-28] MEDS: LOVENOX SUBCUT SCH (09:05)
[2018-11-28] MEDS: NON-FORMULARY MEDICATION (Umeclidinium Bromide [Incruse Ellipta] 62.5 MCG) IH SCH (09:05)
[2018-11-28] MEDS: SYMBICORT 160-4.5 MCG INHALER IH SCH ×2 (09:07→20:15)
[2018-11-28] MEDS: ELOCON TP SCH ×2 (09:07→20:15)
[2018-11-29] MEDS: DUONEB NEB SCH ×2 (04:20→11:07)
[2018-11-29] MEDS: MAXIPIME 2 GM/50 ML D5W 2 GM/50 ML BAG IV SCH ×2 (04:29→12:20)
[2018-11-29] MEDS: FERROUS SULFATE PO SCH (05:32)
[2018-11-29] MEDS: ELOCON TP SCH (08:42)
[2018-11-29] MEDS: DEMADEX PO SCH (08:44)
[2018-11-29] MEDS: ASPIRIN CHEWABLE PO SCH (08:44)
[2018-11-29] MEDS: SYMBICORT 160-4.5 MCG INHALER IH SCH (08:44)
[2018-11-29] MEDS: NORCO 5-325 PO SCH (08:45)
[2018-11-29] MEDS: XANAX PO SCH ×2 (08:45→15:43)
[2018-11-29] MEDS: MICRO-K CAP PO SCH ×2 (08:45→17:01)
[2018-11-29] MEDS: NYSTOP POWDER TP SCH (08:46)
[2018-11-29] MEDS: SODIUM CHLORIDE 1,000 ML IV SCH (08:47)
[2018-11-29] MEDS: NON-FORMULARY MEDICATION (Umeclidinium Bromide [Incruse Ellipta] 62.5 MCG) IH SCH (08:51)
--- NOTE | 2018-11-29 08:51 | DI ---
EXAM: CHEST FRONTAL AND LATERAL VIEWS HISTORY: Pneumonia, follow-up. COMPARISON: 11/25/2018 FINDINGS: Prominent heart size is again noted. There is at least mild atherosclerotic disease. Sub tle central vascular congestion, improved. Bibasilar patchy density is improved since previous exam which may be attributable to the improved congestion. No well-defined consolidated pneumonia is seen . There is no pleural fluid. IMPRESSION: 1. Improving mid to lower lung densities may be related to improving vascular congestion. No well-d efined consolidated pneumonia is currently seen although correlation clinically is recommended.
[2018-11-29] MEDS: LOVENOX SUBCUT SCH (08:52)
--- NOTE | 2018-11-29 12:20 | ECHO2D ---
Date of Exam: 11/27/18 Ordering Physician: DR. PAULA SENA Room #: 120 Reason for Echo: SOB M-Mode Normal Adult Results LV Dimensions Normal Adult Results AoV Opening excursions >1.6 >1.6 LVEDD-base- 3.5-5.8 4.4 Ao root dimensions 2.0-3.7 3.8 LVESD-base- 3.1-4.6 L. Atrium dimensions 1.9-3.8 4.2 Post. Wall thickness 0.8-1.1 1.2 IV septum (thickness) 0.7-1.2 1.4 Post. Wall excursion 0.72-1.3 NORMAL Septal motion 0.5 Systolic motion R. Ventricular cavity 1.5-2.0 3.4 LVEF 60% 50TO55% Paradoxical septal wall motion YES 2-D : ENLARGED RIGHT VENTRICLE AND LEFT ATRIAL CAVITIES--PARADOXICAL SEPTAL MOTION--NO EFFUSION, NO THROMBUS, NORMAL VALVES M-MODE: MV: NORMAL AV: NORMAL TV: NORMAL PV: CHAMBER SIZE: ENLARGED RIGHT VENTRICLE AND LEFT ATRIAL CAVITY WALL MOTION: HYPOKINETIC VS EARLY PARADOXICAL SEPTAL WALL PERICARDIUM: NORMAL INTERPRETATION: 1. DIFFICULT STUDY 2. LEFT VENTRICULAR HYPERTROPHY WITH ENLARGED LEFT ATRIAL CAVITY 3. ENLARGED RIGHT VENTRICLE CAVITY 4. LIKELY PARADOXICAL SEPTAL WALL WITH HYPOKINETIC SEPTAL WALL 5. EJECTION FRACTION 50 TO 55% MTDD
--- NOTE | 2018-11-29 13:25 | PN ---
DATE OF SERVICE: 11/27/18 SUBJECTIVE: The patient is alert and feeling better. VITALS: Temperature 98.1, pulse 66, blood pressure 129/78, respiratory rate 20 instead of 100 and oxygen saturation 84% on 3 liters of nasal cannula.The patient uses a CPAP at night. Her color is good. She is not dyspneic or tachypneic. LUNGS: Diminished breath sounds in both sides. No wheezing HEART: Audible with good tones and regular ABDOMEN: Protuberant, pendulous We have discussed about the diet and the patient is willing to undergo salad plus meat diet. No other carbs except for the vegetables. She wanted to lose weight and so she decided to. Her WBC is higher 16,490, sputum had pseudomonas and the patient is given Cefepime instead of Rocephin beginning today. Electrolytes normal, CO2 elevated 36.9, BUN 33.1, EGFR 68. Blood sugar normal. The rest of the chemistry is normal. The patient had 100% breakfast, 75% lunch, 50% supper. I ordered culture of the CPAP mask and see if there is any bacterial growth that is significant. DONNA
--- NOTE | 2018-11-29 13:36 | PN ---
DATE OF SERVICE: 11/28/18 SUBJECTIVE: The patient today is alert and oriented and claims to be feeling better. She denies any chest pain or abdominal pain and no shortness of breath although she is using nasal oxygen and has been using it for years at 3 liters per minute. One antitrypsin level was requested but no results. The patient's CBC today showed a decreasing WBC 14,400, hgb and hct slightly higher and her BUN had been rising. EGFR 63 today. Creatinine 0.89. BUN 33.3, 18.0 on admission. Color is good. LUNGS: Diminished breath sounds but no wheezing HEART: Normal sinus rhythm ABDOMEN: Nontender I did inform the patient that we still do not have final report for the culture of the CPAP mask. She told me that there is no cleaning that she does or that the prison to her mask. She has two masks and the other one is much bigger and it doesn't fit and so she doesn't use that. There should be a way of cleaning the mask but that recommendation will be done after we have the final culture results of the CPAP. WBC elevation maybe secondary to the Prednisone that this patient is receiving. MTDD
--- NOTE | 2018-11-29 14:59 | DS ---
DATE OF SERVICE: 11/29/18 BRIEF HISTORY OF PRESENT ILLNESS/HOSPITAL COURSE: Mrs. Byrd is a pleasant 68 year old patient that was [facility] the [facility] the hospital for low oxygen saturation. She was treated for a COPD exacerbation during this hospital course. Sputum cultures did grow out pseudomonas. The antibiotics were switched over to Cefepime 2gram IV every 8 hours. She will need to continue this antibiotics for 3 additional days. Case Management has called the nursing facility and they are agreeable to continue IV antibiotics for three additional days. They have worked a plan out so that the patient will not miss a dose of this. She will resume her regular home medications. The patient is feeling a lot better. Today her vital signs are: Temperature 97.9, pulse 68, blood pressure 101/70, respiratory rate 18 and oxygen saturation 100% this is on 3 liters per nasal cannula. On telemetry she is running sinus rhythm with a bundle branch block at 81 beats per minute. She is ready to be discharged to home. She has no complaints to voice today. LUNGS: Fairly clear just diminished on examination HEART: Regular rate and rhythm. No lower extremity edema PERTINENT LABS AND DIAGNOSTIC TESTING: WBC 14.75, hgb 17.3, hct 57.2, plt count 344, BUN 40.2, creatinine 0.91, NT PRO BNP 1,110. Echocardiogram did reveal it was difficult study and it did showed left ventricular hypertrophy with enlarged left atrial cavity, enlarged right ventricular cavity likely paradoxical septal wall with hypokinetic septal wall with ejection fraction at 50-55%. Chest x-ray did show improving mid to lower luge densities maybe related improving vascular congestion. No well defined consolidated pneumonia is currently seen although correlation clinically is recommended. DISCHARGE MEDICATIONS: The patient will continue regular scheduled medications at [facility] and these have been addressed DISCHARGE DIET: The patient will have oatmeal and egg for breakfast. She will eat a large salad with 6 ounces of meat for lunch and supper with salad dressing. She is not to have any snacks or outside food. The patient is agreeable to this as she is also looking forward to some weight loss. We feel like this will help her breathing and help her over all health. DISCHARGE ACTIVITY LEVEL: She will gradually increase her activity level. FINAL DIAGNOSES: 1. COPD exacerbation with sputum culture growing pseudomonas during this hospital stay 2. Acute on chronic respiratory failure with hypercarbia and hypoxia 3. Obesity with plans to adjust diet at discharge. Diet instructions have been given to patient and patient is agreeable to follow these plans at the [facility] 4. Past history of tobacco use, she is currently not smoking 5. History of depression and anxiety PLAN: 1. We will continue to follow with her at the [facility]. Further orders and recommendations per Dr. Tilley TIME SPENT: GREATER THAN 30 MINUTES MTDD
[2018-11-29 16:13] VITALS: BP 125/79; TEMP 98.1
[2018-11-29] MEDS ORDERED: MAXIPIME 2 GM/50 ML D5W 2 GM/50 ML BAG IV ONE (17:00)
--- NOTE | 2018-11-30 14:51 | CONS ---
11/25/18: Level 5 11/26/18: Intermediate 11/27/18: Intermediate 11/28/18: Intermediate 11/29/18: Intermediate MTDD
--- NOTE | 2018-12-01 09:07 | CONS ---
DATE OF SERVICE: 11/28/18 CONSULT FOLLOWUP SUBJECTIVE: 68 year old white female seen on consultation for possibility of CHF. The patient has severe chronic lung disease with chronic respiratory failure with CO2 retention on BIPAP at night. The patient had quit smoking four years ago. The patient's EKG shows right access deviation and pulmonary disease pattern with nonspecific intraventricular conduction delay. Also her echo showed RV cavity enlargement with early paradoxical septal wall motion with hypokinetic septum with ejection fraction 50-55%. Her pulse has been 80-85. Blood pressure systolic 120-140. The patient is not a candidate for unloading agent. The patient's fluid overload status which is likely from possibility of early Cor Pulmonale. Could be treated with diuretic and salt restriction with weight reduction. The patient is morbidly obese. REVIEW OF SYSTEMS: CONSTITUTIONAL: No night sweats. No fatigue, malaise, lethargy. No fever or chills. HEENT: Eyes: No visual changes. No eye pain. No eye discharge. ENT: No runny nose. No epistaxis. No sinus pain. No sore throat. No odynophagia. No ear pain. No congestion. RESPIRATORY: No cough, no congestion. No hemoptysis. CARDIOVASCULAR: No angina symptoms. No CHF symptoms. No atypical chest pain for CAD. No palpitations. Shortness of breath on exertion. GASTROINTESTINAL: No abdominal pain. No nausea or vomiting. No diarrhea or constipation. No hematemesis. No hematochezia. GENITOURINARY: No urgency. No frequency. No dysuria. No hematuria. No obstructive symptoms. No discharge. No pain. No significant abnormal bleeding. MUSCULOSKELETAL: No musculoskeletal pain. No joint swelling. No arthritis. NEUROLOGICAL: No headache. No neck pain. No syncope. No seizures. No dizziness. PSYCHIATRIC: Not anxious. No depression. No suicidal thoughts. No homicidal thoughts. SKIN: No rash. No lesions. No wounds. ENDOCRINE: No unexplained weight loss. No weight gain. HEMATOLOGIC/LYMPHATIC: No anemia. No purpura. No petechiae. No prolonged or excessive bleeding. No palpable lymph nodes. PHYSICAL EXAMINATION: GENERAL: The patient is , lying/sitting in bed in no distress. VITAL SIGNS: Temperature 97.6, pulse 82, respiratory rate 19. blood pressure 130 /80 and pulse ox 97% on 3 liters. HEENT: Head normocephalic, atraumatic. Eyes: Extraocular muscles are intact. Pupils are equal, round and reactive to light and accommodation. Ears: No lesions. Nose appeared normal. Throat: No exudate or erythema. NECK: Supple. No JVD, no carotid bruit. No lymphadenopathy or thyromegaly. LUNGS: Clear to auscultation. Percussion note normal. Chest symmetrical. HEART: S1, S2, no S3. No murmurs. No cyanosis or clubbing. No ascites. Pulses: Dorsalis pedis and posterior tibial pulses +1 to +2 bilaterally. ABDOMEN: Soft. Nontender. Bowel sounds active. No CVA tenderness. No mass felt. EXTREMITIES: No edema. Full range of motion of all extremities, equal. NEUROLOGIC: No focal deficit. Cranial nerves II through XII are grossly intact. No headache, no double vision or headache. SKIN: Not dry. Intact. Turgor - normal. LYMPHATIC: No palpable lymph nodes/no lymphedema. MUSCULOSKELETAL: Normal joints with no swelling. Muscle tone is normal. PLAN: 1. As mentioned in early note the patient is candidate of chronic Prednisone therapy, low dose 5mg. 2. Continued NEBS with Pulmicort CONDITION: Stable PROGNOSIS: Poor. MTDD
--- NOTE | 2018-12-01 09:48 | CONS ---
DATE OF CONSULTATION: 11/25/18 REASON FOR CONSULTATION: Shortness of air. HISTORY OF PRESENT ILLNESS: 68 year old white female was hospitalized from local care home with shortness of air, increasing for two weeks. Osteoarthritis is worse in past 2 days. Productive cough of yellow-green sputum; small. O2 saturation 86% with oxygen on arrival. The patient's condition has improved this morning. She says that she is feeling a lot better. The patient has been on BIPAP which may have to be adjusted. We are going to be ABG on BIPAP at night. REVIEW OF SYSTEMS: CONSTITUTIONAL: No night sweats. Fatigue, malaise, lethargy. No fever or chills. HEENT: Eyes: No visual changes. No eye pain. No eye discharge. ENT: Some sinus drainage. No epistaxis. No sinus pain. No sore throat. No odynophagia. No ear pain. No congestion. RESPIRATORY: Cough productive yellow, green. No congestion. No hemoptysis. No shortness of breath. CARDIOVASCULAR: No angina symptoms. No CHF symptoms. No atypical chest pain for CAD. No palpitations. No orthopnea. GASTROINTESTINAL: No abdominal pain. No nausea or vomiting. No diarrhea or constipation. No hematemesis. No hematochezia. GENITOURINARY: No urgency. No frequency. No dysuria. No hematuria. No obstructive symptoms. No discharge. No pain. No significant abnormal bleeding. MUSCULOSKELETAL: No musculoskeletal pain. No joint swelling. NEUROLOGICAL: No headache. No neck pain. No syncope. No seizures. No dizziness. PSYCHIATRIC: History of anxiety. Depression. No suicidal thoughts. No homicidal thoughts. SKIN: No rash. No lesions. No wounds. Dry with excoriation under breast and abdominal folds. ENDOCRINE: No unexplained weight loss. No weight gain. HEMATOLOGIC/LYMPHATIC: No anemia. No purpura. No petechiae. No prolonged or excessive bleeding. No palpable lymph nodes. MEDICATIONS: Tylenol Xanax Aspirin Bisacodyl Suppository Celexa Ferrous sulfate DUO NEBS Mometasone [place] Nystatin powder Zofran Symbicort Potassium Torsemide Incruse Ellipta Ventolin ALLERGIES: Penicillin PAST MEDICAL HISTORY/PAST SURGICAL HISTORY: COPD (O2@ 3liters) Sleep apnea with hypercarbia (BIPAP at night) 2018 Respiratory failure, chronic Emphysema Muscle weakness Osteoarthritis DJD spine Cataract right eye, removal per MD's Pulmonology, Dr. Fletcher SOCIAL/PERSONAL/FAMILY HISTORY: The patient stopped smoking . No alcohol use. The patient is single. PHYSICAL EXAMINATION: GENERAL: The patient is alert and oriented times three VITAL SIGNS: Pulse 94, blood pressure 116/70, temperature 97.9, Oxygen saturation 84% 3 liters. Weight 237 HEENT: Head normocephalic, atraumatic. Eyes: Extraocular muscles are intact. Pupils are equal, round and reactive to light and accommodation. Ears: No lesions. Nose appeared normal. Throat: No exudate or erythema. NECK: Supple. No JVD, no carotid bruit. No lymphadenopathy or thyromegaly. LUNGS: Decreased breath sounds but clear to auscultation. Percussion note normal. Chest symmetrical. HEART: S1, S2, no S3. No murmurs. No cyanosis or clubbing. No ascites. Pulses: Dorsalis pedis and posterior tibial pulses +1 bilaterally. ABDOMEN: Soft. Nontender. Bowel sounds active. No CVA tenderness. No mass felt. EXTREMITIES: Trace edema. Full range of motion of all extremities, equal. NEUROLOGIC: No focal deficit. Cranial nerves II through XII are grossly intact. No headache, no double vision or headache. SKIN: Not dry. Intact. Turgor - normal. LYMPHATIC: No palpable lymph nodes/no lymphedema. MUSCULOSKELETAL: Normal joints with no swelling. Muscle tone is normal. LABS: Chest x-ray borderline cardiomegaly with early interstitial edema. CT chest- No PE. No pneumonia. Cardiomegaly with early interstitial edema PRO BNP 1100.000, D-Dimer 733.72, Urinalysis 2+ bacteria WBC 10.82, hgb 15.4, hct 50.0, plt count 321, Sodium 142, potassium 4.51, Chloride 99, Bicarb 39, BUN 18, Creatinine 0.81 and glucose 137. ABG on 3 liters 84% saturation, pH 7.420, pCO2 49.9, pO2 49, HCO3 32.4, Total CO2 34. ASSESSMENT: 1. Acute bronchitis with chronic lung disease with chronic respiratory failure 2. Questionable CHF/ Cor Pulmonale 3. Severe COPD 4. Morbid obesity RECOMMENDATIONS: 1. Continue IV antibiotics 2. Steroids 3. NEBS Treatment 4. BIPAP 5. We will do echo to see LV function. A year ago the patient's LV function was normal with LVH. 6. TSH, T4 7. Agreed with steroid 8. IV Lasix given on admission 9. Continue Demadex 10.CHF evaluation given 11.EKG right axis with pulmonary disease pattern 12.Morbid obesity Diet discussed. 13.Lipids 14.ABG's tonight on BIPAP The real reason for consultation was X-ray showed possibility of interstitial edema which was confirmed with CT scan. The BNP was a little over 1,000. The patient was given Extra dose of Lasix by attending. The patient is already on Demodex. This morning the patient's doesn't have any orthopnea., PND. No S3, No JVP. No signs of CHF. Thanks for referral. [facility]
--- NOTE | 2018-12-01 10:35 | CONS ---
DATE OF SERVICE: 11/26/18 CONSULT FOLLOWUP SUBJECTIVE: 68 year old white female was seen on consultation with possibility of congestive heart failure. The patient has been hospitalization with acute bronchitis with COPD. On the day of admission the patient was given IV Lasix after that the patient has been continued on Demadex. REVIEW OF SYSTEMS: CONSTITUTIONAL: No night sweats. No fatigue, malaise, lethargy. No fever or chills. HEENT: Eyes: No visual changes. No eye pain. No eye discharge. ENT: No runny nose. No epistaxis. No sinus pain. No sore throat. No odynophagia. No ear pain. No congestion. RESPIRATORY: No cough, no congestion. No hemoptysis. CARDIOVASCULAR: No angina symptoms. No CHF symptoms. No atypical chest pain for CAD. No palpitations. Shortness of breath on exertion. Breathing better, able to lay down flat. GASTROINTESTINAL: No abdominal pain. No nausea or vomiting. No diarrhea or constipation. No hematemesis. No hematochezia. Appetite has improved. GENITOURINARY: No urgency. No frequency. No dysuria. No hematuria. No obstructive symptoms. No discharge. No pain. No significant abnormal bleeding. MUSCULOSKELETAL: No musculoskeletal pain. No joint swelling. No arthritis. NEUROLOGICAL: No headache. No neck pain. No syncope. No seizures. No dizziness. PSYCHIATRIC: Not anxious. No depression. No suicidal thoughts. No homicidal thoughts. SKIN: No rash. No lesions. No wounds. ENDOCRINE: No unexplained weight loss. No weight gain. HEMATOLOGIC/LYMPHATIC: No anemia. No purpura. No petechiae. No prolonged or excessive bleeding. No palpable lymph nodes. PHYSICAL EXAMINATION: GENERAL: The patient is oriented to time, place and person. HEENT: Head normocephalic, atraumatic. Eyes: Extraocular muscles are intact. Pupils are equal, round and reactive to light and accommodation. Ears: No lesions. Nose appeared normal. Throat: No exudate or erythema. NECK: Supple. No JVD, no carotid bruit. No lymphadenopathy or thyromegaly. LUNGS:Decreased breath sounds. Clear to auscultation. Percussion note normal. Chest symmetrical. HEART: S1, S2, no S3. No murmurs. No cyanosis or clubbing. No ascites. Pulses: Dorsalis pedis and posterior tibial pulses +1 to +2 bilaterally. ABDOMEN: Soft. Nontender. Bowel sounds active. No CVA tenderness. No mass felt. EXTREMITIES: Trace edema. Full range of motion of all extremities, equal. NEUROLOGIC: No focal deficit. Cranial nerves II through XII are grossly intact. No headache, no double vision or headache. SKIN: Not dry. Intact. Turgor - normal. LYMPHATIC: No palpable lymph nodes/no lymphedema. MUSCULOSKELETAL: Normal joints with no swelling. Muscle tone is normal. LABS: Hgb 15, hct 48, WBC 16,000 normal differential, creatinine 0.8, BUN 28, potassium 4.2. ABG's done on 3 liters showed pO2 56 with PCO2 of 56 with pH 7.38 with elevated HCO3 and saturation of 88%. ASSESSMENT: 1. Chronic respiratory failure the patient is on BIPAP at night with CO2 retention. The patient has worsening of COPD with bronchitis. 2. Possibility of CHF or left ventricular failure exists. RECOMMENDATIONS: 1. Continue Demadex 2. Agreed with continuation of steroids 3. IV antibiotics 4. NEBS treatment 5. The patient strongly advised to lose weight, her BMI is 44. Sedentary lifestyle she is advised to continue to do physical therapy. 6. Pulmonary rehab recommended. CONDITION: Stable PROGNOSIS: Poor MTDD
--- NOTE | 2018-12-01 10:51 | CONS ---
DATE OF SERVICE: 11/27/18 CONSULT FOLLOWUP SUBJECTIVE: 68 year old white female seen for consultation with possibility with LVF or CHF with severe chronic lung disease. The patient is on BIPAP at night with history of CO2 retention. The patient is in chronic respiratory failure with continuous oxygen throughout the day along with BIPAP at night with oxygen. According to the patient she is feeling a lot better. The appetite has improved. She is getting her strength back. REVIEW OF SYSTEMS: CONSTITUTIONAL: No night sweats. No fatigue, malaise, lethargy. No fever or chills. HEENT: Eyes: No visual changes. No eye pain. No eye discharge. ENT: No runny nose. No epistaxis. No sinus pain. No sore throat. No odynophagia. No ear pain. No congestion. RESPIRATORY: No cough, no congestion. No hemoptysis. CARDIOVASCULAR: No angina symptoms. No CHF symptoms. No atypical chest pain for CAD. No palpitations. Shortness of breath of breath on exertion as usual. No PND. GASTROINTESTINAL: No abdominal pain. No nausea or vomiting. No diarrhea or constipation. No hematemesis. No hematochezia. Appetite has improved. GENITOURINARY: No urgency. No frequency. No dysuria. No hematuria. No obstructive symptoms. No discharge. No pain. No significant abnormal bleeding. MUSCULOSKELETAL: No musculoskeletal pain. No joint swelling. No arthritis. NEUROLOGICAL: No headache. No neck pain. No syncope. No seizures. No dizziness. PSYCHIATRIC: Not anxious. No depression. No suicidal thoughts. No homicidal thoughts. SKIN: No rash. No lesions. No wounds. ENDOCRINE: No unexplained weight loss. No weight gain. HEMATOLOGIC/LYMPHATIC: No anemia. No purpura. No petechiae. No prolonged or excessive bleeding. No palpable lymph nodes. PHYSICAL EXAMINATION: GENERAL: The patient is oriented to time, place and person. VITAL SIGNS: Temperature 97.8, pulse 87, respiratory rate 17, blood pressure 130 /70 and pulse ox 91% with 3 liters. HEENT: Head normocephalic, atraumatic. Eyes: Extraocular muscles are intact. Pupils are equal, round and reactive to light and accommodation. Ears: No lesions. Nose appeared normal. Throat: No exudate or erythema. NECK: Supple. No JVD, no carotid bruit. No lymphadenopathy or thyromegaly. LUNGS: Decreased breath sounds. Clear to auscultation. Percussion note normal. Chest symmetrical. HEART: S1, S2, no S3. No murmurs. No cyanosis or clubbing. No ascites. Pulses: Dorsalis pedis and posterior tibial pulses +1 to +2 bilaterally. ABDOMEN: Soft. Nontender. Bowel sounds active. No CVA tenderness. No mass felt. Protuberant. EXTREMITIES: Trace edema. Full range of motion of all extremities, equal. NEUROLOGIC: No focal deficit. Cranial nerves II through XII are grossly intact. No headache, no double vision or headache. SKIN: Not dry. Intact. Turgor - normal. LYMPHATIC: No palpable lymph nodes/no lymphedema. MUSCULOSKELETAL: Normal joints with no swelling. Muscle tone is normal. LABS: The patient had an echocardiogram done which showed hypokinetic septal motion likely that could be from early paradoxical septal wall motion making the septal wall hypokinetic. RV cavity is enlarged. The ventricular cavity is normal sized with ejection fraction 50-55%. Valves are normal. Borderline enlargement of the left atrial cavity. ASSESSMENT: 1. Acute bronchitis with severe chronic lung disease with chronic respiratory failure. The patient is on BIPAP and has history of CO2 retention 2. Possibility of LVF. The patient is already on diuretic. There is no needs for unloading agents. RECOMMENDATIONS: 1. The patient may benefit from small dose of Carvedilol or Non Dihydropyridine like Cardizem 2. Continue physical therapy at senior care. It is to be noted that patient's EKG showed right access deviation with pulmonary disease pattern. This patient may benefit from chronic steroid therapy. Again the patient is morbidly obese and strongly advised to lose weight. MTDD
== END 2018-11-29 16:16 | DRG 190 ==
LOC: ED 12:05 → MEDSURG B 16:33
PROVIDERS: ADMIT General Practice; ATTEND General Practice
DX: J44.1 Chronic obstructive pulmonary disease with (acute) exacerbation (principal); J96.22 Acute and chronic respiratory failure with hypercapnia; I50.9 Heart failure, unspecified; M54.9 Dorsalgia, unspecified; F41.8 Other specified anxiety disorders; R06.00 Dyspnea, unspecified; R06.01 Orthopnea; R05 Cough; R06.2 Wheezing; R09.81 Nasal congestion; R63.0 Anorexia; R09.02 Hypoxemia
CPT/HCPCS: 36415; 80053; 80061; 81001; 82550; 82803; 83525; 83605; 83880; 84145; 84439; 84443; 84484; 84681; 85025; 85379; 85610; 85730; 87040; 87070; 87081; 87086; 87186; 93005; 93010; 94640; 99284

== ENCOUNTER 2020-11-01 17:20 | Inpatient (IN) ==
[2020-11-01 18:09] LABS: BASOPHILS % (AUTO) 0.3 % (0.0-3.0); EOSINOPHILS # (AUTO) 0.2 K/ul (0.0-0.7); EOSINOPHILS % (AUTO) 2.1 % (0.0-7.0); HEMATOCRIT 47.6 % (37.0-47.0); HEMOGLOBIN 14.1 g/dl (12.0-16.0); IMMATURE GRANULOCYTE % (AUTO) 0.3 % (0.0-5.0); LYMPHOCYTES # (AUTO) 1.2 K/uL (0.60-3.4); LYMPHOCYTES % (AUTO) 11.8 (10.0-50.0); MEAN CORPUSCULAR HEMOGLOBIN 29.6 pg (27.0-31.0); MEAN CORPUSCULAR HGB CONC 29.6 (31.8-35.4); MONOCYTES # (AUTO) 0.7 K/uL (0.4-2.0); MONOCYTES % (AUTO) 6.4 (0-10); NEUTROPHILS # (AUTO) 8.1 K/ul (2.0-6.9); NEUTROPHILS % (AUTO) 79.1 % (42.2-75.2); PLATELET COUNT 216 10^3/uL (140-440); RED BLOOD COUNT 4.76 10^6/ul (4.20-5.40); WHITE BLOOD COUNT 10.25 K/ul (4.6-10.2)
[2020-11-01 18:16] LABS: ALANINE AMINOTRANSFERASE 21.6 U/L (0-35); ALBUMIN 4.23 g/dL (3.5-5.0); ALKALINE PHOSPHATASE 96.3 U/L (53-141); BILIRUBIN,TOTAL 0.9 mg/dL (0.2-1.3); BLOOD UREA NITROGEN 15.7 mg/dL (7-17); CALCIUM 9.43 mg/dL (8.4-10.2); CARBON DIOXIDE 26.7 mmol/L (22-30.0); CHLORIDE 105.7 mmol/L (98-107); CREATININE 0.84 mg/dL (0.60-1.30); GLUCOSE 108.1 mg/dL (74-106); POTASSIUM 4.74 mmol/L (3.5-5.1); SODIUM 140.8 mmol/L (134.5-145); TOTAL PROTEIN 7.27 g/dL (6.3-8.2)
[2020-11-01] MEDS ORDERED: SOLU-CORTEF 250 MG IVP STA (18:30)
[2020-11-01] MEDS ORDERED: ATROVENT HFA INHALER (PER PUFF-WITH SPACER) IH STA (18:31)
[2020-11-01] MEDS ORDERED: VENTOLIN HFA (PER PUFF-WITH SPACER) IH ONE (18:31)
--- NOTE | 2020-11-01 18:33 | DI ---
EXAM: CHEST RADIOGRAPH (1 VIEW) TECHNIQUE: Frontal Chest Radiograph. HISTORY: Shortness of breath. COMPARISON: Chest radiograph 12/16/2018 FINDINGS: Lines, Tubes, Devices: None Lungs and Pleura: Diffuse hazy opacification of the lungs with prominent bronchovascular markings. Possible small left pleural effusion. No pneumothorax. Cardiomediastinum: Markedly enlarged cardiomediastinal silhouette. No aortic calcifications. Bones/Soft Tissues: Degenerative changes of the spine. No soft tissue abnormality. Upper Abdomen: Within normal limits. IMPRESSION: Cardiomegaly with interstitial pulmonary edema.
[2020-11-01] MEDS ORDERED: LASIX IVP ONE (19:50)
--- NOTE | 2020-11-01 20:51 | ED.PDOC ---
General <NING SEAY DO - Last Filed: 12/10/20 05:59> ED Provider: Dr. NING SEAY Chief Complaint: Shortness of Air Stated Complaint: Developed worsening SOB despite being on oxygen and bipap Time Seen by Provider: 11/01/20 17:40 Mode of Arrival: Walk-In Information Source: Patient Exam Limitations: Clinical condition Primary Care Provider: PAULA CABEZAS MD Nursing and Triage Documentation Reviewed and Agree: Yes Does patient meet sepsis criteria?: No System Inflammatory Response Syndrome: Acutely Altered Mental Status Sepsis Protocol: For patient's 13 years and over: Temp is 96.8 and below OR 101 and greater Pulse >90 BPM Resp >20/minute Acutely Altered Mental Status Are patient's symptoms suggestive of a new infection, such as: -Pneumonia -Skin, Soft Tissue -Endocarditis -UTI -Bone, Joint Infection -Implantable Device -Acute Abdominal Infection -Wound Infection -Meningitis -Blood Stream Catheter Infection -Unknown Respiratory Complaint Exam <NING SEAY DO - Last Filed: 12/10/20 05:59> Shortness of Air Complaint/Exam Onset/Duration: Earlier this afternoon Symptoms Are: Worse Timing: Constant Initial Severity: Moderate Current Severity: Severe Character: Reports Dyspnea at rest Aggravating: Reports Recumbent position Alleviating: Reports None Associated Signs and Symptoms: Reports Cough and Wheezing Related History: Reports Similar episode History of Healthcare-Acquired Pneumonia: Lives at [facility] Pulmonary Embolism Risk Factors: Reports None Pseudomonas Risk Factors: Reports None Tuberculosis Risk Factors: Reports None Home Oxygen Use: Yes Recent Stress Test: No Recent Echo/LV Function: No Respiratory Distress: Moderate Stridor Present: No Tracheal Deviation: No Subcutaneous Emphysema: No Retractions: Not Present Diminished Breath Sounds: Yes Unable to Speak Full Sentences: Yes Fatigue: Yes Leg Swelling: Yes Román's Sign Present: No Grunting Respirations: No Kussmaul Respirations: No Differential Diagnoses: Pulmonary Edema and COPD Exacerbation Quality Indicators for AMI: EKG in 10min. Quality Indicator For Non-Traumatic Chest Pain/Syncope: EKG Performed Review of Systems <NING SEAY DO - Last Filed: 12/10/20 05:59> Review Of Systems Constitutional: Reports Weakness Eyes: Reports No symptoms Ears, Nose, Mouth, Throat: Reports No symptoms Respiratory: Reports Cough, Orthopnea, Short of air and Wheezing Cardiac: Reports No symptoms GI: Reports No symptoms : Reports No symptoms Musculoskeletal: Reports No symptoms Skin: Reports No symptoms Neurological: Reports No symptoms Endocrine: Reports No symptoms Hematologic/Lymphatic: Reports No symptoms All Other Systems: Reviewed and Negative PFSH <NING SEAY DO - Last Filed: 12/10/20 05:59> Medical History (Updated 11/02/20 @ 08:40 by LALITA HOLLEY) Anemia Anxiety Cataract CHF (congestive heart failure) Chronic back pain Chronic obstructive pulmonary disease Degenerative joint disease of spine Depression Diastolic heart failure Dyslipidemia Fatty liver Hypertension Morbid obesity with BMI of 40.0-44.9, adult custodial resident Osteoarthritis Other abnormalities of gait and mobility Oxygen dependent Psoriasis, unspecified Pulmonary emphysema Pulmonary hypertension Respiratory failure Rheumatoid arthritis TIA (transient ischemic attack) Family History (Updated 11/02/20 @ 03:29 by NANCY ESTES, RN) FATHER Diabetes Social History (Updated 11/02/20 @ 03:28 by NANCY ESTES, RN) Smoking and tobacco status: Former smoker Alcohol intake: unknown Substance use type: unknown Housing: [facility] custodial: Yes ([facility] [place]) History of recent travel: No Current gender identity: female Female Reproductive History Menstrual Hx Hysterectomy: No Hx Tubal Ligation: No Physical Exam <NING SEAY DO - Last Filed: 12/10/20 05:59> Physical Exam Appearance: Reports Ill-appearing and Obese Ill-appearing: Moderate Pain Distress: Mild Eyes: Reports SVETA, EOMI and Conjunctiva clear ENT: Reports Ears normal, Nose normal and Oropharynx normal Neck: Supple Respiratory: Reports Airway patent, Breath sounds diminished, Crackles and Whe ezes Cardiovascular: Reports RRR, Pulses normal and No rub GI/: Reports Soft, Nontender, Bowel sounds normal and No Organomegaly Musculoskeletal: Reports Normal strength and ROM intact Skin: Reports Warm, Dry, Normal color and Pale Neurological: Reports Sensation intact, Motor intact, Cranial nerves intact and Alert Psychiatric: Reports Anxious <ALICIA ENRIQUEZ MD - Last Filed: 11/02/20 01:48> Re-Evaluation Time of Re-Evaluation: 01:47 Status: Improved (breathing better ) Vital Signs Stable: Yes (saturation 100% on NRM ) Appearance: NAD Lungs: Other (Diminished ) Physician Notification <NING SEAY DO - Last Filed: 12/10/20 05:59> Case Discussed Physician Notified: Dr Rotich-will assume management Time of Notification: 19:30 <ALICIA ENRIQUEZ MD - Last Filed: 11/02/20 01:48> Case Discussed Physician Notified: Treva Time of Notification: 01:46 (Discussed with Dr Tilley that there are no beds in [facility] and that the Brother and patient know that we do not have a tin plater in this hospital. Our ruth Salinarc Mayra was a witness by phone.) Critical Care Note <NING SEAY DO - Last Filed: 12/10/20 05:59> Critical Care Note Total Critical Care Time (mins): 60 Course <NING SEAY DO - Last Filed: 12/10/20 05:59> Course Hematology/Chemistry: 11/10/20 04:45 11/10/20 04:45 Orders, Labs, Meds: Lab Review 11/01/20 11/01/20 11/01/20 17:59 17:59 17:59 WBC 10.25 H RBC 4.76 Hgb 14.1 Hct 47.6 H MCV 100.0 H MCH 29.6 MCHC 29.6 L RDW Coeff of Sia 17.0 H Plt Count 216 Immature Gran % (Auto) 0.3 Neut % (Auto) 79.1 H Lymph % (Auto) 11.8 [place] % (Auto) 6.4 Eos % (Auto) 2.1 Baso % (Auto) 0.3 Neut # (Auto) 8.1 H Lymph # (Auto) 1.2 [place] # (Auto) 0.7 Eos # (Auto) 0.2 Baso # (Auto) 0.0 Immature Gran # (Auto) 0.0 Puncture Site Base Excess O2 Saturation ABG pH ABG pCO2 ABG pO2 ABG HCO3 ABG Total CO2 Lion Test Hemoglobin Oxyhemoglobin Carboxyhemoglobin Total Hemoglobin O2 Delivery Device Oxygen Liter Flow FiO2 % Sodium 140.8 Potassium 4.74 Chloride 105.7 Carbon Dioxide 26.7 Anion Gap 13.14 BUN 15.7 Creatinine 0.84 Estimated GFR (MDRD) 67.00 BUN/Creatinine Ratio 18.69 Glucose 108.1 H Lactic Acid Calcium 9.43 Total Bilirubin 0.90 AST 29.0 ALT 21.6 Alkaline Phosphatase 96.3 Troponin I 0.018 NT-Pro-B Natriuret Pep Total Protein 7.27 Albumin 4.23 Globulin 3.04 Albumin/Globulin Ratio 1.39 Procalcitonin Adenovirus (PCR) B. pertussis DNA (PCR) B.parapertussis DNA PCR C. pneumoniae DNA (PCR) Coronavirus OC43 (PCR) Coronavirus HKU1 (PCR) Coronavirus 229E (PCR) Coronavirus NL63 (PCR) Human Metapneumovir PCR Influenza Type A (PCR) Influenza B (RT-PCR) M. pneumoniae (PCR) Parainfluenza 1 (PCR) Parainfluenza 2 (PCR) Parainfluenza 3 (PCR) Parainfluenza 4 (PCR) RSV (PCR) Entero/Rhino (PCR) SARS-CoV-2 (PCR) 11/01/20 11/01/20 11/01/20 19:02 19:30 21:40 WBC RBC Hgb Hct MCV MCH MCHC RDW Coeff of Sia Plt Count Immature Gran % (Auto) Neut % (Auto) Lymph % (Auto) [place] % (Auto) Eos % (Auto) Baso % (Auto) Neut # (Auto) Lymph # (Auto) [place] # (Auto) Eos # (Auto) Baso # (Auto) Immature Gran # (Auto) Puncture Site Cancelled Rb Rb Base Excess Cancelled 2.0 4.2 H O2 Saturation Cancelled 82.8 L 83.5 L ABG pH Cancelled 7.33 L 7.29 L* ABG pCO2 Cancelled 53.0 H 64.0 H ABG pO2 Cancelled 51.0 L* 54.0 L* ABG HCO3 Cancelled 27.9 30.8 H ABG Total CO2 Cancelled 32.8 H 32.8 H Lion Test Cancelled + + Hemoglobin Cancelled 1.2 1.2 Oxyhemoglobin Cancelled 85.2 L 85.2 L Carboxyhemoglobin Cancelled 3.2 H 3.2 H Total Hemoglobin Cancelled 14.6 14.6 O2 Delivery Device Cancelled Vapotherm Oxygen Liter Flow Cancelled 15.00 FiO2 % Cancelled 100.0 100.0 Sodium Potassium Chloride Carbon Dioxide Anion Gap BUN Creatinine Estimated GFR (MDRD) BUN/Creatinine Ratio Glucose Lactic Acid Calcium Total Bilirubin AST ALT Alkaline Phosphatase Troponin I NT-Pro-B Natriuret Pep Total Protein Albumin Globulin Albumin/Globulin Ratio Procalcitonin Adenovirus (PCR) B. pertussis DNA (PCR) B.parapertussis DNA PCR C. pneumoniae DNA (PCR) Coronavirus OC43 (PCR) Coronavirus HKU1 (PCR) Coronavirus 229E (PCR) Coronavirus NL63 (PCR) Human Metapneumovir PCR Influenza Type A (PCR) Influenza B (RT-PCR) M. pneumoniae (PCR) Parainfluenza 1 (PCR) Parainfluenza 2 (PCR) Parainfluenza 3 (PCR) Parainfluenza 4 (PCR) RSV (PCR) Entero/Rhino (PCR) SARS-CoV-2 (PCR) 11/02/20 11/02/20 11/02/20 00:30 00:30 00:30 WBC RBC Hgb Hct MCV MCH MCHC RDW Coeff of Sia Plt Count Immature Gran % (Auto) Neut % (Auto) Lymph % (Auto) [place] % (Auto) Eos % (Auto) Baso % (Auto) Neut # (Auto) Lymph # (Auto) [place] # (Auto) Eos # (Auto) Baso # (Auto) Immature Gran # (Auto) Puncture Site Base Excess O2 Saturation ABG pH ABG pCO2 ABG pO2 ABG HCO3 ABG Total CO2 Lion Test Hemoglobin Oxyhemoglobin Carboxyhemoglobin Total Hemoglobin O2 Delivery Device Oxygen Liter Flow FiO2 % Sodium Potassium Chloride Carbon Dioxide Anion Gap BUN Creatinine Estimated GFR (MDRD) BUN/Creatinine Ratio Glucose Lactic Acid Calcium Total Bilirubin AST ALT Alkaline Phosphatase Troponin I NT-Pro-B Natriuret Pep 94428.000 H Total Protein Albumin Globulin Albumin/Globulin Ratio Procalcitonin < 0.05 Adenovirus (PCR) Not detected B. pertussis DNA (PCR) Not detected B.parapertussis DNA PCR Not detected C. pneumoniae DNA (PCR) Not detected Coronavirus OC43 (PCR) Not detected Coronavirus HKU1 (PCR) Not detected Coronavirus 229E (PCR) Not detected Coronavirus NL63 (PCR) Not detected Human Metapneumovir PCR Not detected Influenza Type A (PCR) Not detected Influenza B (RT-PCR) Not detected M. pneumoniae (PCR) Not detected Parainfluenza 1 (PCR) Not detected Parainfluenza 2 (PCR) Not detected Parainfluenza 3 (PCR) Not detected Parainfluenza 4 (PCR) Not detected RSV (PCR) Not detected Entero/Rhino (PCR) Not detected SARS-CoV-2 (PCR) Not detected 11/02/20 11/02/20 00:30 00:30 WBC RBC Hgb Hct MCV MCH MCHC RDW Coeff of Sia Plt Count Immature Gran % (Auto) Neut % (Auto) Lymph % (Auto) [place] % (Auto) Eos % (Auto) Baso % (Auto) Neut # (Auto) Lymph # (Auto) [place] # (Auto) Eos # (Auto) Baso # (Auto) Immature Gran # (Auto) Puncture Site Base Excess O2 Saturation ABG pH ABG pCO2 ABG pO2 ABG HCO3 ABG Total CO2 Lion Test Hemoglobin Oxyhemoglobin Carboxyhemoglobin Total Hemoglobin O2 Delivery Device Oxygen Liter Flow FiO2 % Sodium Potassium Chloride Carbon Dioxide Anion Gap BUN Creatinine Estimated GFR (MDRD) BUN/Creatinine Ratio Glucose Lactic Acid 0.96 Calcium Total Bilirubin AST ALT Alkaline Phosphatase Troponin I 0.022 NT-Pro-B Natriuret Pep Total Protein Albumin Globulin Albumin/Globulin Ratio Procalcitonin Adenovirus (PCR) B. pertussis DNA (PCR) B.parapertussis DNA PCR C. pneumoniae DNA (PCR) Coronavirus OC43 (PCR) Coronavirus HKU1 (PCR) Coronavirus 229E (PCR) Coronavirus NL63 (PCR) Human Metapneumovir PCR Influenza Type A (PCR) Influenza B (RT-PCR) M. pneumoniae (PCR) Parainfluenza 1 (PCR) Parainfluenza 2 (PCR) Parainfluenza 3 (PCR) Parainfluenza 4 (PCR) RSV (PCR) Entero/Rhino (PCR) SARS-CoV-2 (PCR) Orders Category Date Time Status ABG DRAW REQUEST Stat CARDIO 11/01/20 18:28 Completed ABG DRAW REQUEST Stat CARDIO 11/01/20 19:32 Completed ABG DRAW REQUEST Stat CARDIO 11/01/20 21:40 Completed BIPAP Routine CARDIO 11/02/20 01:48 Completed EKG-(ED ONLY) Stat CARDIO 11/01/20 17:46 Completed METERED DOSE INHALATION Routine CARDIO 11/01/20 18:32 Completed OXYGEN Routine CARDIO 11/02/20 01:48 Completed VAPOTHERM Routine CARDIO 11/01/20 19:35 Completed ACTIVITY .Complete BR CARE 11/02/20 01:49 Completed INTAKE & OUTPUT Q8HR CARE 11/02/20 01:49 Completed VITAL SIGNS Q8HR CARE 11/02/20 01:49 Completed ABG COOX Stat LAB 11/01/20 19:30 Completed ABG COOX Stat LAB 11/01/20 21:40 Completed BLOOD CULTURE Stat LAB 11/02/20 00:25 Completed CBC W/ AUTO DIFF DAILY@0600 LAB 11/02/20 04:53 Completed CBC W/ AUTO DIFF DAILY@0600 LAB 11/03/20 04:39 Completed CBC W/ AUTO DIFF Stat LAB 11/01/20 17:59 Completed CMP [COMPREHENSIVE METABOLIC PANEL] Stat LAB 11/01/20 17:59 Completed COMPREHENSIVE METABOLIC PANEL DAILY@0600 LAB 11/02/20 04:53 Completed COMPREHENSIVE METABOLIC PANEL DAILY@0600 LAB 11/03/20 04:39 Completed LACTIC ACID Stat LAB 11/02/20 00:30 Completed NT-PROBNP Stat LAB 11/02/20 00:30 Completed PROCALCITONIN Stat LAB 11/02/20 00:30 Completed RESPIRATORY PANEL 2.1 (PCR) Stat LAB 11/02/20 00:30 Completed TROPONIN I Stat LAB 11/01/20 17:59 Completed TROPONIN I Stat LAB 11/02/20 00:30 Completed Acetaminophen [Tylenol] MEDS 11/02/20 01:48 Discontinued 650 mg PO Q4H PRN Albuterol Inhaler(with Spacer) [Ventolin Hfa (Per Puff- MEDS 11/01/20 18:31 Discontinued with Spacer)] 2 puff IH ONCE ONE Enoxaparin Sodium [Lovenox] MEDS 11/02/20 09:00 Discontinued 40 mg SUBCUT DAILY Furosemide [Lasix] MEDS 11/02/20 06:30 Discontinued 20 mg IVP QDAC Furosemide [Lasix] MEDS 11/01/20 19:50 Discontinued 40 mg IVP ONCE ONE Hydrocortisone Sod Succ/Pf [Solu-Cortef 250 mg] MEDS 11/01/20 18:30 Discontinued 125 mg IVP ONCE STA Ipratropium Inhaler(Spacer) [Atrovent Hfa Inhaler (Per MEDS 11/01/20 18:31 Discontinued Puff-with Spacer)] 2 puff IH ONCE STA Methylprednisolone Sod Succ/Pf [Solu-Medrol 40 mg] MEDS 11/02/20 05:00 Di scontinued 40 mg IVP Q8HR Ondansetron HCl/Pf [Zofran 4 mg/2 ml] MEDS 11/02/20 01:48 Discontinued 4 mg IVP Q6H PRN RESUSCITATION STATUS Routine OTHERS 11/02/20 01:48 Completed CHEST, 1V AP ONLY Stat RADS 11/01/20 17:45 Completed PT CONSULT Routine THERAPIES 11/02/20 14:42 Completed Medications Discontinued Medications Generic Name Dose Route Start Last Admin Trade Name Freq PRN Reason Stop Dose Admin Acetaminophen 650 mg 11/02/20 01:48 Acetaminophen 325 Mg Tablet PO Q4H PRN Fever Hydrocodone Bitart/Acetaminophen 1 tab 11/02/20 21:00 11/10/20 08:07 Hydrocodone Bit/Acetaminophen 5/325 Mg Tablet PO 1 tab BID BECKY Administration Albuterol Sulfate 2 puff 11/01/20 18:31 11/01/20 18:59 Albuterol Sulfate (Ventolin Hfa) 18 Gm 1 Puff With Spacer IH 11/01/20 18:32 2 puff ONCE ONE Administration Albuterol/Ipratropium 3 ml 11/02/20 12:00 11/10/20 11:04 Ipratropium/Albuterol Vial.Neb NEB 3 ml RTQ6H BECKY Administration Alprazolam 0.5 mg 11/02/20 09:00 11/10/20 15:27 Alprazolam 0.5 Mg Tablet PO 0.5 mg TID BECKY Administration Aripiprazole 2.5 mg 11/02/20 21:00 11/09/20 20:13 Aripiprazole 5 Mg Tablet PO Not Given BEDTIME BECKY Aspirin 81 mg 11/02/20 08:30 11/10/20 08:06 Aspirin 81 Mg Tab.Chew PO 81 mg DAILYWM BECKY Administration Budesonide 1 mg 11/02/20 18:00 11/10/20 05:13 Budesonide 1 Mg/2 Ml Vial.Neb NEB 1 mg RTBID BECKY Administration Budesonide/Formoterol Fumarate 2 puff 11/02/20 09:00 11/05/20 08:41 Budesonide/Formoterol Fumarate 160/4.5 Mcg Inhaler IH 2 puff BID BECKY Administration Carvedilol 3.125 mg 11/02/20 08:30 11/10/20 08:07 Carvedilol 3.125 Mg Tablet PO 3.125 mg BIDWM BECKY Administration Citalopram Hydrobromide 20 mg 11/02/20 09:00 11/10/20 08:07 Citalopram Hydrobromide 20 Mg Tablet PO 20 mg DAILY BECKY Administration Docusate Sodium 100 mg 11/02/20 09:00 11/10/20 08:07 Docusate Sodium 100 Mg Capsule PO 100 mg DAILY BECKY Administration Enoxaparin Sodium 40 mg 11/02/20 09:00 11/10/20 08:10 Enoxaparin Sodium 40 Mg/0.4 Ml Syr SUBCUT 40 mg DAILY BECKY Administration Famotidine 20 mg 11/09/20 09:00 11/10/20 06:02 Famotidine 20 Mg Tablet PO 20 mg QDAC BECKY Administration Ferrous Sulfate 324 mg 11/02/20 09:00 11/10/20 08:06 Ferrous Sulfate 324 Mg Tablet. PO 324 mg EVERY OTHER DAY BECKY Administration Fluticasone Propionate 2 spray 11/02/20 09:00 11/10/20 08:10 Fluticasone Propionate 16 Gm Nasal [place] CELSO Not Given BID BECKY Furosemide 40 mg 11/01/20 19:50 11/01/20 19:55 Furosemide Inj 40 Mg/4 Ml Vial IVP 11/01/20 19:51 40 mg ONCE ONE Administration Furosemide 20 mg 11/02/20 06:30 11/02/20 05:40 Furosemide Inj 20 Mg/2 Ml Vial IVP 20 mg QDAC BECKY Administration Furosemide 20 mg 11/03/20 06:30 11/10/20 06:02 Furosemide 20 Mg Tablet PO 20 mg QDAC BECKY Administration Furosemide 20 mg 11/07/20 05:23 11/07/20 05:37 Furosemide 20 Mg Tablet PO 11/07/20 05:24 20 mg ONCE ONE Administration Furosemide 40 mg 11/08/20 08:26 11/08/20 08:56 Furosemide Inj 40 Mg/4 Ml Vial IVP 11/08/20 08:27 40 mg ONCE ONE Administration Hydrocortisone 1 applic 11/02/20 01:56 Hydrocortisone 28 Gm Cream TP BID PRN Rash Hydrocortisone Sodium Succinate 125 mg 11/01/20 18:30 11/01/20 18:40 Hydrocortisone Sod Succ/Pf 250 Mg/2 Ml Vial IVP 11/01/20 18:31 125 mg ONCE STA Administration Hydrocortisone Sodium Succinate 125 mg 11/02/20 09:00 11/09/20 06:06 Hydrocortisone Sod Succ/Pf 250 Mg/2 Ml Vial IVP 125 mg Q6HR BECKY Administration CEFTRIAXONE/D5W 1 GM PREMIX 1 gm in 50 mls @ 75 mls/hr 11/03/20 18:00 11/09/20 08:10 Rocephin 1 Gm/50 Ml D5w IV 11/09/20 10:00 75 mls/hr DAILY BECKY Administration Ipratropium [place] 2 puff 11/01/20 18:31 11/01/20 19:02 Ipratropium [place] 12.9 Gm Hfa Inhaler Per Puff With Spacer IH 11/01/20 18:32 2 puff ONCE STA Administration Lisinopril 2.5 mg 11/02/20 02:00 11/02/20 03:16 Lisinopril 5 Mg Tablet PO Not Given DAILY BECKY Magnesium Hydroxide 30 ml 11/02/20 01:56 11/07/20 09:29 Magnesium Hydroxide 30 Ml Cup PO 30 ml DAILY PRN Administration Constipation Methylprednisolone Sodium Succinate 40 mg 11/02/20 05:00 11/02/20 05:40 Methylprednisolone Sod Succ/Pf 40 Mg/Ml Vial IVP 40 mg Q8HR BECKY Administration Nystatin 1 applic 11/02/20 09:00 11/10/20 09:19 Nystatin 15 Gm Powder TP 1 applic BID BECKY Administration Ondansetron HCl 4 mg 11/02/20 01:48 Ondansetron Hcl/Pf 4 Mg/2 Ml Sdv IVP Q6H PRN nausea Polyethylene Glycol 17 gm 11/06/20 13:57 11/06/20 14:05 Polyethylene Glycol 17 Gm Powd.Pack PO 11/06/20 13:58 17 gm ONCE ONE Administration Potassium Chloride 10 meq 11/02/20 08:30 11/07/20 16:00 Potassium Chloride 10 Meq Capsule.Er PO 10 meq BIDWM BECKY Administration Potassium Chloride 20 meq 11/08/20 08:30 11/09/20 08:02 Potassium Chloride 20 Meq Tab PO 20 meq BIDWM BECKY Administration Potassium Chloride 40 meq 11/09/20 08:30 11/10/20 13:41 Potassium Chloride 20 Meq Tab PO 40 meq TIDWM BECKY Administration Potassium Chloride 20 meq 11/09/20 08:52 11/09/20 09:13 Potassium Chloride 20 Meq Tab PO 11/09/20 08:53 20 meq ONCE ONE Administration Prednisone 20 mg 11/09/20 08:30 11/10/20 08:06 Prednisone 20 Mg Tablet PO 20 mg DAILYWM BECKY Administration Saccharomyces Boulardii 250 mg 11/09/20 09:00 11/10/20 09:18 Saccharomyces Boulardii 250 Mg Capsule PO 250 mg BID BECKY Administration Sennosides 8.6 mg 11/02/20 09:00 11/10/20 09:18 Sennosides 8.6 Mg Tablet PO 8.6 mg BID BECKY Administration Sodium Chloride 1 syr 11/02/20 13:00 11/10/20 13:41 0.9% Sodium Chloride 10 Ml Disp.Syrin IVF 1 syr Q8HR BECKY Administration Sodium Chloride 1 syr 11/08/20 17:54 11/08/20 23:38 0.9% Sodium Chloride 10 Ml Disp.Syrin IVF 1 syr PRN PRN Administration iv patency flush Tiotropium [place] 1 cap 11/02/20 09:00 11/10/20 08:09 Tiotropium [place] 18 Mcg Cap.W.Dev IH 1 cap DAILY BECKY Administration Torsemide 10 mg 11/02/20 02:00 11/02/20 03:15 Torsemide 20 Mg Tablet PO Not Given DAILY BECKY Torsemide 10 mg 11/02/20 07:30 11/05/20 05:42 Torsemide 20 Mg Tablet PO 10 mg QDAC BECKY Administration Vital Signs: Temp Pulse Resp BP Pulse Ox 11/01/20 22:00 97 11/01/20 17:21 97.7 F 105 H 35 H 124/80 89 L <ALICIA ENRIQUEZ MD - Last Filed: 11/02/20 01:48> Course Orders, Labs, Meds: Lab Review 11/01/20 11/01/20 11/01/20 17:59 17:59 17:59 WBC 10.25 H RBC 4.76 Hgb 14.1 Hct 47.6 H MCV 100.0 H MCH 29.6 MCHC 29.6 L RDW Coeff of Sia 17.0 H Plt Count 216 Immature Gran % (Auto) 0.3 Neut % (Auto) 79.1 H Lymph % (Auto) 11.8 [place] % (Auto) 6.4 Eos % (Auto) 2.1 Baso % (Auto) 0.3 Neut # (Auto) 8.1 H Lymph # (Auto) 1.2 [place] # (Auto) 0.7 Eos # (Auto) 0.2 Baso # (Auto) 0.0 Immature Gran # (Auto) 0.0 Puncture Site Base Excess O2 Saturation ABG pH ABG pCO2 ABG pO2 ABG HCO3 ABG Total CO2 Lion Test Hemoglobin Oxyhemoglobin Carboxyhemoglobin Total Hemoglobin O2 Delivery Device Oxygen Liter Flow FiO2 % Sodium 140.8 Potassium 4.74 Chloride 105.7 Carbon Dioxide 26.7 Anion Gap 13.14 BUN 15.7 Creatinine 0.84 Estimated GFR (MDRD) 67.00 BUN/Creatinine Ratio 18.69 Glucose 108.1 H Lactic Acid Calcium 9.43 Total Bilirubin 0.90 AST 29.0 ALT 21.6 Alkaline Phosphatase 96.3 Troponin I 0.018 NT-Pro-B Natriuret Pep Total Protein 7.27 Albumin 4.23 Globulin 3.04 Albumin/Globulin Ratio 1.39 Procalcitonin Adenovirus (PCR) B. pertussis DNA (PCR) B.parapertussis DNA PCR C. pneumoniae DNA (PCR) Coronavirus OC43 (PCR) Coronavirus HKU1 (PCR) Coronavirus 229E (PCR) Coronavirus NL63 (PCR) Human Metapneumovir PCR Influenza Type A (PCR) Influenza B (RT-PCR) M. pneumoniae (PCR) Parainfluenza 1 (PCR) Parainfluenza 2 (PCR) Parainfluenza 3 (PCR) Parainfluenza 4 (PCR) RSV (PCR) Entero/Rhino (PCR) SARS-CoV-2 (PCR) 11/01/20 11/01/20 11/01/20 19:02 19:30 21:40 WBC RBC Hgb Hct MCV MCH MCHC RDW Coeff of Sia Plt Count Immature Gran % (Auto) Neut % (Auto) Lymph % (Auto) [place] % (Auto) Eos % (Auto) Baso % (Auto) Neut # (Auto) Lymph # (Auto) [place] # (Auto) Eos # (Auto) Baso # (Auto) Immature Gran # (Auto) Puncture Site Cancelled Rb Rb Base Excess Cancelled 2.0 4.2 H O2 Saturation Cancelled 82.8 L 83.5 L ABG pH Cancelled 7.33 L 7.29 L* ABG pCO2 Cancelled 53.0 H 64.0 H ABG pO2 Cancelled 51.0 L* 54.0 L* ABG HCO3 Cancelled 27.9 30.8 H ABG Total CO2 Cancelled 32.8 H 32.8 H Lion Test Cancelled + + Hemoglobin Cancelled 1.2 1.2 Oxyhemoglobin Cancelled 85.2 L 85.2 L Carboxyhemoglobin Cancelled 3.2 H 3.2 H Total Hemoglobin Cancelled 14.6 14.6 O2 Delivery Device Cancelled Vapotherm Oxygen Liter Flow Cancelled 15.00 FiO2 % Cancelled 100.0 100.0 Sodium Potassium Chloride Carbon Dioxide Anion Gap BUN Creatinine Estimated GFR (MDRD) BUN/Creatinine Ratio Glucose Lactic Acid Calcium Total Bilirubin AST ALT Alkaline Phosphatase Troponin I NT-Pro-B Natriuret Pep Total Protein Albumin Globulin Albumin/Globulin Ratio Procalcitonin Adenovirus (PCR) B. pertussis DNA (PCR) B.parapertussis DNA PCR C. pneumoniae DNA (PCR) Coronavirus OC43 (PCR) Coronavirus HKU1 (PCR) Coronavirus 229E (PCR) Coronavirus NL63 (PCR) Human Metapneumovir PCR Influenza Type A (PCR) Influenza B (RT-PCR) M. pneumoniae (PCR) Parainfluenza 1 (PCR) Parainfluenza 2 (PCR) Parainfluenza 3 (PCR) Parainfluenza 4 (PCR) RSV (PCR) Entero/Rhino (PCR) SARS-CoV-2 (PCR) 11/02/20 11/02/20 11/02/20 00:30 00:30 00:30 WBC RBC Hgb Hct MCV MCH MCHC RDW Coeff of Sia Plt Count Immature Gran % (Auto) Neut % (Auto) Lymph % (Auto) [place] % (Auto) Eos % (Auto) Baso % (Auto) Neut # (Auto) Lymph # (Auto) [place] # (Auto) Eos # (Auto) Baso # (Auto) Immature Gran # (Auto) Puncture Site Base Excess O2 Saturation ABG pH ABG pCO2 ABG pO2 ABG HCO3 ABG Total CO2 Lion Test Hemoglobin Oxyhemoglobin Carboxyhemoglobin Total Hemoglobin O2 Delivery Device Oxygen Liter Flow FiO2 % Sodium Potassium Chloride Carbon Dioxide Anion Gap BUN Creatinine Estimated GFR (MDRD) BUN/Creatinine Ratio Glucose Lactic Acid Calcium Total Bilirubin AST ALT Alkaline Phosphatase Troponin I NT-Pro-B Natriuret Pep 86001.000 H Total Protein Albumin Globulin Albumin/Globulin Ratio Procalcitonin < 0.05 Adenovirus (PCR) Not detected B. pertussis DNA (PCR) Not detected B.parapertussis DNA PCR Not detected C. pneumoniae DNA (PCR) Not detected Coronavirus OC43 (PCR) Not detected Coronavirus HKU1 (PCR) Not detected Coronavirus 229E (PCR) Not detected Coronavirus NL63 (PCR) Not detected Human Metapneumovir PCR Not detected Influenza Type A (PCR) Not detected Influenza B (RT-PCR) Not detected M. pneumoniae (PCR) Not detected Parainfluenza 1 (PCR) Not detected Parainfluenza 2 (PCR) Not detected Parainfluenza 3 (PCR) Not detected Parainfluenza 4 (PCR) Not detected RSV (PCR) Not detected Entero/Rhino (PCR) Not detected SARS-CoV-2 (PCR) Not detected 11/02/20 11/02/20 00:30 00:30 WBC RBC Hgb Hct MCV MCH MCHC RDW Coeff of Sia Plt Count Immature Gran % (Auto) Neut % (Auto) Lymph % (Auto) [place] % (Auto) Eos % (Auto) Baso % (Auto) Neut # (Auto) Lymph # (Auto) [place] # (Auto) Eos # (Auto) Baso # (Auto) Immature Gran # (Auto) Puncture Site Base Excess O2 Saturation ABG pH ABG pCO2 ABG pO2 ABG HCO3 ABG Total CO2 Lion Test Hemoglobin Oxyhemoglobin Carboxyhemoglobin Total Hemoglobin O2 Delivery Device Oxygen Liter Flow FiO2 % Sodium Potassium Chloride Carbon Dioxide Anion Gap BUN Creatinine Estimated GFR (MDRD) BUN/Creatinine Ratio Glucose Lactic Acid 0.96 Calcium Total Bilirubin AST ALT Alkaline Phosphatase Troponin I 0.022 NT-Pro-B Natriuret Pep Total Protein Albumin Globulin Albumin/Globulin Ratio Procalcitonin Adenovirus (PCR) B. pertussis DNA (PCR) B.parapertussis DNA PCR C. pneumoniae DNA (PCR) Coronavirus OC43 (PCR) Coronavirus HKU1 (PCR) Coronavirus 229E (PCR) Coronavirus NL63 (PCR) Human Metapneumovir PCR Influenza Type A (PCR) Influenza B (RT-PCR) M. pneumoniae (PCR) Parainfluenza 1 (PCR) Parainfluenza 2 (PCR) Parainfluenza 3 (PCR) Parainfluenza 4 (PCR) RSV (PCR) Entero/Rhino (PCR) SARS-CoV-2 (PCR) Orders Category Date Time Status ABG DRAW REQUEST Stat CARDIO 11/01/20 18:28 Completed ABG DRAW REQUEST Stat CARDIO 11/01/20 19:32 Completed ABG DRAW REQUEST Stat CARDIO 11/01/20 21:40 Completed BIPAP Routine CARDIO 11/02/20 01:48 Completed EKG-(ED ONLY) Stat CARDIO 11/01/20 17:46 Completed METERED DOSE INHALATION Routine CARDIO 11/01/20 18:32 Completed OXYGEN Routine CARDIO 11/02/20 01:48 Completed VAPOTHERM Routine CARDIO 11/01/20 19:35 Completed ACTIVITY .Complete BR CARE 11/02/20 01:49 Completed INTAKE & OUTPUT Q8HR CARE 11/02/20 01:49 Completed VITAL SIGNS Q8HR CARE 11/02/20 01:49 Completed ABG COOX Stat LAB 11/01/20 19:30 Completed ABG COOX Stat LAB 11/01/20 21:40 Completed BLOOD CULTURE Stat LAB 11/02/20 00:25 Completed CBC W/ AUTO DIFF DAILY@0600 LAB 11/02/20 04:53 Completed CBC W/ AUTO DIFF DAILY@0600 LAB 11/03/20 04:39 Completed CBC W/ AUTO DIFF Stat LAB 11/01/20 17:59 Completed CMP [COMPREHENSIVE METABOLIC PANEL] Stat LAB 11/01/20 17:59 Completed COMPREHENSIVE METABOLIC PANEL DAILY@0600 LAB 11/02/20 04:53 Completed COMPREHENSIVE METABOLIC PANEL DAILY@0600 LAB 11/03/20 04:39 Completed LACTIC ACID Stat LAB 11/02/20 00:30 Completed NT-PROBNP Stat LAB 11/02/20 00:30 Completed PROCALCITONIN Stat LAB 11/02/20 00:30 Completed RESPIRATORY PANEL 2.1 (PCR) Stat LAB 11/02/20 00:30 Completed TROPONIN I Stat LAB 11/01/20 17:59 Completed TROPONIN I Stat LAB 11/02/20 00:30 Completed Acetaminophen [Tylenol] MEDS 11/02/20 01:48 Discontinued 650 mg PO Q4H PRN Albuterol Inhaler(with Spacer) [Ventolin Hfa (Per Puff- MEDS 11/01/20 18:31 Discontinued with Spacer)] 2 puff IH ONCE ONE Enoxaparin Sodium [Lovenox] MEDS 11/02/20 09:00 Discontinued 40 mg SUBCUT DAILY Furosemide [Lasix] MEDS 11/02/20 06:30 Discontinued 20 mg IVP QDAC Furosemide [Lasix] MEDS 11/01/20 19:50 Discontinued 40 mg IVP ONCE ONE Hydrocortisone Sod Succ/Pf [Solu-Cortef 250 mg] MEDS 11/01/20 18:30 Discontinued 125 mg IVP ONCE STA Ipratropium Inhaler(Spacer) [Atrovent Hfa Inhaler (Per MEDS 11/01/20 18:31 Discontinued Puff-with Spacer)] 2 puff IH ONCE STA Methylprednisolone Sod Succ/Pf [Solu-Medrol 40 mg] MEDS 11/02/20 05:00 Discontinued 40 mg IVP Q8HR Ondansetron HCl/Pf [Zofran 4 mg/2 ml] MEDS 11/02/20 01:48 Discontinued 4 mg IVP Q6H PRN RESUSCITATION STATUS Routine OTHERS 11/02/20 01:48 Completed CHEST, 1V AP ONLY Stat RADS 11/01/20 17:45 Completed PT CONSULT Routine THERAPIES 11/02/20 14:42 Completed Medications Discontinued Medications Generic Name Dose Route Start Last Admin Trade Name Freq PRN Reason Stop Dose Admin Acetaminophen 650 mg 11/02/20 01:48 Acetaminophen 325 Mg Tablet PO Q4H PRN Fever Hydrocodone Bitart/Acetaminophen 1 tab 11/02/20 21:00 11/10/20 08:07 Hydrocodone Bit/Acetaminophen 5/325 Mg Tablet PO 1 tab BID BECKY Administration Albuterol Sulfate 2 puff 11/01/20 18:31 11/01/20 18:59 Albuterol Sulfate (Ventolin Hfa) 18 Gm 1 Puff With Spacer IH 11/01/20 18:32 2 puff ONCE ONE Administration Albuterol/Ipratropium 3 ml 11/02/20 12:00 11/10/20 11:04 Ipratropium/Albuterol Vial.Neb NEB 3 ml RTQ6H BECKY Administration Alprazolam 0.5 mg 11/02/20 09:00 11/10/20 15:27 Alprazolam 0.5 Mg Tablet PO 0.5 mg TID BECKY Administration Aripiprazole 2.5 mg 11/02/20 21:00 11/09/20 20:13 Aripiprazole 5 Mg Tablet PO Not Given BEDTIME BECKY Aspirin 81 mg 11/02/20 08:30 11/10/20 08:06 Aspirin 81 Mg Tab.Chew PO 81 mg DAILYWM BECKY Administration Budesonide 1 mg 11/02/20 18:00 11/10/20 05:13 Budesonide 1 Mg/2 Ml Vial.Neb NEB 1 mg RTBID BECKY Administration Budesonide/Formoterol Fumarate 2 puff 11/02/20 09:00 11/05/20 08:41 Budesonide/Formoterol Fumarate 160/4.5 Mcg Inhaler IH 2 puff BID BECKY Administration Carvedilol 3.125 mg 11/02/20 08:30 11/10/20 08:07 Carvedilol 3.125 Mg Tablet PO 3.125 mg BIDWM BECKY Administration Citalopram Hydrobromide 20 mg 11/02/20 09:00 11/10/20 08:07 Citalopram Hydrobromide 20 Mg Tablet PO 20 mg DAILY BECKY Administration Docusate Sodium 100 mg 11/02/20 09:00 11/10/20 08:07 Docusate Sodium 100 Mg Capsule PO 100 mg DAILY BECKY Administration Enoxaparin Sodium 40 mg 11/02/20 09:00 11/10/20 08:10 Enoxaparin Sodium 40 Mg/0.4 Ml Syr SUBCUT 40 mg DAILY BECKY Administration Famotidine 20 mg 11/09/20 09:00 11/10/20 06:02 Famotidine 20 Mg Tablet PO 20 mg QDAC BECKY Administration Ferrous Sulfate 324 mg 11/02/20 09:00 11/10/20 08:06 Ferrous Sulfate 324 Mg Tablet.Dr PO 324 mg EVERY OTHER DAY BECKY Administration Fluticasone Propionate 2 spray 11/02/20 09:00 11/10/20 08:10 Fluticasone Propionate 16 Gm Nasal [place] CELSO Not Given BID BECKY Furosemide 40 mg 11/01/20 19:50 11/01/20 19:55 Furosemide Inj 40 Mg/4 Ml Vial IVP 11/01/20 19:51 40 mg ONCE ONE Administration Furosemide 20 mg 11/02/20 06:30 11/02/20 05:40 Furosemide Inj 20 Mg/2 Ml Vial IVP 20 mg QDAC BECKY Administration Furosemide 20 mg 11/03/20 06:30 11/10/20 06:02 Furosemide 20 Mg Tablet PO 20 mg QDAC BECKY Administration Furosemide 20 mg 11/07/20 05:23 11/07/20 05:37 Furosemide 20 Mg Tablet PO 11/07/20 05:24 20 mg ONCE ONE Administration Furosemide 40 mg 11/08/20 08:26 11/08/20 08:56 Furosemide Inj 40 Mg/4 Ml Vial IVP 11/08/20 08:27 40 mg ONCE ONE Administration Hydrocortisone 1 applic 11/02/20 01:56 Hydrocortisone 28 Gm Cream TP BID PRN Rash Hydrocortisone Sodium Succinate 125 mg 11/01/20 18:30 11/01/20 18:40 Hydrocortisone Sod Succ/Pf 250 Mg/2 Ml Vial IVP 11/01/20 18:31 125 mg ONCE STA Administration Hydrocortisone Sodium Succinate 125 mg 11/02/20 09:00 11/09/20 06:06 Hydrocortisone Sod Succ/Pf 250 Mg/2 Ml Vial IVP 125 mg Q6HR BECKY Administration CEFTRIAXONE/D5W 1 GM PREMIX 1 gm in 50 mls @ 75 mls/hr 11/03/20 18:00 11/09/20 08:10 Rocephin 1 Gm/50 Ml D5w IV 11/09/20 10:00 75 mls/hr DAILY BECKY Administration Ipratropium [place] 2 puff 11/01/20 18:31 11/01/20 19:02 Ipratropium [place] 12.9 Gm Hfa Inhaler Per Puff With Spacer IH 11/01/20 18:32 2 puff ONCE STA Administration Lisinopril 2.5 mg 11/02/20 02:00 11/02/20 03:16 Lisinopril 5 Mg Tablet PO Not Given DAILY BECKY Magnesium Hydroxide 30 ml 11/02/20 01:56 11/07/20 09:29 Magnesium Hydroxide 30 Ml Cup PO 30 ml DAILY PRN Administration Constipation Methylprednisolone Sodium Succinate 40 mg 11/02/20 05:00 11/02/20 05:40 Methylprednisolone Sod Succ/Pf 40 Mg/Ml Vial IVP 40 mg Q8HR BECKY Administration Nystatin 1 applic 11/02/20 09:00 11/10/20 09:19 Nystatin 15 Gm Powder TP 1 applic BID BECKY Administration Ondansetron HCl 4 mg 11/02/20 01:48 Ondansetron Hcl/Pf 4 Mg/2 Ml Sdv IVP Q6H PRN nausea Polyethylene Glycol 17 gm 11/06/20 13:57 11/06/20 14:05 Polyethylene Glycol 17 Gm Powd.Pack PO 11/06/20 13:58 17 gm ONCE ONE Administration Potassium Chloride 10 meq 11/02/20 08:30 08/18/21 16:00 Potassium Chloride 10 Meq Capsule.Er PO 10 meq BIDWM BECKY Administration Potassium Chloride 20 meq 11/08/20 08:30 11/09/20 08:02 Potassium Chloride 20 Meq Tab PO 20 meq BIDWM BECKY Administration Potassium Chloride 40 meq 11/09/20 08:30 11/10/20 13:41 Potassium Chloride 20 Meq Tab PO 40 meq TIDWM BECKY Administration Potassium Chloride 20 meq 11/09/20 08:52 11/09/20 09:13 Potassium Chloride 20 Meq Tab PO 11/09/20 08:53 20 meq ONCE ONE Administration Prednisone 20 mg 11/09/20 08:30 11/10/20 08:06 Prednisone 20 Mg Tablet PO 20 mg DAILYWM BECKY Administration Saccharomyces Boulardii 250 mg 11/09/20 09:00 11/10/20 09:18 Saccharomyces Boulardii 250 Mg Capsule PO 250 mg BID BECKY Administration Sennosides 8.6 mg 11/02/20 09:00 11/10/20 09:18 Sennosides 8.6 Mg Tablet PO 8.6 mg BID BECKY Administration Sodium Chloride 1 syr 11/02/20 13:00 11/10/20 13:41 0.9% Sodium Chloride 10 Ml Disp.Syrin IVF 1 syr Q8HR BECKY Administration Sodium Chloride 1 syr 11/08/20 17:54 11/08/20 23:38 0.9% Sodium Chloride 10 Ml Disp.Syrin IVF 1 syr PRN PRN Administration iv patency flush Tiotropium [place] 1 cap 11/02/20 09:00 11/10/20 08:09 Tiotropium [place] 18 Mcg Cap.W.Dev IH 1 cap DAILY BECKY Administration Torsemide 10 mg 11/02/20 02:00 11/02/20 03:15 Torsemide 20 Mg Tablet PO Not Given DAILY BECKY Torsemide 10 mg 11/02/20 07:30 11/05/20 05:42 Torsemide 20 Mg Tablet PO 10 mg QDAC BECKY Administration Vital Signs: Temp Pulse Resp BP Pulse Ox 11/01/20 22:00 97 11/01/20 17:21 97.7 F 105 H 35 H 124/80 89 L Discharge Plan Discharge Patient Disposition: ADMITTED INPATIENT Discharge Problem: Acute exacerbation of chronic obstructive pulmonary disease, Chronic obstructive pulmonary disease CHF (congestive heart failure) Qualifiers: Heart failure type: systolic Heart failure chronicity: chronic Qualified Code( s): I50.22 - Chronic systolic (congestive) heart failure ED Provider: NING SEAY Condition: Fair <NING SEAY DO - Last Filed: 12/10/20 05:59> Physician Progress Note: []
[2020-11-01 21:49] LABS: ABG O2 HGB 85.2 % (95-100); BEecf 4.2 (-2.0-3.0); COHb 3.2 (0.5-1.5); HCO3 30.8 (21-28); MetHb 1.2 (0-1.5); TCO2 32.8 (19-24); sO2 83.5 % (94-98); tHb 14.6 g/dl (11.7-17.4)
[2020-11-01 22:18] LABS: ABG PH 7.29 (7.35-7.45)
[2020-11-01 22:45] LABS: ABG PH 7.33 (7.35-7.45)
[2020-11-01 22:47] LABS: COHb 3.2 (0.5-1.5); HCO3 27.9 (21-28); MetHb 1.2 (0-1.5); TCO2 32.8 (19-24); sO2 82.8 % (94-98)
[2020-11-01 22:48] LABS: ABG O2 HGB 85.2 % (95-100); tHb 14.6 g/dl (11.7-17.4)
[2020-11-02 00:43] LABS: BORDETELLA PARAPERTUSSIS (PCR) NOT DETECTED (NOT DETECT); BORDETELLA PERTUSSIS (PCR) NOT DETECTED (NOT DETECT); CHLAMYDIA PNEUMONIAE (PCR) NOT DETECTED (NOT DETECT); CORONAVIRUS 229E (PCR) NOT DETECTED (NOT DETECT); CORONAVIRUS HKU1 (PCR) NOT DETECTED (NOT DETECT); CORONAVIRUS NL63 (PCR) NOT DETECTED (NOT DETECT); CORONAVIRUS OC43 (PCR) NOT DETECTED (NOT DETECT); HUMAN METAPNEUMOVIRUS (PCR) NOT DETECTED (NOT DETECT); HUMAN RHINOVIRUS/ENTEROV (PCR) NOT DETECTED (NOT DETECT); INFLUENZA B (PCR) NOT DETECTED (NOT DETECT); MYCOPLASMA PNEUMONIAE (PCR) NOT DETECTED (NOT DETECT); PARAINFLUENZA VIRUS 1 (PCR) NOT DETECTED (NOT DETECT); PARAINFLUENZA VIRUS 2 (PCR) NOT DETECTED (NOT DETECT); PARAINFLUENZA VIRUS 3 (PCR) NOT DETECTED (NOT DETECT); PARAINFLUENZA VIRUS 4 (PCR) NOT DETECTED (NOT DETECT); RESPIRATORY SYNCYTIAL V (PCR) NOT DETECTED (NOT DETECT); SARS_COV_2 (PCR) NOT DETECTED (NOT DETECT)
[2020-11-02 01:32] LABS: ADENOVIRUS (PCR) NOT DETECTED (NOT DETECT)
[2020-11-02] MEDS ORDERED: ZOFRAN 4 MG/2 ML IVP PRN (01:48)
[2020-11-02] MEDS ORDERED: TYLENOL PO PRN (01:48)
[2020-11-02] MEDS ORDERED: HYDROCORTISONE 1% CREAM TP PRN (01:56)
[2020-11-02] MEDS ORDERED: MILK OF MAGNESIA PO PRN (01:56)
[2020-11-02] MEDS ORDERED: DEMADEX PO SCH (02:00)
[2020-11-02] MEDS ORDERED: ZESTRIL PO SCH (02:00)
[2020-11-02 03:48] VITALS: BMI 43.2
[2020-11-02] MEDS ORDERED: SOLU-MEDROL 40 MG IVP SCH (05:00)
[2020-11-02 05:30] LABS: BASOPHILS % (AUTO) 0.2 % (0.0-3.0); EOSINOPHILS % (AUTO) 0.1 % (0.0-7.0); HEMATOCRIT 45.3 % (37.0-47.0); HEMOGLOBIN 13.3 g/dl (12.0-16.0); IMMATURE GRANULOCYTE % (AUTO) 0.5 % (0.0-5.0); LYMPHOCYTES # (AUTO) 0.9 K/uL (0.60-3.4); LYMPHOCYTES % (AUTO) 10.6 (10.0-50.0); MEAN CORPUSCULAR HEMOGLOBIN 29.4 pg (27.0-31.0); MEAN CORPUSCULAR HGB CONC 29.4 (31.8-35.4); MONOCYTES # (AUTO) 0.3 K/uL (0.4-2.0); MONOCYTES % (AUTO) 3.2 (0-10); NEUTROPHILS % (AUTO) 85.4 % (42.2-75.2); PLATELET COUNT 222 10^3/uL (140-440); RDW COEFFICIENT OF VARIATION 16.6 % (11.6-14.8); RED BLOOD COUNT 4.53 10^6/ul (4.20-5.40)
[2020-11-02] MEDS ORDERED: NYSTOP POWDER TP ONE (05:34)
[2020-11-02 05:48] LABS: ALANINE AMINOTRANSFERASE 19.7 U/L (0-35); ALBUMIN 3.84 g/dL (3.5-5.0); ALKALINE PHOSPHATASE 91.4 U/L (53-141); ASPARTATE AMINO TRANSFERASE 25.8 U/L (14-36); BILIRUBIN,TOTAL 0.73 mg/dL (0.2-1.3); BLOOD UREA NITROGEN 16.1 mg/dL (7-17); CALCIUM 9.37 mg/dL (8.4-10.2); CARBON DIOXIDE 30.9 mmol/L (22-30.0); CHLORIDE 104.8 mmol/L (98-107); CREATININE 0.99 mg/dL (0.60-1.30); GLUCOSE 114.2 mg/dL (74-106); POTASSIUM 4.86 mmol/L (3.5-5.1); SODIUM 141.2 mmol/L (134.5-145); TOTAL PROTEIN 6.66 g/dL (6.3-8.2)
[2020-11-02 06:13] LABS: THYROID STIMULATING HORMONE 0.799 uIU/L (0.465-4.68)
[2020-11-02] MEDS ORDERED: LASIX IVP SCH (06:30)
[2020-11-02 07:57] LABS: ABG O2 HGB 92.9 % (95-100); BEecf 6.1 (-2.0-3.0); COHb 3.5 (0.5-1.5); HCO3 33.3 (21-28); MetHb 0.9 (0-1.5); TCO2 35.6 (19-24); sO2 93.4 % (94-98); tHb 13.8 g/dl (11.7-17.4)
[2020-11-02 07:59] LABS: ABG PH 7.25 (7.35-7.45)
[2020-11-02] MEDS ORDERED: COMBIVENT RESPIMAT INHALER IH SCH (09:00)
[2020-11-02] MEDS ORDERED: SENNOSIDES DOCUSATE SODIUM PO SCH (09:00)
[2020-11-02] MEDS ORDERED: SOLU-MEDROL 125 MG IVP SCH (09:00)
[2020-11-02] MEDS: SOLU-CORTEF 250 MG IVP SCH ×3 (09:05→18:13)
[2020-11-02] MEDS: FLONASE NAS SCH ×2 (09:43→20:32)
[2020-11-02] MEDS: SPIRIVA IH SCH (09:43)
[2020-11-02] MEDS: SYMBICORT 160-4.5 MCG INHALER IH SCH ×2 (09:43→20:32)
[2020-11-02] MEDS: COLACE PO SCH (09:43)
[2020-11-02] MEDS: ASPIRIN CHEWABLE PO SCH (09:44)
[2020-11-02] MEDS: MICRO-K CAP PO SCH ×2 (09:44→17:34)
[2020-11-02] MEDS: CELEXA PO SCH (09:44)
[2020-11-02] MEDS: XANAX PO SCH ×3 (09:44→20:28)
[2020-11-02] MEDS: DEMADEX PO SCH (09:44)
[2020-11-02] MEDS: COREG PO SCH ×2 (09:44→17:34)
[2020-11-02] MEDS: SENNA PO SCH ×2 (09:44→20:29)
[2020-11-02] MEDS: LOVENOX SUBCUT SCH (09:48)
[2020-11-02] MEDS: NYSTOP POWDER TP SCH ×2 (09:54→20:29)
[2020-11-02] MEDS: FERROUS SULFATE PO SCH (10:00)
--- NOTE | 2020-11-02 10:05 | PCM.CONS ---
CONSULTING PROVIDER: Dr. CARLIN PEDROZA ATTENDING PROVIDER: [facility] DATE OF SERVICE: 11/02/20 SUBJECTIVE: This 70 year old /WHITE F was hospitalized 11/02/20 with acute respiratory failure. The patient has severe chronic lung disease, possibility of CHF exists. The patient complains of being short of breath on minimal exertion. She is alert. Rate is 90/min. The patient is a resident of the residential. REVIEW OF SYSTEMS: CONSTITUTIONAL: No night sweats. No fatigue, malaise, lethargy. No fever or chills. HEENT: Eyes: No visual changes. No eye pain. No eye discharge. ENT: No runny nose. No epistaxis. No sinus pain. No odynophagia. No congestion. RESPIRATORY: Shortness of breath on minimal exertion. No cough, no congestion. No hemoptysis. CARDIOVASCULAR: No angina symptoms. No CHF symptoms. No atypical chest pain for CAD. No palpitations. No orthopnea. GASTROINTESTINAL: No abdominal pain. No nausea or vomiting. No diarrhea or constipation. No hematemesis. No hematochezia. GENITOURINARY: No urgency. No frequency. No dysuria. No hematuria. No obstructive symptoms. No discharge. No pain. No significant abnormal bleeding. MUSCULOSKELETAL: No musculoskeletal pain; no joint swelling. NEUROLOGICAL: Awake, alert, oriented to time, place and person. No headache. No neck pain. No syncope. No seizures. No dizziness. PSYCHIATRIC: Not anxious. No depression. No suicidal thoughts. No homicidal thoughts. SKIN: No rash. No lesions. No wounds. ENDOCRINE: No unexplained weight loss. No weight gain. HEMATOLOGIC/LYMPHATIC: No anemia. No purpura. No petechiae. No prolonged or excessive bleeding. No palpable lymph nodes. MEDICATIONS: Potassium Chloride 40 mEq p.o. b.i.d. Alprazolam 0.5 mg p.o. t.i.d. Citalopram 20 mg p.o. daily Ipratropium-Albuterol one vial neb t.i.d. Budesonide-Formoterol (Symbicort) two puff INH b.i.d. Ondansetron 4 mg p.o. q.6hr p.r.n. Acetaminophen 650 mg p.o. q.4h p.r.n. Aspirin 81 mg p.o. q.day Bisacodyl 10 mg RC q.day p.r.n. Hydrocodone-Acetaminophen one tab p.o. b.i.d. Sennosides-Docusate Sodium one tab - cap p.o. b.i.d. Ferrous Sulfate 325 mg p.o. daily Guaifenesin 600 mg p.o. b.i.d. Saccharomyces boulardii 250 mg p.o. b.i.d. Famotidine 20 mg p.o. daily ALLERGIES: PENICILLINS PAST MEDICAL HISTORY: Respiratory failure on oxygen therapy Anemia Generalized osteoarthritis Anxiety syndrome Pulmonary hypertension Morbid obesity CHF PHYSICAL EXAMINATION: GENERAL: The patient is awake, alert and oriented, lying/sitting in bed in no distress. VITAL SIGNS: Temperature 97.6 F, Pulse 89, Respiratory Rate 20, BP 92/60, Pulse Ox 99% HEENT: Face symmetric. Head normocephalic, atraumatic. Eyes: Extraocular muscles are intact. Pupils are equal, round and reactive to light and accommodation. Ears: No lesions. Nose appeared normal. Throat: No exudate or erythema. NECK: Supple. No JVD, no carotid bruit. No lymphadenopathy or thyromegaly. LUNGS: Bilateral expiratory wheeze. Clear to auscultation. Percussion note normal. Chest symmetrical. HEART: S1, S2 distant. No S3. No murmurs. No cyanosis or clubbing. No ascites. Pulses: Dorsalis pedis and posterior tibial pulses +1 to +2 both sides. ABDOMEN: Abdomen is protuberant. Soft. Non-tender. Bowel sounds active. No CVA tenderness. No mass felt. EXTREMITIES: No edema. Full range of motion of all extremities, equal. NEUROLOGIC: No focal deficit. Cranial nerves II through XII are grossly intact. No headache, no double vision or headache. SKIN: Warm and dry. Intact. Turgor-normal. LYMPHATIC: No palpable lymph nodes/no lymphedema. MUSCULOSKELETAL: Normal joints with no swelling. Muscle tone is normal. LAB REVIEW: 11/02/20 04:53 11/02/20 04:53 11/02/20 07:46: Puncture Site Rrad, Base Excess 6.1 H, O2 Saturation 93.4 L, ABG pH 7.25 L*, ABG pCO2 76.0 H, ABG pO2 79.0 L, ABG HCO3 33.3 H, ABG Total CO2 35.6 H, Lion Test Pos, Hemoglobin 0.9, Oxyhemoglobin 92.9 L, Carboxyhemoglobin 3.5 H , Total Hemoglobin 13.8, O2 Delivery Device Non rebreather, Oxygen Liter Flow 15.00, FiO2 % 100.0 11/02/20 04:53: Sodium 141.2, Potassium 4.86, Chloride 104.8, Carbon Dioxide 30.9 H, Anion Gap 10.36, BUN 16.1, Creatinine 0.99, Estimated GFR (MDRD) 56.00, BUN/Creatinine Ratio 16.26, Glucose 114.2 H, Calcium 9.37, Total Bilirubin 0.73, AST 25.8, ALT 19.7, Alkaline Phosphatase 91.4, Total Protein 6.66, Albumin 3.84, Globulin 2.82, Albumin/Globulin Ratio 1.36, TSH 0.799 11/02/20 04:53: WBC 8.20, RBC 4.53, Hgb 13.3, Hct 45.3, MCV 100.0 H, MCH 29.4, MCHC 29.4 L, RDW Coeff of Sia 16.6 H, Plt Count 222, Immature Gran % (Auto) 0.5, Neut % (Auto) 85.4 H, Lymph % (Auto) 10.6, Sibley % (Auto) 3.2, Eos % (Auto) 0.1, Baso % (Auto) 0.2, Neut # (Auto) 7.0 H, Lymph # (Auto) 0.9, Sibley # (Auto) 0.3 L, Eos # (Auto) 0.0, Baso # (Auto) 0.0, Immature Gran # (Auto) 0.0 11/02/20 00:30: Lactic Acid 0.96 11/02/20 00:30: Troponin I 0.022 11/02/20 00:30: Adenovirus (PCR) Not detected, B. pertussis DNA (PCR) Not detected, B.parapertussis DNA PCR Not detected, C. pneumoniae DNA (PCR) Not detected, Coronavirus OC43 (PCR) Not detected, Coronavirus HKU1 (PCR) Not detected, Coronavirus 229E (PCR) Not detected, Coronavirus NL63 (PCR) Not detected, Human Metapneumovir PCR Not detected, Influenza Type A (PCR) Not detected, Influenza B (RT-PCR) Not detected, M. pneumoniae (PCR) Not detected, Parainfluenza 1 (PCR) Not detected, Parainfluenza 2 (PCR) Not detected, Parainfluenza 3 (PCR) Not detected, Parainfluenza 4 (PCR) Not detected, RSV (PCR) Not detected, Entero/Rhino (PCR) Not detected, SARS-CoV-2 (PCR) Not detected 11/02/20 00:30: Procalcitonin < 0.05 11/02/20 00:30: NT-Pro-B Natriuret Pep 47794.000 H 11/01/20 21:40: Puncture Site Rb, Base Excess 4.2 H, O2 Saturation 83.5 L, ABG pH 7.29 L*, ABG pCO2 64.0 H, ABG pO2 54.0 L*, ABG HCO3 30.8 H, ABG Total CO2 32.8 H, Lion Test +, Hemoglobin 1.2, Oxyhemoglobin 85.2 L, Carboxyhemoglobin 3.2 H, Total Hemoglobin 14.6, O2 Delivery Device Vapotherm, FiO2 % 100.0 11/01/20 19:30: Puncture Site Rb, Base Excess 2.0, O2 Saturation 82.8 L, ABG pH 7.33 L, ABG pCO2 53.0 H, ABG pO2 51.0 L*, ABG HCO3 27.9, ABG Total CO2 32.8 H, Lion Test +, Hemoglobin 1.2, Oxyhemoglobin 85.2 L, Carboxyhemoglobin 3.2 H, Total Hemoglobin 14.6, Oxygen Liter Flow 15.00, FiO2 % 100.0 11/01/20 19:02: Puncture Site Cancelled, Base Excess Cancelled, O2 Saturation Cancelled, ABG pH Cancelled, ABG pCO2 Cancelled, ABG pO2 Cancelled, ABG HCO3 Cancelled, ABG Total CO2 Cancelled, Lion Test Cancelled, Hemoglobin Cancelled, Oxyhemoglobin Cancelled, Carboxyhemoglobin Cancelled, Total Hemoglobin Cancelled, O2 Delivery Device Cancelled, Oxygen Liter Flow Cancelled, FiO2 % Cancelled 11/01/20 17:59: Troponin I 0.018 11/01/20 17:59: Sodium 140.8, Potassium 4.74, Chloride 105.7, Carbon Dioxide 26.7, Anion Gap 13.14, BUN 15.7, Creatinine 0.84, Estimated GFR (MDRD) 67.00, BUN/Creatinine Ratio 18.69, Glucose 108.1 H, Calcium 9.43, Total Bilirubin 0.90, AST 29.0, ALT 21.6, Alkaline Phosphatase 96.3, Total Protein 7.27, Albumin 4.23, Globulin 3.04, Albumin/Globulin Ratio 1.39 11/01/20 17:59: WBC 10.25 H, RBC 4.76, Hgb 14.1, Hct 47.6 H, MCV 100.0 H, MCH 29.6, MCHC 29.6 L, RDW Coeff of Sia 17.0 H, Plt Count 216, Immature Gran % (Au to) 0.3, Neut % (Auto) 79.1 H, Lymph % (Auto) 11.8, Sibley % (Auto) 6.4, Eos % (Auto) 2.1, Baso % (Auto) 0.3, Neut # (Auto) 8.1 H, Lymph # (Auto) 1.2, Sibley # (Auto) 0.7, Eos # (Auto) 0.2, Baso # (Auto) 0.0, Immature Gran # (Auto) 0.0 ASSESSMENT: 1. Acute respiratory failure. 2. The patient has chronic hypoxemia on oxygen therapy. 3. Morbid obesity. 4. Generalized osteoarthritis. PLAN: 1. T4, TSH already done. 2. Discontinue Combivent. 3. Solu-Cortef 125 q.8hr - give one dose now. 4. Duonebs q.6hr. 5. Pulmicort b.i.d 6. No need for diuretics at the present time. 7. Will monitor blood gases and telemetry. 8. The patient is DNR. 9. ABG shows partially compensated respiratory acidosis. I feel oxygen given to the patient to improve acidosis. Echocardiogram from 2019 showed paradoxical septal wall motion with enlarged right ventricle and left atrial cavities, ejection fraction 50 to 55% indicating evidence of pulmonary hypertension. RECOMMENDATIONS/PLAN: Plan and coordination of the patient's care discussed in the presence of Residential Care Officer and Nurse. CONDITION: Stable SCRIBED BY: LALITA HOLLEY Finance Controller scribed while in presence of service performed by Dr. CARLIN PEDROZA on 11/02/20 ([id number])
--- NOTE | 2020-11-02 10:15 | CT ---
EXAM: CT chest without contrast HISTORY: Shortness of breath COMPARISON: 11/01/2020 TECHNIQUE: Multiple axial images of the chest were obtained without contrast. Images were reformatte d in the sagittal and coronal planes. FINDINGS: Normal appearance thoracic inlet and thyroid gland. A couple enlarged precarinal lymph nodes measure up to 1.6 cm short axis. Several other prominent but nonenlarged mediastinal lymph nodes. Lack of IV contrast limits evaluation for hilar adenopathy. The heart is enlarged. Normal diameter thoracic aorta with mild atherosclerotic calcifications. Prominent pulmonary trunk and bilateral pulmonary a rteries. Esophagus within normal limits. Patent central airways. Scattered moderate emphysematous c hanges. Patchy bilateral ground-glass opacities with smooth interlobular septal thickening, slightly greater in the left lung. Dependent left greater than right lower lobe linear consolidation. No pn eumothorax or pleural effusion. 0.5 cm right lung nodule (axial 27). No acute findings within the visualized upper abdomen. Enlarged spleen. No acute osseous abnormality. Nonspecific left upper abdominal subcutaneous edema, partially visualized. T11 vertebral body luce ncy suggesting hemangioma. IMPRESSION: 1. Left greater than right lung patchy ground-glass opacities with smooth interlobular septal [place], which suggests interstitial edema versus atypical infection/inflammation. 2. Mild dependent bilateral lower lobe atelectasis. 3. Moderate emphysema. 4. Right lung 0.5 cm nodule. Follow-up CT in 12 months recommended.. 5. Nonspecific enlargement of the pulmonary trunk and main pulmonary arteries, which can be seen wit h pulmonary hypertension. 6. Cardiomegaly. 7. Splenomegaly. All CT scans are performed using dose optimization techniques as appropriate to the performed exam an d include at least one of the following: Automated exposure control, adjustment of the mA and/or kV according t o size, and the use of iterative reconstruction technique.
[2020-11-02] MEDS: DUONEB NEB SCH ×3 (11:50→23:10)
--- NOTE | 2020-11-02 14:38 | HP ---
DATE OF SERVICE: 11/02/20 CHIEF COMPLAINT: Increasing shortness of breath, marked hypoxemia. HISTORY OF PRESENT ILLNESS: 70-year-old female , a resident of [facility] had experienced increasing shortness of breath despite of the high flow oxygen 8 to 10L/min. Oxygen saturation was very low and so she was sent to the emergency room at [facility]. This patient had been at a [facility] recently for about one month and was discharged with 8 to 10L of nasal oxygen/min. Workup was done in the emergency room and the chest x-ray showed what appeared to be vascular congestion with no acute infiltrates. The patient was given Lasix 40 mg intravenously at the emergency room and later on was also given Solu-Cortef intravenously one dose. I talked to Dr. Correa and I told him that I would not admit her in the hospital because the patient had been admitted to a well puller head or hospitalist with consultations which we do not have a well puller head at this facility. She told me that the patient does not desire any intubation or refuses any intubation for further deterioration. Later on the case was transferred to the next ER [facility] and he did inform me in the manager basketball hours of 11/02/20 that he would like to admit the patient. I asked him about the workup and I told him that I needed further documentation and I would like to know the results namely procalcitonin, Pro-BNP and Covid-19 screening test. He later called me back and told me that the procalcitonin is normal and the Pro-BNP was markedly elevated. Covid-19 testing negative. The patient was then admitted to the hospital. I did ask them to talk to the brother as well as the patient letting them know that there is no pulmonary doctor who will be acting as a change consultant if needed. He told me that he did talk to Jovan Quiros and also talked to the patient with regards to that subject. The patient is a DNR. The patient had been through this emergency room several times but never admitted to this facility until this time. PAST PERSONAL HISTORY: 1. The patient had been known to have chronic respiratory failure on constant nasal oxygen with increasing amount per nasal, the last time was 8 to 10 per minute after she was discharged from [facility] in [place]. 2. History of heart failure with preserved ejection fraction. 3. History of chronic obstructive lung disease. 4. History of obesity. 5. History of pulmonary hypertension. PERSONAL HISTORY: The patient claimed to be a nonsmoker and has had this problem for some time. FAMILY HISTORY: Unremarkable. SOCIAL HISTORY: The patient is single and now resides at [facility]. She has a brother in [place] named Jovan Mariscal, a sister in [place] as well as a daughter. The patient did have a cataract extraction. MEDICATIONS: Tylenol 650 mg q.4hr p.r.n. Xanax 0.5 mg three times a day for anxiety Aspirin 81 mg daily Bisacodyl 10 mg daily p.r.n. Symbicort 160/4.5 two puffs twice a day Celexa 20 mg daily Famotidine 20 mg daily Ferrous Sulfate 320 mg daily Guaifenesin 500 mg twice a day Hydrocodone/Tylenol 5-325 one twice a day as needed Ipratropium Albuterol 0.5 mg 3 mg 2.5 days per 3 cc per vial three times a day by nebulization Ondansetron 4 mg p.r.n. for nausea Potassium Chloride ER 40 mg twice a day Sennosides Docusate Sodium 6-50 mg one capsule daily twice a day p.r.n. Albuterol Sulfate 90 mcg/actuation two puffs twice a day Abilify 2 mg daily Systane one drop right eye every four hours p.r.n. Prednisone 2.5 mg daily Lasix 10 mg daily Umeclidinium 62.5 mcg/actuation ALLERGIES: PENICILLIN REVIEW OF SYSTEMS: CONSTITUTIONAL: The patient now claims to be much weaker with no fever, no chills. No nightsweats or weight changes. HEENT: No reports of headache, nasal drainage or sore throat. Visual system negative. CARDIOVASCULAR: Denies any chest pain but the patient has a history of heart failure, right-sided or heart failure with preserved ejection fraction. RESPIRATORY: The patient is complaining of shortness of breath, interrupted breathing. She is also complaining of some wheezing. The patient is complaining of shortness of breath which is not new. The shortness of breath is however more intense than use to and the oxygen saturation is slow. Denies any cough or congestion. No lung disease. GASTROINTESTINAL: The patient denies any abdominal pain, diarrhea. No nausea, anorexia or vomiting. GENITOURINARY: The patient denies any burning on urination. MUSCULOSKELETAL: Generalized weakness. The patient is wheelchair bound. She is not able to walk. Walking exacerbates or even minimal strenous activity causes increased rate of breathing. NEUROLOGIC: No reports of dizziness, any fatigue or neurological deficits. ENDOCRINE: The patient is obese, had been since I ever saw her as a patient. HEMATOLOGIC: No anemia. In fact, the RBC is in the upper limits 5.99. Hematocrit also is elevated at 15.1, hematocrit 51. PSYCHIATRIC: The patient is anxious, more so when she has increasing shortness of breath. PHYSICAL EXAMINATION: GENERAL: 70-year-old female with obesity, increasing shortness of breath requiring 100% non rebreather. Elevate the oxygen saturation to 90 or slightly beyond. She is not cyanotic although has tachypnea. VITAL SIGNS: Temperature 98.6, pulse rate 73, blood pressure 105/64, respiratory rate 24. Oxygen saturation 96 with simple mask and nonrebreather 98. Alert, oriented. HEENT: Head normocephalic, atraumatic. Face symmetrical and equal with no facial weakness. Pupils equal/reactive to light. Conjunctivae clear. NECK: Supple. No masses, no bruit. CARDIOVASCULAR: Heart is audible and regular with no murmur. LUNGS: Breath sounds are diminished on both sides with inspiratory and expiratory wheeze. Chest expansion is somewhat limited but she is able to breathe deeper. The patient has inspiratory and expiratory wheeze posteriorly both lung [place]. The patient does have some rales bilaterally. ABDOMEN: Markedly protuberant, soft with no remarkable tenderness. No guarding. Bowel sounds are active. PELVIC AND RECTAL: Examination not done. LOWER EXTREMITIES: Symmetrical and equal with some edema on both lower extremities. Anterior and posterior pulses are absent. UPPER EXTREMITIES: Symmetrical and equal. SKIN: Warm and dry. ASSESSMENT: 1. Chronic respiratory failure with acute exacerbation. 2. Heart failure with preserved ejection fraction. 3. Exogenous obesity. 4. Chronic anxiety. PROGNOSIS: Poor. TIME SPENT: GREATER THAN 65 MINUTES MTDD
[2020-11-02] MEDS: PULMICORT 1 MG/2 ML NEB SCH (16:55)
[2020-11-02 18:53] LABS: BILIRUBIN,URINE Negative (NEGATIVE); CLARITY,URINE Cloudy (CLEAR); COLOR,URINE Yellow (YELLOW); GLUCOSE, URINE (UA) Negative (NEGATIVE); KETONES,URINE Negative (NEGATIVE); LEUKOCYTE ESTERASE ,URINE 2+ (NEGATIVE); NITRITE,URINE Positive (NEGATIVE); PROTEIN,URINE Negative (NEGATIVE); URINE, BLOOD 2+ (NEGATIVE); UROBILINOGEN,URINE 0.2 (0.2)
[2020-11-02 18:56] LABS: BACTERIA,URINE 3+ (NOT PRESENT); SQUAMOUS EPITHELIAL CELL,UR NOT PRESENT (0-5); URINE RBC, MICROSCOPIC 30-50 (0-2); URINE WBC, MICROSCOPIC TNTC (0-2)
[2020-11-02] MEDS: ABILIFY PO SCH ×2 (20:29→20:55)
[2020-11-02] MEDS: NORCO 5-325 PO SCH (20:30)
[2020-11-02] MEDS ORDERED: ARIPIPRAZOLE 2 MG PO SCH (21:00)
[2020-11-03] MEDS: SOLU-CORTEF 250 MG IVP SCH ×4 (00:20→18:07)
[2020-11-03] MEDS: DUONEB NEB SCH ×4 (04:55→23:00)
[2020-11-03] MEDS: PULMICORT 1 MG/2 ML NEB SCH ×2 (04:55→17:00)
[2020-11-03 05:01] LABS: BASOPHILS % (AUTO) 0.1 % (0.0-3.0); HEMATOCRIT 44.4 % (37.0-47.0); IMMATURE GRANULOCYTE # (AUTO) 0.1 (0.0-1.0); IMMATURE GRANULOCYTE % (AUTO) 0.7 % (0.0-5.0); LYMPHOCYTES # (AUTO) 0.5 K/uL (0.60-3.4); MEAN CORPUSCULAR HEMOGLOBIN 29.2 pg (27.0-31.0); MEAN CORPUSCULAR HGB CONC 29.3 (31.8-35.4); MEAN CORPUSCULAR VOLUME 99.8 fl (81.0-99.0); MONOCYTES # (AUTO) 0.2 K/uL (0.4-2.0); MONOCYTES % (AUTO) 1.7 (0-10); NEUTROPHILS # (AUTO) 8.3 K/ul (2.0-6.9); NEUTROPHILS % (AUTO) 91.5 % (42.2-75.2); PLATELET COUNT 221 10^3/uL (140-440); RED BLOOD COUNT 4.45 10^6/ul (4.20-5.40); WHITE BLOOD COUNT 9.02 K/ul (4.6-10.2)
[2020-11-03 05:04] LABS: ABG O2 HGB 92.8 % (95-100); BEecf 7.9 (-2.0-3.0); COHb 3.1 (0.5-1.5); HCO3 35.1 (21-28); MetHb 1.2 (0-1.5); TCO2 37.6 (19-24); sO2 93.6 % (94-98); tHb 13.4 g/dl (11.7-17.4)
[2020-11-03 05:14] LABS: ALANINE AMINOTRANSFERASE 18.6 U/L (0-35); ALBUMIN 3.62 g/dL (3.5-5.0); ALKALINE PHOSPHATASE 82.7 U/L (53-141); ASPARTATE AMINO TRANSFERASE 23.8 U/L (14-36); BILIRUBIN,TOTAL 0.54 mg/dL (0.2-1.3); BLOOD UREA NITROGEN 26.2 mg/dL (7-17); CALCIUM 9.29 mg/dL (8.4-10.2); CARBON DIOXIDE 35.7 mmol/L (22-30.0); CHLORIDE 102.7 mmol/L (98-107); CREATININE 1.26 mg/dL (0.60-1.30); GLUCOSE 126.4 mg/dL (74-106); POTASSIUM 4.92 mmol/L (3.5-5.1); TOTAL PROTEIN 6.39 g/dL (6.3-8.2)
[2020-11-03 05:19] LABS: ABG PH 7.25 (7.35-7.45)
[2020-11-03] MEDS: LASIX TAB PO SCH (05:43)
[2020-11-03] MEDS: DEMADEX PO SCH (05:44)
[2020-11-03] MEDS: SENNA PO SCH ×2 (08:43→20:29)
[2020-11-03] MEDS: COLACE PO SCH (08:43)
[2020-11-03] MEDS: ASPIRIN CHEWABLE PO SCH (08:43)
[2020-11-03] MEDS: NORCO 5-325 PO SCH ×2 (08:44→20:29)
[2020-11-03] MEDS: SPIRIVA IH SCH (08:44)
[2020-11-03] MEDS: FLONASE NAS SCH ×2 (08:46→20:31)
[2020-11-03] MEDS: SYMBICORT 160-4.5 MCG INHALER IH SCH ×2 (08:46→20:31)
[2020-11-03] MEDS: LOVENOX SUBCUT SCH (08:47)
[2020-11-03] MEDS: COREG PO SCH ×2 (08:47→17:16)
[2020-11-03] MEDS: XANAX PO SCH ×3 (08:47→20:30)
[2020-11-03] MEDS: MICRO-K CAP PO SCH ×2 (08:47→17:17)
[2020-11-03] MEDS: NYSTOP POWDER TP SCH ×2 (08:56→20:31)
[2020-11-03] MEDS: CELEXA PO SCH (09:05)
[2020-11-03 12:34] LABS: ABG O2 HGB 93.8 % (95-100); ABG PH 7.33 (7.35-7.45); COHb 3.3 (0.5-1.5); HCO3 36.9 (21-28); MetHb 0.9 (0-1.5); tHb 13.2 g/dl (11.7-17.4)
[2020-11-03] MEDS: ROCEPHIN 1 GM/50 ML D5W 1 GM/50 ML BAG IV SCH (18:26)
[2020-11-03 18:27] LABS: BILIRUBIN,URINE Negative (NEGATIVE); CLARITY,URINE Cloudy (CLEAR); COLOR,URINE Yellow (YELLOW); GLUCOSE, URINE (UA) Negative (NEGATIVE); KETONES,URINE Negative (NEGATIVE); LEUKOCYTE ESTERASE ,URINE 3+ (NEGATIVE); NITRITE,URINE Positive (NEGATIVE); PH,URINE 5.5 (5-9); PROTEIN,URINE 2+ (NEGATIVE); URINE, BLOOD 3+ (NEGATIVE); UROBILINOGEN,URINE 0.2 (0.2)
[2020-11-03 18:30] LABS: SQUAMOUS EPITHELIAL CELL,UR NOT PRESENT (0-5)
[2020-11-03 18:32] LABS: URINE WBC, MICROSCOPIC TNTC (0-2)
[2020-11-03] MEDS: ABILIFY PO SCH (20:30)
[2020-11-04] MEDS: SOLU-CORTEF 250 MG IVP SCH ×5 (00:03→23:17)
[2020-11-04 04:59] LABS: BASOPHILS % (AUTO) 0.1 % (0.0-3.0); HEMATOCRIT 43.1 % (37.0-47.0); HEMOGLOBIN 12.7 g/dl (12.0-16.0); IMMATURE GRANULOCYTE % (AUTO) 0.4 % (0.0-5.0); LYMPHOCYTES # (AUTO) 0.6 K/uL (0.60-3.4); LYMPHOCYTES % (AUTO) 5.9 (10.0-50.0); MEAN CORPUSCULAR HEMOGLOBIN 29.1 pg (27.0-31.0); MEAN CORPUSCULAR HGB CONC 29.5 (31.8-35.4); MEAN CORPUSCULAR VOLUME 98.9 fl (81.0-99.0); MONOCYTES # (AUTO) 0.1 K/uL (0.4-2.0); MONOCYTES % (AUTO) 1.2 (0-10); NEUTROPHILS # (AUTO) 9.3 K/ul (2.0-6.9); NEUTROPHILS % (AUTO) 92.4 % (42.2-75.2); PLATELET COUNT 202 10^3/uL (140-440); RDW COEFFICIENT OF VARIATION 15.9 % (11.6-14.8); RED BLOOD COUNT 4.36 10^6/ul (4.20-5.40); WHITE BLOOD COUNT 10.07 K/ul (4.6-10.2)
[2020-11-04 05:02] LABS: ABG PH 7.35 (7.35-7.45); BEecf 9.2 (-2.0-3.0); COHb 2.7 (0.5-1.5); HCO3 34.8 (21-28); MetHb 0.9 (0-1.5); TCO2 36.7 (19-24); sO2 99.2 % (94-98); tHb 13.1 g/dl (11.7-17.4)
[2020-11-04] MEDS: DUONEB NEB SCH ×4 (05:05→23:10)
[2020-11-04] MEDS: PULMICORT 1 MG/2 ML NEB SCH ×2 (05:05→17:00)
[2020-11-04 05:12] LABS: ALANINE AMINOTRANSFERASE 17.9 U/L (0-35); ALBUMIN 3.48 g/dL (3.5-5.0); ASPARTATE AMINO TRANSFERASE 21.6 U/L (14-36); BILIRUBIN,TOTAL 0.42 mg/dL (0.2-1.3); BLOOD UREA NITROGEN 37.9 mg/dL (7-17); CALCIUM 9.27 mg/dL (8.4-10.2); CARBON DIOXIDE 33.4 mmol/L (22-30.0); CHLORIDE 102.5 mmol/L (98-107); CREATININE 1.37 mg/dL (0.60-1.30); POTASSIUM 4.49 mmol/L (3.5-5.1); TOTAL PROTEIN 6.02 g/dL (6.3-8.2)
[2020-11-04] MEDS: LASIX TAB PO SCH (05:57)
[2020-11-04] MEDS: DEMADEX PO SCH (05:58)
[2020-11-04] MEDS: COREG PO SCH ×2 (08:34→17:21)
[2020-11-04] MEDS: SENNA PO SCH ×2 (08:34→20:06)
[2020-11-04] MEDS: NORCO 5-325 PO SCH ×2 (08:34→20:06)
[2020-11-04] MEDS: XANAX PO SCH ×3 (08:34→20:06)
[2020-11-04] MEDS: FERROUS SULFATE PO SCH (08:34)
[2020-11-04] MEDS: COLACE PO SCH (08:34)
[2020-11-04] MEDS: MICRO-K CAP PO SCH ×2 (08:34→17:20)
[2020-11-04] MEDS: ASPIRIN CHEWABLE PO SCH (08:34)
[2020-11-04] MEDS: CELEXA PO SCH (08:35)
[2020-11-04] MEDS: SPIRIVA IH SCH (08:37)
[2020-11-04] MEDS: NYSTOP POWDER TP SCH ×2 (08:37→20:08)
[2020-11-04] MEDS: SYMBICORT 160-4.5 MCG INHALER IH SCH ×2 (08:38→20:07)
[2020-11-04] MEDS: FLONASE NAS SCH ×2 (08:38→20:09)
[2020-11-04] MEDS: LOVENOX SUBCUT SCH (08:39)
[2020-11-04] MEDS: ROCEPHIN 1 GM/50 ML D5W 1 GM/50 ML BAG IV SCH (08:48)
[2020-11-04] MEDS: ABILIFY PO SCH (20:09)
[2020-11-05] MEDS: DUONEB NEB SCH ×4 (04:45→23:10)
[2020-11-05] MEDS: PULMICORT 1 MG/2 ML NEB SCH ×2 (04:45→17:55)
[2020-11-05 04:50] LABS: ABG O2 HGB 95.1 % (95-100); ABG PH 7.45 (7.35-7.45); BEecf 12.8 (-2.0-3.0); COHb 2.8 (0.5-1.5); HCO3 36.8 (21-28); MetHb 0.8 (0-1.5); TCO2 38.4 (19-24); sO2 97.2 % (94-98)
[2020-11-05 05:19] LABS: HEMATOCRIT 42.1 % (37.0-47.0); HEMOGLOBIN 12.6 g/dl (12.0-16.0); IMMATURE GRANULOCYTE # (AUTO) 0.1 (0.0-1.0); IMMATURE GRANULOCYTE % (AUTO) 0.6 % (0.0-5.0); LYMPHOCYTES # (AUTO) 0.6 K/uL (0.60-3.4); LYMPHOCYTES % (AUTO) 7.1 (10.0-50.0); MEAN CORPUSCULAR HGB CONC 29.9 (31.8-35.4); MEAN CORPUSCULAR VOLUME 96.8 fl (81.0-99.0); MONOCYTES # (AUTO) 0.2 K/uL (0.4-2.0); MONOCYTES % (AUTO) 1.8 (0-10); NEUTROPHILS # (AUTO) 7.7 K/ul (2.0-6.9); NEUTROPHILS % (AUTO) 90.5 % (42.2-75.2); PLATELET COUNT 199 10^3/uL (140-440); RDW COEFFICIENT OF VARIATION 15.7 % (11.6-14.8); RED BLOOD COUNT 4.35 10^6/ul (4.20-5.40); WHITE BLOOD COUNT 8.54 K/ul (4.6-10.2)
[2020-11-05 05:24] LABS: ALANINE AMINOTRANSFERASE 41.1 U/L (0-35); ALBUMIN 3.36 g/dL (3.5-5.0); ALKALINE PHOSPHATASE 64.7 U/L (53-141); ASPARTATE AMINO TRANSFERASE 35.5 U/L (14-36); BILIRUBIN,TOTAL 0.44 mg/dL (0.2-1.3); BLOOD UREA NITROGEN 44.5 mg/dL (7-17); CALCIUM 9.04 mg/dL (8.4-10.2); CARBON DIOXIDE 35.3 mmol/L (22-30.0); CHLORIDE 98.5 mmol/L (98-107); CREATININE 1.1 mg/dL (0.60-1.30); GLUCOSE 119.9 mg/dL (74-106); POTASSIUM 4.11 mmol/L (3.5-5.1); SODIUM 139.4 mmol/L (134.5-145); TOTAL PROTEIN 5.95 g/dL (6.3-8.2)
[2020-11-05] MEDS: DEMADEX PO SCH (05:42)
[2020-11-05] MEDS: LASIX TAB PO SCH (05:42)
[2020-11-05] MEDS: SOLU-CORTEF 250 MG IVP SCH ×4 (05:55→23:00)
[2020-11-05] MEDS: COREG PO SCH ×2 (08:37→17:08)
[2020-11-05] MEDS: MICRO-K CAP PO SCH ×2 (08:37→17:08)
[2020-11-05] MEDS: ASPIRIN CHEWABLE PO SCH (08:37)
[2020-11-05] MEDS: COLACE PO SCH (08:37)
[2020-11-05] MEDS: XANAX PO SCH ×3 (08:37→20:16)
[2020-11-05] MEDS: SENNA PO SCH ×2 (08:37→20:21)
[2020-11-05] MEDS: NORCO 5-325 PO SCH ×2 (08:38→20:17)
[2020-11-05] MEDS: CELEXA PO SCH (08:38)
[2020-11-05] MEDS: ROCEPHIN 1 GM/50 ML D5W 1 GM/50 ML BAG IV SCH (08:39)
[2020-11-05] MEDS: NYSTOP POWDER TP SCH ×2 (08:40→20:20)
[2020-11-05] MEDS: SYMBICORT 160-4.5 MCG INHALER IH SCH (08:41)
[2020-11-05] MEDS: SPIRIVA IH SCH (08:41)
[2020-11-05] MEDS: FLONASE NAS SCH ×2 (08:41→20:19)
[2020-11-05] MEDS: LOVENOX SUBCUT SCH (08:42)
--- NOTE | 2020-11-05 08:53 | PCM.CONS ---
CONSULTING PROVIDER: Dr. CARLIN PEDROZA ATTENDING PROVIDER: [facility] DATE OF SERVICE: 11/05/20 SUBJECTIVE: This 70 year old /WHITE F was hospitalized 11/02/20 with respiratory failure. The patient condition has improved. She is sitting quietly with no distress with oxygen at 10 liters. Atrial blood gasses showed oxygen saturation more than 90%. Appetite has improved. REVIEW OF SYSTEMS: CONSTITUTIONAL: No night sweats. No fatigue, malaise, lethargy. No fever or chills. HEENT: Eyes: No visual changes. No eye pain. No eye discharge. ENT: No runny nose. No epistaxis. No sinus pain. No odynophagia. No congestion. RESPIRATORY: No cough, no congestion. No hemoptysis. No shortness of breath. CARDIOVASCULAR: No angina symptoms. No CHF symptoms. No atypical chest pain for CAD. No palpitations. No orthopnea. GASTROINTESTINAL: No abdominal pain. No nausea or vomiting. No diarrhea or constipation. No hematemesis. No hematochezia. GENITOURINARY: No urgency. No frequency. No dysuria. No hematuria. No obstructive symptoms. No discharge. No pain. No significant abnormal bleeding. MUSCULOSKELETAL: No musculoskeletal pain; no joint swelling. NEUROLOGICAL: Awake, alert, oriented to time, place and person. No headache. No neck pain. No syncope. No seizures. No dizziness. PSYCHIATRIC: Not anxious. No depression. No suicidal thoughts. No homicidal thoughts. SKIN: No rash. No lesions. No wounds. ENDOCRINE: No unexplained weight loss. No weight gain. HEMATOLOGIC/LYMPHATIC: No anemia. No purpura. No petechiae. No prolonged or ex cessive bleeding. No palpable lymph nodes. PHYSICAL EXAMINATION: GENERAL: The patient is awake, alert and oriented, lying in bed in no distress. VITAL SIGNS: Temperature 97.5 F, Pulse 70, Respiratory Rate 18, BP 114/76, Pulse Ox 95% HEENT: Head normocephalic, atraumatic. Eyes: Extraocular muscles are intact. Pupils are equal, round and reactive to light and accommodation. Ears: No lesions. Nose appeared normal. Throat: No exudate or erythema. NECK: Supple. No JVD, no carotid bruit. No lymphadenopathy or thyromegaly. LUNGS: Decrease breath sounds. Clear to auscultation. Percussion note normal. Chest symmetrical. HEART: S1, S2, no S3. No murmurs. No cyanosis or clubbing. No ascites. Pulses: Dorsalis pedis and posterior tibial pulses +1 to +2 both sides. ABDOMEN: Soft. Non-tender. Bowel sounds active. No CVA tenderness. No mass felt. EXTREMITIES: No edema. Full range of motion of all extremities, equal. NEUROLOGIC: No focal deficit. Cranial nerves II through XII are grossly intact. No headache, no double vision or headache. SKIN: Warm and dry. Intact. Turgor-normal. LYMPHATIC: No palpable lymph nodes/no lymphedema. MUSCULOSKELETAL: Normal joints with no swelling. Muscle tone is normal. LAB REVIEW: 11/05/20 04:32 11/05/20 04:32 11/05/20 04:32: Sodium 139.4, Potassium 4.11, Chloride 98.5, Carbon Dioxide 35.3 H, Anion Gap 9.71, BUN 44.5 H, Creatinine 1.10, Estimated GFR (MDRD) 49.00, BUN/Creatinine Ratio 40.45, Glucose 119.9 H, Calcium 9.04, Total Bilirubin 0.44, AST 35.5, ALT 41.1 H, Alkaline Phosphatase 64.7, Total Protein 5.95 L, Albumin 3.36 L, Globulin 2.59, Albumin/Globulin Ratio 1.29 11/05/20 04:32: WBC 8.54, RBC 4.35, Hgb 12.6, Hct 42.1, MCV 96.8, MCH 29.0, MCHC 29.9 L, RDW Coeff of Sia 15.7 H, Plt Count 199, Immature Gran % (Auto) 0.6, Neut % (Auto) 90.5 H, Lymph % (Auto) 7.1 L, Ware % (Auto) 1.8, Eos % (Auto) 0.0, Baso % (Auto) 0.0, Neut # (Auto) 7.7 H, Lymph # (Auto) 0.6, Ware # (Auto) 0.2 L, Eos # (Auto) 0.0, Baso # (Auto) 0.0, Immature Gran # (Auto) 0.1 11/05/20 04:25: Puncture Site Lbrach, Base Excess 12.8 H, O2 Saturation 97.2, ABG pH 7.45, ABG pCO2 53.0 H, ABG pO2 89.0, ABG HCO3 36.8 H, ABG Total CO2 38.4 H, Lion Test Pos, Hemoglobin 0.8, Oxyhemoglobin 95.1, Carboxyhemoglobin 2.8 H, Total Hemoglobin 13.0, O2 Delivery Device Bipap, FiO2 % 50.0 ASSESSMENT: 1. Respiratory failure, under control RECOMMENDATIONS/PLAN: 1. Condition is improved over all 2. Continue DUO NEBS, Pulmicort, steroids and oxygen at 10 liters, we will monitor it. Plan and coordination of the patient's care discussed in the presence of Child Development Consultant and Nurse. SCRIBED BY: KOURTNEY BELCHER Playground Official scribed while in presence of service performed by Dr. CARLIN PEDROZA on 11/05/20 ([id number])
--- NOTE | 2020-11-05 09:47 | PN ---
DATE OF SERVICE: 11/03/2020 SUBJECTIVE: 70 year old female who is known to have chronic obstructive lung disease and had been smoking till about 5-6 years ago. The patient denied having asthma or doesn't remember any diagnosis of asthma during her life. She appeared much better today. Alert, sitting and eating with good movement of both lower and upper extremities. She is on nasal oxygen between 8-10 liters per minute. VITALS: Temperature 96.8, pulse 83, respiratory rate 20, blood pressure 90/59 and oxygen saturation 90%. Oxygen saturation sometimes goes down to mid 80's. High oxygen saturation today is 95%. Speech is clear. NECK: No bruit LUNGS: Breath sounds are heard in both sides. No rales or wheezing. The air exchange is much better than anytime I had listened to her chest. HEART: Audible and regular with good tones LOWER EXTREMITIES: Some edema WBC is normal 9.02. hgb 13, hct 44.4, plt count 221, 000. Electrolytes are normal, Carbon dioxide rising to 35.7, BUN rising to 26.2 from 16.1 yesterday. Creatinine 1.26 from 0.99. Sugar 126.4 from 114.2 yesterday. Liver panel is normal. Total protein is normal. Lowest normal as well as Albumin and Globulin. The patient is getting 1500 calorie high protein low carbohydrate diet. Carbohydrates should be mostly vegetables. CONDITION: Improved. MTDD
--- NOTE | 2020-11-05 12:07 | ECHO2D ---
Date of Exam: 11/04/2020 Ordering Physician: DR. PAULA SENA/ YOVANY (CONSULT) Room #: 103 Reason for Echo: ACUTE RESPIRATORY FAILURE, CHF, DIASTOLIC HEART FAILURE M-Mode Normal Adult Results LV Dimensions Normal Adult Results AoV Opening excursions >1.6 >1.6 LVEDD-base- 3.5-5.8 4.6 Ao root dimensions 2.0-3.7 2.7 LVESD-base- 3.1-4.6 L. Atrium dimensions 1.9-3.8 3.9 Post. Wall thickness 0.8-1.1 1.0 IV septum (thickness) 0.7-1.2 1.1 Post. Wall excursion 0.72-1.3 NORMAL Septal motion -- Systolic motion R. Ventricular cavity 1.5-2.0 3-5 LVEF 60% 49% Paradoxical septal wall motion MAYBE YES 2-D : PARADOXICAL SEPTAL MOTION--ENLARGED RIGHT VENTRICLE CAVITY--NORMAL VALVES--NO EFFUSION, NO THROMBUS M-MODE: MV: NORMAL AV: NORMAL TV: NORMAL PV: CHAMBER SIZE: ENLARGED RIGHT VENTRICLE CAVITY WALL MOTION: PARADOXICAL SEPTAL WALL MOTION PERICARDIUM: NORMAL INTERPRETATION: 1. PARADOXICAL SEPTAL WALL MOTION 2. ENLARGED RIGHT VENTRICLE CAVITY 3. NORMAL VALVES 4. NORMAL LEFT VENTRICLE SIZE--EJECTION FRACTION 49% MTDD
[2020-11-05] MEDS: ABILIFY PO SCH (20:21)
[2020-11-06 04:49] LABS: HEMATOCRIT 43.8 % (37.0-47.0); HEMOGLOBIN 13.3 g/dl (12.0-16.0); MEAN CORPUSCULAR HEMOGLOBIN 29.1 pg (27.0-31.0); MEAN CORPUSCULAR HGB CONC 30.4 (31.8-35.4); MEAN CORPUSCULAR VOLUME 95.8 fl (81.0-99.0); PLATELET COUNT 183 10^3/uL (140-440); RDW COEFFICIENT OF VARIATION 15.6 % (11.6-14.8); RED BLOOD COUNT 4.57 10^6/ul (4.20-5.40); WHITE BLOOD COUNT 7.33 K/ul (4.6-10.2)
[2020-11-06 04:59] LABS: ANISOCYTOSIS NOT PRESENT (NOT PRESENT)
[2020-11-06 05:00] LABS: ALANINE AMINOTRANSFERASE 108.4 U/L (0-35); ALBUMIN 3.44 g/dL (3.5-5.0); ALKALINE PHOSPHATASE 71.3 U/L (53-141); ASPARTATE AMINO TRANSFERASE 80.7 U/L (14-36); BILIRUBIN,TOTAL 0.52 mg/dL (0.2-1.3); BLOOD UREA NITROGEN 35.1 mg/dL (7-17); CALCIUM 8.9 mg/dL (8.4-10.2); CARBON DIOXIDE 39.8 mmol/L (22-30.0); CHLORIDE 94.5 mmol/L (98-107); CREATININE 0.9 mg/dL (0.60-1.30); POTASSIUM 3.9 mmol/L (3.5-5.1); SODIUM 138.1 mmol/L (134.5-145); TOTAL PROTEIN 6.09 g/dL (6.3-8.2)
[2020-11-06] MEDS: DUONEB NEB SCH ×4 (05:10→23:01)
[2020-11-06] MEDS: PULMICORT 1 MG/2 ML NEB SCH ×2 (05:10→17:44)
[2020-11-06 05:13] LABS: ABG O2 HGB 93.7 % (95-100); BEecf 17.7 (-2.0-3.0); COHb 2.9 (0.5-1.5); HCO3 40.7 (21-28); MetHb 1.2 (0-1.5); TCO2 42.3 (19-24); sO2 96.2 % (94-98)
[2020-11-06 05:19] LABS: ABG PH 7.51 (7.35-7.45)
[2020-11-06] MEDS: SOLU-CORTEF 250 MG IVP SCH ×3 (05:51→17:49)
[2020-11-06] MEDS: CELEXA PO SCH (08:22)
[2020-11-06] MEDS: XANAX PO SCH ×3 (08:23→20:06)
[2020-11-06] MEDS: FERROUS SULFATE PO SCH (08:23)
[2020-11-06] MEDS: COLACE PO SCH (08:23)
[2020-11-06] MEDS: SENNA PO SCH ×2 (08:23→20:06)
[2020-11-06] MEDS: ASPIRIN CHEWABLE PO SCH (08:23)
[2020-11-06] MEDS: MICRO-K CAP PO SCH ×2 (08:23→17:56)
[2020-11-06] MEDS: COREG PO SCH ×2 (08:24→17:56)
[2020-11-06] MEDS: NORCO 5-325 PO SCH ×2 (08:24→20:06)
[2020-11-06] MEDS: NYSTOP POWDER TP SCH ×2 (08:25→20:08)
[2020-11-06] MEDS: FLONASE NAS SCH ×3 (08:27→20:14)
[2020-11-06] MEDS: LOVENOX SUBCUT SCH (08:28)
[2020-11-06] MEDS: SPIRIVA IH SCH (08:35)
--- NOTE | 2020-11-06 08:59 | PCM.PROG ---
Attending Provider: ATTENDING PROVIDER: [facility] patient is seen with Meka Peraza, Nurse Practitioner. DATE OF SERVICE: 11/06/20 SUBJECTIVE: This 70 year old /WHITE F was hospitalized 11/02/20. The patient reports tightness in the chest this morning described as heavy started when she got out of bed. No more shortness of breath than usual. Described as sharp at times, no sweating. Renal function has improved. ABGs are stable. REVIEW OF SYSTEMS: CONSTITUTIONAL: No night sweats. No fatigue, malaise, lethargy. No fever or chills. Weakness. HEENT: Eyes: No visual changes. No eye pain. No eye discharge. ENT: No runny nose. No epistaxis. No sinus pain. No odynophagia. No congestion. RESPIRATORY: No cough, no congestion. No hemoptysis. Shortness of breath. CARDIOVASCULAR: No angina symptoms. No CHF symptoms. No atypical chest pain for CAD. No palpitations. No orthopnea.. GASTROINTESTINAL: No abdominal pain. No nausea or vomiting. No diarrhea or constipation. No hematemesis. No hematochezia. GENITOURINARY: No urgency. No frequency. No dysuria. No hematuria. No obstructive symptoms. No discharge. No pain. No significant abnormal bleeding. MUSCULOSKELETAL: No musculoskeletal pain; no joint swelling. NEUROLOGICAL: Awake, alert, oriented to time, place and person. No headache. No neck pain. No syncope. No seizures. No dizziness. PSYCHIATRIC: Not anxious. No depression. No suicidal thoughts. No homicidal thoughts. SKIN: No rash. No lesions. No wounds. ENDOCRINE: No unexplained weight loss. No weight gain. HEMATOLOGIC/LYMPHATIC: No anemia. No purpura. No petechiae. No prolonged or excessive bleeding. No palpable lymph nodes. PHYSICAL EXAMINATION: GENERAL: The patient is awake, alert and oriented, sitting in bed in no distress. VITAL SIGNS: Temperature 97.7 F, Pulse 67, Respiratory Rate 18, BP 132/84, Pulse Ox 93% HEENT: Head normocephalic, atraumatic. Eyes: Extraocular muscles are intact. Pupils are equal, round and reactive to light and accommodation. Ears: No lesions. Nose appeared normal. Throat: No exudate or erythema. NECK: Supple. No JVD, no carotid bruit. No lymphadenopathy or thyromegaly. LUNGS: Diminished breath sounds. Clear to auscultation. Percussion note normal. Chest symmetrical. HEART: S1, S2, no S3. No murmurs. No cyanosis or clubbing. No ascites. Pulses: Dorsalis pedis and posterior tibial pulses +1 to +2 both sides. ABDOMEN: Soft. Non-tender. Bowel sounds active. No CVA tenderness. No mass felt. EXTREMITIES: No edema. Full range of motion of all extremities, equal. NEUROLOGIC: No focal deficit. Cranial nerves II through XII are grossly intact. No headache. No double vision. SKIN: Not dry. Intact. Turgor-normal. LYMPHATIC: No palpable lymph nodes/no lymphedema. MUSCULOSKELETAL: Normal joints with no swelling. Muscle tone is normal. LAB REVIEW: 11/06/20 04:32 11/06/20 04:32 11/06/20 04:41: Puncture Site Lrad, Base Excess 17.7 H, O2 Saturation 96.2, ABG pH 7.51 H*, ABG pCO2 51.0 H, ABG pO2 75.0 L, ABG HCO3 40.7 H, ABG Total CO2 42.3 H, Lion Test Pos, Hemoglobin 1.2, Oxyhemoglobin 93.7 L, Carboxyhemoglobin 2.9 H , Total Hemoglobin 14.0, O2 Delivery Device Bipap, Oxygen Liter Flow 10.00 11/06/20 04:32: Sodium 138.1, Potassium 3.90, Chloride 94.5 L, Carbon Dioxide 39.8 H, Anion Gap 7.70, BUN 35.1 H, Creatinine 0.90, Estimated GFR (MDRD) 62.00, BUN/Creatinine Ratio 39.00, Glucose 130.0 H, Calcium 8.90, Total Bilirubin 0.52, AST 80.7 H D, ALT 108.4 H D, Alkaline Phosphatase 71.3, NT-Pro-B Natriuret Pep 7900.000 H, Total Protein 6.09 L, Albumin 3.44 L, Globulin 2.65, Albumin/Globulin Ratio 1.29 11/06/20 04:32: WBC 7.33, RBC 4.57, Hgb 13.3, Hct 43.8, MCV 95.8, MCH 29.1, MCHC 30.4 L, RDW Coeff of Sia 15.6 H, Plt Count 183, Neutrophils % (Manual) 87.0 H, Lymphocytes % (Manual) 8.0 L, Monocytes % (Manual) 5.0, Anisocytosis Not present ASSESSMENT: Please see below. 1. Acute respiratory failure 2. CHF 3. End stage COPD 4. Anxiety PLAN: 1. EKG 2. Start Lasix tomorrow 3. Give the patient Xanax 0.5mg Plan and coordination of the patient's care discussed in the presence of Retention Representative and nurse. SCRIBED BY: KOURTNEY BELCHER Die Maintenance scribed while in presence of service performed by Dr. Nathan/Meka Peraza APRN on 11/06/20 ([id number])
[2020-11-06] MEDS: ROCEPHIN 1 GM/50 ML D5W 1 GM/50 ML BAG IV SCH (09:09)
[2020-11-06 09:34] LABS: CHOLESTEROL 137.8 mg/dL (0-200); HDL CHOLESTEROL 41.5 mg/dL (35-80); LDL CHOLESTEROL,CALCULATED 74 mmol/L; TRIGLYCERIDES 110.4 mg/dL (0-150); VLDL CHOLESTEROL 22 mg/dL (2-30)
[2020-11-06 09:46] LABS: TROPONIN I 0.018 ng/ml (0.0000-0.120)
[2020-11-06 09:51] LABS: CREATINE KINASE < 20.0 U/L (30-135)
--- NOTE | 2020-11-06 13:21 | DI ---
EXAM: Chest one view HISTORY: Respiratory day COMPARISON: 11/01/2020 TECHNIQUE: Single view of the chest was performed FINDINGS: Heart is enlarged. Mediastinal contour unchanged. No visible pneumothorax. Possible sma ll bilateral pleural effusions. Bilateral interstitial prominence. Bibasilar atelectasis and/or con solidation. IMPRESSION: 1. Cardiomegaly. Bilateral interstitial prominence likely interstitial edema versus less likely pne umonitis. 2. Bibasilar atelectasis and/or pneumonia. 3. Possible small bilateral pleural effusions.
--- NOTE | 2020-11-06 13:37 | CONS ---
DATE OF SERVICE: 11/03/20 CONSULT FOLLOWUP SUBJECTIVE: 70-year-old white female hospitalized with respiratory failure, chronic. The patient has history of being hospitalized in one of the [facility] for nearly 3 to 4 weeks. The patient's arterial blood gases done this morning showed p02 of 80 with pc02 of 80 with pH of 7.25 with 92% saturation. Later on in the afternoon was tried on BIPAP. Oxygen p02 stayed 81 with pc02 of 70 with pH of 7.33 with 95% saturation. BIPAP was used with 70% FI02. The patient's condition has improved. She is feeling better. REVIEW OF SYSTEMS: CONSTITUTIONAL: No night sweats. No fatigue, malaise, lethargy. No fever or chills. HEENT: Eyes: No visual changes. No eye pain. No eye discharge. ENT: No runny nose. No epistaxis. No sinus pain. No sore throat. No odynophagia. No ear pain. No congestion. RESPIRATORY: No cough, no congestion. No hemoptysis. CARDIOVASCULAR: No angina symptoms. No CHF symptoms. No atypical chest pain for CAD. No palpitations. Shortness of breath on minimal exertion. She says she is feeling a little better. GASTROINTESTINAL: No abdominal pain. No nausea or vomiting. No diarrhea or constipation. No hematemesis. No hematochezia. GENITOURINARY: No urgency. No frequency. No dysuria. No hematuria. No obstructive symptoms. No discharge. No pain. No significant abnormal bleeding. MUSCULOSKELETAL: No musculoskeletal pain. No joint swelling. No arthritis. NEUROLOGICAL: No headache. No neck pain. No syncope. No seizures. No dizziness. PSYCHIATRIC: Not anxious. No depression. No suicidal thoughts. No homicidal thoughts. SKIN: No rash. No lesions. No wounds. ENDOCRINE: No unexplained weight loss. No weight gain. HEMATOLOGIC/LYMPHATIC: No anemia. No purpura. No petechiae. No prolonged or excessive bleeding. No palpable lymph nodes. PHYSICAL EXAMINATION: VITAL SIGNS: Temperature 97.7, pulse 80, respiratory rate 16, blood pressure 104/61, pulse ox 92% with BIPAP. HEENT: Head normocephalic, atraumatic. Eyes: Extraocular muscles are intact. Pupils are equal, round and reactive to light and accommodation. Ears: No lesions. Nose appeared normal. Throat: No exudate or erythema. NECK: Supple. No JVD, no carotid bruit. No lymphadenopathy or thyromegaly. LUNGS: Decreased breath sounds. Air entry is acceptable. Clear to auscultation. Percussion note normal. Chest symmetrical. HEART: S1, S2, distant, no S3. No murmur. No cyanosis or clubbing. No ascites. Pulses: Dorsalis pedis and posterior tibial pulses +1 to +2 bilaterally. ABDOMEN: Soft. Nontender. Bowel sounds active. No CVA tenderness. No mass felt. EXTREMITIES: Trace edema noted. Full range of motion of all extremities, equal. NEUROLOGIC: No focal deficit. Cranial nerves II through XII are grossly intact. No headache, no double vision or headache. SKIN: Not dry. Intact. Turgor - normal. LYMPHATIC: No palpable lymph nodes/no lymphedema. MUSCULOSKELETAL: Normal joints with no swelling. Muscle tone is normal. LABS: Hemoglobin 13, hematocrit 44, WBC 9,000, normal differential. Creatinine 1.2, BUN 26, potassium 4.9. ASSESSMENT: 1. RESPIRATORY FAILURE WITH PATIENT ON BIPAP WITH IMPROVEMENT IN PH. C02 HAS GONE DOWN SOME. RECOMMENDATIONS: 1. Continue nebs treatment with Ipratropium, and Pulmicort. 2. Continue steroids. CONDITION: Stable. Prognosis is poor. The patient has end-stage chronic lung disease. The patient is DNR. MTDD
--- NOTE | 2020-11-06 13:44 | CONS ---
DATE OF SERVICE: 11/04/20 CONSULT FOLLOWUP SUBJECTIVE: 70-year-old white female hospitalized with respiratory failure. The patient's condition seems to have improved some. She is on BIPAP this morning, showed p02 146 with pc02 of 63 with pH of 7.35 with 99% saturation. The patient is on 70%. I advised the cardiopulmonary department to cut down FI02 to 50%. The patient had an echocardiogram done which showed paradoxical septal wall motion, infraposterior wall motion is normal. LV cavity is normal, normal size. RV cavity is enlarged. The patient has evidence of severe pulmonary hypotension. PHYSICAL EXAMINATION: GENERAL: The patient is oriented to time, place and person, eating better. VITAL SIGNS: Temperature 97.7, pulse 80, respiratory rate 21, blood pressure 90/76, pulse ox 94% with BIPAP. HEENT: Head normocephalic, atraumatic. Eyes: Extraocular muscles are intact. Pupils are equal, round and reactive to light and accommodation. Ears: No lesions. Nose appeared normal. Throat: No exudate or erythema. NECK: Supple. No JVD, no carotid bruit. No lymphadenopathy or thyromegaly. LUNGS: Decreased breath sounds. Good air entry. Clear to auscultation. Percussion note normal. Chest symmetrical. HEART: S1, S2, disant, no S3. No murmur. No cyanosis or clubbing. No ascites. Pulses: Dorsalis pedis and posterior tibial pulses +1 to +2 bilaterally. ABDOMEN: Soft. Nontender. Bowel sounds active. No CVA tenderness. No mass felt. EXTREMITIES: Trace edema noted. Full range of motion of all extremities, equal. NEUROLOGIC: No focal deficit. Cranial nerves II through XII are grossly intact. No headache, no double vision or headache. SKIN: Not dry. Intact. Turgor - normal. LYMPHATIC: No palpable lymph nodes/no lymphedema. MUSCULOSKELETAL: Normal joints with no swelling. Muscle tone is normal. LABS: Hemoglobin 12.7, hematocrit 43, WBC 10,000, normal differential. Creatinine 1.3, BUN 37, potassium 4.4. ASSESSMENT: 1. Respiratory failure seems to be under control. Arterial blood gases showed improvement with improvement in pH. RECOMMENDATIONS: 1. Continue to decrease the FI02. PROGNOSIS: Guarded. MTDD
[2020-11-06] MEDS ORDERED: MIRALAX PO ONE (13:57)
[2020-11-06] MEDS: ABILIFY PO SCH (20:12)
[2020-11-07] MEDS: SOLU-CORTEF 250 MG IVP SCH ×5 (01:40→23:45)
[2020-11-07 05:03] LABS: HEMATOCRIT 45.6 % (37.0-47.0); HEMOGLOBIN 13.7 g/dl (12.0-16.0); MEAN CORPUSCULAR VOLUME 96.6 fl (81.0-99.0); PLATELET COUNT 181 10^3/uL (140-440); RDW COEFFICIENT OF VARIATION 15.4 % (11.6-14.8); RED BLOOD COUNT 4.72 10^6/ul (4.20-5.40); WHITE BLOOD COUNT 8.02 K/ul (4.6-10.2)
[2020-11-07 05:12] LABS: ANISOCYTOSIS NOT PRESENT (NOT PRESENT)
[2020-11-07 05:14] LABS: ALANINE AMINOTRANSFERASE 120.4 U/L (0-35); ALBUMIN 3.28 g/dL (3.5-5.0); ALKALINE PHOSPHATASE 65.9 U/L (53-141); ASPARTATE AMINO TRANSFERASE 65.6 U/L (14-36); BILIRUBIN,TOTAL 0.55 mg/dL (0.2-1.3); BLOOD UREA NITROGEN 30.1 mg/dL (7-17); CALCIUM 8.86 mg/dL (8.4-10.2); CHLORIDE 94.9 mmol/L (98-107); CREATININE 0.87 mg/dL (0.60-1.30); GLUCOSE 120.1 mg/dL (74-106); POTASSIUM 3.86 mmol/L (3.5-5.1); SODIUM 137.6 mmol/L (134.5-145); TOTAL PROTEIN 5.74 g/dL (6.3-8.2)
[2020-11-07 05:20] LABS: CARBON DIOXIDE 39.2 mmol/L (22-30.0)
[2020-11-07] MEDS ORDERED: LASIX TAB PO ONE (05:23)
[2020-11-07 05:25] LABS: ABG O2 HGB 92.2 % (95-100); ABG PH 7.39 (7.35-7.45); BEecf 19.8 (-2.0-3.0); COHb 2.7 (0.5-1.5); HCO3 44.8 (21-28); MetHb 1.3 (0-1.5); TCO2 47.1 (19-24); sO2 94.1 % (94-98); tHb 14.3 g/dl (11.7-17.4)
[2020-11-07] MEDS: DUONEB NEB SCH ×4 (05:34→22:20)
[2020-11-07] MEDS: PULMICORT 1 MG/2 ML NEB SCH ×2 (05:38→17:54)
[2020-11-07] MEDS: LASIX TAB PO SCH (07:04)
[2020-11-07] MEDS: FLONASE NAS SCH ×2 (08:53→20:07)
[2020-11-07] MEDS: NYSTOP POWDER TP SCH ×2 (08:53→20:06)
[2020-11-07] MEDS: ASPIRIN CHEWABLE PO SCH (08:54)
[2020-11-07] MEDS: COREG PO SCH ×2 (08:54→16:00)
[2020-11-07] MEDS: SENNA PO SCH ×2 (08:54→20:01)
[2020-11-07] MEDS: LOVENOX SUBCUT SCH (08:54)
[2020-11-07] MEDS: NORCO 5-325 PO SCH ×2 (08:54→20:02)
[2020-11-07] MEDS: COLACE PO SCH (08:54)
[2020-11-07] MEDS: XANAX PO SCH ×3 (08:55→20:02)
[2020-11-07] MEDS: MICRO-K CAP PO SCH ×2 (08:55→16:00)
[2020-11-07] MEDS: CELEXA PO SCH (08:55)
[2020-11-07] MEDS: ROCEPHIN 1 GM/50 ML D5W 1 GM/50 ML BAG IV SCH (09:06)
[2020-11-07] MEDS: SPIRIVA IH SCH (09:06)
[2020-11-07] MEDS: ABILIFY PO SCH ×2 (20:02→20:15)
[2020-11-08] MEDS: DUONEB NEB SCH ×4 (04:50→23:00)
[2020-11-08] MEDS: PULMICORT 1 MG/2 ML NEB SCH ×2 (04:50→17:04)
[2020-11-08 04:58] LABS: BASOPHILS % (AUTO) 0.1 % (0.0-3.0); EOSINOPHILS % (AUTO) 0.1 % (0.0-7.0); HEMATOCRIT 47.3 % (37.0-47.0); HEMOGLOBIN 14.3 g/dl (12.0-16.0); IMMATURE GRANULOCYTE % (AUTO) 0.5 % (0.0-5.0); LYMPHOCYTES # (AUTO) 0.6 K/uL (0.60-3.4); MEAN CORPUSCULAR HEMOGLOBIN 29.1 pg (27.0-31.0); MEAN CORPUSCULAR HGB CONC 30.2 (31.8-35.4); MEAN CORPUSCULAR VOLUME 96.1 fl (81.0-99.0); MONOCYTES # (AUTO) 0.2 K/uL (0.4-2.0); MONOCYTES % (AUTO) 2.9 (0-10); NEUTROPHILS % (AUTO) 88.4 % (42.2-75.2); PLATELET COUNT 189 10^3/uL (140-440); RDW COEFFICIENT OF VARIATION 15.2 % (11.6-14.8); RED BLOOD COUNT 4.92 10^6/ul (4.20-5.40)
[2020-11-08 05:11] LABS: ALANINE AMINOTRANSFERASE 160.1 U/L (0-35); ALBUMIN 3.38 g/dL (3.5-5.0); ALKALINE PHOSPHATASE 67.4 U/L (53-141); ASPARTATE AMINO TRANSFERASE 78.6 U/L (14-36); BILIRUBIN,TOTAL 0.48 mg/dL (0.2-1.3); BLOOD UREA NITROGEN 28.5 mg/dL (7-17); CALCIUM 8.84 mg/dL (8.4-10.2); CHLORIDE 92.1 mmol/L (98-107); CREATININE 0.75 mg/dL (0.60-1.30); GLUCOSE 119.2 mg/dL (74-106); POTASSIUM 3.41 mmol/L (3.5-5.1); SODIUM 138.7 mmol/L (134.5-145); TOTAL PROTEIN 5.84 g/dL (6.3-8.2)
[2020-11-08 05:19] LABS: CARBON DIOXIDE 41.3 mmol/L (22-30.0)
[2020-11-08] MEDS: SOLU-CORTEF 250 MG IVP SCH ×4 (05:54→23:38)
[2020-11-08] MEDS: LASIX TAB PO SCH (05:54)
[2020-11-08] MEDS ORDERED: LASIX IVP ONE (08:26)
--- NOTE | 2020-11-08 08:43 | PCM.PROG ---
Attending Provider: ATTENDING PROVIDER: [facility] This patient is seen with Meka Peraza, Nurse Practitioner. DATE OF SERVICE: 11/08/20 SUBJECTIVE: This 70 year old /WHITE F was hospitalized 11/02/20. The patient is resting comfortably. Feeling more short of breath this morning. Difficulty through the night keeping oxygen saturation greater than 90 with Trilogy and high flow. REVIEW OF SYSTEMS: CONSTITUTIONAL: No night sweats. No fatigue, malaise, lethargy. No fever or chills. Weakness. HEENT: Eyes: No visual changes. No eye pain. No eye discharge. ENT: No runny nose. No epistaxis. No sinus pain. No odynophagia. No congestion. RESPIRATORY: No cough, no congestion. No hemoptysis. Shortness of breath. CARDIOVASCULAR: No angina symptoms. No CHF symptoms. No atypical chest pain for CAD. No palpitations. No orthopnea.. GASTROINTESTINAL: No abdominal pain. No nausea or vomiting. No diarrhea or constipation. No hematemesis. No hematochezia. GENITOURINARY: No urgency. No frequency. No dysuria. No hematuria. No obstructive symptoms. No discharge. No pain. No significant abnormal bleeding. MUSCULOSKELETAL: No musculoskeletal pain; no joint swelling. NEUROLOGICAL: Awake, alert, oriented to time, place and person. No headache. No neck pain. No syncope. No seizures. No dizziness. PSYCHIATRIC: Not anxious. No depression. No suicidal thoughts. No homicidal thoughts. SKIN: No rash. No lesions. No wounds. ENDOCRINE: No unexplained weight loss. No weight gain. HEMATOLOGIC/LYMPHATIC: No anemia. No purpura. No petechiae. No prolonged or exce ssive bleeding. No palpable lymph nodes. PHYSICAL EXAMINATION: GENERAL: The patient is awake, alert and oriented, lying in bed in no distress. VITAL SIGNS: Temperature 97.5 F, Pulse 59, Respiratory Rate 20, BP 165/94, Pulse Ox 89% HEENT: Head normocephalic, atraumatic. Eyes: Extraocular muscles are intact. Pupils are equal, round and reactive to light and accommodation. Ears: No lesions. Nose appeared normal. Throat: No exudate or erythema. NECK: Supple. No JVD, no carotid bruit. No lymphadenopathy or thyromegaly. LUNGS: Severe dim Clear to auscultation. Percussion note normal. Chest symmetrical. HEART: S1, S2, no S3. No murmurs. No cyanosis or clubbing. No ascites. Pulses: Dorsalis pedis and posterior tibial pulses +1 to +2 both sides. ABDOMEN: Soft. Non-tender. Bowel sounds active. No CVA tenderness. No mass felt. EXTREMITIES: No edema. Full range of motion of all extremities, equal. NEUROLOGIC: No focal deficit. Cranial nerves II through XII are grossly intact. No headache. No double vision. SKIN: Not dry. Intact. Turgor-normal. LYMPHATIC: No palpable lymph nodes/no lymphedema. MUSCULOSKELETAL: Normal joints with no swelling. Muscle tone is normal. LAB REVIEW: 11/08/20 04:44 11/08/20 04:44 11/08/20 04:44: Sodium 138.7, Potassium 3.41 L, Chloride 92.1 L, Carbon Dioxide 41.3 H*, Anion Gap 8.71, BUN 28.5 H, Creatinine 0.75, Estimated GFR (MDRD) 77.00, BUN/Creatinine Ratio 38.00, Glucose 119.2 H, Calcium 8.84, Total Bilirubin 0.48, AST 78.6 H, ALT 160.1 H D, Alkaline Phosphatase 67.4, NT-Pro-B Natriuret Pep 51040.000 H, Total Protein 5.84 L, Albumin 3.38 L, Globulin 2.46, Albumin/Globulin Ratio 1.37 11/08/20 04:44: WBC 7.90, RBC 4.92, Hgb 14.3, Hct 47.3 H, MCV 96.1, MCH 29.1, MCHC 30.2 L, RDW Coeff of Sia 15.2 H, Plt Count 189, Immature Gran % (Auto) 0.5, Neut % (Auto) 88.4 H, Lymph % (Auto) 8.0 L, Rosebud % (Auto) 2.9, Eos % (Auto) 0.1, Baso % (Auto) 0.1, Neut # (Auto) 7.0 H, Lymph # (Auto) 0.6, Rosebud # (Auto) 0.2 L, Eos # (Auto) 0.0, Baso # (Auto) 0.0, Immature Gran # (Auto) 0.0 ASSESSMENT: Please see below. 1. Acute on chronic respiratory failure 2. Acute CHF PLAN: 1. Potassium 20mg BID 2. Lasix 40mg IV now 3. Repeat ABGs on 10 liters 4. Monitor input and output Plan and coordination of the patient's care discussed in the presence of Sales Representative Groceries and nurse. SCRIBED BY: Hazel CHRISTENSENist scribed while in presence of service performed by Dr. Nathan/Meka Peraza APRN on 11/08/20 ([id number])
[2020-11-08] MEDS: COREG PO SCH ×2 (08:45→16:02)
[2020-11-08] MEDS: FERROUS SULFATE PO SCH (08:45)
[2020-11-08] MEDS: XANAX PO SCH ×3 (08:45→20:25)
[2020-11-08] MEDS: K-DUR PO SCH ×2 (08:45→16:02)
[2020-11-08] MEDS: ASPIRIN CHEWABLE PO SCH (08:45)
[2020-11-08] MEDS: SENNA PO SCH ×2 (08:45→20:25)
[2020-11-08] MEDS: NORCO 5-325 PO SCH ×2 (08:45→20:25)
[2020-11-08] MEDS: CELEXA PO SCH (08:45)
[2020-11-08] MEDS: ROCEPHIN 1 GM/50 ML D5W 1 GM/50 ML BAG IV SCH (08:46)
[2020-11-08] MEDS: SPIRIVA IH SCH (08:46)
[2020-11-08] MEDS: COLACE PO SCH (08:46)
[2020-11-08] MEDS: NYSTOP POWDER TP SCH ×2 (08:46→20:24)
[2020-11-08] MEDS: FLONASE NAS SCH ×2 (08:47→20:24)
[2020-11-08] MEDS: LOVENOX SUBCUT SCH (08:48)
[2020-11-08 09:25] LABS: ABG O2 HGB 93.9 % (95-100); ABG PH 7.49 (7.35-7.45); BEecf 26.2 (-2.0-3.0); COHb 2.9 (0.5-1.5); HCO3 49.5 (21-28); MetHb 1.2 (0-1.5); TCO2 51.5 (19-24); sO2 97.2 % (94-98); tHb 15.8 g/dl (11.7-17.4)
--- NOTE | 2020-11-08 11:13 | CONS ---
DATE OF SERVICE: 11/06/20 CONSULT FOLLOWUP SUBJECTIVE: The patient was seen and examined with the nurse practitioner. The patient's condiiton has improved some evidently more than what the condition was on admission. Saturation is staying over 90%. She is still short of breath on exertion but much less; however, it has improved. The patient is still going to be on steroids, nebs, antibiotics. DONNA
--- NOTE | 2020-11-08 12:43 | CONS ---
DATE OF SERVICE: 11/07/20 CONSULT FOLLOWUP SUBJECTIVE: 70-year-old white female hospitalized with respiratory failure. The patient's condition has steadily improved. Her blood gases showed pH of 7.39 with p02 of 72, pc02 of 74 with saturation of 94%. The patient says she is geeling better. She is not in any distress but gets short of breath on minimal exertion as usual. That seems to have improved. PHYSICAL EXAMINATION: VITAL SIGNS: Temperature 97.7, pulse 70, respiratory rate 18, blood pressure 140/90, pulse ox 93%. HEENT: Head normocephalic, atraumatic. Eyes: Extraocular muscles are intact. Pupils are equal, round and reactive to light and accommodation. Ears: No lesions. Nose appeared normal. Throat: No exudate or erythema. NECK: Supple. No JVD, no carotid bruit. No lymphadenopathy or thyromegaly. LUNGS: Decreased breath sounds. Clear to auscultation. Percussion note normal. Chest symmetrical. HEART: S1, S2, no S3. No murmur. No cyanosis or clubbing. No ascites. Pulses: Dorsalis pedis and posterior tibial pulses +1 to +2 bilaterally. ABDOMEN: Soft. Protuberant. Nontender. Bowel sounds active. No CVA tenderness. No mass felt. EXTREMITIES: Trace edema. Full range of motion of all extremities, equal. NEUROLOGIC: No focal deficit. Cranial nerves II through XII are grossly intact. No headache, no double vision or headache. SKIN: Not dry. Intact. Turgor - normal. LYMPHATIC: No palpable lymph nodes/no lymphedema. MUSCULOSKELETAL: Normal joints with no swelling. Muscle tone is normal. LABS: Hemoglobin 13.7, hematocrit 45, WBC 8,000, normal differential. Creatinine 0.8, BUN 30, potassium 3.8. ASSESSMENT: 1. Respiratory failure seems to be stable. The patient's condition has improved to the point where it was prior to her getting sick and was in the hospital for several weeks in one of the [facility]. PLAN: 1. Continue steroids, nebs, antibiotics. MTDD
[2020-11-08] MEDS: ABILIFY PO SCH (20:24)
[2020-11-09 05:09] LABS: BASOPHILS % (AUTO) 0.1 % (0.0-3.0); HEMATOCRIT 50.1 % (37.0-47.0); HEMOGLOBIN 15.7 g/dl (12.0-16.0); IMMATURE GRANULOCYTE % (AUTO) 0.5 % (0.0-5.0); LYMPHOCYTES # (AUTO) 0.8 K/uL (0.60-3.4); LYMPHOCYTES % (AUTO) 8.8 (10.0-50.0); MEAN CORPUSCULAR HEMOGLOBIN 29.2 pg (27.0-31.0); MEAN CORPUSCULAR HGB CONC 31.3 (31.8-35.4); MEAN CORPUSCULAR VOLUME 93.3 fl (81.0-99.0); MONOCYTES # (AUTO) 0.2 K/uL (0.4-2.0); MONOCYTES % (AUTO) 2.6 (0-10); NEUTROPHILS # (AUTO) 7.5 K/ul (2.0-6.9); PLATELET COUNT 207 10^3/uL (140-440); RDW COEFFICIENT OF VARIATION 14.9 % (11.6-14.8); RED BLOOD COUNT 5.37 10^6/ul (4.20-5.40); WHITE BLOOD COUNT 8.54 K/ul (4.6-10.2)
[2020-11-09] MEDS: DUONEB NEB SCH ×4 (05:20→23:29)
[2020-11-09] MEDS: PULMICORT 1 MG/2 ML NEB SCH ×2 (05:20→17:46)
[2020-11-09 05:21] LABS: BEecf 28.7 (-2.0-3.0); COHb 3.1 (0.5-1.5); HCO3 50.6 (21-28); MetHb 1.3 (0-1.5); TCO2 52.3 (19-24); sO2 96.5 % (94-98); tHb 15.9 g/dl (11.7-17.4)
[2020-11-09 05:21] LABS: ALANINE AMINOTRANSFERASE 163.3 U/L (0-35); ALBUMIN 3.55 g/dL (3.5-5.0); ALKALINE PHOSPHATASE 73.3 U/L (53-141); BILIRUBIN,TOTAL 0.75 mg/dL (0.2-1.3); BLOOD UREA NITROGEN 27.6 mg/dL (7-17); CALCIUM 8.81 mg/dL (8.4-10.2); CHLORIDE 87.2 mmol/L (98-107); CREATININE 0.64 mg/dL (0.60-1.30); GLUCOSE 118.1 mg/dL (74-106); SODIUM 137.5 mmol/L (134.5-145); TOTAL PROTEIN 6.05 g/dL (6.3-8.2)
[2020-11-09 05:22] LABS: ABG PH 7.58 (7.35-7.45)
[2020-11-09 05:26] LABS: POTASSIUM 2.61 mmol/L (3.5-5.1)
[2020-11-09 05:28] LABS: CARBON DIOXIDE 43.8 mmol/L (22-30.0)
[2020-11-09] MEDS: SOLU-CORTEF 250 MG IVP SCH (06:06)
[2020-11-09] MEDS: LASIX TAB PO SCH (06:06)
[2020-11-09] MEDS: LOVENOX SUBCUT SCH (08:01)
[2020-11-09] MEDS: XANAX PO SCH ×3 (08:02→20:11)
[2020-11-09] MEDS: SENNA PO SCH ×2 (08:02→20:12)
[2020-11-09] MEDS: COLACE PO SCH (08:02)
[2020-11-09] MEDS: K-DUR PO SCH ×4 (08:02→17:06)
[2020-11-09] MEDS: NORCO 5-325 PO SCH ×2 (08:03→20:12)
[2020-11-09] MEDS: ASPIRIN CHEWABLE PO SCH (08:03)
[2020-11-09] MEDS: COREG PO SCH ×2 (08:03→17:07)
[2020-11-09] MEDS: CELEXA PO SCH (08:03)
[2020-11-09] MEDS: SPIRIVA IH SCH (08:04)
[2020-11-09] MEDS: NYSTOP POWDER TP SCH ×2 (08:07→20:15)
[2020-11-09] MEDS: FLONASE NAS SCH ×2 (08:09→20:14)
[2020-11-09] MEDS: ROCEPHIN 1 GM/50 ML D5W 1 GM/50 ML BAG IV SCH (08:10)
[2020-11-09] MEDS ORDERED: K-DUR PO ONE (08:52)
[2020-11-09 08:57] LABS: BLOOD UREA NITROGEN 26.8 mg/dL (7-17); CALCIUM 8.6 mg/dL (8.4-10.2); CREATININE 0.6 mg/dL (0.60-1.30); GLUCOSE 120.8 mg/dL (74-106); SODIUM 138.1 mmol/L (134.5-145)
[2020-11-09 08:58] LABS: POTASSIUM 2.65 mmol/L (3.5-5.1)
[2020-11-09 09:05] LABS: CARBON DIOXIDE 48.1 mmol/L (22-30.0)
--- NOTE | 2020-11-09 09:12 | PCM.CONS ---
CONSULTING PROVIDER: Dr. CARLIN PEDROZA ATTENDING PROVIDER: [facility] DATE OF SERVICE: 11/09/20 SUBJECTIVE: This 70 year old /WHITE F was hospitalized 11/02/20 with respiratory failure. The patient has chronic respiratory failure condition on admission showed acute CO2 narcosis. During the stay in the hospital the patient has been treated with BIPAP and later on switched to nasal cannula. Blood gasses have improved. Her PO2 was 73 with pH 7.58 with 96% saturation. REVIEW OF SYSTEMS: CONSTITUTIONAL: No night sweats. No fatigue, malaise, lethargy. No fever or chills. HEENT: Eyes: No visual changes. No eye pain. No eye discharge. ENT: No runny nose. No epistaxis. No sinus pain. No odynophagia. No congestion. RESPIRATORY: No cough, no congestion. No hemoptysis. Shortness of breath on minimal exertion. CARDIOVASCULAR: No angina symptoms. No CHF symptoms. No atypical chest pain for CAD. No palpitations. No orthopnea. GASTROINTESTINAL: No abdominal pain. No nausea or vomiting. No diarrhea or constipation. No hematemesis. No hematochezia. GENITOURINARY: No urgency. No frequency. No dysuria. No hematuria. No obstructive symptoms. No discharge. No pain. No significant abnormal bleeding. MUSCULOSKELETAL: No musculoskeletal pain; no joint swelling. NEUROLOGICAL: Awake, alert, oriented to time, place and person. No headache. No neck pain. No syncope. No seizures. No dizziness. PSYCHIATRIC: Not anxious. No depression. No suicidal thoughts. No homicidal thoughts. SKIN: No rash. No lesions. No wounds. ENDOCRINE: No unexplained weight loss. No weight gain. HEMATOLOGIC/LYMPHATIC: No anemia. No purpura. No petechiae. No prolonged or excessive bleeding. No palpable lymph nodes. PHYSICAL EXAMINATION: GENERAL: The patient is awake, alert and oriented, sitting in bed in no distress. VITAL SIGNS: Temperature 96.9 F, Pulse 64, Respiratory Rate 20, BP 140/77, Pulse Ox 100% HEENT: Head normocephalic, atraumatic. Eyes: Extraocular muscles are intact. Pupils are equal, round and reactive to light and accommodation. Ears: No lesions. Nose appeared normal. Throat: No exudate or erythema. NECK: Supple. No JVD, no carotid bruit. No lymphadenopathy or thyromegaly. LUNGS: Clear to auscultation. Percussion note normal. Chest symmetrical. HEART: S1, S2, no S3. No murmurs. No cyanosis or clubbing. No ascites. Pulses: Dorsalis pedis and posterior tibial pulses +1 to +2 both sides. ABDOMEN: Soft. Non-tender. Bowel sounds active. No CVA tenderness. No mass felt. EXTREMITIES: No edema. Full range of motion of all extremities, equal. NEUROLOGIC: No focal deficit. Cranial nerves II through XII are grossly intact. No headache, no double vision or headache. SKIN: Warm and dry. Intact. Turgor-normal. LYMPHATIC: No palpable lymph nodes/no lymphedema. MUSCULOSKELETAL: Normal joints with no swelling. Muscle tone is normal. LAB REVIEW: 11/09/20 05:00 11/09/20 05:00 11/09/20 05:17: Puncture Site Lrad, Base Excess 28.7 H, O2 Saturation 96.5, ABG pH 7.58 H*, ABG pCO2 54.0 H, ABG pO2 73.0 L, ABG HCO3 50.6 H, ABG Total CO2 52.3 H, Lion Test Pos, Hemoglobin 1.3, Oxyhemoglobin 93.0 L, Carboxyhemoglobin 3.1 H , Total Hemoglobin 15.9, O2 Delivery Device Bipap, Oxygen Liter Flow 12.00 11/09/20 05:00: Sodium 137.5, Potassium 2.61 L*, Chloride 87.2 L, Carbon Dioxide 43.8 H*, Anion Gap 9.11, BUN 27.6 H, Creatinine 0.64, Estimated GFR (MDRD) 92.00, BUN/Creatinine Ratio 43.12, Glucose 118.1 H, Calcium 8.81, Total Bilirubin 0.75, AST 69.0 H, ALT 163.3 H, Alkaline Phosphatase 73.3, Total Protein 6.05 L, Albumin 3.55, Globulin 2.50, Albumin/Globulin Ratio 1.42 11/09/20 05:00: WBC 8.54, RBC 5.37, Hgb 15.7, Hct 50.1 H, MCV 93.3, MCH 29.2, MCHC 31.3 L, RDW Coeff of Sia 14.9 H, Plt Count 207, Immature Gran % (Auto) 0.5, Neut % (Auto) 88.0 H, Lymph % (Auto) 8.8 L, Jones % (Auto) 2.6, Eos % (Auto) 0.0, Baso % (Auto) 0.1, Neut # (Auto) 7.5 H, Lymph # (Auto) 0.8, Jones # (Auto) 0.2 L, Eos # (Auto) 0.0, Baso # (Auto) 0.0, Immature Gran # (Auto) 0.0 11/08/20 09:10: Puncture Site R rad, Base Excess 26.2 H, O2 Saturation 97.2, ABG pH 7.49 H, ABG pCO2 65.0 H, ABG pO2 86.0, ABG HCO3 49.5 H, ABG Total CO2 51.5 H, Lion Test Y, Hemoglobin 1.2, Oxyhemoglobin 93.9 L, Carboxyhemoglobin 2.9 H, Total Hemoglobin 15.8, O2 Delivery Device Cannula, Oxygen Liter Flow 10.00 ASSESSMENT: 1. Hypokalemia 2. Respiratory failure 3. Obesity Please see below. RECOMMENDATIONS/PLAN: 1. K-tab 20meq two tablets three times a day 2. 20mg Prednisone daily 3. Discontinue Solu-cortef 4. Pepcid 20mg daily Plan and coordination of the patient's care discussed in the presence of Sausage Inspector and Nurse. SCRIBED BY: KOURTNEY BELCHER Hydrodynamicist scribed while in presence of service performed by Dr. CARLIN PEDROZA on 11/09/20 ([id number])
[2020-11-09] MEDS: FLORASTOR PO SCH ×2 (09:13→20:12)
[2020-11-09] MEDS: PEPCID PO SCH (09:14)
[2020-11-09] MEDS: PREDNISONE PO SCH (09:14)
--- NOTE | 2020-11-09 10:58 | CONS ---
DATE OF SERVICE: 11/08/2020 CONSULT FOLLOWUP SUBJECTIVE: The patient was seen and examined with the Nurse Practitioner. The patient's condition has improved. Arterial blood gasses looks a lot better. PO2 is now higher than pCO2 with pH of 7.49 with saturation of 94%. Appetite is better. The patient's condition discussed with the attending and he is thinking about letting her go tomorrow which I agreed with him. PROGNOSIS: Guarded. MTDD
[2020-11-09] MEDS: ABILIFY PO SCH (20:13)
[2020-11-10] MEDS: PULMICORT 1 MG/2 ML NEB SCH (05:13)
[2020-11-10] MEDS: DUONEB NEB SCH ×2 (05:13→11:04)
[2020-11-10 05:21] LABS: ABG O2 HGB 92.2 % (95-100); BEecf 24.5 (-2.0-3.0); MetHb 1.1 (0-1.5); TCO2 48.7 (19-24); tHb 15.3 g/dl (11.7-17.4)
[2020-11-10 05:24] LABS: ABG PH 7.54 (7.35-7.45)
[2020-11-10 05:25] LABS: ALBUMIN 3.3 g/dL (3.5-5.0); ALKALINE PHOSPHATASE 59.8 U/L (53-141); ASPARTATE AMINO TRANSFERASE 58.5 U/L (14-36); BILIRUBIN,TOTAL 0.73 mg/dL (0.2-1.3); BLOOD UREA NITROGEN 36.8 mg/dL (7-17); CALCIUM 8.82 mg/dL (8.4-10.2); CHLORIDE 89.9 mmol/L (98-107); CREATININE 0.74 mg/dL (0.60-1.30); POTASSIUM 3.05 mmol/L (3.5-5.1); SODIUM 137.2 mmol/L (134.5-145); TOTAL PROTEIN 5.68 g/dL (6.3-8.2)
[2020-11-10 05:34] LABS: BASOPHILS % (AUTO) 0.2 % (0.0-3.0); EOSINOPHILS # (AUTO) 0.1 K/ul (0.0-0.7); EOSINOPHILS % (AUTO) 1.1 % (0.0-7.0); HEMATOCRIT 48.8 % (37.0-47.0); HEMOGLOBIN 14.9 g/dl (12.0-16.0); IMMATURE GRANULOCYTE # (AUTO) 0.1 (0.0-1.0); IMMATURE GRANULOCYTE % (AUTO) 0.5 % (0.0-5.0); LYMPHOCYTES # (AUTO) 1.7 K/uL (0.60-3.4); LYMPHOCYTES % (AUTO) 17.5 (10.0-50.0); MEAN CORPUSCULAR HEMOGLOBIN 28.7 pg (27.0-31.0); MEAN CORPUSCULAR HGB CONC 30.5 (31.8-35.4); MEAN CORPUSCULAR VOLUME 93.8 fl (81.0-99.0); MONOCYTES # (AUTO) 0.6 K/uL (0.4-2.0); MONOCYTES % (AUTO) 5.7 (0-10); NEUTROPHILS # (AUTO) 7.5 K/ul (2.0-6.9); PLATELET COUNT 209 10^3/uL (140-440); RDW COEFFICIENT OF VARIATION 15.4 % (11.6-14.8); WHITE BLOOD COUNT 9.96 K/ul (4.6-10.2)
[2020-11-10 05:36] LABS: CARBON DIOXIDE 43.6 mmol/L (22-30.0)
[2020-11-10] MEDS: LASIX TAB PO SCH (06:02)
[2020-11-10] MEDS: PEPCID PO SCH (06:02)
[2020-11-10] MEDS: ASPIRIN CHEWABLE PO SCH (08:06)
[2020-11-10] MEDS: XANAX PO SCH ×2 (08:06→15:27)
[2020-11-10] MEDS: FERROUS SULFATE PO SCH (08:06)
[2020-11-10] MEDS: PREDNISONE PO SCH (08:06)
[2020-11-10] MEDS: K-DUR PO SCH ×2 (08:07→13:41)
[2020-11-10] MEDS: NORCO 5-325 PO SCH (08:07)
[2020-11-10] MEDS: CELEXA PO SCH (08:07)
[2020-11-10] MEDS: COLACE PO SCH (08:07)
[2020-11-10] MEDS: COREG PO SCH (08:07)
[2020-11-10] MEDS: SPIRIVA IH SCH (08:09)
[2020-11-10] MEDS: FLONASE NAS SCH (08:10)
[2020-11-10] MEDS: LOVENOX SUBCUT SCH (08:10)
[2020-11-10] MEDS: FLORASTOR PO SCH (09:18)
[2020-11-10] MEDS: SENNA PO SCH (09:18)
[2020-11-10] MEDS: NYSTOP POWDER TP SCH (09:19)
[2020-11-10 14:17] VITALS: BP 133/84; TEMP 96.6
--- NOTE | 2020-11-12 12:32 | PN ---
DATE OF SERVICE: 11/04/2020 SUBJECTIVE: The patient is alert and cooperative and oriented. No cyanosis. CBC is essentially normal except for slightly elevated MCHC and RDW 29.9 and 15.7 respectively. Neutrophil is high but the total WBC is normal. CMP showed normal electrolytes. CO2 slightly high 33.4, BUN slightly elevated 29.7, creatinine slightly above normal 1.37, EGFR is 38. This patient is receiving Lasix intravenously 20mg daily. Blood sugar is slightly elevated 121mg %. Liver enzymes are normal as well as alkaline phosphatase. Total protein is below normal as well as serum albumin slightly below normal. NECK: No masses and no bruit HEART: Normal sinus rhythm. No murmurs. Somewhat distant LUNGS: Breath are diminished in both sides. No rales or wheezing at this time. LOWER EXTREMITIES: Minimal edema. ABDOMEN: Non-tender VITALS: Temperature 96.9, pulse 76, respiratory rate 20, blood pressure 106/64 and oxygen saturation 97 with BIPAP CONDITION: Somewhat improved from admission. [facility]
--- NOTE | 2020-11-12 13:02 | PN ---
DATE OF SERVICE: 11/05/2020 SUBJECTIVE: The patient today is alert and oriented and able to converse. VITALS: Temperature 97.9, pulse 73, respiratory rate 20, blood pressure 131/71 and oxygen saturation 92%. This patient is receiving about 10 liters of nasal oxygen and only alternating with the BIPAP. CMP 11/05/2020, electrolytes are normal, carbon dioxide slightly up from yesterday 35.3 from 33.4. BUN is elevated 44.5 from 37.9 yesterday. Creatinine normal 1.30, GFR 49 from 38. Blood sugar minimally elevated 119. ALT slightly elevated 41.1. AST normal and Alkaline phosphatase. Total protein and albumin is slightly below normal more or less the same as yesterday. The patient had a markedly elevated fasting insulin so she was given a high protein, low carbohydrate diet mainly mixed vegetables. No cyanosis. FACE: Symmetrical and equal NECK: No masses and no bruit HEART: Normal sinus rhythm, slightly distant. no murmurs LUNGS: Diminished breath sounds in both sides. No rales or wheezing. ABDOMEN: Nontender LOWER EXTREMITIES: Minimal edema. The patient's condition seems to be stable and very close to baseline. MTDD
--- NOTE | 2020-11-12 13:37 | PN ---
DATE OF SERVICE: 11/06/2020 SUBJECTIVE: The patient is laying down on her left side and she examined. She was alert and responsive and no cyanosis. VITALS: Temperature 97.7 orally, pulse 67, respiratory rate 18, blood pressure 132/84 and pulse ox 93% at 10 liters per minute. LUNGS: Diminished breath sounds on both sides. Some fine squeaks at the bases HEAR: Audible and regular somewhat distant. No murmurs ABDOMEN: Nontender LOWER EXTREMITIES: Some edema but the legs are smaller than admission. MTDD
--- NOTE | 2020-11-12 13:56 | PN ---
DATE OF SERVICE: 11/07/2020 SUBJECTIVE: The patient is alert, responsive and was examined in the sitting position. She was not dyspneic or cyanotic. Appetite today is poor and did eat just a little bit of her noon meal. She told me that she talked to her brother, Jovan yesterday. NECK: No masses and no bruit LUNGS: Diminished breath sounds in both sides. Maybe some fine rales at the base mostly on the left. HEART: Audible and regular with good tones. Somewhat distant ABDOMEN: Nontender LOWER EXTREMITIES: No tenderness in the calf muscles and some minimal edema remaining. CMP today normal sodium and chlorides although the chlorides is slightly below 94.9. Potassium 3.86. CO2 39.2, Iron gap remained normal. BUN 30.3, creatinine 0.87. GFR 65, Sugar slightly elevated at 120. AST slightly elevated as well as ALT 65 and 128.4 respectively. Alkaline phosphates remained normal. CK is less than 20. Troponin normal 0.018 on the . Total protein and albumin remained slightly below normal. CBC is normal except for slightly elevated RDW, slightly lower MCHC 30.0. Neutrophils 87, leukocytes 7. LUNGS: Diminished breath sounds in both sides but there is more exchange on the left compared to the right HEART: Audible and slight distant but regular. No murmurs. ABDOMEN: Nontender at sitting posture. LOWER EXTREMITIES: Some edema I do believe that the patient is back to baseline probably. We will order a CBC, CMP, ProBNP tomorrow and discuss it with Dr. Nathan the hand binder stripper who is taking care of the patient with me. I talked to Jovan Mariscal, her brother, yesterday and he asked me whether it is appropriate to begin probably Hospice and I told him over the phone that it should be. I asked if I had discussed that with the patient I told him no. The patient is a DNR but not on Hospice. SENAD
--- NOTE | 2020-11-13 12:51 | PN ---
DATE OF SERVICE: 11/08/2020 SUBJECTIVE: 70 year old female admitted to the hospital by the emergency room because of increasing hypoxemia and hypercarbia with increasing shortness of breath. The patient on admission had a pH 7.25, pCO2 80 on arterial blood gasses pO2 80, arterial blood gasses total CO2 37.6 normal 19-24. pCO2 did come down to as low as 51 on 11/06/2020. Did rise up to 74 and back down to 65 today 11/08/2020. The pH now is normal 7.49, 7.39 yesterday 11/07/2020. The patient is alert and responsive, not cyanotic on 10 liters of nasal oxygen. AST and ALT had been rising and I'm not sure of what is the reason for that. It was normal on 11/01, 11/02, 11/03, 11/04 and 11/05. It started rising on 11/06/2020. AST 80.7, ALT was still normal. Electrolytes on 11/07/2020 to 41.1 and today 11/08/2020 is AST 78.6 and ALT 160.1. Her GFR has improved and it is now 77, creatinine 0.75. Her PRO BNP however did rise again to 12,000 from 7,900 two days ago. This might have a been a function where one dose of Lasix was not given per order of the consulting physician. LUNGS: Better air exchange both right and left side with no wheezing. Breath inspiratory are coarse HEART: Audible and regular with good tones and no murmurs ABDOMEN: Non-tender LOWER EXTREMITIES: Some edema of both lower extremities. The patient was examined in the sitting posture. I talked to the consulting test center manager and I told him that maybe the patient is back to baseline where she was and probably possibly discharge and he did agree with me. I asked him to please see her tomorrow and let me know about the his opinion on discharging this patient. This patient is receiving Rocephin because of Escherichia coli. The urinalysis was repeated catheterized still grow Escherichia e-coli. E-coli is ESBL negative and sensitive to Ceftriaxone. This patient is already receiving Ceftriaxone. A repeat urinalysis catheterized showed essentially the same results except for the absence of the RBC. The patient is about the due to the finished with the antibiotics by tomorrow. Electrolyte showed slightly lower chlorides and that would probably be improved by the additional KCL. The patient's condition had been stabilized and she needs to take a deep breath from time to time to blow out the carbon dioxide. Her air exchange has improved since the beginning of this hospitalization and the wheezing has resolved and did not return. SENAD
--- NOTE | 2020-11-13 14:21 | PN ---
DATE OF SERVICE: 11/09/2020 SUBJECTIVE: 70 year old female who had been hospitalized because of increasing shortness of breath. The patient claims today that she still doesn't feel good but her general appearance is much better. She is using 10 liters of nasal oxygen. No chest pain. VITAL SIGNS: Temperature 97, blood pressure 93/57, pulse 72, respiratory rate 20, oxygen saturation 96% and 97% respectively at 10 liters per minute. She is alert, oriented and not cyanotic. HEAD: Unremarkable FACE: Symmetrical and equal with no cyanosis NECK: No masses and no bruit HEART: audible and regular somewhat slightly distant but no murmurs LUNGS:Breath sounds are heard in both sides with diminished breath sounds but air exchange is better than when she was in the assisted. No wheezing. ABDOMEN: Non-tender LOWER EXTREMITIES: Some edema The patient was examined in the sitting position. ABG done today pH 7.58, oxygen saturation 96.5, base excess 28.7, marked normal is 3, pCO2 54 lower than admission of 80. pO2 73, bicarbonate 50.6, total CO2 52.3, oxyhemoglobin 93. CBC mild leukocidin normal except for slightly above normal hct, MCHC and RDW. Leukocytes are still low at 8.8 but better than 5.9. Chemistry today Potassium 2.65 and 2.61 yesterday. She was 20meq of KCL twice a day since yesterday. Chloride 85 and 87 yesterday. Carbon dioxide 48.1 upper normal 30, BUN 26.8, creatinine 0.60, EGFR 99, blood sugar 120 more or less the same reading since admission. Total protein still slightly below normal and serum albumin is borderline normal. The patient is given KCL intravenously as well as oral and also an IV of normal saline. Repeat CBC and CMP plus Pro BNP tomorrow. I do think that the patient had been back to baseline and maybe better when she was discharged from [facility] the last admission she had before this. I did tell the patient that she might go back to the assisted tomorrow. DONNA
--- NOTE | 2020-12-21 15:00 | DS ---
DATE OF SERVICE: 11/10/20 BRIEF HISTORY OF PRESENT ILLNESS/HOSPITAL COURSE: 70-year-old single , a resident of [facility] was seen at [facility] because of increasing shortness of breath. This patient is noted to have chronic obstructive lung disease, had smoked cigarettes until 4 or 5 years ago according to her brother. This patient had been receiving nasal oxygen between 8 to 10L/min at time of discharge from [place], [place]. The patient had a chest x-ray in the emergency room, 11/01/20 showing interstitial pulmonary edema. The CT of the chest without contrast done 11/02/20 on the day of admission showed interstitial pulmonary edema vs atypical infection or inflammation, moderate emphysema, right lung nodule 0.5 cm, followup CT in 12 months. Cardiomegaly and splenomegaly. CBC showed renal leukocytosis 10,250, normal hemoglobin, slightly elevated hematocrit, MCV 100 high, MCH normal 29.6, RDW 17. Repeat CBC showed improvement with normalization of the leukocyte count. The hematocrit has decreased towards normal, on admission 47.6 and did rise back to 48.8 at discharge. The patient did have hypokalemia and was treated with potassium replacement, oral plus intravenous. Serum potassium level at discharge on 11/10/20 was 3.05. GFR estimated remained within normal and was 78 at the time of discharge but was as high as 99. The patient was initially getting 70% of oxygen saturation, fractional inspired oxygen and this was reduced to 50 and again managed by the respiratory therapist. The arterial blood gases had improved, base excess is higher 24.5. 02 saturation 95, pH 7.54, pc02 55, p02 66.0, HC03 47, total c02 48.7, oxy hemoglobin 92.2, normal 95 to 100%. Chest x-ray was repeated on 11/06/20 revealed cardiomegaly, bilateral interstitial prominence likely interstitial edema. Lateral atelectasis and/or pneumonia. Urinalysis was abnormal showing E. coli, ESBL negative and was treated with Ceftriaxone 1 gm intravenously daily. The patient was seen by a transition nurse, Dr. Nathan and managed the case with me. The patient had gradually improved and on 11/09/20 breath sounds are heard on both sides diminished but better air exchange. I usually do not hear any breath sounds before admission. No wheezing. She had inspiratory and expiratory wheeze on admission. Heart is audible and regular. An echocardiogram showed normal mitral, tricuspid and aortic valves. Enlarged right ventricle, paradoxical septal wall motion, normal pericardium, normal left ventricular size, ejection fraction calculated 49%. The patient did receive Solu-Cortef 125 mg intravenously q.8hr. Combivent was discontinued as well as Lisinopril and IV Lasix, Duoneb q.6hr. The patient continued to improve with the above regimen and the intravenous steroids were discontinued, replaced with Prednisone 20 mg twice a day and was reduced to 20 daily at time of discharge. A decreasing dose of the Prednisone was also initated with a continued low dose Prednisone for the rest of her life unless there are some changes. The patient on the day of discharge 11/10/2020 was advised that she would be discharged. She appeared well, better than admission, alert, oriented and in a sitting posture. Lungs were audible breath sounds and better air exchange and no wheezing. Heart is audible and regular with good tones. Abdomen no remarkable tenderness, edema on both lower extremities. I had talked to the patient's POA who is her brother, Davey. He had asked me about hospice and I did tell him that I did think it may be an action to be entertained in her care. Vital signs on discharge at 2 p.m. 11/10/2020 temperature 96.6, blood pressure 133/84, pulse 78, respiratory rate 18, oxygen saturation 95 with 10L of oxygen. She did weigh earlier at 218 lbs and 11.2 ozs. FINAL DIAGNOSES: 1. CHRONIC RESPIRATORY FAILURE WITH ACUTE EXACERBATION, IMPROVED. 2. CONGESTIVE HEART FAILURE, IMPROVED PROBABLY COMBINED PRESERVED AND SLIGHTLY REDUCED EJECTION FRACTION. 3. CHRONIC OBSTRUCTIVE LUNG DISEASE, SEVERE. 4. PULMONARY HYPERTENSION. 5. CHRONIC TOBACCO USE AND ABUSE, STOPPED 5 YEARS AGO. 6. OBESITY. 7. CHRONIC ANXIETY. PROGNOSIS: Poor. TIME SPENT: GREATER THAN 30 MINUTES MTDD
--- NOTE | 2020-12-27 14:41 | PN ---
DATE OF SERVICE: 11/10/20 SUBJECTIVE: The patient today is alert and oriented and answers questions and follows verbal commands. She is not dyspneic and not cyanotic with 10 liters of nasal oxygen. Chemistry is normal sodium and slightly lower chlorides and potassium 3.05 and chlorides 89.9, better than 85.0 yesterday. FACE: Symmetrical and equal with no cyanosis LUNGS: breath sounds are heard in both sides. Diminished but with some air exchange that is heard. Previously no air exchange can be heard before. HEART: Normal sinus rhythm LOWER EXTREMITIES: Some edema ABDOMEN: No tenderness. The patient was advised about discharged and she was will be discharged today and I told her that she appears to be better than when she was admitted here. Her breath sounds are better, appreciated. Her oxygen level also had improved. The patient was agreeable and she was given Prednisone 20mg daily and the rest of the previous medications are essentially the same. She had completed the Ceftriaxone intravenously while she was in the hospital. She denied any urinary symptoms such as burning or frequency. Condition is back to baseline or better. PROGNOSIS: Still the same VITALS: Temperature 96.6, blood pressure 133/84, pulse 78, respiratory rate 18 and oxygen saturation 95% at 10 liters of oxygen. The saturation before that at 10:00 in the morning was 99 and also at 2:00 was repeated was98% and she weight 218 pounds and 11[address] [facility]
== END 2020-11-10 17:20 | DRG 314 ==
LOC: ED 17:20 → MEDSURG A 11-02 01:54
PROVIDERS: ADMIT General Practice; ATTEND General Practice